=== PATIENT | female | born 1970 ===

== ENCOUNTER → 2020-06-13 14:54 | Outpatient (BNVA) | payer MEDICAID, SELFPAY | PROVIDERS: PCP Internal Medicine; Referring Provider Internal Medicine; Visit Provider Obstetrics & Gynecology | DX: D25.9 Leiomyoma of uterus, unspecified (principal); R10.2 Pelvic and perineal pain; R31.29 Other microscopic hematuria | CPT/HCPCS: 99212 ==

== ENCOUNTER 2020-08-13 12:06 | Outpatient (REF) | payer MEDICAID, SELFPAY ==
--- NOTE | 2020-08-13 | MM_ITS ---
EXAMINATION: MM SCREENING DIGITAL BREAST TOMOSYNTHESIS, BILATERAL CLINICAL INFORMATION: Screening. Asymptomatic. Family history breast cancer, mother and aunt. The lifetime risk of breast cancer based on the Tyrer-Cuzick Model is 19%. COMPARISON: Mammography: 12/30/2017, 12/18/2016, 11/08/2015 TECHNIQUE: Digital breast tomosynthesis is performed in both the craniocaudal and mediolateral oblique views along with computer-aided detection (CAD). Synthesized 2D images are generated from the tomosynthesis. FINDINGS: The breasts are heterogeneously dense, which may obscure small masses (ACR BI-RADS breast composition Category c). There are no significant masses, abnormal calcifications, or other abnormalities. There is biopsy clip marker again seen right breast 12:00 position. There is no developing density. The axilla and skin contours are unremarkable. MM/MM tomosynthesis screening BI IMPRESSION: No mammographic evidence of malignancy. ASSESSMENT: BI-RADS 1: Negative RECOMMENDATION: Routine annual mammography screening. This patient's information was entered into a reminder system with a target due date for their next mammogram.
== END 2020-08-13 12:07 | disposition home or self-care (01) ==
LOC: HO.MAMMO 12:06
PROVIDERS: PCP Internal Medicine; Visit Provider Internal Medicine
DX: Z12.31 Encounter for screening mammogram for malignant neoplasm of breast (principal)
CPT/HCPCS: 77063; 77067

== ENCOUNTER → 2020-08-22 11:16 | Outpatient (BNVA) | payer MEDICAID, SELFPAY | PROVIDERS: PCP Internal Medicine; Visit Provider Physician Assistant | DX: Z13.89 Encounter for screening for other disorder (principal) ==

== ENCOUNTER 2021-04-24 07:59 | Outpatient (REF) | payer MEDICAID, SELFPAY ==
--- NOTE | 2021-04-24 08:19 | EMG_ITS ---
This is a 51-year-old woman with a history of bilateral lower extremity intermittent numbness and tingling, right worse than left for a few months. She is not diabetic and is on no medications. PHYSICAL EXAMINATION: On examination, she is alert and oriented with normal intellectual functions. Cranial nerves II through XII are normal. Muscle tone and strength are normal in all 4 extremities. Deep tendon reflexes symmetrical, 2+, plantar response are flexor. IMPRESSION: Rule out peripheral neuropathy. Nerve conduction EMG study: Normal electrodiagnostic study of both lower extremities with no evidence of nerve entrapment or generalized peripheral neuropathy. Normal EMG of the right L4-S1 innervated muscles. MD POOJA Caballero/RAFAEL / [id number]
== END 2021-04-24 08:00 | disposition home or self-care (01) ==
LOC: HO.NEURO 07:59
PROVIDERS: PCP Internal Medicine; Visit Provider Internal Medicine
DX: R20.2 Paresthesia of skin (principal)
CPT/HCPCS: 95885; 95913

== ENCOUNTER 2021-05-15 11:16 | Outpatient (REF) | payer MEDICAID, SELFPAY ==
--- NOTE | ~2021-05-15 | US_ITS ---
EXAMINATION: US PELVIS CLINICAL INFORMATION: Excessive and frequent menstruation COMPARISON: Previous pelvic ultrasound April 2020 TECHNIQUE: Ultrasound of the pelvis is performed using both transabdominal and transvaginal transducers along with Doppler. Transvaginal imaging is performed due to inadequate visualization transabdominally. FINDINGS: Exam is significantly limited. The uterus is retroverted and retroflexed and measures 11.6 x 4.6 x 6.2 cm in dimension. The endometrium is not visualized. The previously identified anterior fundal uterine fibroid is not seen. There are nabothian cysts in the cervix. The ovaries are not seen. There is no fluid in the pelvis. US/US pelvic and transvaginal IMPRESSION: Nondiagnostic exam.
== END 2021-05-15 11:17 | disposition home or self-care (01) ==
LOC: HO.US 11:16
PROVIDERS: PCP Internal Medicine; Visit Provider Student in an Organized Health Care Education/Training Program
DX: N92.0 Excessive and frequent menstruation with regular cycle (principal)
CPT/HCPCS: 76830; 76856

== ENCOUNTER 2022-05-19 12:19 | Outpatient (REF) | payer MEDICAID, SELFPAY ==
--- NOTE | ~2022-05-19 | MM_ITS ---
EXAMINATION: MM SCREENING DIGITAL BREAST TOMOSYNTHESIS, BILATERAL CLINICAL INFORMATION: Screening. Asymptomatic. The lifetime risk of breast cancer based on the Tyrer-Cuzick Model is 12%. COMPARISON: Mammography: 08/13/2020, 12/30/2017, 12/18/2016 TECHNIQUE: Digital breast tomosynthesis is performed in both the craniocaudal and mediolateral oblique views along with computer-aided detection (CAD). Synthesized 2D images are generated from the tomosynthesis. FINDINGS: There are scattered areas of fibroglandular density (ACR BI-RADS breast composition Category b). There are no significant masses, abnormal calcifications, or other abnormalities. No developing density or architectural abnormality. Biopsy clip marker again noted 12:00 right breast. The axilla are unremarkable. No significant changes. MM/MM tomosynthesis screening BI IMPRESSION: No mammographic evidence of malignancy. ASSESSMENT: BI-RADS 1: Negative RECOMMENDATION: Routine annual mammography screening. This patient's information was entered into a reminder system with a target due date for their next mammogram.
== END 2022-05-19 12:20 | disposition home or self-care (01) ==
LOC: HO.MAMMO 12:19
PROVIDERS: PCP Internal Medicine; Visit Provider Advanced Practice Midwife
DX: Z12.31 Encounter for screening mammogram for malignant neoplasm of breast (principal)
CPT/HCPCS: 77063; 77067

== ENCOUNTER 2023-03-03 10:22 | Outpatient (REF) | payer MEDICAID, SELFPAY ==
[2023-03-03 15:42] LABS: TSH reflex Free T4 33.71 uIU/mL (0.32-4.0)
[2023-03-03 16:28] LABS: Free T4 (Free Thyroxine) 0.89 ng/dL (0.71-1.85)
== END 2023-03-03 10:23 | disposition home or self-care (01) ==
LOC: HO.CHCLDS 10:22
PROVIDERS: Visit Provider Registered Nurse
DX: E03.9 Hypothyroidism, unspecified (principal)
CPT/HCPCS: 36415; 84439; 84443

== ENCOUNTER 2023-05-22 10:20 | Outpatient (AMB) | payer MEDICAID, SELFPAY ==
--- NOTE | 2023-05-22 10:29 | HO.SPINEOV ---
Intake Intake Visit Reasons: radiculopathy Intake Note: Ms. Galindo Durham is here today c/o low back pain. MRI done @ [facility]/brought disc. 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 She is a 53-year-old female presents to the office today for evaluation of chronic low back pain that she has had since 1988. It is diffuse in her low back and is aggravated with standing. It is been coming and going for many years but seeming to get more consistent now. She has a slight amount of pain that occasionally radiates into her hamstring but primarily this is a back pain situation. She tried physical therapy. She tried Aleve, heating pads etc. with no relief. She has tried cortisone injections at [facility] in [place]. Not much success with those. She has an MRI showing some disc degeneration at L5-S1. PMH: She is prediabetic, history of GERD, osteoarthritis of the knees, hypothyroidism, high cholesterol, saphenous vein radiofrequency ablation, tubal ligation, vitamin-D deficiency, obesity, gastric banding, dysmenorrhea, TMJ Social hx: She does not smoke Medications: Ativan, atorvastatin, diclofenac, Breo, duloxetine, famotidine, levothyroxine, Singulair, MiraLax, Myrbetriq, pantoprazole, vitamin D3 Allergies: See the [facility] list for her allergies Physical exam: Morbidly obese, she has a left knee brace, no acute distress, gait, motor examination are normal Imaging review: Lumbar MRI done at [facility] in February 2023 shows some very mild disc degeneration at L5-S1 otherwise spine mostly looks normal Impression: 53-year-old female presents with chronic low back pain for 30 years, who has some very mild disc degeneration but nothing that I can explain the degree of symptoms that she is having. We reviewed her MRI together. Certainly does not raise to the level of needing surgery. I am not sure exactly where the pain is coming from. It could be a muscular source. I told her she should follow-up with her pain management team to consider further nonsurgical options. Thank you for allowing us to care for your patient. The total time spent with this visit with this patient was 45 minutes reviewing history, physical exam, lumbar imaging review, and implementation of treatment plan or further diagnostic testing Souleymane Hoskins MD,PhD [facility] Coding Level of Care Code New Pt Level 4 (30153) Diagnoses Back pain M54.9
== END 2023-05-22 11:08 | disposition home or self-care (01) ==
PROVIDERS: PCP Internal Medicine; Referring Provider Internal Medicine; Visit Provider Physician Assistant
DX: M54.9 Dorsalgia, unspecified (principal)
CPT/HCPCS: 99204

== ENCOUNTER → 2023-05-22 10:20 | Outpatient (BNVA) | payer MEDICAID, SELFPAY | PROVIDERS: PCP Internal Medicine; Visit Provider Physician Assistant | DX: M54.9 Dorsalgia, unspecified (principal) | CPT/HCPCS: 99212 ==

== ENCOUNTER 2023-05-26 10:47 | Outpatient (REF) | payer MEDICAID, SELFPAY ==
--- NOTE | ~2023-05-26 | MM_ITS ---
EXAMINATION: MM SCREENING DIGITAL BREAST TOMOSYNTHESIS, BILATERAL CLINICAL INFORMATION: Screening. Asymptomatic. COMPARISON: Mammography: This study is compared with prior exams dating back to 2016. TECHNIQUE: Digital breast tomosynthesis is performed in both the craniocaudal and mediolateral oblique views along with computer-aided detection (CAD). Synthesized 2D images are generated from the tomosynthesis. FINDINGS: The breasts are heterogeneously dense, which may obscure small masses (ACR BI-RADS breast composition Category c). There are no significant masses, abnormal calcifications, or other abnormalities. There is a tissue marker present in the right breast from prior benign percutaneous biopsy. MM/MM tomosynthesis screening BI IMPRESSION: No mammographic evidence of malignancy. ASSESSMENT: BI-RADS BI-RADS 2 - Benign Findings RECOMMENDATION: Routine annual mammography screening. 1 year F/U This examination should not preclude the clinical evaluation of a suspicious palpable abnormality. This patient's information was entered into a reminder system with a target due date for their next mammogram.
== END 2023-05-26 10:48 | disposition home or self-care (01) ==
LOC: HO.MAMMO 10:47
PROVIDERS: PCP Internal Medicine; Visit Provider Internal Medicine
DX: Z12.31 Encounter for screening mammogram for malignant neoplasm of breast (principal)
CPT/HCPCS: 77063; 77067

== ENCOUNTER → 2023-05-26 11:00 | Outpatient (BNV) | payer MEDICAID, SELFPAY | PROVIDERS: PCP Internal Medicine; Visit Provider Radiology Diagnostic Radiology | DX: Z12.31 Encounter for screening mammogram for malignant neoplasm of breast (principal) | CPT/HCPCS: 77063; 77067 ==

== ENCOUNTER 2024-02-05 09:22 | Outpatient (REF) | payer MEDICAID, SELFPAY ==
[2024-02-05 14:56] LABS: Anion Gap 14 (12-20); Blood Urea Nitrogen 10 mg/dL (9-16); Calcium 9.9 mg/dL (8.4-10.2); Carbon Dioxide 25 mmol/L (22-29); Chloride 106 mmol/L (96-108); Cholesterol 233 mg/dL (<200); Estimated Glomerular Filt Rate > 60; Glucose Random 94 mg/dL (60-115); HDL Cholesterol 45 mg/dL (>40); LDL Cholesterol Calculated 166 mg/dL (<100); Potassium 3.8 mmol/L (3.3-5.1); Sodium 141 mmol/L (135-145); Triglycerides 113 mg/dL (<150)
[2024-02-05 14:59] LABS: TSH reflex Free T4 0.08 uIU/mL (0.32-4.0)
[2024-02-05 15:50] LABS: Free T4 (Free Thyroxine) 1.47 ng/dL (0.71-1.85)
== END 2024-02-05 09:23 | disposition home or self-care (01) ==
LOC: HO.CHCLDS 09:22
PROVIDERS: PCP Internal Medicine; Referring Provider Internal Medicine; Visit Provider Internal Medicine
DX: E03.9 Hypothyroidism, unspecified (principal); R73.03 Prediabetes
CPT/HCPCS: 36415; 80048; 80061; 84439; 84443

== ENCOUNTER 2024-02-25 14:46 | Outpatient (REF) | payer MEDICAID, SELFPAY ==
[2024-02-25 18:23] LABS: Folate 6.9 ng/mL (> or = 4.0); Vitamin B12 340 pg/mL (200-900)
== END 2024-02-25 14:47 | disposition home or self-care (01) ==
LOC: HO.CHCLDS 14:46
PROVIDERS: Visit Provider Internal Medicine
DX: E03.9 Hypothyroidism, unspecified (principal); R73.03 Prediabetes
CPT/HCPCS: 36415; 82607; 82746; 84443

== ENCOUNTER 2024-03-30 10:01 | Outpatient (AMB) | payer MEDICAID, SELFPAY ==
--- NOTE | 2024-03-30 10:05 | MHC.OFFVIS ---
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 Patient reports she has less strength in the right hand and has noticed a cyst on the volar aspect of her right wrist that she noticed 2 years ago. She utilizes wrist brace throughout the day for support and says this does help her a bit. She expresses her right hand is worse than her left. She is unable to do activities such as lifting, gripping, and grasping. When lifting objects with her right hand she has dropped things so she says she if she has to lift with her right hand she supports the bottom of the object with her left for assistance. Has to brush her hair with the left hand due to lack of strength in the right. She has tried Tylenol and ibuprofen and finds no relief. Her tingling and numbness are in her 3rd, 4th, and 5th digits of her B/L hands. She feels pressure and pain at the base of her B/L thumbs. She does home exercises for her hands. Hx of surgery of right wrist, she says the incision was going horizontal along her volar wrist. EMG done on 04/24/2021. Pt is pre-diabetic. 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 The patient reports that she did have surgery on her right wrist for carpal tunnel release, although she is unable to recall the exact date of this surgery. Today, the patient reports that she is experiencing bilateral hand numbness and tingling, left worse than right, with symptoms being intermittent, but daily, and worse at night. Patient reports that this numbness and tingling affects the middle, ring, and small fingers of bilateral upper extremities. Of note, the patient also reports that she is experiencing significant stiffness and decreased [employer] strength in bilateral hands, ongoing for approximately 1-2 years. The patient reports that she previously been provided bilateral wrist braces, but she wears any time she is doing any heavy lifting or strenuous activity. Patient reports all the symptoms combined to make her daily activities, such as brushing her hair or doing her makeup, very difficult. Patient also reports that she has a small cyst on the volar aspect of her right wrist, that she reports has been there for approximately 1-2 years. The patient reports that this cyst fluctuates in size, but that she does not feel she needs any intervention for this at this time. No other acute complaints or concerns at this time. HPI Comments Details: Patient is a 53-year-old female who presents for [facility] Medical History Asthma Acid reflux Odynophagia Arthritis Chronic sinusitis Asthma Migraine headache Panic attacks Anxiety Depression Surgical History History of bilateral tubal ligation H/O abdominoplasty History of knee surgery History of carpal tunnel release History of varicose vein ligation Social History (Updated 03/30/24 @ 10:19 by MARY Tomas) Household Members: Children Alcohol intake: never Patient Tobacco Use Status: Never used Tobacco Current occupational status: unemployed and disabled Sexual orientation: Straight/Heterosexual Gender identity: Female Physical Exam Vital Signs: BMI result Body Mass Index 38.6 Extrem Other: Patient is alert, oriented, and in no acute distress. Neuro: Median, ulnar, radial nerves motor and sensory intact and sensation is normal to the tips of all digits. Vascular: Cap refill brisk Pain: Patient reports no pain to palpation at this time ROM: Range of motion of bilateral hands full and intact Skin: No lacerations or abrasions. General: No ecchymosis, erythema, or evidence of infection. Negative Tinel's at bilateral wrists Psych: Appears grossly normal Affect normal Attitude cooperative Assessment & Plan Assessment & Plan (1) Stiffness of joints of both hands: Code(s): M25.641 - Stiffness of right hand, not elsewhere classified; M25.642 - Stiffness of left hand, not elsewhere classified Category: Medical (2) Numbness and tingling in both hands: Code(s): R20.0 - Anesthesia of skin; R20.2 - Paresthesia of skin Category: Medical (3) Swelling of right wrist: Code(s): M25.431 - Effusion, right wrist Category: Medical Plan 1. Numbness and tingling of bilateral hands Symptoms intermittent, but daily, worse at night Patient has no EMG or nerve conduction study of upper extremities on file EMG and nerve conduction study ordered today to assess the health of the nerves of bilateral upper extremities Patient is amenable to this plan Patient will follow-up after nerve conduction study for review and discussion of further treatment options 2. Stiffness of bilateral hands and wrists Patient is referred to occupational hand therapy for strengthening and range of motion of bilateral hands and wrists Patient is informed that she can continue to wear her wrist braces with heavy activity, but is advised that she should not wear them while at rest, with any light activity, or bed Patient is advised that, when she is out of the braces, she should be working on range of motion of her bilateral hands and wrists Patient is amenable to this plan Patient will follow-up p.r.n. with any acute concerns 3. Swelling of left wrist Ongoing for approximately 1-2 years At this time, I believe that this area of swelling may represent a ganglion cyst on the volar aspect of the right wrist Patient reports that it does fluctuate in size, but she does not find this mass bothersome whatsoever, and does not feel that it warrants any treatment Patient is advised that if this mass continues to grow, becomes red or painful, or if she has any new concerns at this, she can follow-up with us and we can discuss treatment options Patient is amenable to this plan. Orders: Orders OT Evaluation and Treatment Today M25.641 - Stiffness of right hand, not elsewhere classified, M25.642 - Stiffness of left hand, not elsewhere classified NE nerve conduction velocity Today R20.0 - Anesthesia of skin, R20.2 - Paresthesia of skin NE electromyogram (EMG) Today R20.0 - Anesthesia of skin, R20.2 - Paresthesia of skin Coding Level of Care Code New Pt Level 3 (97306) Diagnoses Stiffness of joints of both hands M25.641; M25.642 Numbness and tingling in both hands R20.0; R20.2 Swelling of right wrist M25.431
[2024-03-30 10:08] VITALS: BMI 38.6
== END 2024-03-30 10:40 | disposition home or self-care (01) ==
PROVIDERS: PCP Internal Medicine
DX: M25.641 Stiffness of right hand, not elsewhere classified (principal); M25.642 Stiffness of left hand, not elsewhere classified; R20.0 Anesthesia of skin; R20.2 Paresthesia of skin; M25.431 Effusion, right wrist
CPT/HCPCS: 99203

== ENCOUNTER → 2024-03-30 10:01 | Outpatient (BNVA) | payer MEDICAID, SELFPAY | PROVIDERS: PCP Internal Medicine | DX: M25.641 Stiffness of right hand, not elsewhere classified (principal); M25.642 Stiffness of left hand, not elsewhere classified; R20.0 Anesthesia of skin; R20.2 Paresthesia of skin; M25.431 Effusion, right wrist | CPT/HCPCS: 99212 ==

== ENCOUNTER 2024-04-11 14:59 | Outpatient (REF) | payer MEDICAID, SELFPAY ==
[2024-04-11 16:38] LABS: Erythrocyte Sedimentation Rate 28 MM/HR (0-20)
[2024-04-12 09:08] LABS: Lyme Abs Screen <0.90 index
== END 2024-04-11 15:00 | disposition home or self-care (01) ==
LOC: HO.LAB 14:59
PROVIDERS: PCP Internal Medicine; Visit Provider Psychiatry & Neurology Neurology
DX: M79.7 Fibromyalgia (principal)
CPT/HCPCS: 36415; 85652; 86617; 86618

== ENCOUNTER 2024-04-22 09:47 | Outpatient (REF) | payer MEDICAID, SELFPAY ==
--- NOTE | 2024-04-22 09:52 | EMG_ITS ---
Chief complaint: Bilateral hand numbness History of bilateral Carpal Tunnel Syndrome, right Carpal Tunnel Syndrome surgery 10 years ago. No surgeries in the left so far. Reason for referral: Evaluate for Carpal Tunnel Syndrome Referred by: Erick SIMMS Procedure done: Bilateral upper extremities NCS/EMG Precautions and/or limitations: None The limb temperature was monitored continuously and remained between 32-36 degrees C during the performance of the NCS. Nerve Conduction Studies Anti Sensory Summary Table ?Stim Site NR Onset (ms) Norm Onset (ms) Peak (ms) Norm Peak (ms) O-P Amp (?V) Norm O-P Amp Site1 Site2 Delta-0 (ms) Dist (cm) Pradeep (m/s) Norm Pradeep (m/s) Left Median Anti Sensory (2nd Digit) Wrist ? 3.4 4.3 <3.6 16.0 >10 Wrist 2nd Digit 3.4 14.0 41 Right Median Anti Sensory (2nd Digit) Wrist ? 2.8 3.4 <3.6 33.1 >10 Wrist 2nd Digit 2.8 14.0 50 Left Ulnar Anti Sensory (5th Digit) Wrist ? 2.2 3.2 <3.7 18.2 >15.0 Wrist 5th Digit 2.2 14.0 64 Right Ulnar Anti Sensory (5th Digit) Wrist ? 2.0 3.2 <3.7 93.7 >15.0 Wrist 5th Digit 2.0 14.0 70 Motor Summary Table ?Stim Site NR Onset (ms) Norm Onset (ms) O-P Amp (mV) Norm O-P Amp iAmp (mV) Amp (1st) (%) Site1 Site2 Delta-0 (ms) Dist (cm) Praedep (m/s) Norm Pradeep (m/s) Left Median Motor (Abd Poll Brev) Wrist ? 4.0 <3.9 11.8 >4.5 13.7 100.0 Elbow Wrist 4.0 20.0 50 >45 Elbow ? 8.0 10.9 12.7 92.4 Right Median Motor (Abd Poll Brev) Wrist ? 3.4 <3.9 13.7 >4.5 17.6 100.0 Elbow Wrist 3.3 20.0 61 >45 Elbow ? 6.7 12.8 16.4 93.4 Left Ulnar Motor (Abd Dig Minimi) Wrist ? 2.6 <3.0 8.5 >5 10.1 100.0 B Elbow Wrist 3.2 18.0 56 >45 B Elbow ? 5.8 8.1 9.7 95.3 A Elbow B Elbow 1.3 10.0 77 >45 A Elbow ? 7.1 8.5 10.2 100.0 Right Ulnar Motor (Abd Dig Minimi) Wrist ? 2.6 <3.0 11.1 >5 13.7 100.0 B Elbow Wrist 3.3 19.5 59 >45 B Elbow ? 5.9 11.2 14.3 100.9 A Elbow B Elbow 1.7 10.0 59 >45 A Elbow ? 7.6 10.2 13.0 91.9 Comparison Summary Table ?Stim Site NR Peak (ms) Norm Peak (ms) P-T Amp (?V) Site1 Site2 Delta-P (ms) Norm Delta (ms) Right Median/Radial Dig I Comparison (Digit 1 - 10cm) Median ? 2.8 <2.9 41.9 Median Radial 0.3 Radial ? 2.5 <2.8 10.6 EMG ?Side Muscle Nerve Root Ins Act Fibs Psw Amp Dur Poly Recrt Int Pat Comment Right 1stDorInt Ulnar C8-T1 Nml Nml Nml Nml Nml 0 Nml Complete Right FlexCarRad Median C6-7 Nml Nml Nml Nml Nml 0 Nml Complete Right Biceps Musculocut C5-6 Nml Nml Nml Nml Nml 0 Nml Complete Right Triceps Radial C6-7-8 Nml Nml Nml Nml Nml 0 Nml Complete Right Deltoid Axillary C5-6 Nml Nml Nml Nml Nml 0 Nml Complete Left 1stDorInt Ulnar C8-T1 Nml Nml Nml Nml Nml 0 Nml Complete Left FlexCarRad Median C6-7 Nml Nml Nml Nml Nml 0 Nml Complete Left Biceps Musculocut C5-6 Nml Nml Nml Nml Nml 0 Nml Complete Left Triceps Radial C6-7-8 Nml Nml Nml Nml Nml 0 Nml Complete Left Deltoid Axillary C5-6 Nml Nml Nml Nml Nml 0 Nml Complete FINDINGS: Left median motor nerve showed prolonged distal latency, normal amplitude and normal conduction velocity. Left median sensory nerve showed prolonged peak latency. All other nerves tested were within normal. Concentric needle EMG was performed in selected muscles of the bilateral upper extremities. Study did not reveal signs of electric abnormalities as shown in the table above. IMPRESSION: 1. This is an abnormal study. 2. There is electrodiagnostic evidence for left moderate-severe median neuropathy at the wrist, consistent with carpal tunnel syndrome. 3. There is no electrodiagnostic evidence for ulnar neuropathy, brachial plexopathy, or cervical radiculopathy. 4. There is no electrodiagnostic evidence for median neuropathy on the right. Thank you for your kind referral. Ada Butcher MD, [facility] Board Certified, [place] [employer] and [employer] (ABPMR) Board Certified, [place] Board of Electrodiagnostic Medicine (ABEM) CODIN [id number] x 2 MTDD
== END 2024-04-22 09:48 | disposition home or self-care (01) ==
LOC: HO.NEURO 09:47
PROVIDERS: PCP Internal Medicine
DX: R20.0 Anesthesia of skin (principal); R20.2 Paresthesia of skin
CPT/HCPCS: 95886; 95911

== ENCOUNTER → 2024-04-22 09:52 | Outpatient (BNV) | payer MEDICAID, SELFPAY | PROVIDERS: PCP Internal Medicine; Visit Provider Physical Medicine & Rehabilitation | DX: G56.02 Carpal tunnel syndrome, left upper limb (principal) | CPT/HCPCS: 95886; 95911 ==

== ENCOUNTER 2024-05-13 10:04 | Outpatient (AMB) | payer MEDICAID, SELFPAY ==
--- NOTE | 2024-05-13 10:05 | MHC.OFFVIS ---
Vital Signs 05/13/24 10:09 Height 5 ft 4 in Weight 253 lb BMI 43.4 Handedness Left Intake Visit Reasons: OV- B/L hands EMG review Intake Note: Haley is a 54 year old left hand dominant female who presents today for an EMG review of her bilateral hands. EMG was done on 04/22/2024. Patient is willing to discuss surgical treatment. Allergies ciprofloxacin [From Cipro] Allergy (Mild, Unverified 05/13/24 10:10) RASH peanut [PEANUT] Allergy (Unknown, Unverified 05/13/24 10:10) ANAPHYLAXIS pollen Allergy (Unknown, Uncoded 05/13/24 10:10) unknown reaction from unknown medicati Allergy (Unknown, Uncoded 05/13/24 10:10) unknown unknown antibiotic Allergy (Unknown, Uncoded 05/13/24 10:10) itching, rash HPI HPI OV- B/L hands EMG review: Details: Patient is a 54-year-old female who presents for EMG review of bilateral hands. Patient reports that her numbness in bilateral hands is now constant, daily, and worse at night. The patient reports that she did experience 1 acute event, where she was driving in experienced a significant pain in her left hand, causing her to release from the steering wheel. 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 No other acute complaints or concerns at this time. [facility] Medical History Asthma Acid reflux Odynophagia Arthritis Chronic sinusitis Asthma Migraine headache Panic attacks Anxiety Depression Surgical History History of bilateral tubal ligation H/O abdominoplasty History of knee surgery History of carpal tunnel release History of varicose vein ligation Social History Household Members: Children Alcohol intake: never Patient Tobacco Use Status: Never used Tobacco Current occupational status: unemployed and disabled Sexual orientation: Straight/Heterosexual Gender identity: Female Review of Systems Const All systems reviewed & are unremarkable except as noted in HPI and below Physical Exam Vital Signs: BMI result Body Mass Index 43.4 Extrem Other: Patient is alert, oriented, and in no acute distress. Neuro: Patient reports diminished sensation to the tips of the median nerve distribution of the left hand Vascular: Cap refill brisk Pain: Patient reports no pain to palpation at this time ROM: Range of motion of bilateral hands full and intact Skin: No lacerations or abrasions. General: No ecchymosis, erythema, or evidence of infection. Negative Tinel's at bilateral wrists Psych: Appears grossly normal Affect normal Attitude cooperative Results Reviewed Results Reviewed: Nerve conduction study performed on 04/22/2024 IMPRESSION: 1. This is an abnormal study. 2. There is electrodiagnostic evidence for left moderate-severe median neuropathy at the wrist, consistent with carpal tunnel syndrome. 3. There is no electrodiagnostic evidence for ulnar neuropathy, brachial plexopathy, or cervical radiculopathy. 4. There is no electrodiagnostic evidence for median neuropathy on the right. Thank you for your kind referral. Ada Butcher MD, [facility] Assessment & Plan Assessment & Plan (1) Numbness and tingling of right hand: Code(s): R20.0 - Anesthesia of skin; R20.2 - Paresthesia of skin Category: Medical (2) Carpal tunnel syndrome, left: Code(s): G56.02 - Carpal tunnel syndrome, left upper limb Category: Medical Plan 1. Carpal tunnel syndrome, left, moderate to severe Symptoms constant, daily, worse at night I educated the patient about the condition. I discussed both operative and nonoperative treatment options. The patient would like to proceed with surgery. The risks and benefits of operative treatment were discussed with the patient and the patient wishes to proceed with surgery. These risks include, but are not limited to, risk of damage to blood vessels, nerves, tendons, infection, recurrence, incomplete relief of preoperative symptoms, persistent pain, possible need for further surgery, and the risks associated with regional blocks and/or anesthesia. Plan is to take the patient to the operating room at some point in the next few weeks for the following procedures: 1. Left carpal tunnel release under local anesthesia All of the preoperative paperwork including the consent was discussed today. All of the patient's questions were answered in the clinic today. The patient understands that they will be in contact with our neurosurgical physician assistant to discuss scheduling their procedure. Patient denies diabetes, blood thinners, asthma, heart issues, lung issues, kidney issues, or current smoking. 1. Numbness and tingling of right hand EMG negative Patient is informed that if she continues to experience numbness and tingling symptoms in her right hand, we can repeat the EMG in approximately 6 months Patient is amenable to this plan In the meantime, patient is educated that she should continue with conservative symptom management measures previously discussed. Patient will follow-up as needed with any acute concerns Coding Level of Care Code Est Pt Level 4 (28773) Diagnoses Numbness and tingling of right hand R20.0; R20.2 Carpal tunnel syndrome, left G56.02
[2024-05-13 10:09] VITALS: BMI 43.4
== END 2024-05-13 10:48 | disposition home or self-care (01) ==
PROVIDERS: PCP Internal Medicine
DX: R20.0 Anesthesia of skin (principal); R20.2 Paresthesia of skin; G56.02 Carpal tunnel syndrome, left upper limb
CPT/HCPCS: 99214

== ENCOUNTER → 2024-05-13 10:04 | Outpatient (BNVA) | payer MEDICAID, SELFPAY | PROVIDERS: PCP Internal Medicine | DX: G56.02 Carpal tunnel syndrome, left upper limb (principal); R20.0 Anesthesia of skin; M79.642 Pain in left hand; R20.2 Paresthesia of skin | CPT/HCPCS: 99212 ==

== ENCOUNTER 2024-05-31 10:52 | Outpatient (REF) | payer MEDICAID, SELFPAY ==
--- NOTE | ~2024-05-31 | MM_ITS ---
EXAMINATION: MM SCREENING DIGITAL BREAST TOMOSYNTHESIS, BILATERAL CLINICAL INFORMATION: Screening. Asymptomatic. COMPARISON: Mammography: Comparison is made with available priors TECHNIQUE: Digital breast mammography with tomosynthesis is performed in both the craniocaudal and mediolateral oblique views along with computer-aided detection (CAD). FINDINGS: The breasts are heterogeneously dense, which may obscure small masses (ACR BI-RADS breast composition Category c). Left: Focal asymmetry upper outer breast middle depth. No suspicious calcifications or other abnormal findings. Right: Marker clip in the upper central breast posterior depth. There are no significant masses, abnormal calcifications, or other abnormalities. MM/MM tomosynthesis screening BI IMPRESSION: Additional imaging is recommended ASSESSMENT: BI-RADS BI-RADS 0 - Incomplete: Needs additional Imaging. RECOMMENDATION: 1. Additional views of the left breast 2. Targeted ultrasound if warranted after review of the additional views. 3. Radiology department staff will contact the patient for additional imaging. Additional Imaging required This examination should not preclude the clinical evaluation of a suspicious palpable abnormality. This patient's information was entered into a reminder system with a target due date for their next mammogram. Electronically signed by: Lara Dennis DO 06/13/2024 05:22 PM EDT
== END 2024-05-31 10:53 | disposition home or self-care (01) ==
LOC: HO.MAMMO 10:52
PROVIDERS: PCP Internal Medicine; Visit Provider Internal Medicine
DX: Z12.31 Encounter for screening mammogram for malignant neoplasm of breast (principal)
CPT/HCPCS: 77063; 77067

== ENCOUNTER → 2024-05-31 11:00 | Outpatient (BNV) | payer MEDICAID, SELFPAY | PROVIDERS: PCP Internal Medicine; Visit Provider Internal Medicine | DX: Z12.31 Encounter for screening mammogram for malignant neoplasm of breast (principal) | CPT/HCPCS: 77063; 77067 ==

== ENCOUNTER 2024-06-22 08:24 | Outpatient (REF) | payer MEDICAID, SELFPAY ==
--- NOTE | ~2024-06-22 | MM_ITS ---
EXAMINATION: MM DIAGNOSTIC DIGITAL BREAST TOMOSYNTHESIS, LEFT CLINICAL INFORMATION: Evaluate focal asymmetry upper outer breast, mid depth, seen on screening exam. 54-year-old female. COMPARISON: Mammography: 05/31/2024, 05/26/2023, 05/19/2022, 08/13/2020, and exams dating back to 2018. TECHNIQUE: Digital breast tomosynthesis is performed in the following views: 3-D spot compression left CC and MLO views. Computer-aided diagnosis was used for this study. FINDINGS: There are scattered areas of fibroglandular density (ACR BI-RADS breast composition Category b). The focal asymmetry in the central, mid, slightly lateral left breast effaces completely on spot compression views, consistent with superimposition artifact of normal overlapping tissues. There is no persistent mass, suspicious asymmetric density or architectural distortion, or other abnormality. No suspicious findings left breast. MM/MM tomosynthesis added views L IMPRESSION: -There is no evidence of malignancy in the left breast. -There are no persistent suspicious findings as discussed above. -Recommend the patient resume routine annual screening mammography in one year. ASSESSMENT: BI-RADS BI-RADS 1 - Negative RECOMMENDATION: 1 year F/U Results were provided to the patient at time of visit by the technologist. This patient's information was entered into a reminder system with a target due date for their next mammogram. Electronically signed by: Micheal Keating MD 06/22/2024 09:28 AM [facility]
== END 2024-06-22 08:25 | disposition home or self-care (01) ==
LOC: HO.MAMMO 08:24
PROVIDERS: PCP Internal Medicine; Visit Provider Internal Medicine
DX: N64.89 Other specified disorders of breast (principal)
CPT/HCPCS: 77061; 77065

== ENCOUNTER → 2024-06-22 09:00 | Outpatient (BNV) | payer MEDICAID, SELFPAY | PROVIDERS: PCP Internal Medicine; Visit Provider Radiology Diagnostic Radiology | DX: R92.8 Other abnormal and inconclusive findings on diagnostic imaging of breast (principal) | CPT/HCPCS: 77061; 77065 ==

== ENCOUNTER → 2024-07-07 11:56 | Day surgery (SDC) | payer MEDICAID, SELFPAY | LOC: HO.SSS 11:57 | PROVIDERS: PCP Internal Medicine; Visit Provider Orthopaedic Surgery | DX: G56.02 Carpal tunnel syndrome, left upper limb (principal); Z53.20 Procedure and treatment not carried out because of patient's decision for unspecified reasons | CPT/HCPCS: J0171; J2003 ==

== ENCOUNTER 2024-07-18 08:53 | Day surgery (SDC) | payer MEDICAID, SELFPAY ==
[2024-07-17 16:36] VITALS: BMI 43.9
[2024-07-18 10:04] VITALS: BP 132/84; PULSE 78; RESP 19; TEMP 36.4; O2SAT 97
--- NOTE | 2024-07-18 10:53 | MHC.SHP ---
Pre-Procedural Eval Section A - 24 Hr Update-Section A only Date of Service: 07/18/24 The patient is an INPATIENT: No Changes since office visit: No Cold of Flu in the past 2 weeks, No New Medical Problems, No Changes in Medication and No Patient answered all questions The patient has been examined within 24 hours of the surgical procedure. The History & Physical has been completed within 30 days and I have reviewed it.: Yes Section B - Complete if H&P > 30 days Chief Complaint: Carpal tunnel syndrome, left upper limb Allergies: Allergies Allergy/AdvReac Type Severity Reaction Status Date / Time ciprofloxacin [From Cipro] Allergy Mild RASH Unverified 05/13/24 10:10 peanut [PEANUT] Allergy Unknown ANAPHYLAXIS Unverified 05/13/24 10:10 pollen Allergy Unknown unknown Uncoded 05/13/24 10:10 reaction from unknown Allergy Unknown unknown Uncoded 05/13/24 10:10 medicati unknown antibiotic Allergy Unknown itching, Uncoded 05/13/24 10:10 rash Plan Diagnosis/Plan: Unchanged I have reviewed the history and physical and performed a pertinent physical examination on my patient. No changes have occurred unless specified. Time Spent With Patient Time: Total time managing care of this patient today ____ minutes.
--- NOTE | 2024-07-18 10:54 | W.PM.OPN ---
Operative Note Operative Note Date of Service: 07/18/24 Narrative: Preop diagnosis: 1. Left Carpal tunnel syndrome Postop diagnosis: same Procedure: 1. Left Carpal tunnel release Surgeon: Carissa Dale MD Livestock Agent: None Anesthesia: local block using 1% lidocaine with epinephrine Findings: Thickened transverse carpal ligament. EBL: Less than 5 mL Specimens: None Complications: None Disposition: Brought to recovery room in stable condition Plan: Follow-up for 10-14 days for wound check and suture removal Indications: The patient is 54 years old, with left carpal tunnel syndrome that has been unresponsive to nonoperative management. The risks and benefits of operative treatment including but not limited to risk of damage to blood vessels, nerves, tendons, infection, persistent pain, persistent symptoms, or possible need for additional surgery were discussed with the patient and the patient wishes to proceed with surgery. Procedure: Once consent was obtained a local block was performed using a combination of 1% lidocaine with epinephrine. The patient was then brought back to the operating suite and placed on the operative table in supine position. The left upper extremity was prepped and draped in a standard surgical fashion. Once assured that we had a good block, a 2.0 cm longitudinal incision was made centered over the carpal tunnel. The incision was made through the skin to the subcutaneous tissues using a #15 blade. Dissection was made down to the level of the transverse carpal ligament with care being taken to protect the palmar cutaneous nerve. Once the transverse carpal ligament was clearly visualized, a longitudinal incision was made in the transverse carpal ligament 1st using a #15 blade, then using tenotomy scissors under direct visualization. Care was taken to look for and protect the motor branch of the median nerve when seen in this area. Once satisfied with our carpal tunnel release the wound was copiously irrigated with normal saline and hemostasis was obtained with a brief period of local pressure. The skin edges were reapproximated with some 5.0 nylon suture material and a sterile dressing was applied. The patient appears to have tolerated the procedure well and with no complications. All digits were well vascularized at the conclusion of the case.
[2024-07-18 12:31] VITALS: BP 144/88; PULSE 82; RESP 20; O2SAT 97
== END 2024-07-18 12:33 | disposition home or self-care (01) ==
PROVIDERS: PCP Internal Medicine; Visit Provider Orthopaedic Surgery
PROC: (CPT 64721; principal; 2024-07-18 10:20)
DX: G56.02 Carpal tunnel syndrome, left upper limb (principal); R20.0 Anesthesia of skin; R20.2 Paresthesia of skin; M79.642 Pain in left hand; M19.90 Unspecified osteoarthritis, unspecified site; J45.909 Unspecified asthma, uncomplicated; J32.9 Chronic sinusitis, unspecified; F32.A Depression, unspecified; F41.9 Anxiety disorder, unspecified; F41.0 Panic disorder [episodic paroxysmal anxiety]; Z79.899 Other long term (current) drug therapy; Z88.0 Allergy status to penicillin; Z91.010 Allergy to peanuts; Z56.0 Unemployment, unspecified; Z98.890 Other specified postprocedural states
CPT/HCPCS: 64721; J0171; J2003

== ENCOUNTER → 2024-07-18 08:53 | Outpatient (BNV) | payer MEDICAID, SELFPAY | PROVIDERS: PCP Internal Medicine; Visit Provider Orthopaedic Surgery | DX: G56.01 Carpal tunnel syndrome, right upper limb (principal) | CPT/HCPCS: 64721 ==

== ENCOUNTER 2024-08-03 12:52 | Outpatient (AMB) | payer MEDICAID, SELFPAY ==
--- NOTE | 2024-08-03 13:07 | MHC.OFFVIS ---
Intake Visit Reasons: PO LT CTR 07/18/24 AR Intake Note: Haley is a 54 year old left hand dominant female who presents today for a post operative s/p Left Carpal Tunnel Release DOS: 07/18/24 w/ Dr Dale. Patient reports numbness and tingling that s still presents at night. She states she is having pain around her incision site and some swelling. Allergies ciprofloxacin [From Cipro] Allergy (Mild, Unverified 05/13/24 10:10) RASH peanut [PEANUT] Allergy (Unknown, Unverified 05/13/24 10:10) ANAPHYLAXIS pollen Allergy (Unknown, Uncoded 05/13/24 10:10) unknown reaction from unknown medicati Allergy (Unknown, Uncoded 05/13/24 10:10) unknown unknown antibiotic Allergy (Unknown, Uncoded 05/13/24 10:10) itching, rash HPI HPI PO LT CTR 07/18/24 AR: Details: Patient is a 54-year-old female who presents for postoperative evaluation status post left carpal, DOS 07/18/2024. Today, the patient reports that she is still experiencing numbness and tingling in the left hand, but it has improved from before surgery. Patient also reports that she has some pain around the incision site. No other acute complaints or concerns at this time. [facility] Medical History Asthma Acid reflux Odynophagia Arthritis Chronic sinusitis Asthma Migraine headache Panic attacks Anxiety Depression Surgical History History of bilateral tubal ligation H/O abdominoplasty History of knee surgery History of carpal tunnel release History of varicose vein ligation Social History Household Members: Children Alcohol intake: never Patient Tobacco Use Status: Never used Tobacco Current occupational status: unemployed and disabled Sexual orientation: Straight/Heterosexual Gender identity: Female Review of Systems Const All systems reviewed & are unremarkable except as noted in HPI and below Physical Exam Extrem Other: Patient is alert, oriented, and in no acute distress. Neuro: Patient reports diminished sensation to the tips of the median nerve distribution of the left hand Vascular: Cap refill brisk Pain: Tenderness to palpation around the incision site in the volar left wrist ROM: Range of motion of bilateral hands full and intact Skin: Well-approximated and well healing incision noted on the volar L wrist No erythema, edema, drainage at this time General: No ecchymosis, erythema, or evidence of infection. Psych: Appears grossly normal Affect normal Attitude cooperative Assessment & Plan Assessment & Plan (1) Carpal tunnel syndrome, left: Code(s): G56.02 - Carpal tunnel syndrome, left upper limb Category: Medical Plan 1. Carpal tunnel syndrome, left S/P CTR DOS 07/18/24 Patient appears to be recovering well post operatively Patient is educated about the typical recovery course Patient is educated that she appears to be recovering well post-operatively, but that she appears to be experiencing a hypersensitivity reaction at her incision Patient is referred to OT for desensitization and ROM/strengthening of L hand Patient is amenable to this plan Patient will follow up as needed with any acute concerns Coding Level of Care Code Global (50755) Diagnoses Carpal tunnel syndrome, left G56.02
== END 2024-08-03 13:36 | disposition home or self-care (01) ==
PROVIDERS: PCP Internal Medicine
DX: G56.02 Carpal tunnel syndrome, left upper limb (principal)
CPT/HCPCS: 99024

== ENCOUNTER → 2024-08-03 12:52 | Outpatient (BNVA) | payer MEDICAID, SELFPAY | PROVIDERS: PCP Internal Medicine | DX: Z47.89 Encounter for other orthopedic aftercare (principal); Z98.890 Other specified postprocedural states | CPT/HCPCS: 99212 ==

== ENCOUNTER 2024-08-31 08:19 | Outpatient (REF) | payer MEDICAID, SELFPAY | END 2024-08-31 08:20 | disposition home or self-care (01) | LOC: HO.HOSX 08:19 | DX: Z13.89 Encounter for screening for other disorder (principal) ==

== ENCOUNTER 2024-11-18 13:34 | Outpatient (REF) | payer MEDICAID, SELFPAY ==
--- NOTE | ~2024-11-18 | XR_ITS ---
EXAMINATION: XR SHOULDER 2 OR MORE VIEWS LEFT HISTORY: Acute on chronic left shoulder pain with limited mobility COMPARISON: There are no prior studies available for comparison. FINDINGS: Four views of the left shoulder are submitted. Osseous mineralization is normal. There is no fracture or dislocation. The glenohumeral joint is maintained. There is mild narrowing of the AC joint. Tiny calcification adjacent to the humeral head may be related to the rotator cuff. XR/XR shoulder LT min 2V IMPRESSION: Mild narrowing of the AC joint. Probable rotator cuff calcification. Electronically signed by: Peter Shaffer MD 11/21/2024 01:56 PM EDT
--- OUTSIDE RECORDS SUMMARY | 2024-11-18 15:26 | XMS_ITS | Encounter Summary ---
Author Organization [employer] Address [address] [place] [address] [address] [place] [address] Care Team Providers Care Cardroom Supervisor Name Role Phone Pj Crenshaw MD Primary Care Prov ider Encounter Details Date Type Department Care Team ([facility] Contact Info) Description 05/18/2023 Telephone [facility] MED & PEDS [address] [place], [place] [phone] Pj Crenshaw MD [address] [place] [address] Social History Tobacco Use Types Packs/Day Years Used Date Smoking Tobacco: Never Passive Smoke Exposure: Never Smokeless Tobacco: Never Alcohol Use Standard Drinks/Week Comments Never 0 (1 standard drink = 0.6 oz pur e alcohol) Depression Answer Date Recorded Patient Health Questionnaire-9 Score 2 11/19/2022 Depression Answer Date Recorded Patient Health Questionnaire-2 Score 2 11/19/2022 Comments No Sex and Gender Information Value Date Recorded Sex Assigned at Female 06/16/2022 10:20 AM EDT Legal Sex Female 10:20 AM EDT Gender Identity Female 06/16/2022 10:20 AM EDT Sexual Orientation Straight 06/16/2022 10 :20 AM EDT documented as of this encounter Miscellaneous Notes * Telephone Encounter - Randa Ly - 05/18/2023 10:38 AM EDT TC from pt requesting a call back regarding last message . documented in this encounter Plan of Treatment Upcoming Encounters Date Type Department Care Team (Late st Contact Info) Description 11/24/2024 9:15 AM EDT Office Visit [facility] MED & PEDS [address] [place] [address] Alma Moseley, SHAVON [address] [place] [address] documented as of this encounter Visit Diagnoses Not on filedocumented in this encounter Additional Health Concerns Assessment Noted Time PHQ-9 Depression Total Score: 2 11/20/19 23 8:47 AM EDT documented as of this encounter Care Teams Cardroom Supervisor Relationship Specialty Start Date End Date Pj Crenshaw MD [address] [place] [address] PCP - General Internal Medicine 01/15/20 documented as of this encounter
--- OUTSIDE RECORDS SUMMARY | 2024-11-18 15:26 | XMS_ITS | Encounter Summary ---
Author Organization [employer] Address [address] [place] [id number] Care Team Providers Care Corduroy Cutter Operator Name Role Phone Pj Crenshaw MD Primary Care Prov ider Reason for Visit * Reason Onset Date Comments Med Refill 08/12/2022 Encounter Details Date Type Department Care Team ([facility] st Contact Info) Description 08/12/2022 Telephone [facility] CH[facility] MED & PEDS [address] [place], [place] [phone] Pj Crenshaw MD [address] [place] [address] Med Refill Social History Tobacco Use Types Packs/Day Years Used Date Smoking Tobacco: Never Assessed Comments Unknown Sex and Gender Information Value Date Recorded Sex Assigned at Female 06/16/2022 10:20 AM EDT Legal Sex Female 10:20 AM EDT Gender Identity Female 06/16/2022 10:20 AM EDT Sexual Orientation Straight 06/16/2022 10 :20 AM EDT COVID-19 Exposure Response Date Recorded In the last 10 days, have yo u been in contact with someone who was confirmed or suspected to have Coronavirus/COVID-19? No / Unsure 08/04/2022 1:44 PM EST documented as of this encounter Miscellaneous Notes * Telephone Encounter - Randa Ly - 08/12/2022 2:10 PM EST Tc from pt requesting med refill on medication chlorthalidone 25 mg , Atorvastatin 20mg Famotidine 20 mg Multivitamin With Iron Docusate Sodium 100 mg Please send to [address] documented in this encounter Plan of Treatment Upcoming Encounters Date Type Department Care Team ([facility] st Contact Info) Description 11/24/2024 9:15 AM EDT Office Visit [facility] MED & PEDS [address] [place], [place] [phone] Alma Moseley, SHAVON [address] [place] [address] documented as of this encounter Visit Diagnoses Not on filedocumented in this encounter Care Teams Corduroy Cutter Operator Relationship Specialty Start Date End Date Pj Crenshaw MD [address] [place] [address] PCP - General Internal Medicine 01/15/20 documented as of this encounter
--- OUTSIDE RECORDS SUMMARY | 2024-11-18 15:26 | XMS_ITS | Encounter Summary ---
Author Organization [email or web address] Address [address] [facility] [address] [place] [address] Care Team Providers Care Shared Services And Outsourcing Manager Name Role Phone Pj Crenshaw MD Primary Care Prov ider Encounter Details Date Type Department Care Team ([facility] st Contact Info) Description 05/09/2024 Orders Only [facility] CHC MED & PEDS [address] [place] [address] ProviderKarly MD Social History Tobacco Use Types Packs/Day Years Used Date Smoking Tobacco: Never Passive Smoke Exposure: Never Smokeless Tobacco: Never Alcohol Use Standard Drinks/Week Comments Never 0 (1 standard drink = 0.6 oz pur e alcohol) Depression Answer Date Recorded Patient Health Questionnaire-9 Score 14 01/19/2024 Patient Health Questionnaire-9 Score 14 01/19/2024 Last PHQ-9: Questionnaire Data Not on file 0 01/19/2024 Housing Stability Answer Date Recorded What is your housing situation today? I have doug gleason 01/19/[address] you li ve. Do you have problems with any of the following? None of the above 01/19/2024 Food Insecurity Answer Date Recorded Within the past 12 months, y ou worried that your food would run out before you got money to buy more: Never True 01/19/2024 Within the past 12 months,th e food you bought just didn't last and you didn't have enough money to get more: Never True 11/2023 Transportation Answer Date Recorded In the past 12 months, has l ack of transportation kept you from medical appts, meetings, work or from getting things needed for daily living? No 01/19/2024 Utilities Answer Date Recorded In the past 12 months, has t he electric, gas, oil or water company threatened to shut off services in your home? No 01/19/2024 Depression Answer Date Recorded Patient Health Questionnaire-2 Score 4 01/19/2024 Comments No Sex and Gender Information Value Date Recorded Sex Assigned at Female 06/16/2022 10:20 AM EDT Legal Sex Female 10:20 AM EDT Gender Identity Female 06/16/2022 10:20 AM EDT Sexual Orientation Straight 06/16/2022 10 :20 AM EDT documented as of this encounter Plan of Treatment Upcoming Encounters Date Type Department Care Team (Late st Contact Info) Description 11/24/2024 9:15 AM EDT Office Visit [facility] CHC MED & PEDS [address] [place] [address] Alma Moseley, CNM [address] [place] [address] documented as of this encounter Procedures Procedure Name Priority Date/Time Associated Diagnosis Comments BI MAMMOGRAM SCREENING TOMOSYNTHESIS BILATERAL Routine 05/31/2024 11:00 AM EDT TSH W/REFLEX TO FT4 Routine 05/05/2024 8 :32 AM EDT documented in this encounter Results * BI Mammogram Screening Tomosynthesis Bilateral (05/31/2024 11:00 AM EDT) Anatomical Region Laterality Modality Breast Bilateral Mammography 05/31/2024 11:0 0 AM EDT Narrative 06/13/2024 5:26 PM EDT ? [facility] ? [address] ?[place] [address] ? Mammography Report ? Signed with Addenda ? Patient: Medley Durham,Haley J ?MR#: ?? [id number] ? : 1970 ?Acct:[id number] ? Age/Sex: 54 / F ?ADM Date: 10/15/24 ? Loc: HO.MAMMO ? Attending Dr: Pj Peguero MD ? Ordering Physician: Pj Crenshaw MD ? Results: 0Incomplete: Needs Additional Imaging ?? Evaluation ? Date of Service: 05/31/24 ?Follow Up: Additional Imagi ?? ng ? Procedure(s): MM tomosynthesis screening BI ?? Accession Number(s): [id number] ? cc: Pj Crenshaw MD ?ADDENDUM ? ADDENDUM #1 ? ADDENDUM: ? Due to a software issue related to the original report, this case has ?? been reviewed again and the original findings and recommendations ?? remain the same. ? Electronically signed by: ??Lara Dennis DO ??06/17/2024 10:13 AM EDT ?? RP ? Addendum Dictated By: ?Lara Dennis, DO ? Addendum Signed By: ? <Electronically signed by Lara Dennis, DO in OV> ? 06/17/24 1013 ?? Addendum Cosigned By: ? DD/ ? TD/TT: 05/31/24 ? EXAMINATION: ?? MM SCREENING DIGITAL BREAST TOMOSYNTHESIS, BILATERAL ? CLINICAL INFORMATION: ? Screening. Asymptomatic. ? COMPARISON: ?? Mammography: Comparison is made with available priors ? TECHNIQUE: ?? Digital breast mammography with tomosynthesis is performed in both the ?? craniocaudal and mediolateral oblique views along with computer-aided ?? detection (CAD). ? FINDINGS: ?? The breasts are heterogeneously dense, which may obscure small masses ?? (ACR BI-RADS breast composition Category c). ?? Left: ?? Focal asymmetry upper outer breast middle depth. ?? No suspicious calcifications or other abnormal findings. ? Right: ?? Marker clip in the upper central breast posterior depth. ?? There are no significant masses, abnormal calcifications, or other ?? abnormalities. ? MM/MM tomosynthesis screening BI ?? IMPRESSION: ?? Additional imaging is recommended ? ASSESSMENT: ? BI-RADS BI-RADS 0 - Incomplete: Needs additional Imaging. ? RECOMMENDATION: ?? 1. Additional views of the left breast ?? 2. Targeted ultrasound if warranted after review of the additional ?? views. ?? 3. Radiology department staff will contact the patient for additional ?? imaging. ? Additional Imaging required ? This examination should not preclude the clinical evaluation of a ?? suspicious palpable abnormality. ? This patient's information was entered into a reminder system with a ?? target due date for their next mammogram. ? Electronically signed by: ??Lara Dennis DO ??06/13/2024 05:22 PM EDT ? Dictated By: ?Lara Dennis DO ? Signed By: ?<Electronically signed by Lara Dennis, DO in OV> ? 06/13/24 1722 ? DD/ 1100 ? TD/TT: 05/31/24 1114 ? Mold Swabber: ? Procedure Note [place], Image - 06/17/2024 [facility] [address] [place] [address] [place] [address] Mammography Report Signed with Ministerio Patient: Haley Valdovinos JMR#: [id number] : 1970Acct:[id number] Age/Sex: 54 / FADM Date: 05/31/24 Loc: [facility] Attending Dr: Pj Peguero MD Ordering Physician: Pj Crenshaw MD Results: 0Incomplete: Needs Additional Imaging Evaluation Date of Service: 05/31/24Follow Up: Additional Imagi ng Procedure(s): MM tomosynthesis screening BI Accession Number(s): [id number] cc: Pj Crenshaw MD ADDENDUM ADDENDUM #1 ADDENDUM: Due to a software issue related to the original report, this case has been reviewed again and the original findings and recommendations remain the same. Electronically signed by: Lara Dennis DO 06/17/2024 10:13 AM EDT RP Addendum Dictated By: Lara Dennis DO Addendum Signed By: <Electronically signed by DO Amna in OV> 06/17/24 1013 Addendum Cosigned By: DD/ TD/TT: 05/31/24 EXAMINATION: MM SCREENING DIGITAL BREAST TOMOSYNTHESIS, BILATERAL CLINICAL INFORMATION: Screening. Asymptomatic. COMPARISON: Mammography: Comparison is made with available priors TECHNIQUE: Digital breast mammography with tomosynthesis is performed in both the craniocaudal and mediolateral oblique views along with computer-aided detection (CAD). FINDINGS: The breasts are heterogeneously dense, which may obscure small masses (ACR BI-RADS breast composition Category c). Left: Focal asymmetry upper outer breast middle depth. No suspicious calcifications or other abnormal findings. Right: Marker clip in the upper central breast posterior depth. There are no significant masses, abnormal calcifications, or other abnormalities. MM/MM tomosynthesis screening BI IMPRESSION: Additional imaging is recommended ASSESSMENT: BI-RADS BI-RADS 0 - Incomplete: Needs additional Imaging. RECOMMENDATION: 1. Additional views of the left breast 2. Targeted ultrasound if warranted after review of the additional views. 3. Radiology department staff will contact the patient for additional imaging. Additional Imaging required This examination should not preclude the clinical evaluation of a suspicious palpable abnormality. This patient's information was entered into a reminder system with a target due date for their next mammogram. Electronically signed by: Lara Dennis DO 06/13/2024 05:22 PM EDT RP Dictated By: Lara Dennis DO Signed By: <Electronically signed by Lara Dennis DO in OV> 06/13/24 1722 DD/ 99 TD/TT: 05/31/24 1114 Mold Swabber: Pj Peguero MD IMG BI PROCEDURES Edited Result - Final * TSH with Reflex to Free T4 (05/05/2024 8:32 AM EDT) Blood Venous blood specimen / Unknown Historical Provider LAB BLOOD ORDERABLES Winter l Result documented in this encounter Visit Diagnoses Not on filedocumented in this encounter Additional Health Concerns Assessment Noted Time PHQ-9 Depression Total Score: 14 024 3:34 PM EDT documented as of this encounter Care Teams Shared Services And Outsourcing Manager Relationship Specialty Start Date End Date Pj Crenshaw MD [address] [place] [address] PCP - General Internal Medicine 01/15/20 documented as of this encounter
--- OUTSIDE RECORDS SUMMARY | 2024-11-18 15:26 | XMS_ITS | Encounter Summary ---
Author Organization [employer] Address [address] [facility] [address] [place] [address] Care Team Providers Care Academic Program Specialist Name Role Phone Pj Crenshaw MD Primary Care Prov ider Encounter Details Date Type Department Care Team ([facility] st Contact Info) Description 12/16/2023 Orders Only [facility] CHC MED & PEDS [address] [place] [address] ProviderKarly MD Social History Tobacco Use Types Packs/Day Years Used Date Smoking Tobacco: Never Passive Smoke Exposure: Never Smokeless Tobacco: Never Alcohol Use Standard Drinks/Week Comments Never 0 (1 standard drink = 0.6 oz pur e alcohol) Depression Answer Date Recorded Patient Health Questionnaire-9 Score 2 11/19/2022 Housing Stability Answer Date Recorded What is your housing situation today? I have dougguy gleason 06/01/[address] you li ve. Do you have problems with any of the following? None of the above 06/01/2023 Food Insecurity Answer Date Recorded Within the past 12 months, y ou worried that your food would run out before you got money to buy more: Never True 06/01/2023 Within the past 12 months,th e food you bought just didn't last and you didn't have enough money to get more: Never True Transportation Answer Date Recorded In the past 12 months, has l ack of transportation kept you from medical appts, meetings, work or from getting things needed for daily living? No 06/01/2023 Utilities Answer Date Recorded In the past 12 months, has t he electric, gas, oil or water company threatened to shut off services in your home? No 06/01/2023 Depression Answer Date Recorded Patient Health Questionnaire-2 [...] Description 11/24/2024 9:15 AM EDT Office Visit [facility] CHC MED & PEDS [address] [place] [address] Alma Moseley, SHAVON [address] [place] [address] documented as of this encounter Procedures Procedure Name Priority Date/Time Associated Diagnosis Comments SURGICAL PATHOLOGY Routine 09/18/2023 9: 49 AM EST CYTOLOGY, CONVENTIONAL PAP SMEAR, 1 SLIDE Routine 07/20/2023 9:54 AM EST documented in this encounter Results * Surgical Pathology (09/18/2023 9:49 AM EST) Historical Provider MD LAB PATHOLOGY ORDERABLES Final Result * Cytology, Conventional Pap Smear, 1 Slide (07/20/2023 9:54 AM EST) Historical Provider MD LAB CYTOLOGY ORDERABLES F inal Result documented in this encounter Visit Diagnoses Not on filedocumented in this encounter Additional Health Concerns Assessment Noted Time PHQ-9 Depression Total Score: 2 11/20/19 23 8:47 AM EDT documented as of this encounter Care Teams Academic Program Specialist Relationship Specialty Start Date End Date Pj Crenshaw MD [address] [place] [address] PCP - General Internal Medicine 01/15/20 documented as of this encounter
--- OUTSIDE RECORDS SUMMARY | 2024-11-18 15:26 | XMS_ITS | Encounter Summary ---
Author Organization [employer] Address [address] [facility] 7[address] [place] [address] Care Team Providers Care Scrap Preparation Supervisor Name Role Phone Pj Crenshaw MD Primary Care Prov ider Encounter Details Date Type Department Care Team ([facility] st Contact Info) Description 08/26/2023 Orders Only [facility] CHC MED & PEDS [address] [place], [place] [phone] Pj Crenshaw MD [address] [place] [address] Acquired hypothyroidism Social History Tobacco Use Types Packs/Day Years Used Date Smoking Tobacco: Never Passive Smoke Exposure: Never Smokeless Tobacco: Never Alcohol Use Standard Drinks/Week Comments Never 0 (1 standard drink = 0.6 oz pur e alcohol) Depression Answer Date Recorded Patient Health Questionnaire-9 Score 2 11/19/2022 Housing Stability Answer Date Recorded What is your housing situation today? I have doug gleason 06/01/[address] you [...] Description 11/24/2024 9:15 AM EDT Office Visit [facility] MED & PEDS [address] [place] [address] Alma Moseley, CNM [address] [place] [address] documented as of this encounter Visit Diagnoses Diagnosis Acquired hypothyroidism Unspecified hypothyroidism documented in this encounter Additional Health Concerns Assessment Noted Time PHQ-9 Depression Total Score: 2 11/20/19 23 8:47 AM EDT documented as of this encounter Care Teams Scrap Preparation Supervisor Relationship Specialty Start Date End Date Pj Crenshaw MD [address] [place] [address] PCP - General Internal Medicine 01/15/20 documented as of this encounter
--- OUTSIDE RECORDS SUMMARY | 2024-11-18 15:26 | XMS_ITS | Encounter Summary ---
Author Organization [employer] Address [address] [facility] [address] [place] [address] Care Team Providers Care Mounter Automatic Name Role Phone Pj Crenshaw MD Primary Care Prov ider Encounter Details Date Type Department Care Team ([facility] st Contact Info) Description 10/13/2023 Telephone [facility] MEDICINE [address] [place] [address] Pj Crenshaw MD [address] [place] [address] Social History Tobacco Use Types Packs/Day Years [...] Description 11/24/2024 9:15 AM EDT Office Visit [facility] CHC MED & PEDS [address] [place], [place] [phone] Alma Moseley, SHAVON [address] [place] [address] documented as of this encounter Visit Diagnoses Not on filedocumented in this encounter Additional Health Concerns Assessment Noted Time PHQ-9 Depression Total Score: 2 11/20/19 23 8:47 AM EDT documented as of this encounter Care Teams Mounter Automatic Relationship Specialty Start Date End Date Pj Crenshaw MD [address] [place] [address] PCP - General Internal Medicine 01/15/20 documented as of this encounter
--- OUTSIDE RECORDS SUMMARY | 2024-11-18 15:26 | XMS_ITS | Encounter Summary ---
Author Organization [employer] Address [address] [place] [address] 7 [place] [address] Care Team Providers Care Co Founder And Cto Name Role Phone Pj Crenshaw MD Primary Care Prov ider Reason for Referral * Consultation (Urgent) - Authorized Specialty Diagnoses / Procedures Referred By Jessica t Referred To Contact Orthopaedic Surgery Diagnoses Chronic left shoulder pain Shante Oquendo MD [address] [place] [address] Phone: tel: fax: [facility] [address] [place] [address] Phone: tel: Referral ID Status Reason Start Date Expiration Date Visits Requested Visits Authorized [id number] Authorized Specialty Services Required 11/18/2024 11/18/2025 6 6 Encounter Details Date Type Department Care Team (Late st Contact Info) Description 11/18/2024 9:20 AM EDT Office Visit [facility] CHC MED & PEDS [address] [place] [address] Shante Oquendo MD [address] [place] [address] Chronic left shoulder pain (Primary Dx) Social History Tobacco Use Types Packs/Day Years Used Date Smoking Tobacco: Never Passive Smoke Exposure: Never Smokeless Tobacco: Never Alcohol Use Standard Drinks/Week Comments Never 0 (1 standard drink = 0.6 oz pur e alcohol) Depression Answer Date Recorded Patient Health Questionnaire-9 Score 13 09/06/2024 Patient Health Questionnaire-9 Score 13 09/06/2024 Last PHQ-9: Questionnaire Data Not on file 0 09/06/2024 Housing Stability Answer Date Recorded What is [...] Date Recorded Patient Health Questionnaire-2 Score 2 09/06/2024 Comments No Sex and Gender Information Value Date Recorded Sex Assigned at Female 06/16/2022 10:20 AM EDT Legal Sex Female 10:20 AM EDT Gender Identity Female 06/16/2022 10:20 AM EDT Sexual Orientation Straight 06/16/2022 10 :20 AM EDT documented as of this encounter Last Filed Vital Signs Vital Sign Reading Time Taken Comments Blood Pressure 122/78 11/18/2024 9:09 AM EDT Pulse 78 11/18/2024 9:09 AM EDT Temperature 36.9 ??C (98.5 ??F) 11/18/2024 9:09 AM ED T Respiratory Rate 20 11/18/2024 9:09 AM EDT Oxygen Saturation 98% 11/18/2024 9:09 AM EDT Inhaled Oxygen Concentration - - Weight 94.2 kg (207 lb 9.6 oz) 11/18/2024 9:09 A M EDT Height 162.6 cm (5' 4 ) 11/18/2024 9:09 AM EDT Body Mass Index 35.63 11/18/2024 9:09 AM EDT documented in this encounter Progress Notes * Shante Oquendo MD - 11/18/2024 9:20 AM EDT Subjective Patient ID: Haley Durham is a 54 y.o. female who presents for No chief complaint on file.. HPI Review of Systems Objective BP 122/78 (BP Location: Right arm, Patient Position: Sitting, BP Cuff Size: Large adult) Pulse 78 Temp 98.5 ??F (36.9 ??C) (Oral) Resp 20 Ht 5' 4 (1.626 m) Wt 207 lb 9.6 oz (94.2 kg) SpO2 98% BMI 35.63 kg/m?? Physical Exam Assessment/Plan * Shante Oquendo MD - 11/18/2024 9:20 AM EDT Subjective Patient ID: Haley Durham is a 54 y.o. female who presents for worsening left shoulder pain. HPI Haley has had pain and stiffness in her left shoulder for at least a year. Hurts all the time and pain is worse when reaching up and if she lies on her left side. Says she was referred to Ortho but never got an appointment. Has been taking diclofenac 75 mg or ibuprofen once daily and using topicallidocaine, ice, and massage with only minimal relief. Pain suddenly got worse 2 weeks ago when she tried to reach up and acutely her left shoulder and arm hurt much worse. Denied any trauma in that moment. Thinks she may have fallen onto her left side prior to the pain starting originally but she does not recall. Pain radiates to left forearm too. No numbness or weakness. Review of Systems Musculoskeletal: Positive for arthralgias (left shoulder pain). Negative for neck pain and neck stiffness. Neurological: Negative for weakness and numbness. Objective Physical Exam Constitutional: Appearance: She is not toxic-appearing. HENT: Head: Normocephalic and atraumatic. Musculoskeletal: Right shoulder: Normal. Normal pulse. Left shoulder: Tenderness (laterally) present. No swelling, deformity, bony tenderness or crepitus.Decreased range of motion (particularly internal rotation and flexion). Normal pulse. Right upper arm: Normal. Left upper arm: Normal. No swelling, deformity or tenderness. Left forearm: Tenderness (mild medial forearm tenderness) present. Skin: General: Skin is warm and dry. Neurological: General: No focal deficit present. Mental Status: She is alert. Psychiatric: Mood and Affect: Mood normal. Behavior: Behavior normal. Assessment/Plan Diagnoses and all orders for this visit: Chronic left shoulder pain: This may be frozen shoulder, as she was previously told she had, or rotator cuff tendinopathy, or less likely, arthritis. No AC joint crepitance. Will check x-ray of left shoulder and refer her to Ortho. Explained that Ortho will review x-ray and that they may give her an injection in her shoulder that could help or pain. Told her we would inform her with xray results prior to Ortho visit. She will continue using NSAIDs and topical treatment. - XR Shoulder 2+ Views Left; Future - Referral to Orthopaedic Surgery; Future documented in this encounter Plan of Treatment Upcoming Encounters Date Type Department Care Team (Late st Contact Info) Description 11/24/2024 9:15 AM EDT Office Visit [facility] CHC MED & PEDS [address] [place] [address] Alma Moseley, CN [address] [place] [address] Scheduled Orders Name Type Priority Associated Diagnoses Orde r Schedule XR Shoulder 2+ Views Left Imaging Routine Chronic left shoulder pain Expected: 11/18/2024, Expires: 11/18/2025 Scheduled Referrals Name Type Priority Associated Diagnoses Order Schedule Referral to Orthopaedic Surgery Outpatient Referral Urgent Chronic left shoulder pain Expected: 11/18/2024 (Approximate), Expires: 11/18/2025 documented as of this encounter Visit Diagnoses Diagnosis Chronic left shoulder pain- Primary Pain in joint, shoulder region documented in this encounter Additional Health Concerns Assessment Noted Time PHQ-9 Depression Total Score: 13 025 10:14 AM EST documented as of this encounter Care Teams Co Founder And Cto Relationship Specialty Start Date End Date Pj Crenshaw MD [address] [place] [address] PCP - General Internal Medicine 01/15/20 documented as of this encounter
--- OUTSIDE RECORDS SUMMARY | 2024-11-18 15:26 | XMS_ITS | Encounter Summary ---
Author Organization [employer] Address [address] [place] [address] [place] [address] Care Team Providers Care Open Die Inspector Name Role Phone Pj Crenshaw MD Primary Care Prov ider Reason for Visit * Reason Comments Med Refill Encounter Details Date Type Department Care Team (Late Contact Info) Description 02/26/2023 Refill [facility] MEDICINE [address] [place] [address] Pj Crenshaw MD [address] [place] [address] Gastroesophageal reflux disease without esophagitis Social History Tobacco Use Types Packs/Day Years Used Date Smoking Tobacco: Never Smokeless Tobacco: Never Depression Answer Date Recorded Patient Health Questionnaire-9 [...] Description 11/24/2024 9:15 AM EDT Office Visit [facility] CHC MED & PEDS [address] [place], [place] [phone] Alma Moseley, SHAVON [address] [place] [address] documented as of this encounter Visit Diagnoses Diagnosis Gastroesophageal reflux disease without esophagitis Esophageal reflux documented in this encounter Additional Health Concerns Assessment Noted Time PHQ-9 Depression Total Score: 2 11/20/19 23 8:47 AM EDT documented as of this encounter Care Teams Open Die Inspector Relationship Specialty Start Date End Date Pj Crenshaw MD [address] [place] [address] PCP - General Internal Medicine 01/15/20 documented as of this encounter
--- OUTSIDE RECORDS SUMMARY | 2024-11-18 15:26 | XMS_ITS | Clinical Summary ---
Author Organization [employer] [facility] ity Address [address] [place] [address] Care Team Providers Care Manager Beauty Name Role Phone Unavailable Primary Care Provider Unavailabl e Social History Tobacco Use Types Packs/Day Years Used Date Smoking Tobacco: Never Assessed Comments Unknown Sex and Gender Information Value Date Recorded Sex Assigned at Not on file Legal Sex Female 3:59 AM EST Gender Identity Not on file Sexual Orientation Not on file Plan of Treatment Health Maintenance Due Date Last Done Comments Breast Cancer Screening 1972 DTaP,Tdap,and Td Vaccines (1 - Tdap) 1991 Hepatitis B Vaccines (1 of 3 - 19+ 3-dose series) 1991 Cervical Cancer Screening: P ap Smear 1993 Pneumococcal Vaccine: 50+ Ye ars (1 of 1 - PCV) 2022 Zoster Vaccines (1 of 2) 2022 Colorectal Cancer Screening: Colonoscopy 10/23/2023 Depression Screening 10/23/2023 HIV Screening 10/23/2023 Hepatitis C Screening 10/23/2023 Social Influencers of Health Screening 10/23/2023 COVID-19 Vaccine ( - 2023-2 5 season) 2024 Influenza Vaccine (Season Ended) 2025 HIB Vaccines Aged Out No longer eligi ble based on patient's age to complete this topic HPV Vaccines Aged Out No longer eligi ble based on patient's age to complete this topic Hepatitis A Vaccines Aged Out No long er eligible based on patient's age to complete this topic IPV Vaccines Aged Out No longer eligi ble based on patient's age to complete this topic MMR Vaccines Aged Out No longer eligi ble based on patient's age to complete this topic Meningococcal ACWY Vaccine Aged Out N o longer eligible based on patient's age to complete this topic Meningococcal B Vacine Aged Out No lo nger eligible based on patient's age to complete this topic Pneumococcal Vaccine: Pediat rics (0 to 5 Years) and At-Risk Patients (6 to 64 Years) Aged Out No longer eligible b ased on patient's age to complete this topic RSV Immunization Patients Un ray 20 months Aged Out No longer eligible b ased on patient's age to complete this topic Varicella Vaccines Aged Out No longer eligible based on patient's age to complete this topic
--- OUTSIDE RECORDS SUMMARY | 2024-11-18 15:26 | XMS_ITS | Encounter Summary ---
Author Organization [employer] Address [address] [facility] [address] [place] [address] Care Team Providers Care Chipper Operator Name Role Phone Pj Crenshaw MD Primary Care Prov ider Encounter Details Date Type Department Care Team (Latest Contact Info) Description 11/18/2024 Travel Social History Tobacco Use Types Packs/Day Years [...] [facility] [address] [place] [address] Alma Moseley, SHAVON [address] [place] [address] documented as of this encounter Visit Diagnoses Not on filedocumented in this encounter Additional Health Concerns Assessment Noted Time PHQ-9 Depression Total Score: 13 025 10:14 AM EST documented as of this encounter Care Teams Chipper Operator Relationship Specialty Start Date End Date Pj Crenshaw MD [address] [place] [address] PCP - General Internal Medicine 01/15/20 documented as of this encounter
--- OUTSIDE RECORDS SUMMARY | 2024-11-18 15:26 | XMS_ITS | Clinical Summary ---
Author Organization [employer] Address [address] [place] [address] 7[address] [place] [address] Care Team Providers Care Welder Fitter Helper Name Role Phone Pj Crenshaw MD Primary Care Prov ider Allergies Active Allergy Reactions Criticality Noted Date Comments Apple Juice 08/13/2022 Chocolate Hazelnut Flavoring Agent (Non-Screening) 08/13/2022 Clarithromycin 02/22/2014 [place] Flavoring Agent (Non-Screening) 08/13/2022 Pear 08/13/2022 Pistachio Nut (Diagnostic) 2 Pollen Extract 03/03/2023 Triticum Aestivum 03/03/2023 Medications LORazepam (Ativan) 0.5 MG tablet Take 1 tablet by mouth in the morning and 1 tablet in the evening. Active diclofenac (Voltaren) 75 MG EC tablet Take 1 tablet by mouth in the morning and at bedtime. 03/07/20 22 Active DULoxetine (Cymbalta) [address] capsule Take 1 capsule by mouth in the morning, at noon, and at bedtime. Active Fluticasone Furoate-Vilantero l (Breo Ellipta) 200-25 MCG/ACT aerosol powder Inhale 1 puff in the morning. Active mirabegron ER (Myrbetriq) 25 MG 24 hr tablet Take 1 tablet by mouth in the morning. Active polyethylene glycol, PEG, 3350 (MiraLax) 17 GM/SCOOP powder take (17G) by oral route every day mixed with 8 oz. water, juice, soda, coffee or tea 02/02/20 19 Active zolpidem (Ambien) 10 MG tablet Take 1 tablet by mouth in the morning. Active melatonin 5 MG tablet Take by mouth. Active pantoprazole (ProtoNix) 40 MG EC tabletIndications :Gastroesophageal reflux disease without esophagitis TAKE 1 TABLET(40 MG) BY MOUTH BEFORE BREAKFAST 90 tablet 02/21/20 Active cetirizine (ZyrTEC) 10 MG tablet Take 1 tablet (10 mg) by mouth in the morning. 90 tablet 3 06/25/20 23 Active hydrOXYzine HCl (Atarax) 25 MG tablet TAKE 1 TABLET(25 MG) BY MOUTH EVERY 8 HOURS NEEDED FOR ANXIETY 90 tablet 1 10/12/19 24 Active Ventolin HFA 108 (90 Base) MCG/ACT inhaler INHALE 2 PUFFS BY MOUTH EVERY 4 HOURS NEEDED FOR WHEEZING 18 g 11/05/19 24 Active levothyroxine (Synthroid) 137 MCG tablet Take 137 mcg by mouth before breakfast. 30 tablet 11 02/08/20 24 2024 Active chlorthalidone (Hygroton) 25 MG tabletIndications :Primary hypertension Take 1 tablet (25 mg) by mouth Once per day. 90 tablet 3 02/25/20 24 2024 Active EPINEPHrine (Epipen) 0.3 MG/0.3ML injection syringeIndication s:Anaphylaxis, sequela Inject 0.3 mL (0.3 mg) as directed 1 (one) time for 1 dose. Inject into upper leg. Call 911 after use. 0.3 mL 02/25/20 Active linaCLOtide (Linzess) 145 MCG capsuleIndication s:Chronic Idiopathic Constipation Take 1 capsule (145 mcg) by mouth before breakfast. Do not crush or chew. 30 capsule 02/25/20 24 2024 Active gabapentin (Neurontin) 300 MG capsule Take 1 capsule (300 mg) by mouth 3 times daily. 90 capsule 02/25/20 24 2024 Active Transderm-Scop 1 MG/3DAYS patch 72 hour APPLY 1 PATCH TOPICALLY TO THE SKIN EVERY 72 HOURS 10 patch 04/27/20 Active Semaglutide-Weigh t Management (Wegovy) 0.25 MG/0.5ML solution auto-injector Inject 0.25 mg under the skin 1 (one) time per week. 3 mL 1 09/27/20 24 Active lidocaine (Lidoderm) 5 % patchIndications: Chronic left shoulder pain APPLY 1 PATCH TOPICALLY ONCE A DAY.REMOVE AND DISCARD PATCH WITHIN 12 HOURS OR DIRECTED BY 30 patch 3 07/26/20 24 Active albuterol 1.25 MG/3ML nebulizer solutionIndicatio ns:Mild intermittent asthma without complication USE 1 VIAL VIA NEBULIZER EVERY 6 HOURS NEEDED FOR WHEEZING 75 mL 08/30/19 25 Active atorvastatin (Lipitor) 20 MG tabletIndications :Mixed hyperlipidemia Take 1 tablet (20 mg) by mouth Once per day. 90 tablet 3 09/06/19 25 2025 Active montelukast (Singulair) 10 MG tablet Take 1 tablet (10 mg) by mouth at bedtime. 90 tablet 3 09/06/19 25 2025 Active fluticasone (Flonase) 50 MCG/ACT nasal spray SHAKE LIQUID AND USE 1 TO 2 SPRAYS IN EACH NOSTRIL EVERY MORNING 48 g 1 09/15/19 25 Active Zepbound 2.5 MG/0.5ML solution auto-injector ADMINISTER 2.5 MG UNDER THE SKIN 1 TIME A WEEK DIRECTED 2 mL 1 11/05/19 25 Active Tirzepatide-Weigh t Management (Zepbound) 2.5 MG/0.5ML solution auto-injector INJECT 2.5MG UNDER THE SKIN DIRECTED ONCE A WEEK 2 mL 1 10/13/19 25 2024 Discontinued Active Problems Problem Noted Date Diagnosed Date Primary hypertension 05/13/2024 Assessment & Plan (05/13/2024 10:18 AM EDT): Controlled, no changes will be made, keep low sodium diet and exercise as tolerated, bp target <140/90 Moderate persistent asthma without complication 02/25/2024 Assessment & Plan (09/06/2024 11:03 AM EST): Controlled with current treatment, no exacerbation, follow up in 4-6 months Assessment & Plan (02/25/2024 2:58 PM EDT): On breoellipta, no recent er visit for exacerbation, continue same therapy Patient needs a new nebulizer her previous is broken and is more than 5 years. Encounter for physical examination 02/25/2024 Assessment & Plan (02/25/2024 3:04 PM EDT): Patient has hx of multiple joint pain, more severe her lower back for which she follows ortho and bilateral knee following ortho (probable surgery of left knee in 2-3 months). She also has mltiple joint pain. Patient has depression, anxiety, panic attacks, she is being followed by psych, I think her main disability is anxiety/panic attack, refers she is not able to drive her car sometimes, gets worse crowed places Neck pain on left side 09/29/2023 Assessment & Plan (09/29/2023 12:45 PM EST): Will refer patient to pain management for evaluation of left shoulder/neck pain Asthma, currently inactive 08/14/202308/14 Severe obesity (BMI 35.0-39.9) with comorbidity 08/14/2023 08/14/2023 Assessment & Plan (05/13/2024 10:19 AM EDT): Will start on wegovy, she has htn, multiple joint pain, asthma, gerd, hx of prediabetes, will follow up in 6 weeks Anxiety 03/03/2023 Carpal tunnel syndrome 03/03/2023 Assessment & Plan (02/25/2024 2:51 PM EDT): Will place referral for reevaluation, previously seen at [facility] Impaired glucose tolerance 03/03/2023 Severe obesity 03/03/2023 Assessment & Plan (04/01/2023 1:27 PM EDT): On trulicity .75mg, has lost around 8lbs, will continue same treatment, will let me know if interested in bariatric surgery Lumbar radiculopathy 03/03/2023 Assessment & Plan (01/19/2024 4:36 PM EDT): Midline with left sided radiation, denied trauma, was picking up a small object from the floor when she felt the pain, has tried tylenol/ibuprofen without improvement. Will send lfexeril and predniosne, told to rest/apply ice, in case of worsening/not improving call back Assessment & Plan (04/01/2023 1:23 PM EDT): Will make ortho referal for evaluation, no red flags, no neurologic deficit Prediabetes 03/03/2023 Assessment & Plan (02/25/2024 2:53 PM EDT): Continue with trulicity, encouraged low carb/no sugar diet RLQ abdominal pain 12/10/2022 Overview (12/10/2022): Visited er yesterday, was discharged, refers was told appendix/ovaries were unremarkable, and had constipation, which was most likely the reason for the pain, denied fever/chills, no nausea/vomiting, reviewed symptoms to visit er. Told to rest and increase fiber/water in diet, will refer to GI Low back pain due to bilateral sciatica 09/14/19 Assessment & Plan (09/14/2022 8:19 PM EST): Patient with chronic low back pain, she has tried PT, conservative treatment, will order MRI for better assesment of condition Anaphylactic syndrome 09/14/2022 ANILA on CPAP 08/13/2022 Vitamin D deficiency 07/07/2022 Whole body pain 07/07/2022 Inflammatory polyps of colon 06/11/2022 Breast microcalcifications 12/30/2018 Urticaria 12/30/2018 Assessment & Plan (06/22/2023 1:29 PM EST): Patient used to be followed by a foreign policy officer, will place referal Varicose veins of lower extremity 12/30/2018 Acquired hypothyroidism 10/25/2018 Assessment & Plan (05/13/2024 10:16 AM EDT): Clinically and chemically euthyroid, last ldl from 04/2024 was 0.9, no changes will be made Assessment & Plan (03/01/2024 10:27 PM EDT): Dose will be decreased to 150mcg, follow up in 2 months Assessment & Plan (02/25/2024 2:52 PM EDT): Dose recently decreased, needs to be repeated in 6-8 weeks, will leave order. Assessment & Plan (12/10/2022 9:17 AM EDT): Not at target, will decrease levothyroxine to 150mcg, repeat tsh in 6-8 weeks, will leave lab order Assessment & Plan (11/19/2022 10:21 AM EDT): Will place order for new tsh for guidance of therapy, she denied weight gain/loss/constipation. Food intolerance 10/25/2018 Hyperlipidemia 10/25/2018 Assessment & Plan (09/06/2024 11:04 AM EST): On stati therapy, new labs will be ordered for guidance of therapy Assessment & Plan (02/25/2024 2:56 PM EDT): On atorvastatin 20mg, she refers not taking medication on a daily basis, reinforced importance of adherance, will follow up in 3-4 months Assessment & Plan (11/19/2022 10:22 AM EDT): On statin therapy, will order new labs for guidance of therapy, reinfored importance of exercise/weight loss Mild intermittent asthma 10/25/2018 Dysmenorrhea 03/17/2018 Migraine 03/17/2018 Assessment & Plan (02/25/2024 2:59 PM EDT): Will refer to neurology, her previous neurologist retired, she was getting botox injections Temporomandibular joint disorder 03/17/2018 Benzodiazepine dependence, continuous 11/24/2017 Gastroesophageal reflux disease without esophagi tis 11/24/2017 Mood disorder 11/24/2017 Osteoarthritis of multiple joints 11/24/2017 Encounters Date Type Department Care Team Description 11/18/2024 9:20 AM EDT Office Visit [facility] [address] [place] [address] Shante Oquendo MD Chronic left shoulder pain (Primary Dx) 11/18/2024 Travel 11/16/2024 Population Health Risk Score [facility] ([facility]) [address] [address] Provider, Population Health Generic 11/03/2024 Refill [facility] [address] [place] [address] Pj Crenshaw MD 10/13/2024 Telephone [facility] [address] [place] [address] Pj Crenshaw MD Med Refill 10/11/2024 Refill [facility] [address] [place] [address] Pj Crenshaw MD 10/04/2024 Travel 09/15/2024 Refill [facility] [address] [place] [address] Pj Crenshaw MD 09/15/2024 Refill [facility] [address] [place] [address] Pj Crenshaw MD 09/06/2024 10:15 AM EST Telemedicine [facility] [address] [place] [address] Pj Crenshaw MD Moderate persistent asthma without complication (Primary Dx); Mixed hyperlipidemia; Dietary counseling; Exercise counseling; Prediabetes 09/06/2024 Travel 08/24/2024 Refill [facility] [address] [place] [address] Pj Crenshaw MD Mild intermittent asthma without complication from Last 3 Months Immunizations Name Administration Dates Next Due Hep B, adult 10/27/2019 Influenza injectable quadriv alent IIV4 with preservative 08/25/2019,06/16/2018,05/08/2017,05/29 Influenza injectable quadriv alent preservative free 05/13/2022,06/21/2021,06/14/2020,08/01 Influenza, IIV3, injectable 06/08/2014, 1 Influenza, Split (incl. randy fied surface antigen) 09/16/2013,05/25/2012 Pfizer Covid-19 Vaccine 12+ 12/17/2021, 1,12/02/2020 Pfizer Covid-19 Vaccine 12+ luz-sucrose (Francis Cap) 12/17/2021 Pneumococcal Polysaccharide PPSV23 05/29/2015, Tdap 09/28/2023,01/21/2010 Zoster, Recombinant 08/04/2022,06/03/2022 Family History Medical History Relation Name Comments Cancer Sister unknown type. Relation Name Status Comments Sister Social History Tobacco Use Types Packs/Day Years Used Date Smoking Tobacco: Never Passive Smoke Exposure: Never Smokeless Tobacco: Never Tobacco Cessation:Counseling Given: Not Answered Alcohol Use Standard Drinks/Week Comments Never 0 [...] Orientation Straight 06/16/2022 10 :20 AM EDT Last Filed Vital Signs Vital Sign Reading [...] Mass Index 35.63 11/18/2024 9:09 AM EDT Plan of Treatment Upcoming Encounters Date Type Department Care Team (Late st Contact Info) Description 11/24/2024 9:15 AM EDT Office Visit [facility] [address] [place] [address] Alma Moseley, CN [address] [place] [address] Health Maintenance Due Date Last Done Comments CT Colonography 1972 FIT DNA/Cologuard 1972 FIT 1972 FOBT 1972 Sigmoidoscopy 1972 Family Planning (PISQ) 1987 Pneumococcal Vaccine: 50+ Years (2 of 2 - PCV) 05/29/2016 05/29/2015, 01/21/2010 Hepatitis B Vaccines (2 of 3 - 19+ 3-dose series) 11/24/2019 10/27/2019 Diabetes: Hemoglobin A1C 03/03/202403/03/2 023, 03/14/2022, 07/23/2020 COVID-19 Vaccine ( season) 2024 12/17/2021, 12/17/2021, 12/23/2020, Additional history exists Influenza Vaccine (#1) 2024 2, 06/21/2021, 06/14/2020, Additional history exists SDOH Screening 01/18/2025 01/19/2024 Tobacco Screening 02/24/2025 02/25/2024 Depression Monitoring (PHQ-9) 03/06/2025 09/06/2024, 09/06/2024 Alcohol/Substance Use Screening 09/06/2025 09/06/2024 Depression Screening 09/06/2025 09/06/2024, 09/06/19 25 Mammogram 05/31/2026 05/31/2024, 05/17, 05/19/2022, Additional history exists Colonoscopy 06/10/2027 Colorectal Cancer Screening 06/10/2027 Cervical Cancer Screening 07/20/2028 HPV/Cotest 07/20/2028 04/23/2021 Pap Smear 07/20/2028 07/20/2023, 04/23/2021 Lipid Panel 02/04/2029 02/05/2024, 11/16, 04/24/2022, Additional history exists DTaP/Tdap/Td Vaccines (3 - Td or Tdap) 09/28/2033 09/28/2023, 01/21/2010 RSV Patients and Patients Aged 60 years or older (1 - 1-dose 75+ series) 2047 HIV Screening Completed 10/12/2019 Zoster Vaccines Completed 08/04/2022, 06/03/2022 Hepatitis C Screening Completed 12/08/2022, 020 HIB Vaccines Aged Out No longer eligi [...] patient's age to complete this topic Meningococcal Vaccine Aged Out No sp azeem eligible based on patient's age to complete this topic RSV under 20 months Aged Out No longe r eligible based on patient's age to complete this topic Rotavirus Vaccines Aged Out No longer eligible based on patient's age to complete this topic Procedures Procedure Name Priority Date/Time Associated Diagnosis Comments BI MAMMOGRAM SCREENING TOMOSYNTHESIS BILATERAL Routine 05/31/2024 11:00 AM EDT LIPID PANEL, STANDARD Routine 02/05/2024 9:24 AM EDT Prediabetes PAP SMEAR Routine 07/20/2023 12:00 AM EST POCT GLYCATED HEMOGLOBIN, TOTAL Routine 03/03/2023 9:43 AM EDT Prediabetes HEPATITIS C AB W/REFL TO HCV RNA, QN, PCR Routine 12/08/2022 9:49 AM EDT Mixed hyperlipidemia HPV MRNA E6/E7 Routine 04/23/2021 9:09 AM EDT NAZ HISTORICAL HIV AB/AG Routine 10/12/2019 10:06 AM EST from Last 3 Months or Most Recently Relevant to Health Maintenance Results * BI Mammogram Screening Tomosynthesis Bilateral (05/31/2024 11:00 AM EDT) Anatomical Region Laterality Modality Breast Bilateral Mammography 05/31/2024 11:0 0 AM EDT Narrative 06/13/2024 5:26 PM EDT ? [facility] ? [address] ?[place] [address] ? Mammography Report ? Signed with Addenda ? Patient: Medley Durham,Haley J ?MR#: ?? [id number] ? : 1970 ?Acct:[id number] ? Age/Sex: 54 / F ?ADM Date: 10/15/24 ? Loc: HO.MAMMO ? Attending Dr: Pj Peguero MD ? Ordering Physician: Pj Crenshaw MD ? Results: 0Incomplete: Needs Additional Imaging ?? Evaluation ? Date of Service: 05/31/24 ?Follow Up: Additional Imagi ?? ng ? Procedure(s): MM tomosynthesis screening BI ?? Accession Number(s): [id number] ? cc: Pj Crenshaw MD ?ADDENDUM ? [...] DD/ 1100 ? TD/TT: 05/31/24 1114 ? Fur Mixer: ? Procedure Note Dongordon, Image - 06/17/2024 [facility] [address] [place] [address] Mammography Report Signed with Ministerio Patient: Haley Valdovinos JMR#: [id number] : 1970Acct:[id number] Age/Sex: 54 / FADM Date: 05/31/24 Loc: [facility] Attending Dr: Pj Peguero MD Ordering Physician: Pj Crenshaw MD Results: 0Incomplete: Needs Additional Imaging Evaluation Date of Service: 05/31/24Follow Up: Additional Imagi ng Procedure(s): MM tomosynthesis screening BI Accession Number(s): [id number] cc: Pj Crenshaw MD ADDENDUM ADDENDUM #1 [...] in OV> 06/13/24 1722 DD/ 99 TD/TT: 05/31/241113 Fur Mixer: Pj Peguero MD IM BI PROCEDURES Edited Result - Final * (ABNORMAL) Lipid Panel, Standard (02/05/2024 9:24 AM EDT) Triglycerides 113 <150 mg/dL [facility] Comment:Desirable Triglyceri de: less than 150 mg/dLBorderline High Triglyceride 150-199 mg/dLHigh Triglyceride: 200-499 mg/dLVery High Triglyceride: greater than or equal to 5OO mg/dL Cholesterol 233(H) <200 mg/dL [facility] Comment:Desirable Cholestero l: less than 200 mg/dLBorderline High Cholesterol: 200-239 mg/dLHigh Cholesterol: greater than 239 mg/dL LDL Cholesterol Calculated 166(H) <100 mg/dL [facility] Comment:Desirable LDL: less than 100 mg/dLNear Optimal/Above Optimal LDL: 110- 129 mg/dLBorderline High LDL: 130-159 mg/dLHigh LDL: 160-189 mg/dLVery High LDL: greater than or equal to 190 mg/dL HDL Cholesterol 45 >40 mg/dL [facility] Comment:Desirable HDL: great er than 40 mg/dL Note: This HDL assay may give artificially low results in patients with liver disease. Blood Venous blood specimen / Unknown 02/05/2024 9:24 AM EDT 02/05/2024 2:15 PM EDT Shante Oquendo MD LAB BLOOD ORDERABLES Final Re sult [facility] [address] [place] [phone] * Pap Smear (07/20/2023 12:00 AM EST) Swab Historical Provider LAB CYTOLOGY ORDERABLES F inal Result [facility] [address] [place] [address] [phone] * (ABNORMAL) POCT A1C (03/03/2023 9:43 AM EDT) Hemoglobin A1C 5.9 4.0 - 6.0 % Comment:RANDOM QC Media Lot # [id number] Lot# Expiration Date [id number] Blood 03/03/2023 9:43 AM EDT Magdalena Collazo MANAGER MARKET INTELLIGENCE POINT OF CARE TEST ENTER/E DIT ORDERABLES Final Result * Hepatitis C Antibody with Reflex to HCV, RNA, Quantitative, Real-Time PCR (12/08/2022 9:49 AM EDT) Hepatitis C Antibody NON-REACT BRANDON NON-REACT BRANDON [employer] [place] [employer] Index 0.13 <1.00 [employer] [place] [employer] Comment: HCV antibody was non-reactive. There is no laboratory evidence of HCV infection. In most cases, no further action is required. However, if recent HCV exposure is suspected, a test for HCV RNA (test code 42571) is suggested. For additional information please refer to http://education.Image Socket/faq/TNE78b0 (This link is being provided for informational/ educational purposes only.) Blood Venous blood specimen / Unknown 12/08/2022 9:49 AM EDT 12/08/2022 9:50 AM EDT Narrative [facility] - 12/09/2022 7:27 AM EDT FASTING:YES FASTING: YES Pj Peguero MD LAB BLOOD ORDERABL ES Final Result [facility] [address], [place] [address] [employer] [place] [employer] [place] [address] [place] [address] * HPV mRNA E6/E7 (04/23/2021 9:09 AM EDT) HPV nRNA E6/E7 Not Detected Not Detected [facility] Comment: Methodology: Power Plant Operator-Mediated Amplification This assay detects E6/E7 viral messenger RNA (mRNA) from 14 high-risk HPV types (16,18,31,33,35,39,45,51,52,56,58,59,66,68). ? The analytical performance characteristics of this assay have been determined by [employer]. The modifications have not been cleared or approved by the FDA. This assay has been validated pursuant to the CLIA regulations and is used for clinical purposes. ?? For additional information, please refer to http://education.[employer]faq/SDG787k0 (This link if provided for information/ educational purposes only.) 04/23/2021 9:09 AM EDT Alma Moseley [facility] LAB BLOOD ORDERABLES Winter l Result Performing Organization Address [facility] de Phone Number [facility] [address] * HIV AB/AG (10/12/2019 10:06 AM EST) [facility] HIV AG/AB NONREACTIVE [facility] Comment: HIV-1 p24 Ag and/or HIV-1/HIV-2 Ab not detected. ?? A test result that is nonreactive does not exclude the possibility of exposure to or infection with HIV-1 and/or HIV-2. Nonreactive results in this assay for individuals with prior exposure to HIV-1 and/or HIV-2 may be due to antigen and antibody levels that are below the limit of detection of this assay. ?? The [employer] Plant Operator HIV Ag/Ab Combo assay result and supplemental assay results should be interpreted in conjunction with the patient's clinical presentation, history and other laboratory results. ??If the results are inconsistent with clinical evidence, additional testing is suggested to confirm the result. 10/12/2019 10:0 6 AM EST Historical Provider MD HISTORICAL/NON ORDERABLE LABS Final Result Performing Organization Address [facility] Phone Number [facility] [address] from Last 3 Months or Most Recently Relevant to Health Maintenance [place] [address] C3 Care Teams Welder Fitter Helper Relationship Specialty Start Date End Date Pj Crenshaw MD [address] [place] [id number] PCP - General Internal Medicine 01/15/20
--- OUTSIDE RECORDS SUMMARY | 2024-11-18 15:26 | XMS_ITS | Encounter Summary ---
Author Organization [employer] Address 75 [facility] 7t [place] [address] Care Team Providers Care Sprinkler Truck Driver Name Role Phone Pj Crenshaw MD Primary Care Prov ider Encounter Details Date Type Department Care Team ([facility] st Contact Info) Description 10/23/2023 Orders Only [facility] CHC MED & PEDS [address] [place], [place] [phone] Pj Crenshaw MD 505 [place] [address] Acquired hypothyroidism Social History Tobacco Use Types [...] Description 11/24/2024 9:15 AM EDT Office Visit [facility] MED & PEDS [address] [place] [address] Alma Moseley, CNM [address] [place] [address] documented as of this encounter Visit Diagnoses Diagnosis Acquired hypothyroidism Unspecified hypothyroidism documented in this encounter Additional Health Concerns Assessment Noted Time PHQ-9 Depression Total Score: 2 11/20/19 23 8:47 AM EDT documented as of this encounter Care Teams Sprinkler Truck Driver Relationship Specialty Start Date End Date Pj Crenshaw MD 505 [place] [address] PCP - General Internal Medicine 01/15/20 documented as of this encounter
--- OUTSIDE RECORDS SUMMARY | 2024-11-18 15:26 | XMS_ITS | Encounter Summary ---
Author Organization [employer] Address 75 [facility] 7t [place] [address] Care Team Providers Care Navigation Officer Name Role Phone Pj Crenshaw MD Primary Care Prov ider Encounter Details Date Type Department Care Team ([facility] Contact Info) Description 05/31/[address] [facility] CHC MED & PEDS [address] [place], [place] [phone] Pj Crenshaw MD 505 [place] [address] Social History Tobacco Use Types Packs/Day Years [...] Description 11/24/2024 9:15 AM EDT Office Visit [facility] MED & PEDS [address] [place], [place] [phone] Alma Moseley, SHAVON 230 [place] [address] documented as of this encounter Visit Diagnoses Not on filedocumented in this encounter Additional Health Concerns Assessment Noted Time PHQ-9 Depression Total Score: 14 024 3:34 PM EDT documented as of this encounter Care Teams Navigation Officer Relationship Specialty Start Date End Date Pj Crenshaw MD 505 [place] [address] PCP - General Internal Medicine 01/15/20 documented as of this encounter
--- OUTSIDE RECORDS SUMMARY | 2024-11-18 15:26 | XMS_ITS | Encounter Summary ---
Author Organization [employer] Address [address] [place] [address] 7 [place] [address] Care Team Providers Care Pharmacy Consultant Name Role Phone Pj Crenshaw MD Primary Care Prov ider Encounter Details Date Type Department Care Team (Late Contact Info) Description 08/12/2022 Telephone [facility] MED & PEDS 505 [place], [place] [phone] Pj Crenshaw MD 505 [place] [address] Social History Tobacco Use Types Packs/Day Years [...] PM EST documented as of this encounter Plan of Treatment Upcoming Encounters Date Type Department Care Team (Late Contact Info) Description 11/24/2024 9:15 AM EDT Office Visit [facility] MED & PEDS [address] [place], [place] [phone] Alma Moseley, SHAVON [address] [place] [address] documented as of this encounter Visit Diagnoses Not on filedocumented in this encounter Care Teams Pharmacy Consultant Relationship Specialty Start Date End Date Pj Crenshaw MD [address] [place] [address] PCP - General Internal Medicine 01/15/20 documented as of this encounter
--- OUTSIDE RECORDS SUMMARY | 2024-11-18 15:26 | XMS_ITS | Encounter Summary ---
Author Organization [employer] Address 75 [facility] 7t [place] [address] Care Team Providers Care Sales And Service Officer Name Role Phone Pj Crenshaw MD Primary Care Prov ider Encounter Details Date Type Department Care Team ([facility] st Contact Info) Description 11/16/2024 Population Health Risk Score [facility] (C3) Department [address] [phone] Provider, Population Health Generic Social History Tobacco Use Types Packs/Day Years [...] Description 11/24/2024 9:15 AM EDT Office Visit [facility] MED & PEDS 505 [place] [address] Alma Moseley, CNM 230 [place] [address] documented as of this encounter Visit Diagnoses Not on filedocumented in this encounter Additional Health Concerns Assessment Noted Time PHQ-9 Depression Total Score: 13 025 10:14 AM EST documented as of this encounter Care Teams Sales And Service Officer Relationship Specialty Start Date End Date Pj Crenshaw MD 505 [place] [address] PCP - General Internal Medicine 01/15/20 documented as of this encounter
--- OUTSIDE RECORDS SUMMARY | 2024-11-18 15:26 | XMS_ITS | Encounter Summary ---
Author Organization [employer] Address [address] [place] [address] Care Team Providers Care Suit Attendant Name Role Phone Pj Crenshaw MD Primary Care Prov ider Reason for Visit * Reason Comments Med Refill Encounter Details Date Type Department Care Team ([facility] Contact Info) Description 11/04/2022 Refill [facility] MED & PEDS [address] [place] [address] Pj Crenshaw MD 505 [place] [address] Gastroesophageal reflux disease without esophagitis Social History [...] Upcoming Encounters Date Type Department Care Team ([facility] Contact Info) Description 11/24/2024 9:15 AM EDT Office Visit [facility] MED & PEDS [address] [place], [place] [phone] Alma Moseley CNM 230 [place] [address] documented as of this encounter Visit Diagnoses Diagnosis Gastroesophageal reflux disease without esophagitis Esophageal reflux documented in this encounter Care Teams Suit Attendant Relationship Specialty Start Date End Date LawsonPj Long MD [address] [place] [address] PCP - General Internal Medicine 01/15/20 documented as of this encounter
--- OUTSIDE RECORDS SUMMARY | 2024-11-18 15:26 | XMS_ITS | Encounter Summary ---
Author Organization [employer] Address [address] [place] [address] Care Team Providers Care Art Supervisor Name Role Phone Pj Crenshaw MD Primary Care Prov ider Reason for Visit * Reason Onset Date Comments Referral 08/12/2022 Appointment Request 08/12/2022 Encounter Details Date Type Department Care Team ([facility] Contact Info) Description 08/12/2022 Telephone [facility] MED & PEDS 505 [place] [address] Pj Crenshaw MD 505 [place] [address] Referral; Appointment Request Social History Tobacco Use Types Packs/Day Years [...] encounter Miscellaneous Notes * Telephone Encounter - Sonia Capellan RN - 08/13/2022 11:57 AM EST Pt has appt scheduled today 08/13/22 with PCP. * Telephone Encounter - Randa Ly - 08/12/2022 2:13 PM EST Tc from pt requesting a Follow up appt and a new referral to a neurologist due told old dr [facility] . documented in this encounter Plan of Treatment Upcoming Encounters Date Type Department Care Team (Late st Contact Info) Description 11/24/2024 9:15 AM EDT Office Visit [facility] MED & PEDS 505 [place], [place] [phone] Alma Moseley, SHAVON 230 [place], [place] [phone] documented as of this encounter Visit Diagnoses Diagnosis Mixed hyperlipidemia Chronic idiopathic constipation Unspecified constipation Gastroesophageal reflux disease without esophagitis Esophageal reflux documented in this encounter Care Teams Art Supervisor Relationship Specialty Start Date End Date Pj Crenshaw MD 505 [place] [address] PCP - General Internal Medicine 01/15/20 documented as of this encounter
--- OUTSIDE RECORDS SUMMARY | 2024-11-18 15:26 | XMS_ITS | Encounter Summary ---
Author Organization [employer] Address 75 [facility] 7 [place] [address] Care Team Providers Care Parliamentary Librarian Name Role Phone Pj Crenshaw MD Primary Care Prov ider Reason for Visit * Reason Onset Date Comments triage 08/12/2022 Encounter Details Date Type Department Care Team ([facility] Contact Info) Description 08/12/2022 Telephone [facility] CHC MED & PEDS 505 [place], [place] [phone] Pj Crenshaw MD [address] [place] [address] triage Social History Tobacco Use Types Packs/Day Years [...] encounter Miscellaneous Notes * Telephone Encounter - Meri Clifton RN - 08/12/2022 4:32 PM EST Triage call Pt reports many concerns. Pt recently had endoscopy done and would like results. Pt reports constipation which has been chronic for year now and is concerned about large pockets that havedeveloped because of the constipation. Pt also concerned that pharmacy has not filled all prescriptions, colace, famotidine, and atorvastatin. Pt is also requesting new prescription for albuterol neb.Pt is requesting tele visit with PCP. Scheduled for tele visit 08/13 @ 245pm. Insurance is verifiedas active prior to booking Protocol Used: Abdominal Pain - Upper (Adult) Protocol-Based Disposition: See in Office or Video Visit Today or Tomorrow Video visit not offered Positive Triage Question: * Mild to Moderate pain that comes and goes (cramps) lasts > 24 hours * All higher-acuity triage questions were negative Care Advice Discussed: * Reassurance and Education - Stomach Pain * Drink Clear Fluids * Diet * Antacid Medicine * Avoid Aspirin and NSAIDs * Stop Smoking * Food Recommendations to Reduce Reflux * Expected Course - Abdominal Pain * Reasons To Call Back - Abdomen pain is constant and present for more than 2 hours. - You become worse * Telephone Encounter - Randa Ly - 08/12/2022 2:12 PM EST Symptom: Abdominal Pain - Female - Not Outcome: Schedule an urgent appointment (within 4 hours) or talk to a nurse or provider soon Reason: Getting worse The caller accepted this outcome documented in this encounter Plan of Treatment Upcoming Encounters Date Type Department Care Team (Late st Contact Info) Description 11/24/2024 9:15 AM EDT Office Visit [facility] MED & PEDS 505 [place] [address] Alma Moseley CNM 230 [place] [address] documented as of this encounter Visit Diagnoses Not on filedocumented in this encounter Care Teams Parliamentary Librarian Relationship Specialty Start Date End Date Pj Crenshaw MD [address] [place], [place] [phone] PCP - General Internal Medicine 01/15/20 documented as of this encounter
--- OUTSIDE RECORDS SUMMARY | 2024-11-18 15:26 | XMS_ITS | Encounter Summary ---
Author Organization [employer] Address [address] [place] [address] Care Team Providers Care Punch Machine Hand Name Role Phone Pj Crenshaw MD Primary Care Prov ider Reason for Visit * Reason Comments Med Refill Encounter Details Date Type Department Care Team ([facility] st Contact Info) Description 09/15/2024 Refill [facility] CHC MED & PEDS [address] [place], [place] [phone] Pj Crenshaw MD 505 [place] [address] Social History Tobacco Use Types Packs/Day Years [...] Description 11/24/2024 9:15 AM EDT Office Visit [facility] MED & PEDS [address] [place] [address] Alma Moseley, SHAVON [address] [place] [address] documented as of this encounter Visit Diagnoses Not on filedocumented in this encounter Additional Health Concerns Assessment Noted Time PHQ-9 Depression Total Score: 13 025 10:14 AM EST documented as of this encounter Care Teams Punch Machine Hand Relationship Specialty Start Date End Date Pj Crenshaw MD 505 [place] [address] PCP - General Internal Medicine 01/15/20 documented as of this encounter
--- OUTSIDE RECORDS SUMMARY | 2024-11-18 15:26 | XMS_ITS | Encounter Summary ---
Author Organization [employer] Address [address] [place] [address] Care Team Providers Care Sign Language Translator Name Role Phone Pj Crenshaw MD Primary Care Prov ider Reason for Visit * Reason Onset Date Comments Appointment Request 04/14/2024 Encounter Details Date Type Department Care Team ([facility] st Contact Info) Description 04/14/2024 Telephone [facility] MEDICINE [address] [place] [address] Pj Crenshaw MD [address] [place] [address] Appointment Request Social History Tobacco Use Types [...] encounter Miscellaneous Notes * Telephone Encounter - Ely Carlos RN - 04/14/2024 2:51 PM EDT Appt details updated as pt has appt with PCP on 05/02/24 * Telephone Encounter - Rahul Soliz - 04/14/2024 2:18 PM EDT Tc from pt requesting an appt with PCP in regards to considering doing a surgery documented in this encounter Plan of Treatment Upcoming Encounters Date Type Department Care Team (Late st Contact Info) Description 11/24/2024 9:15 AM EDT Office Visit [facility] MED & PEDS 505 [place] [address] Alma Moseley CNM [address] [place] [address] documented as of this encounter Visit Diagnoses Not on filedocumented in this encounter Additional Health Concerns Assessment Noted Time PHQ-9 Depression Total Score: 14 024 3:34 PM EDT documented as of this encounter Care Teams Sign Language Translator Relationship Specialty Start Date End Date Pj Crenshaw MD [address] [place] [address] PCP - General Internal Medicine 01/15/20 documented as of this encounter
--- OUTSIDE RECORDS SUMMARY | 2024-11-18 15:26 | XMS_ITS | Encounter Summary ---
Author Organization [employer] Address [address] [place] [address] Care Team Providers Care Mottle Lay Up Operator Name Role Phone Pj Crenshaw MD Primary Care Prov ider Encounter Details Date Type Department Care Team (Late st Contact Info) Description 07/07/2022 Orders Only [facility] CHC MED & PEDS 505 [place], [place] [phone] Farheen Luciano, RN 505 [place] [address] Social History Tobacco Use Types Packs/Day Years [...] Description 11/24/2024 9:15 AM EDT Office Visit [facility] CHC MED & PEDS 505 [place], [place] [phone] Alma Moseley CNM 230 [place] [address] documented as of this encounter Visit Diagnoses Not on filedocumented in this encounter Care Teams Mottle Lay Up Operator Relationship Specialty Start Date End Date Pj Crenshaw MD 505 [place] [address] PCP - General Internal Medicine 01/15/20 documented as of this encounter
== END 2024-11-18 13:35 | disposition home or self-care (01) ==
LOC: HO.XRAY 13:34
PROVIDERS: PCP Internal Medicine; Visit Provider Internal Medicine
DX: M25.512 Pain in left shoulder (principal); G89.29 Other chronic pain
CPT/HCPCS: 73030

== ENCOUNTER → 2024-11-18 13:42 | Outpatient (BNV) | payer MEDICAID, SELFPAY | PROVIDERS: PCP Internal Medicine; Visit Provider Radiology Diagnostic Radiology | DX: M25.512 Pain in left shoulder (principal) | CPT/HCPCS: 73030 ==

== ENCOUNTER 2024-11-24 13:46 | Outpatient (REF) | payer MEDICAID, SELFPAY ==
[2024-11-24 15:42] LABS: Bacterial Vaginosis PCR NEGATIVE (Negative); Candida Group PCR NOT DETECTED (Not Detect); Candida glab krusei PCR NOT DETECTED (Not Detect); Trichomonas vaginalis PCR NOT DETECTED (Not Detect)
--- OUTSIDE RECORDS SUMMARY | 2024-11-24 16:38 | XMS_ITS | Encounter Summary ---
Author Organization [employer] Address 75 [facility] 7t [place] [address] Care Team Providers Care Collet Making Machine Operator Name Role Phone Pj Crenshaw MD Primary Care Prov ider Encounter Details Date Type Department Care Team ([facility] st Contact Info) Description 10/23/2023 Orders Only [facility] CHC MED & PEDS [address] [place], [place] [phone] Pj Crenshaw MD 505 [place] [address] Acquired hypothyroidism Social History Tobacco Use Types [...] as of this encounter Plan of Treatment Not on file documented as of this encounter Visit Diagnoses Diagnosis Acquired hypothyroidism Unspecified hypothyroidism documented in this encounter Additional Health Concerns Assessment Noted Time PHQ-9 Depression Total Score: 2 11/20/19 23 8:47 AM EDT documented as of this encounter Care Teams Collet Making Machine Operator Relationship Specialty Start Date End Date Pj Crenshaw MD [address] [place] [address] PCP - General Internal Medicine 01/15/20 documented as of this encounter
--- OUTSIDE RECORDS SUMMARY | 2024-11-24 16:38 | XMS_ITS | Encounter Summary ---
Author Organization [employer] Address [address] [place] [address] Care Team Providers Care Land Economist Name Role Phone Pj Crenshaw MD Primary Care Prov ider Reason for Visit * Reason Comments Med Refill Encounter Details Date Type Department Care Team ([facility] st Contact Info) Description 09/15/2024 Refill [facility] CHC MED & PEDS 505 [place], [place] [phone] Pj Crenshaw MD [address] [place] [address] Social History Tobacco Use Types Packs/Day Years [...] documented as of this encounter Care Teams Land Economist Relationship Specialty Start Date End Date Pj Crenshaw MD [address] [place] [address] PCP - General Internal Medicine 01/15/20 documented as of this encounter
--- OUTSIDE RECORDS SUMMARY | 2024-11-24 16:38 | XMS_ITS | Encounter Summary ---
Author Organization [employer] Address 75 [facility] 7t [place] [address] Care Team Providers Care Behavioral Health Assistant Name Role Phone Pj Crenshaw MD Primary Care Prov ider Encounter Details Date Type Department Care Team ([facility] st Contact Info) Description 10/13/2023 Telephone [facility] MEDICINE 230 [place] [address] Pj Crenshaw MD 505 [place] [address] Social History Tobacco Use Types Packs/Day Years [...] documented as of this encounter Care Teams Behavioral Health Assistant Relationship Specialty Start Date End Date Pj Crenshaw MD [address] [place] [address] PCP - General Internal Medicine 01/15/20 documented as of this encounter
--- OUTSIDE RECORDS SUMMARY | 2024-11-24 16:38 | XMS_ITS | Encounter Summary ---
Author Organization [employer] Address [address] [place] [address] Care Team Providers Care Lead Warehouse Associate Name Role Phone Pj Crenshaw MD Primary Care Prov ider Reason for Visit * Reason Comments Med Refill Encounter Details Date Type Department Care Team (Late st Contact Info) Description 02/26/2023 Refill [facility] MEDICINE [address] [place] [address] Pj Crenshaw MD 505 [place] [address] Gastroesophageal reflux disease without esophagitis Social History [...] documented as of this encounter Care Teams Lead Warehouse Associate Relationship Specialty Start Date End Date Pj Crenshaw MD [address] [place] [address] PCP - General Internal Medicine 01/15/20 documented as of this encounter
--- OUTSIDE RECORDS SUMMARY | 2024-11-24 16:39 | XMS_ITS | Clinical Summary ---
Author Organization [employer] [facility] ity Address [address] [place] [address] Care Team Providers Care Tonal Regulator Name Role Phone Unavailable Primary Care Provider [...] age to complete this topic Meningococcal B Vaccine Aged Out No l onger eligible based on patient's age to complete this topic Pneumococcal Vaccine: Pediat rics (0 to 5 Years) and At-Risk Patients (6 to 64 Years) Aged Out No longer eligible b ased on patient's age to complete this topic RSV Immunization Patients Un ary 20 months Aged Out No longer eligible b ased on patient's age to complete this topic Varicella Vaccines Aged Out No longer eligible based on patient's age to complete this topic
--- OUTSIDE RECORDS SUMMARY | 2024-11-24 16:39 | XMS_ITS | Encounter Summary ---
Author Organization [employer] Address [address] [place] [address] Care Team Providers Care Catalogue And Special Products Manager Name Role Phone Pj Crenshaw MD Primary Care Prov ider Reason for Visit * Reason Onset Date Comments Referral 08/12/2022 Appointment Request 08/12/2022 Encounter Details Date Type Department Care Team ([facility] Contact Info) Description 08/12/2022 Telephone C [facility] MED & PEDS 505 [place] [address] Pj Crenshaw MD 505 [place] [address] Referral; Appointment Request Social History Tobacco Use [...] documented in this encounter Plan of Treatment Not on file documented as of this encounter Visit Diagnoses Diagnosis Mixed hyperlipidemia Chronic idiopathic constipation Unspecified constipation Gastroesophageal reflux disease without esophagitis Esophageal reflux documented in this encounter Care Teams Catalogue And Special Products Manager Relationship Specialty Start Date End Date Pj Crenshaw MD [address] [place] [address] PCP - General Internal Medicine 01/15/20 documented as of this encounter
--- OUTSIDE RECORDS SUMMARY | 2024-11-24 16:39 | XMS_ITS | Encounter Summary ---
Author Organization [employer] Address 75 [facility] 7t [place] [address] Care Team Providers Care Front End Application Developer Name Role Phone Pj Crenshaw MD Primary Care Prov ider Encounter Details Date Type Department Care Team (Latest Contact Info) Description 11/24/2024 Travel Social History Tobacco Use Types Packs/Day [...] documented as of this encounter Care Teams Front End Application Developer Relationship Specialty Start Date End Date Pj Crenshaw MD [address] [place] [address] PCP - General Internal Medicine 01/15/20 documented as of this encounter
--- OUTSIDE RECORDS SUMMARY | 2024-11-24 16:39 | XMS_ITS | Encounter Summary ---
Author Organization [employer] Address [address] [facility] 7t [place] [address] Care Team Providers Care Scientific Systems Analyst Name Role Phone Pj Crenshaw MD Primary Care Prov ider Reason for Visit * Reason Comments Gynecologic Exam Encounter Details Date Type Department Care Team ([facility] st Contact Info) Description 11/24/2024 9:15 AM EDT Office Visit [facility] [address] [place] [address] Alma Moseley, SHAVON [address] [place] [address] Atrophic vaginitis (Primary Dx); Vaginal odor Social History Tobacco Use Types Packs/Day Years [...] your housing situation today? I have doug victorino 01/19/[address] you li [...] Sign Reading Time Taken Comments Blood Pressure 125/79 11/24/2024 9:15 AM EDT Pulse 71 11/24/2024 9:15 AM EDT Temperature 37 ??C (98.6 ??F) 11/24/2024 9:15 AM EDT Respiratory Rate 20 11/24/2024 9:15 AM EDT Oxygen Saturation 99% 11/24/2024 9:15 AM EDT Inhaled Oxygen Concentration - - Weight 95.1 kg (209 lb 9.6 oz) 11/24/2024 9:15 A M EDT Height 162.6 cm (5' 4 ) 11/24/2024 9:15 AM EDT Body Mass Index 35.98 11/24/2024 9:15 AM EDT documented in this encounter Progress Notes * Alma Moseley CNM - 11/24/2024 9:15 AM EDT Subjective Patient ID: Haley Durham is a 54 y.o. female who presents for ENERGY AUDIT ADVISOR visit Pap NIL/HPV neg 04/2021. Pap NIL/HPV neg, EM cells 07/2023. Hysteroscopy 09/2023: polyp without atypia, proliferative EM, no malignancy. LMP 14 months ago, no bleeding since then. Notes significant vaginal dryness and occasional odor. Not sexually active, no new partner since last visit with me. Vasomotor symptoms more manageable. Mammogram BIRADS 1, cat b 06/2024 (recalled for dx imaging) Pelvic ultrasound normal 05/2021. s/p tubal ligation. Chronic constipation, followed by GI. Followed by urogyn as well for occasional stress urinary incontinence. Normal TSH 04/2024. Tailbone fracture many years ago, no other fractures. No parental hip fracture. Patient seen in conjunction with EDGAR Mckeon student. I was present for and confirmed all pertinent elements in the history, exam, assessment of the patient, and the plan of care, and agree with all findings. Review of Systems Genitourinary: Negative for dysuria, frequency, genital sores, hematuria, menstrual problem, pelvicpain, urgency, vaginal bleeding, vaginal discharge and vaginal pain. No abnormal pap, no abnormal bleeding, no breast pain, no breast mass, no nipple discharge Objective BP 125/79 (BP Location: Left arm, Patient Position: Sitting, BP Cuff Size: Large adult) Pulse 71 Temp 98.6 ??F (37 ??C) (Oral) Resp 20 Ht 5' 4 (1.626 m) Wt 209 lb 9.6 oz (95.1 kg) LMP 10/01/2023 (Approximate) SpO2 99% BMI 35.98 kg/m?? Physical Exam Exam conducted with a animal ride attendant present (Alma Moseley CNM). Constitutional: Appearance: Normal appearance. Chest: Breasts: Right: Normal. No swelling, bleeding, inverted nipple, mass, nipple discharge, skin change or tenderness. Left: Normal. No swelling, bleeding, inverted nipple, mass, nipple discharge, skin change or tenderness. Genitourinary: General: Normal vulva. Labia: Right: No rash, tenderness, lesion or injury. Left: No rash, tenderness, lesion or injury. Vagina: Normal. No signs of injury and foreign body. No vaginal discharge, erythema, tenderness, bleeding or lesions. Cervix: No cervical motion tenderness, discharge, friability, lesion, erythema, cervical bleeding or eversion. Uterus: Normal. Not enlarged and not tender. Adnexa: Right adnexa normal and left adnexa normal. Right: No mass, tenderness or fullness. Left: No mass, tenderness or fullness. Comments: Ovaries non palpable bilaterally. Atrophic changes vaginally. Fair tone with Kegels, mild cystocele with Valsalva. Lymphadenopathy: Upper Body: Right upper body: No supraclavicular or axillary adenopathy. Left upper body: No supraclavicular or axillary adenopathy. Neurological: Mental Status: She is alert. Psychiatric: Mood and Affect: Mood normal. Behavior: Behavior normal. Assessment/Plan Diagnoses and all orders for this visit: Atrophic vaginitis Open to trial of vaginal estrogen. Rx sent in. Let me know if not helpful. Let me know if vasomotorsymptoms bothersome. Pap/HPV 2027. Routine mammography. Report bleeding. BMD at 65, sooner if new risk factors. Let me know if new sexual partner. Vaginal odor - Bacterial Vaginosis Panel ? From atrophy. Will send bacterial vaginosis panel and treat positive results. Other orders - estradiol (Estrace) 0.1 MG/GM vaginal cream; 1 g vaginally nightly x 14 days, then continue twicea week ongoing documented in this encounter Plan of Treatment Not on file documented as of this encounter Procedures Procedure Name Priority Date/Time Associated Diagnosis Comments BACTERIAL VAGINOSIS PANEL Routine 11/24/2024 9:50 AM EDT Vaginal odor documented in this encounter Results * Bacterial Vaginosis Panel (11/24/2024 9:50 AM EDT) TRICHOMONAS VAGINALIS DETECTION BY PCR NOT DETECTED Not Detect [facility] BACTERIAL VAGINOSIS DETECTION BY PCR NEGATIVE Negative [facility] Comment:The BV organism targ ets of the Xpert Xpress MVP test can becommensal in women; Xpert Xpress MVP positive results forbacterial vaginosis should be considered in conjunction withother clinical and patient information to determine thedisease status. Organisms that are not detected by the XpertXpress MVP test have also been reported to be associatedwith BV and aerobic vaginitis.The Xpert Xpress MVP test performance has not been evaluatedin patients under the age of 14. MARIA D GROUP DETECTION BY PCR NOT DETECTED Not Detect [facility] Maria D glab krusei PCR NOT DETECTED Not Detect [facility] Swab Vaginal structure / Unknown 11/24/2024 9:50 AM EDT 11/24/2024 2:34 PM EDT us Alma Moseley CNYareli LAB MICROBIOLOGY - GENERA L ORDERABLES Final Result [facility] [address] [place] [address] [phone] documented in this encounter Visit Diagnoses Diagnosis Atrophic vaginitis- Primary Postmenopausal atrophic vaginitis Vaginal odor Unspecified symptom associated with female genital organs documented in this encounter Additional Health Concerns Assessment Noted Time PHQ-9 Depression Total Score: 13 025 10:14 AM EST documented as of this encounter Care Teams Scientific Systems Analyst Relationship Specialty Start Date End Date Pj Crenshaw MD [address] [place] [phone] PCP - General Internal Medicine 01/15/20 documented as of this encounter
--- OUTSIDE RECORDS SUMMARY | 2024-11-24 16:39 | XMS_ITS | Encounter Summary ---
Author Organization [employer] Address [address] [place] [address] Care Team Providers Care Embosser Apprentice Name Role Phone Pj Crenshaw MD Primary Care Prov ider Reason for Visit * Reason Onset Date Comments Med Refill 08/12/2022 Encounter Details Date Type Department Care Team ([facility] st Contact Info) Description 08/12/2022 Telephone [facility] [address] [place], [place] [phone] Pj Crenshaw MD [address] [place] [address] Med Refill Social History Tobacco Use Types [...] Docusate Sodium 100 mg Please send to [address] documented in this encounter Plan of Treatment Not on file documented as of this encounter Visit Diagnoses Not on filedocumented in this encounter Care Teams Embosser Apprentice Relationship Specialty Start Date End Date Pj Crenshaw MD [address] [place] [phone] PCP - General Internal Medicine 01/15/20 documented as of this encounter
--- OUTSIDE RECORDS SUMMARY | 2024-11-24 16:39 | XMS_ITS | Encounter Summary ---
Author Organization [employer] Address [address] [place] [address] Care Team Providers Care Physical Chemistry Teacher Name Role Phone Pj Crenhsaw MD Primary Care Prov ider Reason for Visit * Reason Comments Med Refill Encounter Details Date Type Department Care Team ([facility] st Contact Info) Description 11/04/2022 Refill [facility]EDS [address] [place] [address] Pj Crenshaw MD [address] [place] [address] Gastroesophageal reflux disease without esophagitis Social History [...] reflux documented in this encounter Care Teams Physical Chemistry Teacher Relationship Specialty Start Date End Date Pj Crenshaw MD [address] [place] [address] PCP - General Internal Medicine 01/15/20 documented as of this encounter
--- OUTSIDE RECORDS SUMMARY | 2024-11-24 16:39 | XMS_ITS | Clinical Summary ---
Author Organization [employer] Address [address] [place] [address] 7t [place] [address] Care Team Providers Care Hospital Cleaner Name Role Phone Pj Crenshaw MD Primary Care Prov ider Allergies Active Allergy Reactions Criticality Noted Date Comments Apple Juice 08/13/2022 Chocolate Hazelnut Flavoring Agent (Non-Screening) 08/13/2022 Clarithromycin 02/22/2014 Dakota Flavoring Agent (Non-Screening) 08/13/2022 Pear 08/13/2022 Pistachio [...] DIRECTED 2 mL 1 11/05/19 25 Active estradiol (Estrace) 0.1 MG/GM vaginal cream 1 g vaginally nightly x 14 days, then continue twice a week ongoing 42.5 g 1 11/25/19 25 Active Tirzepatide-Weigh t Management (Zepbound) 2.5 [...] place referral for reevaluation, previously seen at [place] Impaired glucose tolerance 03/03/2023 Severe obesity 03/03/2023 [...] Patient used to be followed by a gun stock checker, will place referal Varicose veins of lower [...] Encounters Date Type Department Care Team Description 11/24/2024 9:15 AM EDT Office Visit [facility] [address] [place] [address] Alma Moseley CNM Atrophic vaginitis (Primary Dx); Vaginal odor 11/24/2024 Travel 11/18/2024 9:20 AM EDT Office Visit [facility] [address] [place] [address] Shante Oquendo MD Chronic left shoulder pain (Primary Dx) 11/18/2024 Travel 11/16/2024 Population Health Risk Score [facility] (C[facility]) Department [address] [phone] Provider, Population Health Generic 11/03/2024 Refill [facility] [address] [place] [address] Pj Crenshaw MD 10/13/2024 Telephone [facility] [address] [place] [address] Pj Crenshaw MD Med Refill 10/11/2024 Refill [facility] [address] [place] [address] Pj Crenshaw MD 10/04/2024 Travel 09/15/2024 Refill [facility] [address] [place] [address] Pj Crenshaw MD 09/15/2024 Refill [facility] [address] [place] [address] Pj Crenshaw MD 09/06/2024 10:15 AM EST [facility]medicine [facility] [address] [place] [address] Pj Crenshaw MD Moderate persistent asthma without complication (Primary Dx); Mixed hyperlipidemia; Dietary counseling; Exercise counseling; Prediabetes 09/06/2024 Travel from Last 3 Months Immunizations Name Administration [...] t he electric, gas, oil or water [employer] threatened to shut off services in your [...] Mass Index 35.98 11/24/2024 9:15 AM EDT Plan of Treatment Health Maintenance Due Date Last Done Comments CT Colonography 1972 FIT DNA/Cologuard 1972 FIT 1972 FOBT 1970 Sigmoidoscopy 1972 Family Planning (PISQ) 1987 Pneumococcal Vaccine: 50+ Years (2 of 2 - PCV) 05/29/2016 05/29/2015, 01/21/2010 Hepatitis B Vaccines (2 of 3 - 19+ 3-dose series) 11/24/2019 10/27/2019 Diabetes: Hemoglobin A1C 03/03/2024 023, 03/14/2022, 07/23/2020 COVID-19 Vaccine ( season) 2024 12/17/2021, 12/17/2021, 12/23/2020, Additional history exists Influenza Vaccine (#1) 2024 2, 06/21/2021, 06/14/2020, Additional history exists SDOH Screening 01/18/2025 01/19/2024 Depression Monitoring 03/06/2025 09/06/2024, 025 Alcohol/Substance Use Screening 09/06/2025 09/06/2024 Depression Screening 09/06/2025 09/06/2024, 09/06/19 25 Tobacco Screening 11/24/2025 11/24/2024 Mammogram 05/31/2026 05/31/2024, 05/17, 05/19/2022, Additional history [...] Routine 11/24/2024 9:50 AM EDT Vaginal odor XR SHOULDER 2+ VIEWS LEFT Routine 11/18/2024 1:42 PM EDT Chronic left shoulder pain BI MAMMOGRAM SCREENING TOMOSYNTHESIS BILATERAL Routine 05/31/2024 11:00 AM EDT LIPID PANEL, STANDARD Routine 02/05/2024 9:24 AM EDT Prediabetes PAP SMEAR Routine 07/20/2023 12:00 AM EST POCT GLYCATED HEMOGLOBIN, TOTAL Routine 03/03/2023 9:43 AM EDT Prediabetes HEPATITIS C AB W/REFL TO HCV RNA, QN, PCR Routine 12/08/2022 9:49 AM EDT Mixed hyperlipidemia HPV MRNA E6/E7 Routine 04/23/2021 9:09 AM EDT ZZZ HISTORICAL HIV AB/AG Routine 10/12/2019 10:06 AM EST from Last 3 Months or Most Recently Relevant to Health Maintenance Results * Bacterial Vaginosis Panel (11/24/2024 9:50 AM EDT) TRICHOMONAS VAGINALIS DETECTION BY PCR NOT DETECTED Not Detect [facility] BACTERIAL VAGINOSIS DETECTION BY PCR NEGATIVE Negative [facility] Comment:The BV organism targ ets of [...] DETECTION BY PCR NOT DETECTED Not Detect [facility] Maria D glab krusei PCR NOT DETECTED Not Detect [facility] Swab Vaginal structure / Unknown 11/24/2024 9:50 AM EDT 11/24/2024 2:34 PM EDT us Alma Moseley CNM LAB MICROBIOLOGY - GENERA L ORDERABLES Final Result [facility] [address] [facility] [place] [address] [phone] * XR Shoulder 2+ Views Left (11/18/2024 1:42 PM EDT) Anatomical Region Laterality Modality Upper Extremities, Shoulder Left Radi ographic Imaging 11/18/2024 1:42 PM EDT Narrative 11/21/2024 1:58 PM EDT ? [facility] ?[address] ?[place] [address] ?XRay Report ? Signed ? Patient: Medley Durham,Haley J ?MR#: ?? [id number] ? : 1970 ?Acct:[id number] ? Age/Sex: 54 / F ?ADM Date: 11/18/24 ? Loc: HO.XRAY ? Attending Dr: Shante Oquendo MD ? Ordering Physician: Shante Oquendo MD ?? Date of Service: 11/18/24 ?? Procedure(s): XR shoulder LT min 2V ?? Accession Number(s): [id number] ? cc: Pj Crenshaw MD; Shante Oquendo MD ? EXAMINATION: ??XR SHOULDER 2 OR MORE VIEWS LEFT ? HISTORY: Acute on chronic left shoulder pain with limited mobility ? COMPARISON: There are no prior studies available for comparison. ? FINDINGS: ? Four views of the left shoulder are submitted. ??Osseous mineralization ?? is normal. ??There is no fracture or dislocation. ??The glenohumeral ?? joint is maintained. There is mild narrowing of the AC joint. ??Tiny ?? calcification adjacent to the humeral head may be related to the ?? rotator cuff. ? XR/XR shoulder LT min 2V ?? IMPRESSION: ? Mild narrowing of the AC joint. Probable rotator cuff calcification. ? Electronically signed by: ??Peter Shaffer MD ??11/21/2024 01:56 PM EDT ?? RP ? Dictated By: ?Peter Shaffer MD ? Signed By: ?<Electronically signed by Peter Shaffer MD in OV> ?11/21/241355 ? DD/ 1342 ? TD/TT: 04/04/25 1356 ? Roof Painter: ? Procedure Note Donjulietater, Image - 11/21/[address] [address] XRay Report Signed Patient: Haley Valdovinos JMR#: [id number] : 1970Acct:[id number] Age/Sex: 54 / FADM Date: 11/18/24 Loc: HO.XRAY Attending Dr: Shante Oquendo MD Ordering Physician: Shante Oquendo MD Date of Service: 11/18/24 Procedure(s): XR shoulder LT min 2V Accession Number(s): [id number] cc: jP Crenshaw MD; Shante Oquendo MD EXAMINATION: XR SHOULDER 2 OR MORE VIEWS LEFT HISTORY: Acute on chronic left shoulder pain with limited mobility COMPARISON: There are no prior studies available for comparison. FINDINGS: Four views of the left shoulder are submitted. Osseous mineralization is normal. There is no fracture or dislocation. The glenohumeral joint is maintained. There is mild narrowing of the AC joint. Tiny calcification adjacent to the humeral head may be related to the rotator cuff. XR/XR shoulder LT min 2V IMPRESSION: Mild narrowing of the AC joint. Probable rotator cuff calcification. Electronically signed by: Peter Shaffer MD 11/21/2024 01:56 PM EDT Dictated By: Peter Shaffer MD Signed By: <Electronically signed by Peter Shaffer MD in OV> 11/21/24 1356 DD/ 1342 TD/TT: 11/18/24 1356 Roof Painter: Shante Oquendo MD IMG XR PROCEDURES Final Resul t * BI Mammogram Screening Tomosynthesis Bilateral (05/31/2024 11:00 AM EDT) Anatomical Region Laterality Modality Breast Bilateral Mammography 05/31/2024 11:0 0 AM EDT Narrative 06/13/2024 5:26 PM EDT ? [facility] ? [address] ?[place] [address] ? Mammography Report ? Signed with Addenda ? Patient: Medley Durham,Haley J ?MR#: ?? [id number] ? : 1970 ?Acct:[id number] ? Age/Sex: 54 / F ?ADM Date: 10/15/24 ? Loc: HO.MAMMO ? Attending Dr: Pj Peguero MD ? Ordering Physician: Pj Crenshaw MD ? Results: 0Incomplete: Needs Additional Imaging ?? Evaluation ? Date of Service: 10/15/24 ?Follow Up: Additional Imagi ?? ng ? Procedure(s): MM tomosynthesis screening BI ?? Accession Number(s): [id number] ? cc: Pj Crenshaw MD ?ADDENDUM ? [...] by Lara Dennis, DO in OV> ? 24 1013 ?? Addendum Cosigned By: ? DD/ [...] ??Lara Dennis DO ??06/13/2024 05:22 PM EDT ?? RP ? Dictated By: ?Lara Dennis DO ? Signed By: ?<Electronically signed by Lara Dennis, DO in OV> ? 06/13/24 1722 ? DD/ 1100 ? TD/TT: 05/31/24 1114 ? Roof Painter: ? Procedure Note [place], Image - 06/17/2024 [facility] [place] [address] Mammography Report Signed with Addenda Patient: Haley Valdovinos JMR#: [id number] : 1970Acct:[id number] Age/Sex: 54 / FADM Date: 05/31/24 Loc: HO.MAMMO Attending Dr: Pj Peguero MD Ordering Physician: Pj Crenshaw MD Results: 0Incomplete: Needs Additional Imaging Evaluation Date of Service: 05/31/24Follow Up: Additional Imagi ng Procedure(s): MM tomosynthesis screening BI Accession Number(s): [id number] cc: Pj Crenshaw MD ADDENDUM ADDENDUM #1 ADDENDUM: Due to a software issue related to the original report, this case has been reviewed again and the original findings and recommendations remain the same. Electronically signed by: Lara Dennis DO 06/17/2024 10:13 AM EDT Addendum Dictated By: Lara Dennis DO Addendum [...] Dennis DO in OV> 06/13/24 1722 DD/ 1100 TD/TT: 05/31/24 1114 Roof Painter: us Pj Peguero MD IMG BI PROCEDURES Edited Result - Final * (ABNORMAL) Lipid Panel, Standard (02/05/2024 9:24 AM EDT) Triglycerides 113 <150 mg/dL [facility] Comment:Desirable Triglyceri de: less than 150 mg/dLBorderline High Triglyceride 150-199 mg/dLHigh Triglyceride: 200-499 mg/dLVery High Triglyceride: greater than or equal to 5OO mg/dL Cholesterol 233(H) <200 mg/dL [facility] Comment:Desirable Cholestero l: less than 200 mg/dLBorderline High Cholesterol: 200-239 mg/dLHigh Cholesterol: greater than 239 mg/dL LDL Cholesterol Calculated 166(H) <100 mg/dL [facility] Comment:Desirable LDL: less than 100 mg/dLNear Optimal/Above Optimal LDL: 110- 129 mg/dLBorderline High LDL: 130-159 mg/dLHigh LDL: 160-189 mg/dLVery High LDL: greater than or equal to 190 mg/dL HDL Cholesterol 45 >40 mg/dL [facility] Comment:Desirable HDL: great er than 40 mg/dL Note: This HDL assay may give artificially low results in patients with liver disease. Blood Venous blood specimen / Unknown 02/05/2024 9:24 AM EDT 02/05/2024 2:15 PM EDT us Shante Oquendo MD LAB BLOOD ORDERABLES Final Re sult [facility] [address] [place] [address] [phone] * Pap Smear (07/20/2023 12:00 AM EST) Swab Historical Provider LAB CYTOLOGY ORDERABLES F inal Result [facility] [address] [place] [address] * (ABNORMAL) POCT A1C (03/03/2023 9:43 AM EDT) Hemoglobin A1C 5.9 4.0 - 6.0 % Comment:RANDOM QC Media Lot # [id number] Lot# Expiration Date Blood 03/03/2023 9:43 AM EDT Magdalena Collazo TIPPLE MECHANIC POINT OF CARE TEST ENTER/E DIT ORDERABLES Final Result * Hepatitis C Antibody with Reflex to HCV, RNA, Quantitative, Real-Time PCR (12/08/2022 9:49 AM EDT) Hepatitis C Antibody NON-REACT BRANDON NON-REACT BRANDON [employer] [place] [employer] [place] Index 0.13 <1.00 [employer] [place] [employer] Comment: HCV antibody was non-reactive. There is no laboratory evidence of HCV infection. In most cases, no further action is required. However, if recent HCV exposure is suspected, a test for HCV RNA (test code 04563) is suggested. For additional information please refer to http://education.[employer]/faq/DQH37r1 (This link is being provided for informational/ educational purposes only.) Blood Venous blood specimen / Unknown 12/08/2022 9:49 AM EDT 12/08/2022 9:50 AM EDT Narrative [facility] - 12/09/2022 7:27 AM EDT FASTING:YES FASTING: YES Pj Peguero MD LAB BLOOD ORDERABL ES Final Result Performing Organization Address City/[facility]/ZIP Co de Phone Number [facility] [address], [place] [address] [employer] [facility] [address] [place] [address] * HPV mRNA E6/E7 (04/23/2021 9:09 AM EDT) [facility] HPV nRNA E6/E7 Not Detected Not Detected [facility] Comment: Methodology: Agricultural Produce Packer-Mediated Amplification This assay detects E6/E7 viral messenger RNA (mRNA) from 14 high-risk HPV types (16,18,31,33,35,39,45,51,52,56,58,59,66,68). ? The analytical performance characteristics of this assay have been determined by [employer]. The modifications have not been cleared or approved by the FDA. This assay has been validated pursuant to the CLIA regulations and is used for clinical purposes. ?? For additional information, please refer to http://education.[employer]Fans/faq/PAO779v4 (This link if provided for information/ educational purposes only.) 04/23/2021 9:09 AM EDT Alma YA LAB BLOOD ORDERABLES Winter l Result [facility] [address] * HIV AB/AG (10/12/2019 10:06 AM EST) [facility] HIV AG/AB NONREACTIVE NR FOUNDATI ON [...] detection of this assay. ?? The [employer] Superintendent Nonselling HIV Ag/Ab Combo assay result and supplemental assay results should be interpreted in conjunction with the patient's clinical presentation, history and other laboratory results. ??If the results are inconsistent with clinical evidence, additional testing is suggested to confirm the result. 10/12/2019 10:0 6 AM EST us Historical Provider HISTORICAL/NON ORDERABLE LABS Final Result [facility] Critical access hospital [place] from Last 3 Months or Most Recently Relevant to Health Maintenance Insurance [facility] Advance Directives Documents on File Type Date Recorded Patient Gravel Weigher Expl anation Advance Directives and Livin g Will 11/18/2024 4:14 PM HCP Care Teams Hospital Cleaner Relationship Specialty Start Date End Date Pj Crenshaw MD [address] [place] [phone] PCP - General Internal Medicine 01/15/20
--- OUTSIDE RECORDS SUMMARY | 2024-11-24 16:39 | XMS_ITS | Encounter Summary ---
Author Organization [employer] Address [address] [facility] 7t [place] [address] Care Team Providers Care Button Machine Operator Name Role Phone Pj Crenshaw MD Primary Care Prov ider Encounter Details Date Type Department Care Team ([facility] st Contact Info) Description 12/16/2023 Orders Only [facility] CHC MED & PEDS [address] [place] [address] ProviderKarly MD Social History Tobacco Use Types [...] * Surgical Pathology (09/18/2023 9:49 AM EST) [facility] Provider MD LAB PATHOLOGY ORDERABLES Final Result * Cytology, Conventional Pap Smear, 1 Slide (07/20/2023 9:54 AM EST) Historical Provider MD LAB CYTOLOGY ORDERABLES F inal Result documented in this encounter Visit Diagnoses Not on filedocumented in this encounter Additional Health Concerns Assessment Noted Time PHQ-9 Depression Total Score: 2 11/20/19 23 8:47 AM EDT documented as of this encounter Care Teams Button Machine Operator Relationship Specialty Start Date End Date Pj Crenshaw MD [address] [place] [address] PCP - General Internal Medicine 01/15/20 documented as of this encounter
--- OUTSIDE RECORDS SUMMARY | 2024-11-24 16:39 | XMS_ITS | Encounter Summary ---
Author Organization [employer] Address [address] [facility] [address] 7t [place] [address] Care Team Providers Care Sausage Stringer Name Role Phone Pj Crenshaw MD Primary Care Prov ider Encounter Details Date Type Department Care Team ([facility] st Contact Info) Description 05/09/2024 Orders Only [facility] CHC MED & PEDS [address] [place] [address] ProviderKarly MD Social History Tobacco Use Types [...] EDT Narrative 06/13/2024 5:26 PM EDT ? [facility] [place] ? [address] ?[place] [address] ? Mammography Report ? Signed with Addenda ? Patient: Medley Durham,Haley J ?MR#: ?? [id number] ? : 1970 ?Acct:[id number] ? Age/Sex: 54 / F ?ADM Date: 10/15/24 ? Loc: HO.MAMMO ? Attending Dr: Pj Peguero MD ? Ordering Physician: Pj Crenshaw MD ? Results: 0Incomplete: Needs Additional Imaging ?? Evaluation ? Date of Service: 05/31/24 ?Follow Up: Additional Imagi ?? ng ? Procedure(s): MM tomosynthesis screening BI ?? Accession Number(s): [id number] ? cc: Pj Crenshaw MD ?ADDENDUM ? [...] DD/ 1100 ? TD/TT: 05/31/24 1114 ? Rn Patient Care: ? Procedure Note [place], Image - 06/17/2024 [facility] [address] [place] [address] Mammography Report Signed with Ministerio Patient: Haley Valdovinos JMR#: [id number] : 1970Acct:[id number] Age/Sex: 54 / FADM Date: 05/31/24 Loc: MARIS[facility] Attending Dr: Pj Peguero MD Ordering Physician: Pj Crenshaw MD Results: 0Incomplete: Needs Additional Imaging Evaluation Date of Service: 05/31/24Follow Up: Additional Imagi ng Procedure(s): MM tomosynthesis screening BI Accession Number(s): [id number] cc: Pj Crenshaw MD ADDENDUM ADDENDUM #1 [...] OV> 06/13/24 1722 DD/ 99 TD/TT: 05/31/241113 Rn Patient Care: Pj Peguero MD IMG BI PROCEDURES Edited Result - Final * TSH with Reflex to Free T4 (05/05/2024 8:32 AM EDT) Blood Venous blood specimen / Unknown us Historical Provider LAB BLOOD ORDERABLES Winter l Result documented in this encounter Visit Diagnoses Not on filedocumented in this encounter Additional Health Concerns Assessment Noted Time PHQ-9 Depression Total Score: 14 01/18/ 024 3:34 PM EDT documented as of this encounter Care Teams Sausage Stringer Relationship Specialty Start Date End Date Pj Crenshaw MD [address] [place] [address] PCP - General Internal Medicine 01/15/20 documented as of this encounter
--- OUTSIDE RECORDS SUMMARY | 2024-11-24 16:39 | XMS_ITS | Encounter Summary ---
Author Organization [employer] Address [address] [place] [address] 7 [place] [address] Care Team Providers Care Wheel Borer Name Role Phone Pj Crenshaw MD Primary Care Prov ider Encounter Details Date Type Department Care Team ([facility] Contact Info) Description 05/18/2023 Telephone [facility] CHC MED & PEDS [address] [place], [place] [phone] Pj Crenshaw MD 505 [place] [address] Social History Tobacco Use Types Packs/Day Years [...] documented as of this encounter Care Teams Wheel Borer Relationship Specialty Start Date End Date Pj Crenshaw MD [address] [place] [address] PCP - General Internal Medicine 01/15/20 documented as of this encounter
--- OUTSIDE RECORDS SUMMARY | 2024-11-24 16:39 | XMS_ITS | Encounter Summary ---
Author Organization [employer] Address 75 [facility] 7t [place] [address] Care Team Providers Care Unified Communications Engineer Name Role Phone Pj Crenshaw MD Primary Care Prov ider Encounter Details Date Type Department Care Team ([facility] st Contact Info) Description 08/26/2023 Orders Only [facility] CHC MED & PEDS [address] [place], [place] [phone] Pj Crenshaw MD [address] [place] [address] Acquired hypothyroidism Social History Tobacco Use Types [...] documented as of this encounter Care Teams Unified Communications Engineer Relationship Specialty Start Date End Date Pj Crenshaw MD [address] [place] [address] PCP - General Internal Medicine 01/15/20 documented as of this encounter
--- OUTSIDE RECORDS SUMMARY | 2024-11-24 16:39 | XMS_ITS | Encounter Summary ---
Author Organization [employer] Address [address] [place] [address] 7 [place] [address] Care Team Providers Care Crm Marketing Analyst Name Role Phone Pj Crenshaw MD Primary Care Prov ider Encounter Details Date Type Department Care Team ([facility] Contact Info) Description 07/07/2022 Orders Only [facility] CHC MED & PEDS [address] [place], [place] [phone] Farheen Luciano, RN 505 [place] [address] Social History Tobacco Use Types Packs/Day Years [...] on filedocumented in this encounter Care Teams Crm Marketing Analyst Relationship Specialty Start Date End Date Pj Crenshaw MD 505 [place] [address] PCP - General Internal Medicine 01/15/20 documented as of this encounter
--- OUTSIDE RECORDS SUMMARY | 2024-11-24 16:39 | XMS_ITS | Encounter Summary ---
Author Organization [employer] Address 75 [facility] 7 [place] [address] Care Team Providers Care Director [place] Name Role Phone Pj Crenshaw MD Primary Care Prov ider Reason for Visit * Reason Onset Date Comments triage 08/12/2022 Encounter Details Date Type Department Care Team ([facility] Contact Info) Description 08/12/2022 Telephone [facility] CHC MED & PEDS 505 [place], [place] [phone] Pj Crenshaw MD 505 [place] [address] triage Social History Tobacco Use Types Packs/Day [...] on filedocumented in this encounter Care Teams Director [place] Relationship Specialty Start Date End Date Pj Crenshaw MD [address] [place] [address] PCP - General Internal Medicine 01/15/20 documented as of this encounter
--- OUTSIDE RECORDS SUMMARY | 2024-11-24 16:39 | XMS_ITS | Encounter Summary ---
Author Organization [employer] Address [address] [place] [address] Care Team Providers Care Yeast Pumper Name Role Phone Pj Crenshaw MD Primary Care Prov ider Reason for Visit * Reason Onset Date Comments Appointment Request 04/14/2024 Encounter Details Date Type Department Care Team ([facility] st Contact Info) Description 04/14/[address] [facility] MEDICINE [address] [place] [address] Pj Crenshaw MD 505 [place] [address] Appointment Request Social History Tobacco Use Types [...] documented as of this encounter Care Teams Yeast Pumper Relationship Specialty Start Date End Date Pj Crenshaw MD [address] [place] [address] PCP - General Internal Medicine 01/15/20 documented as of this encounter
--- OUTSIDE RECORDS SUMMARY | 2024-11-24 16:39 | XMS_ITS | Encounter Summary ---
Author Organization [employer] Address 75 [facility] 7t [place] [address] Care Team Providers Care Miller Wood Flour Name Role Phone Pj Crenshaw MD Primary Care Prov ider Encounter Details Date Type Department Care Team ([facility] Contact Info) Description 05/31/2024 Telephone [facility] CHC MED & PEDS [address] [place], [place] [phone] Pj Crenshaw MD 505 [place] [address] Social History Tobacco Use Types Packs/Day Years [...] documented as of this encounter Care Teams Miller Wood Flour Relationship Specialty Start Date End Date Pj Crenshaw MD [address] [place] [address] PCP - General Internal Medicine 01/15/20 documented as of this encounter
--- OUTSIDE RECORDS SUMMARY | 2024-11-24 16:39 | XMS_ITS | Encounter Summary ---
Author Organization [employer] Address [address] [place] [address] 7 [place] [address] Care Team Providers Care Patternmaker Metal Bench Name Role Phone Pj Crenshaw MD Primary Care Prov ider Encounter Details Date Type Department Care Team ([facility] Contact Info) Description 08/12/2022 Telephone [facility] CHC MED & PEDS [address] [place], [place] [phone] Pj Crenshaw MD 505 [place] [address] Social History Tobacco Use Types Packs/Day Years [...] on filedocumented in this encounter Care Teams Patternmaker Metal Bench Relationship Specialty Start Date End Date Pj Crenshaw MD [address] [place] [address] PCP - General Internal Medicine 01/15/20 documented as of this encounter
== END 2024-11-24 13:47 | disposition home or self-care (01) ==
LOC: HO.CHCLNP 13:46
PROVIDERS: Visit Provider Advanced Practice Midwife
DX: N89.8 Other specified noninflammatory disorders of vagina (principal)
CPT/HCPCS: 81515

== ENCOUNTER 2024-12-21 15:35 | Outpatient (REF) | payer MEDICAID, SELFPAY ==
--- OUTSIDE RECORDS SUMMARY | 2024-12-21 16:23 | XMS_ITS | Encounter Summary ---
Author Organization [employer] Address [address] [place] [address] Care Team Providers Care Document Coordinator Name Role Phone Pj Crenshaw MD Primary Care Prov ider Reason for Visit * Reason Comments Med Refill Encounter Details Date Type Department Care Team (Late st Contact Info) Description 02/26/2023 Refill [facility] MEDICINE [address] [place] [address] Pj Crenshaw MD 505 [place] [address] Gastroesophageal reflux disease without esophagitis Social History [...] documented as of this encounter Care Teams Document Coordinator Relationship Specialty Start Date End Date Pj Crenshaw MD [address] [place] [address] PCP - General Internal Medicine 01/15/20 documented as of this encounter
--- OUTSIDE RECORDS SUMMARY | 2024-12-21 16:23 | XMS_ITS | Encounter Summary ---
Author Organization [employer] Address [address] [place] [address] Care Team Providers Care Speech Instructor Name Role Phone Pj Crenshaw MD Primary Care Prov ider Reason for Visit * Reason Onset Date Comments Med Refill 08/12/2022 Encounter Details Date Type Department Care Team ([facility] Contact Info) Description 08/12/2022 Telephone [facility] CHC MED & PEDS 505 [place], [place] [phone] Pj Crenshaw MD [address] [place] [address] Med Refill Social History Tobacco Use Types [...] Docusate Sodium 100 mg Please send to [address] documented in this encounter Plan of Treatment Not on file documented as of this encounter Visit Diagnoses Not on filedocumented in this encounter Care Teams Speech Instructor Relationship Specialty Start Date End Date Pj Crenshaw MD [address] [place] [address] PCP - General Internal Medicine 01/15/20 documented as of this encounter
--- OUTSIDE RECORDS SUMMARY | 2024-12-21 16:23 | XMS_ITS | Encounter Summary ---
Author Organization [employer] Address [address] [place] [address] Care Team Providers Care Pushcart Peddler Name Role Phone Pj Crenshaw MD Primary Care Prov ider Reason for Visit * Reason Onset Date Comments Referral 08/12/2022 Appointment Request 08/12/2022 Encounter Details Date Type Department Care Team ([facility] Contact Info) Description 08/12/[address] [facility] CHC MED & PEDS 505 [place] [address] Pj Crenshaw MD 505 [place] [address] Referral; Appointment Request Social History Tobacco Use [...] reflux documented in this encounter Care Teams Pushcart Peddler Relationship Specialty Start Date End Date Pj Crenshaw MD [address] [place] [address] PCP - General Internal Medicine 01/15/20 documented as of this encounter
--- OUTSIDE RECORDS SUMMARY | 2024-12-21 16:23 | XMS_ITS | Encounter Summary ---
Author Organization [employer] Address 75 [facility] 7t [place] [address] Care Team Providers Care Batter Mixer Helper Name Role Phone Pj Crenshaw MD Primary Care Prov ider Encounter Details Date Type Department Care Team ([facility] st Contact Info) Description 10/13/2023 Telephone [facility] MEDICINE [address] [place] [address] Pj Crenshaw MD 505 [place] [address] Social History Tobacco Use Types Packs/Day Years [...] documented as of this encounter Care Teams Batter Mixer Helper Relationship Specialty Start Date End Date Pj Crenshaw MD 505 [place] [address] PCP - General Internal Medicine 01/15/20 documented as of this encounter
--- OUTSIDE RECORDS SUMMARY | 2024-12-21 16:23 | XMS_ITS | Encounter Summary ---
Author Organization [employer] Address 75 [facility] 7 [place] [address] Care Team Providers Care Industrial Organization Manager Name Role Phone Pj Crenshaw MD Primary Care Prov ider Reason for Visit * Reason Comments Med Refill Encounter Details Date Type Department Care Team ([facility] Contact Info) Description 09/15/2024 Refill C CHC MED & PEDS 505 [place], [place] [phone] Pj Crenshaw MD 505 [place] [address] Social History Tobacco Use Types Packs/Day Years [...] enough money to get more: Never True 06/ 11/2023 Transportation Answer Date Recorded In the [...] documented as of this encounter Care Teams Industrial Organization Manager Relationship Specialty Start Date End Date Pj Crenshaw MD [address] [place] [address] PCP - General Internal Medicine 01/15/20 documented as of this encounter
--- OUTSIDE RECORDS SUMMARY | 2024-12-21 16:23 | XMS_ITS | Encounter Summary ---
Author Organization [employer] Address 75 [facility] 7 [place] [address] Care Team Providers Care Framing Machine Tender Name Role Phone Pj Crenshaw MD Primary Care Prov ider Reason for Visit * Reason Onset Date Comments triage 08/12/2022 Encounter Details Date Type Department Care Team ([facility] st Contact Info) Description 08/12/2022 Telephone [facility] CHC MED & PEDS [address] [place], [place] [phone] Pj Crenshaw MD 505 [place] [address] triage Social History Tobacco Use Types Packs/Day [...] on filedocumented in this encounter Care Teams Framing Machine Tender Relationship Specialty Start Date End Date Pj Crenshaw MD [address] [place] [address] PCP - General Internal Medicine 01/15/20 documented as of this encounter
--- OUTSIDE RECORDS SUMMARY | 2024-12-21 16:23 | XMS_ITS | Encounter Summary ---
Author Organization [employer] Address 75 [facility] 7t [place] [address] Care Team Providers Care Medical Assistant Ob Gyn Name Role Phone Pj Crenshaw MD Primary Care Prov ider Encounter Details Date Type Department Care Team ([facility] st Contact Info) Description 10/23/2023 Orders Only [facility] CHC MED & PEDS [address] [place], [place] [phone] Pj Crenshaw MD 505 [place] [address] Acquired hypothyroidism Social History Tobacco Use Types [...] documented as of this encounter Care Teams Medical Assistant Ob Gyn Relationship Specialty Start Date End Date Pj Crenshaw MD [address] [place] [phone] PCP - General Internal Medicine 01/15/20 documented as of this encounter
--- OUTSIDE RECORDS SUMMARY | 2024-12-21 16:23 | XMS_ITS | Encounter Summary ---
Author Organization [employer] Address [address] [place] [address] [address], [place] [address] Care Team Providers Care Salvage Determiner Name Role Phone Pj Crenshaw MD Primary Care Prov ider Reason for Visit * Reason Comments Med Refill Encounter Details Date Type Department Care Team ([facility] st Contact Info) Description 11/04/2022 Refill [facility] CHC MED & PEDS [address] [place] [address] Pj Crenshaw MD 505 [place] [address] Gastroesophageal reflux disease without esophagitis Social History [...] reflux documented in this encounter Care Teams Salvage Determiner Relationship Specialty Start Date End Date Pj Crenshaw MD 505 [place] [address] PCP - General Internal Medicine 01/15/20 documented as of this encounter
--- OUTSIDE RECORDS SUMMARY | 2024-12-21 16:23 | XMS_ITS | Encounter Summary ---
Author Organization [employer] Address 75 [facility] 7t [place] [address] Care Team Providers Care Trolley Car Mechanic Name Role Phone Pj Crenshaw MD Primary Care Prov ider Encounter Details Date Type Department Care Team ([facility] st Contact Info) Description 07/07/[address] [facility] CHC MED & PEDS [address] [place], [place] [phone] Farheen Luciano, RN 505 [place] [address] Social History Tobacco Use Types Packs/Day Years [...] on filedocumented in this encounter Care Teams Trolley Car Mechanic Relationship Specialty Start Date End Date Pj Crenshaw MD 505 [place] [address] PCP - General Internal Medicine 01/15/20 documented as of this encounter
--- OUTSIDE RECORDS SUMMARY | 2024-12-21 16:23 | XMS_ITS | Encounter Summary ---
Author Organization [employer] Address 75 [facility] 7t [place] [address] Care Team Providers Care Forensic Specialist Name Role Phone Pj Crenshaw MD Primary Care Prov ider Encounter Details Date Type Department Care Team ([facility] st Contact Info) Description 08/12/2022 Telephone [facility] CHC MED & PEDS 505 [place], [place] [phone] Pj Crenshaw MD 505 [place] [address] Social History Tobacco Use Types Packs/Day Years [...] on filedocumented in this encounter Care Teams Forensic Specialist Relationship Specialty Start Date End Date Pj Crenshaw MD [address] [place] [address] PCP - General Internal Medicine 01/15/20 documented as of this encounter
--- OUTSIDE RECORDS SUMMARY | 2024-12-21 16:24 | XMS_ITS | Encounter Summary ---
Author Organization [employer] Address [address] [place] [address] Care Team Providers Care Maintenance Department Manager Name Role Phone Pj Crenshaw MD Primary Care Prov ider Reason for Visit * Reason Onset Date Comments Appointment Request 04/14/2024 Encounter Details Date Type Department Care Team ([facility] st Contact Info) Description 04/14/2024 Telephone [facility] MEDICINE [address] [place] [address] Pj Crenshaw MD 505 [place] [address] Appointment Request Social History Tobacco Use Types [...] documented as of this encounter Care Teams Maintenance Department Manager Relationship Specialty Start Date End Date Pj Crenshaw MD [address] [place] [address] PCP - General Internal Medicine 01/15/20 documented as of this encounter
--- OUTSIDE RECORDS SUMMARY | 2024-12-21 16:24 | XMS_ITS | Clinical Summary ---
Author Organization [employer] Address [address] [facility] 7t [place] [address] Care Team Providers Care Commercial Director Name Role Phone Pj Crenshaw MD Primary Care Prov ider Allergies Active Allergy Reactions Criticality Noted Date Comments Apple Juice 08/13/2022 Chocolate Hazelnut Flavoring Agent (Non-Screening) 08/13/2022 Clarithromycin 02/22/2014 Dawson Flavoring Agent (Non-Screening) 08/13/2022 Pear 08/13/2022 Pistachio Nut (Diagnostic) 2 Pollen Extract 03/03/2023 Triticum Aestivum 03/03/2023 Medications LORazepam (Ativan) 0.5 MG tablet Take 1 tablet by mouth in the morning and 1 tablet in the evening. Active diclofenac (Voltaren) 75 MG EC tablet Take 1 tablet by mouth in the morning and at bedtime. 2 Active DULoxetine (Cymbalta) [address] capsule Take 1 capsule by mouth in the morning, at noon, and at bedtime. Active Fluticasone Furoate-Vilanterol (Breo Ellipta) 200-25 MCG/ACT aerosol powder Inhale 1 puff in the morning. Active mirabegron ER (Myrbetriq) 25 MG 24 hr tablet Take 1 tablet by mouth in the morning. Active polyethylene glycol, PEG, 3350 (MiraLax) 17 GM/SCOOP powder take (17G) by oral route every day mixed with 8 oz. water, juice, soda, coffee or tea 06/18/201 9 Active zolpidem (Ambien) 10 MG tablet Take 1 tablet by mouth in the morning. Active melatonin 5 MG tablet Take by mouth. Activ e pantoprazole (ProtoNix) 40 MG EC tabletIndications: Gastroesophageal reflux disease without esophagitis TAKE 1 TABLET(40 MG) BY MOUTH BEFORE BREAKFAST 90 tablet 3 Active cetirizine (ZyrTEC) 10 MG tablet Take 1 tablet (10 mg) by mouth in the morning. 90 tablet 3 3 Active hydrOXYzine HCl (Atarax) 25 MG tablet TAKE 1 TABLET(25 MG) BY MOUTH EVERY 8 HOURS NEEDED FOR ANXIETY 90 tablet 1 4 Active Ventolin HFA 108 (90 Base) MCG/ACT inhaler INHALE 2 PUFFS BY MOUTH EVERY 4 HOURS NEEDED FOR WHEEZING 18 g 4 Active levothyroxine (Synthroid) 137 MCG tablet Take 137 mcg by mouth before breakfast. 30 tablet 11 4 025 Active chlorthalidone (Hygroton) 25 MG tabletIndications: Primary hypertension Take 1 tablet (25 mg) by mouth Once per day. 90 tablet 3 4 025 Active EPINEPHrine (Epipen) 0.3 MG/0.3ML injection syringeIndications :Anaphylaxis, sequela Inject 0.3 mL (0.3 mg) as directed 1 (one) time for 1 dose. Inject into upper leg. Call 911 after use. 0.3 mL 4 Active linaCLOtide (Linzess) 145 MCG capsuleIndications :Chronic Idiopathic Constipation Take 1 capsule (145 mcg) by mouth before breakfast. Do not crush or chew. 30 capsule 4 025 Active gabapentin (Neurontin) 300 MG capsule Take 1 capsule (300 mg) by mouth 3 times daily. 90 capsule 4 025 Active Transderm-Scop 1 MG/3DAYS patch 72 hour APPLY 1 PATCH TOPICALLY TO THE SKIN EVERY 72 HOURS 10 patch 4 Active Semaglutide-Weight Management (Wegovy) 0.25 MG/0.5ML solution auto-injector Inject 0.25 mg under the skin 1 (one) time per week. 3 mL 1 4 Active lidocaine (Lidoderm) 5 % patchIndications:C hronic left shoulder pain APPLY 1 PATCH TOPICALLY ONCE A DAY.REMOVE AND DISCARD PATCH WITHIN 12 HOURS OR DIRECTED BY 30 patch 3 4 Active albuterol 1.25 MG/3ML nebulizer solutionIndication s:Mild intermittent asthma without complication USE 1 VIAL VIA NEBULIZER EVERY 6 HOURS NEEDED FOR WHEEZING 75 mL 11 5 Active atorvastatin (Lipitor) 20 MG tabletIndications: Mixed hyperlipidemia Take 1 tablet (20 mg) by mouth Once per day. 90 tablet 3 5 026 Active montelukast (Singulair) 10 MG tablet Take 1 tablet (10 mg) by mouth at bedtime. 90 tablet 3 5 026 Active fluticasone (Flonase) 50 MCG/ACT nasal spray SHAKE LIQUID AND USE 1 TO 2 SPRAYS IN EACH NOSTRIL EVERY MORNING 48 g 1 5 Active Zepbound 2.5 MG/0.5ML solution auto-injector ADMINISTER 2.5 MG UNDER THE SKIN 1 TIME A WEEK DIRECTED 2 mL 1 5 Active estradiol (Estrace) 0.1 MG/GM vaginal cream 1 g vaginally nightly x 14 days, then continue twice a week ongoing 42.5 g 1 5 Active Tirzepatide-Weight Management (Zepbound) 5 MG/0.5ML solution Inject 5 mg under the skin 1 (one) time per week. 3 mL 3 5 Active nitrofurantoin, macrocrystal-monoh ydrate, (Macrobid) 100 MG capsule Take 1 capsule (100 mg) by mouth 2 times daily for 7 days. 14 capsule 5 025 Active Active Problems Problem Noted Date Diagnosed Date [...] place referral for reevaluation, previously seen at [facility] glucose tolerance 03/03/2023 Severe obesity 03/03/2023 Assessment [...] Patient used to be followed by a group director experience, will place referal Varicose veins of lower [...] Encounters Date Type Department Care Team Description 12/21/2024 3:00 PM EDT Telemedicine [facility] [address] [place] [address] Pj Crenshaw MD Acute cystitis without hematuria (Primary Dx) 12/21/2024 Travel 12/21/2024 Telephone [facility] [address] [place] [address] Pj Crenshaw MD Medication Question 12/21/2024 Telephone [facility] [address] [place] [address] Pj Crenshaw MD Nurse Triage 12/19/2024 Telephone [facility] [address] [place] [address] Pj Crenshaw MD 12/13/2024 Telephone [facility] [address] [place] [address] Pj Crenshaw MD 11/24/2024 9:15 AM EDT Office Visit [facility] [address] [place] [address] Alma Moseley CNM Atrophic vaginitis (Primary Dx); Vaginal odor 11/24/2024 Travel 11/18/2024 9:20 AM EDT Office Visit [facility] [address] [place] [address] Shante Oquendo MD Chronic left shoulder pain (Primary Dx) 11/18/2024 Travel 11/16/2024 Population Health Risk Score Community [facility] ([facility]) Department [address] [place] [phone] Provider, Population Health Generic 11/03/2024 Refill [facility] [address] [place] [address] Pj Crenshaw MD 10/13/2024 Telephone [facility] [address] [place] [address] Pj Crenshaw MD Med Refill 10/11/2024 Refill [facility] & PEDS [address] [place] [address] Pj Crenshaw MD 10/04/2024 Travel from Last 3 Months Immunizations Name Administration Dates Next Due Hep B, adult 10/27/2019 Influenza injectable quadriv alent IIV4 with preservative 08/25/2019,06/16/2018,05/08/2017,05/29 Influenza injectable quadriv alent preservative free 05/13/2022,06/21/2021,06/14/2020,08/01 Influenza, IIV3, injectable 06/08/2014, 1 Influenza, Split (incl. randy fied surface antigen) 09/16/2013,05/25/2012 Pfizer Covid-19 Vaccine 12+ 12/17/2021,,12/02/2020 Pfizer Covid-19 Vaccine 12+ luz-sucrose (Francis Cap) [...] Additional history exists Influenza Vaccine (#1) 2024 , 06/21/2021, 06/14/2020, Additional history exists SDOH Screening 01/18/2025 01/19/2024 Alcohol/Substance Use Screening 09/06/2025 09/06/2024 Depression Screening 09/06/2025 09/06/2024, 09/06/19 Tobacco Screening 11/24/2025 11/24/2024 Mammogram 05/31/2026 05/31/2024, [...] DETECTION BY PCR NOT DETECTED Not Detect [facility] BACTERIAL VAGINOSIS DETECTION BY PCR NEGATIVE Negative [facility] Comment:The BV organism targ ets [...] DETECTION BY PCR NOT DETECTED Not Detect [facility] Maria D glab krusei PCR NOT DETECTED Not Detect [facility] Swab Vaginal structure / Unknown 11/24/2024 9:50 AM EDT 11/24/2024 2:34 PM EDT Alma Moseley CN LAB MICROBIOLOGY - GENERA L ORDERABLES Final Result [facility] [address] [place] [address] [phone] * XR Shoulder 2+ Views Left (11/18/2024 1:42 PM EDT) Anatomical Region Laterality Modality Upper Extremities, Shoulder Left Radi ographic Imaging 11/18/2024 1:42 PM EDT Narrative 11/21/2024 1:58 PM EDT ? [facility] ?[address] ?[place] [address] ?XRay Report ? Signed ? Patient: Haley Valdovinos ?MR#: ?? [id number] ? : 1970 ?Acct:[id number] ? Age/Sex: 54 / F ?ADM Date: 11/18/24 ? Loc: HO.XRAY ? Attending Dr: Shante Oquendo MD ? Ordering Physician: Shante Oquendo MD ?? Date of Service: 11/18/24 ?? Procedure(s): XR shoulder LT min 2V ?? Accession Number(s): [id number] ? cc: Pj Crenshaw MD; Shante Oquendo [...] ??Peter Shaffer MD ??11/21/2024 01:56 PM EDT ? Dictated By: ?Peter Shaffer MD ? Signed By: ?<Electronically signed by Peter Shaffre MD in OV> ?11/21/24 1356 ? DD/ 1342 ? TD/TT: 11/18/24 1356 ? Supervisor Payroll: ? Procedure Note Donjulietater, Image - 11/21/[address] [address] XRay Report Signed Patient: Haley Valdovinos JMR#: [id number] : 1970Acct:[id number] Age/Sex: 54 / FADM Date: 11/18/24 Loc: HO.NOÉ Attending Dr: Shante Oquendo MD Ordering Physician: Shante Oquendo MD Date of Service: 11/18/24 Procedure(s): XR shoulder LT min 2V Accession Number(s): [id number] cc: Pj Crenshaw MD; Shante Oquendo MD EXAMINATION: XR [...] 11/21/24 1356 DD/ 1342 TD/TT: 11/18/24 1356 Supervisor Payroll: us Shante Oquendo MD IMG XR PROCEDURES Final Resul t * BI Mammogram Screening Tomosynthesis Bilateral (05/31/2024 11:00 AM EDT) Anatomical Region Laterality Modality Breast Bilateral Mammography 05/31/2024 11:0 0 AM EDT Narrative 06/13/2024 5:26 PM EDT ? [facility] ? [address] ?[place] [address] ? Mammography Report ? Signed with Addenda ? Patient: Medley Durham,Haley J ?MR#: ?? [id number] ? : 1970 ?Acct:[id number] ? Age/Sex: 54 / F ?ADM Date: 05/31/ ? Loc: HO.MAMMO ? Attending Dr: Pj Peguero MD ? Ordering Physician: Pj Crenshaw MD ? Results: 0Incomplete: Needs Additional Imaging ?? Evaluation ? Date of Service: 15/ ?Follow Up: Additional Imagi ?? ng ? Procedure(s): MM tomosynthesis screening BI ?? Accession Number(s): [id number] ? cc: Pj Crenshaw MD ?ADDENDUM ? [...] DD/ 1100 ? TD/TT: 05/31/24 1114 ? Supervisor Payroll: ? Procedure Note Donjulietater, Image - [facility]/17/20[facility] [address] [place] [address] Mammography Report Signed with Addenda Patient: Haley Valdovinos JMR#: [id number] : 1970Acct:[id number] Age/Sex: 54 / FADM Date: 05/31/24 Loc: HO.MAMMO Attending Dr: Pj Peguero MD Ordering Physician: Pj Crenshaw MD Results: 0Incomplete: Needs Additional Imaging Evaluation Date of Service: 05/31/24Follow Up: Additional Imagi ng Procedure(s): MM tomosynthesis screening BI Accession Number(s): [id number] cc: Pj Crenshaw MD ADDENDUM ADDENDUM #1 [...] Lara Dennis DO 06/13/2024 05:22 PM EDT Dictated By: Lara Dennis DO Signed By: <Electronically signed by Lara Dennis DO in OV> 06/13/24 1722 DD/ 1100 TD/TT: 05/31/24 1114 Supervisor Payroll: Pj Peguero MD IM BI PROCEDURES Edited Result - Final * (ABNORMAL) Lipid Panel, Standard (02/05/2024 9:24 AM EDT) Triglycerides 113 <150 mg/dL [facility] Comment:Desirable Triglyceri de: less than 150 mg/dLBorderline High Triglyceride 150-199 mg/dLHigh Triglyceride: 200-499 mg/dLVery High Triglyceride: greater than or equal to 5OO mg/dL Cholesterol 233(H) <200 mg/dL [facility] Comment:Desirable Cholestero l: less than 200 mg/dLBorderline High Cholesterol: 200-239 mg/dLHigh Cholesterol: greater than 239 mg/dL LDL Cholesterol Calculated 166(H) <100 mg/dL [facility] Comment:Desirable LDL: less than 100 mg/dLNear Optimal/Above Optimal LDL: 110- 129 mg/dLBorderline High LDL: 130-159 mg/dLHigh LDL: 160-189 mg/dLVery High LDL: greater than or equal to 190 mg/dL HDL Cholesterol 45 >40 mg/dL [facility] Comment:Desirable HDL: great er than 40 mg/dL Note: This HDL assay may give artificially low results in patients with liver disease. Blood Venous blood specimen / Unknown 02/05/2024 9:24 AM EDT 02/05/2024 2:15 PM EDT Shante Oquendo MD LAB BLOOD ORDERABLES Final Re sult [facility] [address] [place] [phone] * Pap Smear (07/20/2023 12:00 AM EST) Swab Karly Provider LAB CYTOLOGY ORDERABLES F inal Result Performing Organization Address City/[facility]/ZIP Co de Phone Number [facility] [address] [place] [address] * (ABNORMAL) POCT A1C (03/03/2023 9:43 AM EDT) Hemoglobin A1C 5.9 4.0 - 6.0 % Comment:RANDOM QC Media Lot # [id number] Lot# Expiration Date [id number] Blood 03/03/2023 9:43 AM EDT Magdalena Ada Collazo APPRENTICE INSTRUMENT TECHNICIAN POINT OF CARE TEST ENTER/E DIT ORDERABLES Final Result * Hepatitis C Antibody with Reflex to HCV, RNA, Quantitative, Real-Time PCR (12/08/2022 9:49 AM EDT) Hepatitis C Antibody NON-REACT BRANDON NON-REACT RBANDON [facility] Index 0.13 <1.00 [facility] Comment: HCV antibody was non-reactive. There is no laboratory evidence of HCV infection. In most cases, no further action is required. However, if recent HCV exposure is suspected, a test for HCV RNA (test code 56184) is suggested. For additional information please refer to http://education.Wireless Tech.AlertEnterprise/faq/AZE14p6 (This link is being provided for informational/ educational purposes only.) Blood Venous blood specimen / Unknown 12/08/2022 9:49 AM EDT 12/08/2022 9:50 AM EDT Narrative [facility] - 12/09/2022 7:27 AM EDT FASTING:YES FASTING: YES Pj Peguero MD LAB BLOOD ORDERABL ES Final Result Performing Organization Address [facility]/ZIP Co de Phone Number [facility] [address], [place] [address] [facility] [address] [place] [address] * HPV mRNA E6/E7 (04/23/2021 9:09 AM EDT) Pathologist [facility] HPV nRNA E6/E7 Not Detected Not Detected [facility] Comment: Methodology: Resistor Testing Machine Operator-Mediated Amplification This assay detects E6/E7 viral messenger RNA (mRNA) from 14 high-risk HPV types (16,18,31,33,35,39,45,51,52,56,58,59,66,68). ? The analytical performance characteristics of this assay have been determined by [employer]. The modifications have not been cleared or approved by the FDA. This assay has been validated pursuant to the CLIA regulations and is used for clinical purposes. ?? For additional information, please refer to http://education.Wireless Tech.AlertEnterprise/faq/PRE322z9 (This link if provided for information/ educational purposes only.) 04/23/2021 9:09 AM EDT us Alma Moseley CNM LAB BLOOD ORDERABLES Winter l Result Performing Organization Address City/[facility]/ZIP Co de Phone Number [facility] [address] * HIV AB/AG (10/12/2019 10:06 AM EST) HIV AG/AB NONREACTIVE NR FOUNDATI ON LAB [...] detection of this assay. ?? The [employer] Diesel Stationary Engineer HIV Ag/Ab Combo assay result and supplemental assay results should be interpreted in conjunction with the patient's clinical presentation, history and other laboratory results. ??If the results are inconsistent with clinical evidence, additional testing is suggested to confirm the result. 10/12/2019 10:0 6 AM EST us Historical Provider HISTORICAL/NON ORDERABLE LABS Final Result [facility] [address] from Last 3 Months or Most Recently Relevant to Health Maintenance [facility] Advance Directives Documents on File Type Date Recorded Patient Fiber Picker Expl anation Advance Directives and Livin g Will 11/18/2024 4:14 PM HCP Care Teams Commercial Director Relationship Specialty Start Date End Date Pj Crenshaw MD [address] [place] [phone] PCP - General Internal Medicine 01/15/20
--- OUTSIDE RECORDS SUMMARY | 2024-12-21 16:24 | XMS_ITS | Encounter Summary ---
Author Organization [employer] Address [address] [facility] 7 [place] [address] Care Team Providers Care Belt And Link Assembly Supervisor Name Role Phone Pj Crenshaw MD Primary Care Prov ider Reason for Visit * Reason Onset Date Comments Medication Question 12/21/2024 Encounter Details Date Type Department Care Team ([facility] st Contact Info) Description 12/21/2024 Telephone [facility] [address] [place] [address] Pj Crenshaw MD [address] [place] [address] Medication Question Social History Tobacco Use Types Packs/Day Years [...] encounter Miscellaneous Notes * Telephone Encounter - Jillian Rosa RN - 12/21/2024 11:56 AM EDT TC to pt. Pt denies burning or frequency when she goes to urinate. Pt states the last nurse she talked to has already made her a telehealth today. RN told pt to keep her appointment. Pt verbalized understanding and agreement with the plan of care. * Telephone Encounter - Meri Clifton RN - 12/21/2024 11:36 AM EDT Triage call Pt reports urinary frequency which is becoming excessive. Pt does drink adequate liquids due to medications taken daily and is thirsty frequently. Pt is concerned about diabetes. Pt is also asking for zepbound 2.5mg/ 0.5ml to be increased since has been taking for 3 months now. Pt is given tele visit with PCP today at 300pm. Pt agrees with disposition. Insurance is verified as active prior to booking. Protocol Used: Urinary Symptoms (Adult) Protocol-Based Disposition: See in Office or Video Visit Today Video visit offered and caller accepted Positive Triage Question: * Urinating more frequently than usual (i.e., frequency) OR new-onset of the feeling of an urgent need to urinate (i.e., urgency) * All higher-acuity triage questions were negative Care Advice Discussed: * Reasons To Call Back - Fever occurs - Pain or burning with urination - You become worse * Telephone Encounter - Eva Felton - 12/21/2024 10:25 AM EDT Tc from pt requesting increase dose for Zepbound 2.5 MG/0.5ML solution auto-injector documented in this encounter Plan of Treatment Not on file documented as of this encounter Visit Diagnoses Not on filedocumented in this encounter Additional Health Concerns Assessment Noted Time PHQ-9 Depression Total Score: 13 09/06/ 025 10:14 AM EST documented as of this encounter Care Teams Belt And Link Assembly Supervisor Relationship Specialty Start Date End Date Pj Crenshaw MD [address] [place] [phone] PCP - General Internal Medicine 01/15/20 documented as of this encounter
--- OUTSIDE RECORDS SUMMARY | 2024-12-21 16:24 | XMS_ITS | Encounter Summary ---
Author Organization [employer] Address [address] [facility] 7t [place] [address] Care Team Providers Care Manufacturing Applications Engineer Name Role Phone Pj Crenshaw MD Primary Care Prov ider Encounter Details Date Type Department Care Team ([facility] st Contact Info) Description 08/26/2023 Orders Only [facility]EDS [address] [place], [place] [phone] Pj Crenshaw MD [address] [place] [address] Acquired hypothyroidism Social History Tobacco Use Types Packs/Day Years Used Date Smoking Tobacco: Never Passive Smoke Exposure: Never Smokeless Tobacco: Never Alcohol Use Standard Drinks/Week Comments Never 0 (1 standard drink = 0.6 oz pur e alcohol) Depression Answer Date Recorded Patient Health Questionnaire-9 Score 2 11/19/2022 Housing Stability Answer Date Recorded What is your housing situation today? I have doug gleasno 06/01/[address] you li [...] documented as of this encounter Care Teams Manufacturing Applications Engineer Relationship Specialty Start Date End Date Pj Crenshaw MD [address] [place] [phone] PCP - General Internal Medicine 01/15/20 documented as of this encounter
--- OUTSIDE RECORDS SUMMARY | 2024-12-21 16:24 | XMS_ITS | Clinical Summary ---
Author Organization [employer] [facility] ity Address [address] [place] [address] Care Team Providers Care Engine Watchman Name Role Phone Unavailable Primary Care Provider [...]
--- OUTSIDE RECORDS SUMMARY | 2024-12-21 16:24 | XMS_ITS | Encounter Summary ---
Author Organization [employer] Address [address] [facility] 7 [place] [address] Care Team Providers Care Lean Consultant Name Role Phone Pj Crenshaw MD Primary Care Prov ider Encounter Details Date Type Department Care Team ([facility] st Contact Info) Description 12/21/2024 3:00 PM EDT Telemedicine [facility] PEDS [address] [place] [address] Pj Crenshaw MD [address] [place] [address] Acute cystitis without hematuria (Primary Dx) Social History Tobacco Use Types [...] AM EDT documented as of this encounter Progress Notes * Pj Peguero MD - 12/21/2024 3:00 PM EDT Subjective Patient ID: Haley Durham is a 54 y.o. female who presents for No chief complaint on file.. UTI This is a chronic problem. Associated symptoms include pain. Pertinent negatives include no hematuria. The pain is present in the bladder. Review of Systems Genitourinary: Negative for hematuria. Objective Physical Exam Neurological: General: No focal deficit present. Mental Status: She is oriented to person, place, and time. Psychiatric: Mood and Affect: Mood normal. Behavior: Behavior normal. Assessment/Plan Problem List Items Addressed This Visit None Visit Diagnoses Acute cystitis without hematuria - Primary Symptoms started 1 weeks ago, complains of dysuria/frequency/urgency and suprapubic pain, will order u/a with culture, will provide nitrofurantoin, call back if not improving Relevant Orders Urinalysis, Complete, with Reflex to Culture documented in this encounter Plan of Treatment Scheduled Orders Name Type Priority Associated Diagnoses Orde r Schedule Urinalysis, Complete, with Reflex to Culture Lab Routine Acute cystitis without hematuria Expected: 12/21/2024 (Approximate), Expires: 12/21/2025 documented as of this encounter Visit Diagnoses Diagnosis Acute cystitis without hematuria- Primary documented in this encounter Additional Health Concerns Assessment Noted Time PHQ-9 Depression Total Score: 13 025 10:14 AM EST documented as of this encounter Care Teams Lean Consultant Relationship Specialty Start Date End Date Pj Crenshaw MD [address] [place] [phone] PCP - General Internal Medicine 01/15/20 documented as of this encounter
--- OUTSIDE RECORDS SUMMARY | 2024-12-21 16:24 | XMS_ITS | Encounter Summary ---
Author Organization [employer] Address [address] [facility] 7 [place] [address] Care Team Providers Care Consumer Services Advisor Name Role Phone Pj Crenshaw MD Primary Care Prov ider Reason for Visit * Reason Onset Date Comments Nurse Triage 12/21/2024 Encounter Details Date Type Department Care Team ([facility] st Contact Info) Description 12/21/2024 Telephone [facility] MEDICINE [address] [place] [address] Pj Crenshaw MD [address] [place] [address] Nurse Triage Social History Tobacco Use Types Packs/Day Years [...] Encounter - Meri Clifton RN - 12/21/2024 10:57 AM EDT Triage call Pt didn't answer. No voice mail message received. Unable to leave message to call [facility]. * Telephone Encounter - Eva Felton - 12/21/2024 10:22 AM EDT Symptom: Urine Symptoms (Frequent urination) Outcome: Schedule a same-day appointment or talk to a nurse or provider today Reason: Caller denied all higher acuity questions The caller accepted this outcome. [phone] documented in this encounter Plan of Treatment Not on file documented as of this encounter Visit Diagnoses Not on filedocumented in this encounter Additional Health Concerns Assessment Noted Time PHQ-9 Depression Total Score: 13 025 10:14 AM EST documented as of this encounter Care Teams Consumer Services Advisor Relationship Specialty Start Date End Date Pj Crenshaw MD [address] [place] [address] PCP - General Internal Medicine 01/15/20 documented as of this encounter
--- OUTSIDE RECORDS SUMMARY | 2024-12-21 16:24 | XMS_ITS | Encounter Summary ---
Author Organization [employer] Address [address] 7[address] [place] [address] Care Team Providers Care Electronics Mechanic Name Role Phone Pj Crenshaw MD Primary Care Prov ider Encounter Details Date Type Department Care Team ([facility] st Contact Info) Description 05/09/2024 Orders Only [facility] CHC MED & PEDS [address] [place], [place] [phone] ProviderKarly MD Social History Tobacco Use Types [...] the past 12 months, has t he [employer], gas, oil or water company threatened to [...] EDT Narrative 06/13/2024 5:26 PM EDT ? [facility] ? [address] ?[place] [id number] ? Mammography Report ? Signed with Addenda ? Patient: Medley Durham,Haley J ?MR#: ?? [id number] ? : 1970 ?Acct:[id number] ? Age/Sex: 54 / F ?ADM Date: 10/15/24 ? Loc: HO.MAMMO ? Attending Dr: Pj Peguero MD ? Ordering Physician: Pj Crenshaw MD ? Results: 0Incomplete: Needs Additional Imaging ?? Evaluation ? Date of Service: 05/31/24 ?Follow Up: Additional Imagi ?? ng ? Procedure(s): MM tomosynthesis screening BI ?? Accession Number(s): [id number] ? cc: Pj Crenshaw MD ?ADDENDUM ? [...] DD/ 1100 ? TD/TT: 05/31/24 1114 ? Refuse Laborer: ? Procedure Note Cholo, Image - 06/17/2024 [facility] [address] [place] [address] Mammography Report Signed with Ministerio Patient: Haley Valdovinos JMR#: [id number] : 1970Acct:[id number] Age/Sex: 54 / FADM Date: 05/31/24 Loc: HO.BROO Attending Dr: Pj Peguero MD Ordering Physician: Pj Crenshaw MD Results: 0Incomplete: Needs Additional Imaging Evaluation Date of Service: 05/31/24Follow Up: Additional Imagi ng Procedure(s): MM tomosynthesis screening BI Accession Number(s): [id number] cc: Pj Crenshaw MD ADDENDUM ADDENDUM #1 [...] OV> 06/13/24 1722 DD/ 99 TD/TT: 05/31/241113 Refuse Laborer: Pj Peguero MD IM BI PROCEDURES Edited [...] documented as of this encounter Care Teams Electronics Mechanic Relationship Specialty Start Date End Date Pj Crenshaw MD [address] [place] [address] PCP - General Internal Medicine 01/15/20 documented as of this encounter
--- OUTSIDE RECORDS SUMMARY | 2024-12-21 16:24 | XMS_ITS | Encounter Summary ---
Author Organization [employer] Address [address] [facility] 7[address] [place] [address] Care Team Providers Care Bullet Slug Casting Machine Operator Name Role Phone Pj Crenshaw MD Primary Care Prov ider Encounter Details Date Type Department Care Team ([facility] Contact Info) Description 12/19/2024 Telephone [facility] CHC MED & PEDS [address] [place], [place] [phone] Pj Crenshaw MD [address] [place] [address] Social History Tobacco Use Types Packs/Day Years [...] encounter Miscellaneous Notes * Telephone Encounter - Selene Solorzano [place] - 12/19/2024 2:08 PM EDT Called pt to schedule tele fu bp appt with Dr. Lawson. Pt didn't answer, lvm to call office back. documented in this encounter Plan of Treatment Not on file documented as of this encounter Visit Diagnoses Not on filedocumented in this encounter Additional Health Concerns Assessment Noted Time PHQ-9 Depression Total Score: 13 025 10:14 AM EST documented as of this encounter Care Teams Bullet Slug Casting Machine Operator Relationship Specialty Start Date End Date Pj Crenshaw MD [address] [place] [address] PCP - General Internal Medicine 01/15/20 documented as of this encounter
--- OUTSIDE RECORDS SUMMARY | 2024-12-21 16:24 | XMS_ITS | Encounter Summary ---
Author Organization [employer] Address [address] 7[address] [place] [address] Care Team Providers Care Vendor Management Specialist Name Role Phone Pj Crenshaw MD Primary Care Prov ider Encounter Details Date Type Department Care Team ([facility] st Contact Info) Description 12/16/2023 Orders Only [facility] CHC MED & PEDS [address] [place], [place] [phone] ProviderKarly MD Social History Tobacco Use Types [...] * Surgical Pathology (09/18/2023 9:49 AM EST) [facility] Provider MD LAB PATHOLOGY ORDERABLES Final Result * Cytology, Conventional Pap Smear, 1 Slide (07/20/2023 9:54 AM EST) [facility] Provider MD LAB CYTOLOGY ORDERABLES F inal Result documented in this encounter Visit Diagnoses Not on filedocumented in this encounter Additional Health Concerns Assessment Noted Time PHQ-9 Depression Total Score: 2 11/20/19 23 8:47 AM EDT documented as of this encounter Care Teams Vendor Management Specialist Relationship Specialty Start Date End Date Pj Crenshaw MD [address] [place] [address] PCP - General Internal Medicine 01/15/20 documented as of this encounter
--- OUTSIDE RECORDS SUMMARY | 2024-12-21 16:24 | XMS_ITS | Encounter Summary ---
Author Organization [employer] Address [address] 7[address] [place] [address] Care Team Providers Care Budget Analyst Name Role Phone Pj Crenshaw MD Primary Care Prov ider Encounter Details Date Type Department Care Team (Latest Contact Info) Description 12/21/2024 Travel Social History Tobacco Use Types Packs/Day [...] documented as of this encounter Care Teams Budget Analyst Relationship Specialty Start Date End Date Pj Crenshaw MD [address] [place] [address] PCP - General Internal Medicine 01/15/20 documented as of this encounter
--- OUTSIDE RECORDS SUMMARY | 2024-12-21 16:24 | XMS_ITS | Encounter Summary ---
Author Organization [employer] Address [address] [facility] 7t [place] [address] Care Team Providers Care Cash Van Salesperson Name Role Phone Pj Crenshaw MD Primary Care Prov ider Encounter Details Date Type Department Care Team ([facility] Contact Info) Description 05/31/2024 Telephone [facility] CHC MED & PEDS [address] [place], [place] [phone] Pj Crenshaw MD [address] [place] [address] Social History Tobacco Use Types Packs/Day Years [...] documented as of this encounter Care Teams Cash Van Salesperson Relationship Specialty Start Date End Date Pj Crenshaw MD [address] [place] [address] PCP - General Internal Medicine 01/15/20 documented as of this encounter
--- OUTSIDE RECORDS SUMMARY | 2024-12-21 16:24 | XMS_ITS | Encounter Summary ---
Author Organization [employer] Address [address] [facility] 7 [place] [address] Care Team Providers Care Provider Contracting Consultant Name Role Phone Pj Crenshaw MD Primary Care Prov ider Encounter Details Date Type Department Care Team ([facility] st Contact Info) Description 05/18/2023 Telephone [facility] CHC MED & PEDS [address] [place], [place] [phone] Pj Crenshaw MD [address] [place] [address] Social History Tobacco Use Types Packs/Day Years [...] documented as of this encounter Care Teams Provider Contracting Consultant Relationship Specialty Start Date End Date Pj Crenshaw MD [address] [place] [address] PCP - General Internal Medicine 01/15/20 documented as of this encounter
[2024-12-21 18:28] LABS: Appearance Urine Clear; Color Urine Yellow; Glucose Urine UA Negative (Negative); Leukocyte Esterase Urine Negative (Negative); Nitrite Urine Negative (Negative); Urine Blood Negative (Negative); Urine Ketones Negative (Negative); Urine Protein Negative (Neg-Trace)
[2024-12-21 18:32] LABS: Bacteria Urine None Seen (None Seen); Hyaline Casts Urine 0-2 /LPF (0-2); RBC Urine 0-2 /HPF (0-2); WBC Urine 0-5 /HPF (0-5)
== END 2024-12-21 15:36 | disposition home or self-care (01) ==
LOC: CF 15:35
PROVIDERS: Visit Provider Internal Medicine
DX: N30.00 Acute cystitis without hematuria (principal)
CPT/HCPCS: 81001

== ENCOUNTER 2025-02-06 08:15 | Outpatient (REF) | payer MEDICAID, SELFPAY ==
--- OUTSIDE RECORDS SUMMARY | 2025-02-07 08:21 | XMS_ITS | Encounter Summary ---
Author Organization [employer] Address [address] [place] [address] [place] [address] Care Team Providers Care Drywall Sprayer Name Role Phone Pj Crenshaw MD Primary Care Prov ider Reason for Visit * Reason Comments Med Refill Encounter Details Date Type Department Care Team ([facility] st Contact Info) Description 09/15/2024 Refill [facility] CHC MED & PEDS [address] [place], [place] [phone] Pj Crenshaw MD [address] [place] [address] Social History Tobacco Use Types Packs/Day Years [...] documented as of this encounter Care Teams Drywall Sprayer Relationship Specialty Start Date End Date Pj Crenshaw MD [address] [place] [address] PCP - General Internal Medicine 01/15/20 documented as of this encounter
== END 2025-02-06 08:16 | disposition home or self-care (01) ==
LOC: HO.HOSX 08:15
DX: Z13.89 Encounter for screening for other disorder (principal)

== ENCOUNTER 2025-03-28 13:12 | Outpatient (AMB) | payer MEDICAID, SELFPAY ==
[2025-03-28 13:19] VITALS: BMI 43.9
--- NOTE | 2025-03-28 13:19 | MHC.OFFVIS ---
Vital Signs 03/28/25 13:19 Height 5 ft 4 in Weight 256 lb BMI 43.9 Intake Visit Reasons: New prob- L shoulder pain Intake Note: Haley is a 54 year old left hand dominant female who presents today for a new problem visit for evaluation of left shoulder pain that began about 1 year ago. Patient states she has been told she has a fracture but this has not been treated. Patient does not recall any injuries. Her pain is all around the shoulder radiating down the volar aspect of the forearm. Denies surgeries to the left shoulder. She also complains of some numbness and tingling on the left middle, ring, and small fingers. She has been taking Motrin and Tylenol with some relief. She has also been applying ice and Licodaine Patches. History of Left Carpal Tunnel Release DOS: 07/18/[address] Dale. Allergies ciprofloxacin (From Cipro) Allergy (Mild, Unverified 03/28/25 13:19) RASH peanut (PEANUT) Allergy (Unknown, Unverified 03/28/25 13:19) ANAPHYLAXIS pollen Allergy (Unknown, Uncoded 03/28/25 13:19) unknown reaction from unknown medicati Allergy (Unknown, Uncoded 03/28/25 13:19) unknown unknown antibiotic Allergy (Unknown, Uncoded 03/28/25 13:19) itching, rash HPI HPI New prob- L shoulder pain: Details: Haley is a 54 year old left hand dominant female who presents today for a new problem visit for evaluation of left shoulder pain that began about 1 year ago. Patient states she has been told she has a fracture but this has not been treated. Patient does not recall any injuries. Her pain is all around the shoulder radiating down the volar aspect of the forearm. Denies surgeries to the left shoulder. She also complains of some numbness and tingling on the left middle, ring, and small fingers. She has been taking Motrin and Tylenol with some relief. She has also been applying ice and Licodaine Patches. History of Left Carpal Tunnel Release DOS: 07/18/[address] Dale[address] [facility] Medical History (Reviewed 05/13/24 @ 10:11 by Vianey Ramirez [facility]) Asthma Acid reflux Odynophagia Arthritis Chronic sinusitis Asthma Migraine headache Panic attacks Anxiety Depression Surgical History History of bilateral tubal ligation H/O abdominoplasty History of knee surgery History of carpal tunnel release History of varicose vein ligation Social History (Updated 03/28/25 @ 13:24 by ALYSSA Carrillo) Household Members: Children Alcohol intake: never Patient Tobacco Use Status: Never used Tobacco Current occupational status: unemployed and disabled Current occupation: left handed Sexual orientation: Straight/Heterosexual Gender identity: Female Review of Systems Const All systems reviewed & are unremarkable except as noted in HPI and below Physical Exam Vital Signs: BMI result Body Mass Index 43.9 Extrem Other: Patient's left shoulder normal to inspection No erythema, ecchymosis, edema noted No lacerations, abrasions, open areas No evidence of infection Patient reports minimal tenderness to palpation of the AC joint and bicipital groove of the right shoulder No tenderness to palpation of the acromion, clavicle, or elsewhere in the left shoulder Patient is able to forward flex the left shoulder to approximately 90 degrees, reports significant pain beyond this Patient is able to externally rotate the left shoulder to approximately 45 degrees, compared to approximately 70-80 degrees on the right 4/5 strength on empty can test bilaterally 4/5 strength belly press on the left, 5/5 strength on the right Positive Cobb on the left, negative on the right Distal sensation intact Capillary refill brisk Assessment & Plan Assessment & Plan (1) Internal derangement of left shoulder: Code(s): M24.812 - Other specific joint derangements of left shoulder, not elsewhere classified Category: Medical Plan 1. Internal derangement of the left shoulder Patient is educated about this condition Patient is educated on the treatment options available, including but not limited to physical therapy, injections, and further imaging in the discussion for need of any surgical intervention At this time, patient states she is interested in referral to physical therapy, and would like to avoid anymore invasive treatment measures for the time being PT referral is placed Patient is educated that she should continue with [id number] exercises of the left shoulder to prevent stiffness Patient understands this is amenable to this plan Follow-up in 6-8 weeks after starting PT if she continues to experience significant symptoms or minimal improvement, sooner with any acute concerns Orders: Orders PT Evaluation and Treatment Today M24.812 - Other specific joint derangements of left shoulder, not elsewhere classified Coding Level of Care Code Est Pt Level 3 (51189) Diagnoses Internal derangement of left shoulder M24.812
--- OUTSIDE RECORDS SUMMARY | 2025-03-28 14:02 | XMS_ITS | Clinical Summary ---
Author Organization [employer] [facility] Address [address] [place] [address] Care Team Providers Care Mounter Automatic Name Role Phone Unavailable Primary Care Provider [...] 2) 2022 Colorectal Cancer Screening: Colonoscopy 10/23/2023 HIV Screening 10/23/2023 Hepatitis C Screening 10/23/2023 Social Influencers of Health Screening 10/23/2023 COVID-19 Vaccine (1 - 2023-2 5 season) 2024 Depression Screening 08/17/2024 Influenza Vaccine (#1) 2025 HIB Vaccines Aged Out No longer [...]
--- OUTSIDE RECORDS SUMMARY | 2025-03-28 14:02 | XMS_ITS | Encounter Summary ---
Author Organization [employer] Address [address] [place] [address] [place] [address] Care Team Providers Care Program/Music Director Name Role Phone Pj Crenshaw MD Primary Care Prov ider Reason for Visit * Reason Comments Med Refill Encounter Details Date Type Department Care Team ([facility] Contact Info) Description 09/15/2024 Refill [facility] CHC MED & PEDS [address] [place], [place] [phone] Pj Crenshaw MD [address] [place] [address] Social History Tobacco Use Types Packs/Day Years [...] documented as of this encounter Care Teams Program/Music Director Relationship Specialty Start Date End Date Pj Crenshaw MD [address] [place] [address] PCP - General Internal Medicine 01/15/20 documented as of this encounter
== END 2025-03-28 13:42 | disposition home or self-care (01) ==
LOC: HO.HOS 13:13
DX: M24.812 Other specific joint derangements of left shoulder, not elsewhere classified (principal)
CPT/HCPCS: 99213

== ENCOUNTER → 2025-03-28 13:12 | Outpatient (BNVA) | payer MEDICAID, SELFPAY | DX: M25.512 Pain in left shoulder (principal); M24.812 Other specific joint derangements of left shoulder, not elsewhere classified | CPT/HCPCS: 99212 ==

== ENCOUNTER 2025-05-10 14:24 | Outpatient (AMB) | payer MEDICAID, SELFPAY ==
--- NOTE | 2025-05-10 14:51 | MHC.OFFVIS ---
Intake Visit Reasons: Migraine Allergies ciprofloxacin (From Cipro) Allergy (Mild, Unverified 05/10/25 14:54) RASH peanut (PEANUT) Allergy (Unknown, Unverified 05/10/25 14:54) ANAPHYLAXIS pollen Allergy (Unknown, Uncoded 05/10/25 14:54) unknown reaction from unknown medicati Allergy (Unknown, Uncoded 05/10/25 14:54) unknown unknown antibiotic Allergy (Unknown, Uncoded 05/10/25 14:54) itching, rash Medication List - Last Reconciled 05/10/25 by Patt Llanos, MARILEE albuterol sulfate 90 mcg/actuation 90 mcg inhalation QID aripiprazole 2 mg PO DAILY atorvastatin 10 mg PO BEDTIME cetirizine 10 mg PO QAM chlorthalidone 25 mg PO DAILY diclofenac sodium 75 mg PO BID duloxetine 30 mg PO BID gabapentin 300 mg PO TID hydroxyzine HCl 25 mg PO TID levothyroxine 137 mcg PO DAILY linaclotide (Linzess) 145 mcg PO DAILY lorazepam (Ativan) 2 mg PO BID PRN lorazepam 0.5 mg PO BID PRN montelukast (Singulair) 10 mg PO DAILY oxybutynin chloride 5 mg PO DAILY oxybutynin chloride ER (Ditropan XL) 5 mg PO DAILY pantoprazole 40 mg PO DAILY tirzepatide (weight loss) (Zepbound) 5 mg subcut QWEEK zolpidem 10 mg PO BEDTIME HPI Comments Details: 55-year-old LH woman with fibromyalgia type of pain syndrome and migraine headaches. She was here with migraines and new symptom of memory loss. She has been without topiramate for atleast a few months, and headaches have worsened since being without medication. Topiramate helped to calm headaches when she was taking it. Headaches were happening almost every day. Pain could be sharp or throbbing-type, worse with light and sound. She also reports significant memory loss, which has been noted by family and her therapist. It is unclear when memory issues first started. She has difficulty remembering recent events or appointments, and feels disoriented at times. She has trouble processing information. She feels slow and has trouble comprehending things that she is told or read. She has significant stress and anxiety, and history of childhood trauma. She is working with therapist and psychiatrist. She has education up to 8th grade. 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 She was last seen in 08/2024 when topiramate dose was increased. She had headache almost every day. She was more forgetful. She had to use GPS when driving. SHe had not been taking topiramate for at least a few months. Medication had helped to calm headaches when she was taking it. She was working with therapist. She felt like she processing things slow. She had trouble comprehending what she was reading. She needed her daughter or therapist. Sleep was okay. 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 She has education up to 8th grade. [facility] Medical History Asthma Acid reflux Odynophagia Arthritis Chronic sinusitis Asthma Migraine headache Panic attacks Anxiety Depression Surgical History History of bilateral tubal ligation H/O abdominoplasty History of knee surgery History of carpal tunnel release History of varicose vein ligation Social History (Updated 03/28/25 @ 13:24 by ALYSSA Carrillo) Household Members: Children Alcohol intake: never Patient Tobacco Use Status: Never used Tobacco Current occupational status: unemployed and disabled Current occupation: left handed Sexual orientation: Straight/Heterosexual Gender identity: Female Review of Systems Const Denies chills, Denies daytime sleepiness, Denies difficulty sleeping, Denies fatigue, Denies fever(s), Denies frequent falls, Reports headache(s), Denies increased appetite, Denies poor appetite, Denies snoring, Denies weakness, Denies weight gain and Denies weight loss Eyes Denies loss of vision ENT Denies vertigo, Denies dizziness and Reports headache(s) Card Denies chest pain at rest, Denies chest pain with activity, Denies syncope, Denies leg edema and Denies palpitations Resp Denies snoring GI Denies constipation, Denies heartburn, Denies diarrhea and Denies nausea Denies urinary frequency, Denies urinary incontinence and Denies urinary urgency Musc Denies abnormal gait, Denies numbness and Denies tingling Skin/Breast Denies dry skin and Denies rash Neuro Denies abnormal gait, Denies vertigo, Denies dizziness, Denies syncope, Denies frequent falls, Reports headache(s), Denies lack of coordination, Denies loss of vision, Reports memory loss, Denies numbness, Denies restless legs, Denies seizure-like activity, Denies tingling, Denies paresthesias, Denies tremor(s) and Denies weakness Psych Reports anxiety, Reports depression, Denies auditory hallucinations, Reports memory loss, Denies visual hallucinations and Denies suicidal ideation Endo Denies fatigue and Denies palpitations Physical Exam Const Other: General Appearance:? normal, in no acute distress. Skin:? no rashes, no significant birthmarks. Heart:? S1, S2 normal, no murmurs. Lungs:? clear anteriorly and posteriorly. Extremities:? no edema. Psych:? alert, oriented, cognitive function intact, cooperative with exam. Neuro Other: Mental Status:?Alert and awake with normal sp speech, fluency, affect although tearful and withdrawn at times. MMSE 17/30 Cranial Nerves:?Pupils are equal, round and reactive to light. External occular muscles are intact. Visual kasper are full. Face is symmetrical. Facial sensations are normal. Tongue is midline. Palate elevates symmetrically. Shoulder shrugging is normal. Hearing to bedside conversation is normal. Sensory Exam:?....? Coordination:?No ataxia,?no titubation.? Gait Exam: Within normal limits. Extrapyramidal System:?No tremor, rigidity with normal facial expressions.? Pronator Drift:?Not present.? Involuntary Movements:?No tremors seen.? Speech:?Normal.? Results Reviewed Results Reviewed: MRI brain WO at [facility] in May 2024: Mild MVD Assessment & Plan Assessment & Plan (1) Chronic migraine w/o aura w/o status migrainosus, not intractable: Code(s): G43.709 - Chronic migraine without aura, not intractable, without status migrainosus Category: Medical Plan: Start topiramate 25mg 1 tablet twice a day. (2) Fibromyalgia: Code(s): M79.7 - Fibromyalgia Category: Medical (3) Cerebral microvascular disease: Code(s): I67.89 - Other cerebrovascular disease Category: Medical (4) MCI (mild cognitive impairment): Code(s): G31.84 - Mild cognitive impairment of uncertain or unknown etiology Category: Medical Plan: Reviewed labs ordered. EEG ordered. CT scan ordered. Continue working with therapist and psychiatrist. Plan Meds tried for migraine: Botox, topiramate, duloxetine, gabapentin Orders: Orders Vitamin B12 and Folate Today G31.84 - Mild cognitive impairment of uncertain or unknown etiology Erythrocyte Sedimentation Rate Today G43.709 - Chronic migraine without aura, not intractable, without status migrainosus EEG electroencephalogram Today G31.84 - Mild cognitive impairment of uncertain or unknown etiology CT head/brain wo IV con Today G31.84 - Mild cognitive impairment of uncertain or unknown etiology Complete Blood Count Auto Diff Today G31.84 - Mild cognitive impairment of uncertain or unknown etiology Comprehensive Met. Panel Today G31.84 - Mild cognitive impairment of uncertain or unknown etiology TSH reflex Free T4 Today G31.84 - Mild cognitive impairment of uncertain or unknown etiology C Reactive Protein Today G43.709 - Chronic migraine without aura, not intractable, without status migrainosus Medications: New topiramate 25 mg PO BID 60 tabs 2RF 30 days Coding Level of Care Code Est Pt Level 4 (92086) Diagnoses Chronic migraine w/o aura w/o status migrainosus, not intractable G43.709 Fibromyalgia M79.7 Cerebral microvascular disease I67.89 MCI (mild cognitive impairment) G31.84
--- OUTSIDE RECORDS SUMMARY | 2025-05-10 17:06 | XMS_ITS | Encounter Summary ---
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 Name Role Phone Pj Crenshaw MD Primary Care Prov ider Encounter Details Date Type Department Care Team (Late st Contact Info) Description 07/07/2022 Orders Only [facility] MED & PEDS [address] [place] [address] Farheen Luciano RN [address] [place] [address] Social History Tobacco Use Types Packs/Day Years [...] Care Team (Late st Contact Info) Description 05/15/2025 10:00 AM EDT Telemedicine [facility] CHC MED & PEDS [address] [place] [address] Pj Crenshaw MD [address] [place] [address] documented as of this encounter Visit Diagnoses Not on filedocumented in this encounter Care Teams Drop Hammer Operator Helper Relationship Specialty Start Date End Date Pj Crenshaw MD [address] [place] [address] PCP - General Internal Medicine 01/15/20 documented as of this encounter
--- OUTSIDE RECORDS SUMMARY | 2025-05-10 17:06 | XMS_ITS | Clinical Summary ---
Author Organization [employer] Address [address] [place] [address] 7 [place] [address] Care Team Providers Care Manager Publishing Name Role Phone jP Crenshaw MD Primary Care Prov ider Allergies Active Allergy Reactions Criticality Noted Date Comments Apple Juice 08/13/2022 Chocolate Hazelnut Flavoring Agent (Non-Screening) 08/13/2022 Clarithromycin 02/22/2014 [place] Flavoring Agent (Non-Screening) 08/13/2022 Pear 08/13/2022 Pistachio Nut (Diagnostic) 2 Pollen Extract 03/03/2023 Triticum Aestivum 03/03/2023 Medications LORazepam (Ativan) 0.5 MG tablet Take 1 tablet by mouth in the morning and 1 tablet in the evening. Active diclofenac (Voltaren) 75 MG EC tablet Take 1 tablet by mouth in the morning and at bedtime. 022 Active DULoxetine (Cymbalta) [address] capsule [...] oz. water, juice, soda, coffee or tea 019 Active zolpidem (Ambien) 10 MG tablet Take 1 tablet by mouth in the morning. Active melatonin 5 MG tablet Take by mouth. Active Ventolin HFA 108 (90 Base) MCG/ACT inhaler INHALE 2 PUFFS BY MOUTH EVERY 4 HOURS NEEDED FOR WHEEZING 18 g 024 Active Transderm-Scop 1 MG/3DAYS patch 72 hour APPLY 1 PATCH TOPICALLY TO THE SKIN EVERY 72 HOURS 10 patch Active Semaglutide-Weigh t Management (Wegovy) 0.25 MG/0.5ML solution auto-injector Inject 0.25 mg under the skin 1 (one) time per week. 3 mL 1 024 Active albuterol 1.25 MG/3ML nebulizer solutionIndicatio ns:Mild intermittent asthma without complication USE 1 VIAL VIA NEBULIZER EVERY 6 HOURS NEEDED FOR WHEEZING 75 mL 11 025 Active atorvastatin (Lipitor) 20 MG tabletIndications :Mixed hyperlipidemia Take 1 tablet (20 mg) by mouth Once per day. 90 tablet 3 025 2025 Active montelukast (Singulair) 10 MG tablet Take 1 tablet (10 mg) by mouth at bedtime. 90 tablet 3 025 2025 Active Zepbound 2.5 MG/0.5ML solution auto-injector ADMINISTER 2.5 MG UNDER THE SKIN 1 TIME A WEEK DIRECTED 2 mL 1 Active estradiol (Estrace) 0.1 MG/GM vaginal cream 1 g vaginally nightly x 14 days, then continue twice a week ongoing 42.5 g 1 Active cetirizine (ZyrTEC) 10 MG tablet Take 1 tablet (10 mg) by mouth Once per day. 90 tablet 3 025 Active azelastine (Astelin) 0.1 % nasal spray Administer 1 spray into each nostril 2 times daily. Use in each nostril as directed 30 mL 12 025 2025 Active linaCLOtide (Linzess) 145 MCG capsuleIndication s:Chronic Idiopathic Constipation Take 1 capsule (145 mcg) by mouth before breakfast. Do not crush or chew. 90 capsule 3 025 2025 Active lidocaine (Lidoderm) 5 % patchIndications: Chronic left shoulder pain APPLY 1 PATCH ONTO THE SKIN DAILY REMOVE AFTER 12 HOURS 30 patch 3 025 Active chlorthalidone (Hygroton) 25 MG tabletIndications :Primary hypertension TAKE 1 TABLET(25 MG) BY MOUTH DAILY 90 tablet 3 025 Active fluticasone (Flonase) 50 MCG/ACT nasal spray SHAKE LIQUID AND USE 1 TO 2 SPRAYS IN EACH NOSTRIL EVERY MORNING 48 g 1 025 Active gabapentin (Neurontin) 300 MG capsule TAKE 1 CAPSULE(300 MG) BY MOUTH THREE TIMES DAILY 90 capsule 11 025 Active hydrOXYzine HCl (Atarax) 25 MG tablet TAKE 1 TABLET(25 MG) BY MOUTH EVERY 8 HOURS NEEDED FOR ITCHING 90 tablet 1 025 Active EPINEPHrine (Epipen) 0.3 MG/0.3ML injection syringeIndication s:Anaphylaxis, sequela INJECT 0.3MG DIRECTED ONE TIME FOR ONE DOSE FOR ALLERGIC REACTION THEN CALL 911 2 each Active Tirzepatide-Weigh t Management (Zepbound) 5 MG/0.5ML solution Inject 5 mg under the skin 1 (one) time per week. INJECT 5 MG UNDER THE SKIN ONCE A WEEK 2 mL 3 025 Active levothyroxine (Synthroid, Levoxyl) 137 MCG tablet TAKE 1 TABLET BY MOUTH BEFORE BREAKFAST 90 tablet 025 Active pantoprazole (ProtoNix) 40 MG EC tabletIndications :Gastroesophageal reflux disease without esophagitis TAKE 1 TABLET(40 MG) BY MOUTH BEFORE BREAKFAST 90 tablet 025 Active amoxicillin-clavu lanate (Augmentin) 875-125 MG tabletIndications :Acute otitis media, unspecified otitis media type Take 1 tablet by mouth 2 times daily for 10 days. 20 tablet 025 2024 Active pantoprazole (ProtoNix) 40 MG EC tabletIndications :Gastroesophageal reflux disease without esophagitis TAKE 1 TABLET(40 MG) BY MOUTH BEFORE BREAKFAST 90 tablet 023 2024 Discontinued(R eorder (will not trigger notification to Pharmacy)) levothyroxine (Synthroid) 137 MCG tablet Take 137 mcg by mouth before breakfast. 30 tablet 11 024 2024 Discontinued EPINEPHrine (Epipen) 0.3 MG/0.3ML injection syringeIndication s:Anaphylaxis, sequela Inject 0.3 mL (0.3 mg) as directed 1 (one) time for 1 dose. Inject into upper leg. Call 911 after use. 0.3 mL 024 2024 Discontinued Tirzepatide-Weigh t Management (Zepbound) 5 MG/0.5ML solution Inject 5 mg under the skin 1 (one) time per week. 3 mL 3 025 2024 Discontinued(R eorder (will not trigger notification to Pharmacy)) Active Problems Problem Noted Date Diagnosed Date Sinus congestion 01/05/2025 Assessment & Plan (01/05/2025 10:01 AM EDT): Continue cetirizine, will add azelastine, may use saline nasal spray Chronic idiopathic constipation 01/05/2025 Assessment & Plan (01/05/2025 10:02 AM EDT): Will renew linzess, encouraged high fiber diet, increase water intake Primary hypertension 05/13/2024 Assessment & Plan (05/13/2024 [...] place referral for reevaluation, previously seen at [place] Impaired glucose tolerance 03/03/2023 Severe obesity 03/03/2023 [...] back pain due to bilateral sciatica 09/14/19 23 Assessment & Plan (09/14/2022 8:19 PM EST): [...] Patient used to be followed by a carrier driver, will place referal Varicose veins of lower [...] Encounters Date Type Department Care Team Description 05/02/2025 4:00 PM EDT Office Visit [facility] CHC MED & PEDS [address] [place] [address] Carolina Hector MD Sinus congestion (Primary Dx); Acute otitis media, unspecified otitis media type 05/02/2025 Travel 04/28/2025 Telephone [facility] MEDICINE [address] [place] [address] Pj Crenshaw MD Nurse Triage 04/20/2025 Telephone [facility] CHC MED & PEDS [address] [place] [address] Pj Crenshaw MD Med Refill 04/20/2025 Refill [facility] CHC MED & PEDS [address] [place] [address] Shante Oquendo MD Gastroesophageal reflux disease without esophagitis 04/12/2025 Refill [facility] CHC MED & PEDS [address] [place] [address] Pj Crenshaw MD 04/11/2025 Refill [facility] CHC MED & PEDS [address] [place] [address] Pj Crenshaw MD Anaphylaxis, sequela 03/18/2025 Refill [facility] CHC MED & PEDS [address] [place] [address] Pj Crenshaw MD 03/09/2025 Refill [facility] CHC MED & PEDS [address] [place] [address] Pj Crenshaw MD Primary hypertension from Last 3 Months Immunizations Immunization Administration Dates Next Due Hep B, adult [...] Sign Reading Time Taken Comments Blood Pressure 123/86 05/02/2025 3:58 PM EDT Pulse 79 05/02/2025 3:58 PM EDT Temperature 36.9 C (98.4 F) 01/05/2025 9:21 AM EDT Respiratory Rate 20 05/02/2025 3:58 PM EDT Oxygen Saturation 98% 05/02/2025 3:58 PM EDT Inhaled Oxygen Concentration - - Weight 92.1 kg (203 lb) 05/02/2025 3:58 PM EDT Height 162.6 cm (5' 4 ) 05/02/2025 3:58 PM EDT Body Mass Index 34.84 05/02/2025 3:58 PM EDT Plan of Treatment Upcoming Encounters Date Type Department Care Team ([facility] st Contact Info) Description 05/15/2025 10:00 AM EDT Telemedicine [facility] CHC MED & PEDS [address] [place] [address] Pj Crenshaw MD [address] [place] [address] Health Maintenance Due Date Last Done Comments CT Colonography 1972 FIT DNA/Cologuard 1972 FIT 1972 FOBT 1970 Sigmoidoscopy 1970 Disability Screening 1970 Pneumococcal Vaccine: 50+ Years (2 of 2 - PCV) 05/29/2016 05/29/2015, 01/21/2010 Hepatitis B Vaccines (2 of 3 - 19+ 3-dose series) 11/24/2019 10/27/2019 Diabetes: Hemoglobin A1C 03/03/2024 023, 03/14/2022, 07/23/2020 SDOH Screening 01/18/2025 01/19/2024 Depression Monitoring 03/06/2025 09/06/2024, 025 COVID-19 Vaccine ( season) 2025 12/17/2021, 12/17/2021, 12/23/2020, Additional history exists Influenza Vaccine (#1) 2025 , 06/21/2021, 06/14/2020, Additional history exists Alcohol/Substance Use Screening 09/06/2025 09/06/2024 Tobacco Screening 11/24/2025 11/24/2024 Mammogram 05/31/2026 05/31/2024, 05/17, 05/19/2022, Additional history exists Colonoscopy 06/10/2027 06/10/2022 Colorectal Cancer Screening 06/10/2027 Cervical Cancer Screening [...] Routine 12/08/2022 9:49 AM EDT Mixed hyperlipidemia HM COLONOSCOPY Routine 06/10/2022 HPV MRNA E6/E7 Routine 04/23/2021 9:09 AM EDT [facility] HISTORICAL HIV AB/AG Routine 10/12/2019 10:06 AM EST from Last 3 Months or Most Recently Relevant to Health Maintenance Results * BI Mammogram Screening Tomosynthesis Bilateral (05/31/2024 11:00 AM EDT) Anatomical Region Laterality Modality Breast Bilateral Mammography 05/31/2024 11:0 0 AM EDT [facility] 06/13/2024 5:26 PM EDT [facility] [address] [place] [address] Mammography Report Signed with Addenda Patient: Haley Valdovinos MR#: [id number] : 1970 Acct:[id number] Age/Sex: 54 / F ADM Date: 05/31/24 Loc: HO.MAMMO Attending Dr: Pj Peguero MD Ordering Physician: Pj Crenshaw MD Results: 0Incomplete: Needs Additional Imaging Evaluation Date of Service: 05/31/24 Follow Up: Additional Imagi ng Procedure(s): MM tomosynthesis screening BI Accession Number(s): [id number] cc: Pj Crenshaw MD ADDENDUM ADDENDUM #1 ADDENDUM: Due to a software issue related to the original report, this case has been reviewed again and the original findings and recommendations remain the same. Electronically signed by: Lara Dennis DO 06/17/2024 10:13 AM EDT Addendum Dictated By: Lara Dennis DO Addendum Signed By: <Electronically signed by Lara Dennis DO in OV> 06/17/24 1013 Addendum Cosigned By: [...] 06/13/24 1722 DD/ 1100 TD/TT: 05/31/24 1114 Editor At Large: Procedure Note Donotuseinterpreter, Image - 06/17/2024 [facility] [address] [place] [address] Mammography Report Signed with Addenda Patient: Haley Valdovinos JMR#: [id number] : 1970Acct:[id number] Age/Sex: 54 / FADM Date: 05/31/24 Loc: HO.MAMMO Attending Dr: Pj Peguero MD Ordering Physician: Pj Crenshaw MD Results: 0Incomplete: Needs Additional Imaging Evaluation Date of Service: 05/31/24Follow Up: Additional Imagi ng Procedure(s): MM tomosynthesis screening BI Accession Number(s): [id number] cc: Pj Crenshaw MD ADDENDUM ADDENDUM #1 [...] 06/13/24 1722 DD/ 1100 TD/TT: 05/31/24 1114 Editor At Large: Pj Peguero MD IMG BI PROCEDURES Edited Result - Final * (ABNORMAL) Lipid Panel, Standard (02/05/2024 9:24 AM EDT) Triglycerides 113 <150 mg/dL [facility] Comment:Desirable Triglyceri de: less than 150 mg/dLBorderline High Triglyceride 150-199 mg/dLHigh Triglyceride: 200-499 mg/dLVery High Triglyceride: greater than or equal to 5OO mg/dL Cholesterol 233(H) <200 mg/dL [facility] Comment:Desirable Cholestero l: less than 200 mg/dLBorderline High Cholesterol: 200-239 mg/dLHigh Cholesterol: greater than 239 mg/dL LDL Cholesterol Calculated 166(H) <100 mg/dL [facility] Comment:Desirable LDL: less than 100 mg/dLNear Optimal/Above Optimal LDL: 110- 129 mg/dLBorderline High LDL: 130-159 mg/dLHigh LDL: 160-189 mg/dLVery High LDL: greater than or equal to 190 mg/dL HDL Cholesterol 45 >40 mg/dL [facility] Comment:Desirable HDL: great er than 40 mg/dL Note: This HDL assay may give artificially low results in patients with liver disease. Blood Venous blood specimen / Unknown 02/05/2024 9:24 AM EDT 02/05/2024 2:15 PM EDT us Shante Oquendo MD LAB BLOOD ORDERABLES Final Re sult [facility] [address] [place], [place] [phone] * Pap Smear (07/20/2023 12:00 AM EST) Swab Historical Provider LAB CYTOLOGY ORDERABLES F inal Result [facility] [address] [place] [phone] * (ABNORMAL) POCT A1C (03/03/2023 9:43 AM EDT) Pathologist [facility] Hemoglobin A1C 5.9 4.0 - 6.0 % Comment:RANDOM QC Media Lot # [id number] Lot# Expiration Date ,[id number] Blood 03/03/2023 9:43 AM EDT Magdalena Collazo GAMING WORKER POINT OF CARE TEST ENTER/E DIT ORDERABLES Final Result * Hepatitis C Antibody with Reflex to HCV, RNA, Quantitative, Real-Time PCR (12/08/2022 9:49 AM EDT) [facility] Hepatitis C Antibody NON-REACT BRANDON NON-REACT BRANDON [employer] [place] [employer] Index 0.13 <1.00 [employer] Comment: HCV antibody was non-reactive. There is no laboratory evidence of HCV infection. In most cases, no further action is required. However, if recent HCV exposure is suspected, a test for HCV RNA (test code 59188) is suggested. For additional information please refer to http://education.Project 2020/faq/HMM07s9 (This link is being provided for informational/ educational purposes only.) Blood Venous blood specimen / Unknown 12/08/2022 9:49 AM EDT 12/08/2022 9:50 AM EDT Narrative [facility] - 12/09/2022 7:27 AM EDT FASTING:YES FASTING: YES Pj Peguero MD LAB BLOOD ORDERABL ES Final Result [facility] [address], [place] [address] [employer] [address] [place] [address] * Hm Colonoscopy (06/10/2022) Pathologist [facility] Colonoscopy Normal Normal Narrative Taylor Barbosa - 06/10/2022 HM Colonoscopy order added Historical Provider HEALTH MAINTENANCE Final Result * HPV mRNA E6/E7 (04/23/2021 9:09 AM EDT) Pathologist [facility] HPV nRNA E6/E7 Not Detected Not Detected [facility] Comment: Methodology: Assurance Officer-Mediated Amplification This assay detects E6/E7 viral messenger RNA (mRNA) from 14 high-risk HPV types (16,18,31,33,35,39,45,51,52,56,58,59,66,68). The analytical performance characteristics of this assay have been determined by [employer]. The modifications have not been cleared or approved by the FDA. This assay has been validated pursuant to the CLIA regulations and is used for clinical purposes. For additional information, please refer to http://education.Project 2020/faq/EOX340c7 (This link if provided for information/ educational purposes only.) 04/23/2021 9:09 AM EDT Alma Moseley [facility] LAB BLOOD ORDERABLES Winter l Result [facility] [address] * HIV AB/AG (10/12/2019 10:06 AM EST) [facility] HIV AG/AB NONREACTIVE [facility] Comment: HIV-1 p24 Ag and/or HIV-1/HIV-2 Ab not detected. A test result that is nonreactive does not exclude the possibility of exposure to or infection with HIV-1 and/or HIV-2. Nonreactive results in this assay for individuals with prior exposure to HIV-1 and/or HIV-2 may be due to antigen and antibody levels that are below the limit of detection of this assay. The [employer] Administrative Assistant Data Entry HIV Ag/Ab Combo assay result and supplemental assay results should be interpreted in conjunction with the patient's clinical presentation, history and other laboratory results. If the results are inconsistent with clinical evidence, additional testing is suggested to confirm the result. 10/12/2019 10:0 6 AM EST Historical Provider HISTORICAL/NON ORDERABLE LABS Final Result [facility] [address] [place] [address], from Last 3 Months or Most Recently Relevant to Health Maintenance [place] [address] [address] C3 Advance Directives Documents on File Type Date Recorded Patient Power Project Manager Expl anation Advance Directives and Livin g Will 11/18/2024 4:14 PM HCP Care Teams Manager Publishing Relationship Specialty Start Date End Date Pj Crenshaw MD [address] [place] [address] PCP - General Internal Medicine 01/15/20
--- OUTSIDE RECORDS SUMMARY | 2025-05-10 17:06 | XMS_ITS | Clinical Summary ---
Author Organization [facility] ity Address [address] [place] [address] Care Team Providers Care Brake Operator Sheet Metal Name Role Phone Unavailable Primary Care Provider [...] 10/23/2023 Social Influencers of Health Screening 10/23/2023 Depression Screening 08/17/2024 COVID-19 Vaccine (1 - 2023-2 5 season) 2025 Influenza Vaccine (#1) 2025 HIB Vaccines Aged [...]
--- OUTSIDE RECORDS SUMMARY | 2025-05-10 17:06 | XMS_ITS | Encounter Summary ---
Author Organization [employer] Address [address] [place] [address] Care Team Providers Care Shoder Filler Name Role Phone Pj Crenshaw MD Primary Care Prov ider Reason for Visit * Reason Onset Date Comments Referral 08/12/2022 Appointment Request 08/12/2022 Encounter Details Date Type Department Care Team ([facility] Contact Info) Description 08/12/2022 Telephone [facility] CHC MED & PEDS [address] [place] [address] Pj Crenshaw MD [address] [place] [address] Referral; Appointment Request Social History Tobacco Use [...] with PCP. * Telephone Encounter - Randa Aliyah - 08/12/2022 2:13 PM EST Tc from pt requesting a Follow up appt and a new referral to a neurologist due told old dr [facility] . documented in this encounter Plan of Treatment Upcoming Encounters Date Type Department Care Team (Late st Contact Info) Description 05/15/2025 10:00 AM EDT Telemedicine [facility] MED & PEDS [address] [place] [address] Pj Crenshaw MD [address] [place] [address] documented as of this encounter Visit Diagnoses Diagnosis Mixed hyperlipidemia Chronic idiopathic constipation Unspecified constipation Gastroesophageal reflux disease without esophagitis Esophageal reflux documented in this encounter Care Teams Shoder Filler Relationship Specialty Start Date End Date Pj Crenshaw MD [address] [place] [address] PCP - General Internal Medicine 01/15/20 documented as of this encounter
--- OUTSIDE RECORDS SUMMARY | 2025-05-10 17:06 | XMS_ITS | Encounter Summary ---
Author Organization [employer] Address [address] 7 [place] [address] Care Team Providers Care Postal Service Clerk Name Role Phone Pj Crenshaw MD Primary Care Prov ider Encounter Details Date Type Department Care Team ([facility] st Contact Info) Description 08/26/2023 Orders Only [facility] CHC MED & PEDS [address] [place], [place] [phone] Pj Crenshaw MD [address] [place] [address] Acquired hypothyroidism Social History Tobacco Use Types [...] Info) Description 05/15/2025 10:00 AM EDT Telemedicine [facility] MED & PEDS [address] [place] [address] Pj Crenshaw MD [address] [place] [address] documented as of this encounter Visit Diagnoses Diagnosis Acquired hypothyroidism Unspecified hypothyroidism documented in this encounter Additional Health Concerns Assessment Noted Time PHQ-9 Depression Total Score: 2 11/20/19 23 8:47 AM EDT documented as of this encounter Care Teams Postal Service Clerk Relationship Specialty Start Date End Date Pj Crenshaw MD [address] [place] [address] PCP - General Internal Medicine 01/15/20 documented as of this encounter
--- OUTSIDE RECORDS SUMMARY | 2025-05-10 17:06 | XMS_ITS | Encounter Summary ---
Author Organization [employer] Address [address] [facility] [address] [place] [address] Care Team Providers Care Director Of State Name Role Phone Pj Crenshaw MD Primary Care Prov ider Encounter Details Date Type Department Care Team ([facility] Contact Info) Description 05/31/2024 Telephone [facility] CHC MED & PEDS [address] [place], [place] [phone] Pj Crenshaw MD [address] [place] [address] Social History Tobacco Use Types Packs/Day Years [...] Upcoming Encounters Date Type Department Care Team ([facility] st Contact Info) Description 05/15/2025 10:00 AM EDT Telemedicine [facility] MED & PEDS [address] [place] [address] Pj Crenshaw MD [address] [place] [address] documented as of this encounter Visit Diagnoses Not on filedocumented in this encounter Additional Health Concerns Assessment Noted Time PHQ-9 Depression Total Score: 14 024 3:34 PM EDT documented as of this encounter Care Teams Director Of State Relationship Specialty Start Date End Date Pj Crenshaw MD [address] [place] [address] PCP - General Internal Medicine 01/15/20 documented as of this encounter
--- OUTSIDE RECORDS SUMMARY | 2025-05-10 17:06 | XMS_ITS | Encounter Summary ---
Author Organization [employer] Address [address] [place] [address] [place] [address] Care Team Providers Care Mechanical Lead Name Role Phone Pj Crenshaw MD Primary Care Prov ider Encounter Details Date Type Department Care Team ([facility] st Contact Info) Description 05/18/2023 Telephone [facility] CHC MED & PEDS [address] [place], [place] [phone] Pj Crenshaw MD [address] [place] [address] Social History Tobacco Use Types Packs/Day Years [...] Info) Description 05/15/2025 10:00 AM EDT Telemedicine [facility] CHC MED & PEDS [address] [place] [address] Pj Crenshaw MD [address] [place] [address] documented as of this encounter Visit Diagnoses Not on filedocumented in this encounter Additional Health Concerns Assessment Noted Time PHQ-9 Depression Total Score: 2 11/20/19 23 8:47 AM EDT documented as of this encounter Care Teams Mechanical Lead Relationship Specialty Start Date End Date Pj Crenshaw MD [address] [place] [address] PCP - General Internal Medicine 01/15/20 documented as of this encounter
--- OUTSIDE RECORDS SUMMARY | 2025-05-10 17:06 | XMS_ITS | Encounter Summary ---
Author Organization [employer] Address [address] [facility] [address] [place] [address] Care Team Providers Care Zoology Technical Officer Name Role Phone Pj Crenshaw MD Primary Care Prov ider Encounter Details Date Type Department Care Team ([facility] st Contact Info) Description 10/13/2023 Telephone [facility] MEDICINE [address] [place] [address] Pj Crenshaw MD [address] [place] [address] Social History Tobacco Use Types Packs/Day Years [...] Info) Description 05/15/2025 10:00 AM EDT Telemedicine [facility] MED & PEDS [address] [place] [address] Pj Crenshaw MD [address] [place] [address] documented as of this encounter Visit Diagnoses Not on filedocumented in this encounter Additional Health Concerns Assessment Noted Time PHQ-9 Depression Total Score: 2 11/20/19 23 8:47 AM EDT documented as of this encounter Care Teams Zoology Technical Officer Relationship Specialty Start Date End Date Pj Crenshaw MD [address] [place] [address] PCP - General Internal Medicine 01/15/20 documented as of this encounter
--- OUTSIDE RECORDS SUMMARY | 2025-05-10 17:06 | XMS_ITS | Encounter Summary ---
Author Organization [employer] Address [address] [place] [address] Care Team Providers Care Tank Car Reconditioner Name Role Phone Pj Crenshaw MD Primary Care Prov ider Reason for Visit * Reason Comments Med Refill Encounter Details Date Type Department Care Team (Late Contact Info) Description 11/04/2022 Refill [facility] CHC MED & PEDS [address] [place] [address] Pj Crenshaw MD [address] [place] [address] Gastroesophageal reflux disease without esophagitis Social History [...] Department Care Team (Late Contact Info) Description 05/15/2025 10:00 AM EDT Telemedicine [facility] CHC MED & PEDS [address] [place], [place] [phone] Pj Crenshaw MD [address] [place] [address] documented as of this encounter Visit Diagnoses Diagnosis Gastroesophageal reflux disease without esophagitis Esophageal reflux documented in this encounter Care Teams Tank Car Reconditioner Relationship Specialty Start Date End Date LawsonPj Long MD [address] [place] [address] PCP - General Internal Medicine 01/15/20 documented as of this encounter
--- OUTSIDE RECORDS SUMMARY | 2025-05-10 17:06 | XMS_ITS | Encounter Summary ---
Author Organization [employer] Address [address] [address] Care Team Providers Care Manufacturing Engineer Machining Name Role Phone Pj Crenshaw MD Primary Care Prov ider Reason for Visit * Reason Onset Date Comments Med Refill 04/20/2025 Encounter Details Date Type Department Care Team ([facility] Contact Info) Description 04/20/2025 Telephone [facility] MED & PEDS [address] [place] [address] Pj Crenshaw MD 505 [place] [address] Med Refill Social History Tobacco Use Types [...] housing situation today? I have dougguy gleason 01/19/[address] you [...] encounter Miscellaneous Notes * Telephone Encounter - Payton Palacios LPN - 04/20/2025 9:27 AM EDT Medication pended to provider. * Telephone Encounter - Maged Sheldon - 04/20/2025 9:23 AM EDT TC from pt requesting medication refill. Medications needing refill : levothyroxine (Synthroid) 137 MCG tablet pantoprazole (ProtoNix) 40 MG EC tablet To be sent to: [id number] [place], [place] - [address] [place] [address] AT [facility] [address]/RT [address] A & ARMORY documented in this encounter Plan of Treatment Upcoming Encounters Date Type Department Care Team (Late st Contact Info) Description 05/15/2025 10:00 AM EDT Telemedicine [facility] MED & PEDS [address] [place] [address] Pj Crenshaw MD 505 [place], [place] [phone] documented as of this encounter Visit Diagnoses Not on filedocumented in this encounter Additional Health Concerns Assessment Noted Time PHQ-9 Depression Total Score: 13 025 10:14 AM EST documented as of this encounter Care Teams Manufacturing Engineer Machining Relationship Specialty Start Date End Date Pj Crenshaw MD [address] [place] [address] PCP - General Internal Medicine 01/15/20 documented as of this encounter
--- OUTSIDE RECORDS SUMMARY | 2025-05-10 17:06 | XMS_ITS | Encounter Summary ---
Author Organization [employer] Address [address] [address] Care Team Providers Care C Engineer Name Role Phone Pj Crenshaw MD Primary Care Prov ider Reason for Visit * Reason Onset Date Comments Appointment Request 04/14/2024 Encounter Details Date Type Department Care Team ([facility] st Contact Info) Description 04/14/2024 Telephone [facility] MEDICINE [address] [place] [address] Pj Crenshaw MD 505 [place] [address] Appointment Request Social History Tobacco Use Types [...] Info) Description 05/15/2025 10:00 AM EDT Telemedicine [facility] MED & PEDS 505 [place] [address] Pj Crenshaw MD 505 [place] [address] documented as of this encounter Visit Diagnoses Not on filedocumented in this encounter Additional Health Concerns Assessment Noted Time PHQ-9 Depression Total Score: 14 024 3:34 PM EDT documented as of this encounter Care Teams C Engineer Relationship Specialty Start Date End Date Pj Crenshaw MD [address] [place] [address] PCP - General Internal Medicine 01/15/20 documented as of this encounter
--- OUTSIDE RECORDS SUMMARY | 2025-05-10 17:06 | XMS_ITS | Encounter Summary ---
Author Organization [employer] Address [address] [address] Care Team Providers Care Prospect Manager Name Role Phone Pj Crenshaw MD Primary Care Prov ider Reason for Visit * Reason Onset Date Comments Nurse Triage 12/21/2024 Encounter Details Date Type Department Care Team ([facility] st Contact Info) Description 12/21/2024 Telephone [facility] MEDICINE [address] [place] [address] Pj Crenshaw MD 505 [place] [address] Nurse Triage Social History Tobacco Use Types [...] received. Unable to leave message to call [facility]. * Telephone Encounter - Eva Felton - 12/21/2024 10:22 AM EDT Symptom: Urine Symptoms (Frequent urination) Outcome: Schedule a same-day appointment or talk to a nurse or provider today Reason: Caller denied all higher acuity questions The caller accepted this outcome. [phone] documented in this encounter Plan of Treatment Upcoming Encounters Date Type Department Care Team (Late st Contact Info) Description 05/15/2025 10:00 AM EDT Telemedicine [facility] MED & PEDS 505 [place], [place] [phone] Pj Crenshaw MD 505 [place] [address] documented as of this encounter Visit Diagnoses Not on filedocumented in this encounter Additional Health Concerns Assessment Noted Time PHQ-9 Depression Total Score: 13 025 10:14 AM EST documented as of this encounter Care Teams Prospect Manager Relationship Specialty Start Date End Date Pj Crenshaw MD [address] [place] [address] PCP - General Internal Medicine 01/15/20 documented as of this encounter
--- OUTSIDE RECORDS SUMMARY | 2025-05-10 17:06 | XMS_ITS | Encounter Summary ---
Author Organization [employer] Address 75 [facility] 7 [place] [address] Care Team Providers Care Flux Tube Attendant Name Role Phone Pj Crenshaw MD Primary Care Prov ider Encounter Details Date Type Department Care Team ([facility] st Contact Info) Description 10/23/2023 Orders Only [facility] CHC MED & PEDS 505 [place], [place] [phone] Pj Crenshaw MD 505 [place] [address] Acquired hypothyroidism Social History Tobacco Use Types [...] 05/15/2025 10:00 AM EDT Telemedicine [facility] MED & PEDS 505 [place] [address] Pj Crenshaw MD 505 [place] [address] documented as of this encounter Visit Diagnoses Diagnosis Acquired hypothyroidism Unspecified hypothyroidism documented in this encounter Additional Health Concerns Assessment Noted Time PHQ-9 Depression Total Score: 2 11/20/19 23 8:47 AM EDT documented as of this encounter Care Teams Flux Tube Attendant Relationship Specialty Start Date End Date Pj Crenshaw MD 505 [place] [address] PCP - General Internal Medicine 01/15/20 documented as of this encounter
--- OUTSIDE RECORDS SUMMARY | 2025-05-10 17:06 | XMS_ITS | Encounter Summary ---
Author Organization [employer] Address 75 [facility] 7t [place] [address] Care Team Providers Care Rug Scratcher Name Role Phone Pj Crenshaw MD Primary Care Prov ider Encounter Details Date Type Department Care Team ([facility] st Contact Info) Description 05/09/2024 Orders Only [facility] CHC MED & PEDS [address] [place], [place] [phone] ProviderKarly MD Social History Tobacco Use Types [...] Info) Description 05/15/2025 10:00 AM EDT Telemedicine [facility] CHC MED & PEDS 505 [place], [place] [phone] Pj Crenshaw MD 505 [place], [place] [phone] documented as of this encounter Procedures Procedure [...] AM EDT Narrative 06/13/2024 5:26 PM EDT [facility] [address] [place] [address] Mammography Report Signed with Ministerio Patient: Haley Valdovinos MR#: [id number] : 1970 Acct:[id number] Age/Sex: 54 / F ADM Date: 05/31/24 Loc: HO.MAMMO Attending Dr: Pj Peguero MD Ordering Physician: Pj Crenshaw MD Results: 0Incomplete: Needs Additional Imaging Evaluation Date of Service: 05/31/24 Follow Up: Additional Imagi ng Procedure(s): MM tomosynthesis screening BI Accession Number(s): [id number] cc: Pj Crenshaw MD ADDENDUM ADDENDUM #1 [...] OV> 06/13/24 1722 DD/ 99 TD/TT: 05/31/241113 Polygraph Examiner: Procedure Note Donotuseinterpreter, Image - 06/17/2024 [facility] [address] [place] [address] Mammography Report Signed with Addenda Patient: Haley Valdovinos JMR#: [id number] : 1970Acct:[id number] Age/Sex: 54 / FADM Date: 05/31/24 Loc: HO.MAMMO Attending Dr: Pj Peguero MD Ordering Physician: Pj Crenshaw MD Results: 0Incomplete: Needs Additional Imaging Evaluation Date of Service: 05/31/24Follow Up: Additional Imagi ng Procedure(s): MM tomosynthesis screening BI Accession Number(s): [id number] cc: Pj Crenshaw MD ADDENDUM ADDENDUM #1 [...] 06/13/24 1722 DD/ 1100 TD/TT: 05/31/24 1114 Polygraph Examiner: Pj Peguero MD IMG BI PROCEDURES Edited [...] documented as of this encounter Care Teams Rug Scratcher Relationship Specialty Start Date End Date Pj Crenshaw MD [address] [place] [address] PCP - General Internal Medicine 01/15/20 documented as of this encounter
--- OUTSIDE RECORDS SUMMARY | 2025-05-10 17:06 | XMS_ITS | Encounter Summary ---
Author Organization [employer] Address [address] [place] [address] Care Team Providers Care Service Trainer Name Role Phone Pj Crenshaw MD Primary Care Prov ider Reason for Visit * Reason Comments Med Refill Encounter Details Date Type Department Care Team ([facility] Contact Info) Description 09/15/2024 Refill C [facility] MED & PEDS [address] [place], [place] [phone] Pj Crenshaw MD 505 [place] [address] Social History Tobacco Use Types Packs/Day Years [...] Info) Description 05/15/2025 10:00 AM EDT Telemedicine [facility] MED & PEDS [address] [place] [address] Pj Crenshaw MD 505 [place] [address] documented as of this encounter Visit Diagnoses Not on filedocumented in this encounter Additional Health Concerns Assessment Noted Time PHQ-9 Depression Total Score: 13 025 10:14 AM EST documented as of this encounter Care Teams Service Trainer Relationship Specialty Start Date End Date Pj Crenshaw MD 505 [place] [address] PCP - General Internal Medicine 01/15/20 documented as of this encounter
--- OUTSIDE RECORDS SUMMARY | 2025-05-10 17:06 | XMS_ITS | Encounter Summary ---
Author Organization [employer] Address [address] [place] [address] Care Team Providers Care Manager Convention Name Role Phone Pj Crenshaw MD Primary Care Prov ider Reason for Visit * Reason Comments Med Refill Encounter Details Date Type Department Care Team (Late Contact Info) Description 02/26/2023 Refill [facility] MEDICINE [address] [place], [place] [phone] Pj Crenshaw MD 505 [place] [address] Gastroesophageal reflux disease without esophagitis Social History [...] Info) Description 05/15/2025 10:00 AM EDT Telemedicine [facility] CH[facility] MED & PEDS 505 [place], [place] [phone] Pj Crenshaw MD 505 [place], [place] [phone] documented as of this encounter Visit Diagnoses Diagnosis Gastroesophageal reflux disease without esophagitis Esophageal reflux documented in this encounter Additional Health Concerns Assessment Noted Time PHQ-9 Depression Total Score: 2 11/20/19 23 8:47 AM EDT documented as of this encounter Care Teams Manager Convention Relationship Specialty Start Date End Date Pj Crenshaw MD 505 [place] [address] PCP - General Internal Medicine 01/15/20 documented as of this encounter
--- OUTSIDE RECORDS SUMMARY | 2025-05-10 17:06 | XMS_ITS | Encounter Summary ---
Author Organization [employer] Address [address] [place] [address] Care Team Providers Care Welt Trimming Machine Operator Name Role Phone Pj Crenshaw MD Primary Care Prov ider Reason for Visit * Reason Onset Date Comments triage 08/12/2022 Encounter Details Date Type Department Care Team ([facility] st Contact Info) Description 08/12/2022 Telephone [facility] CH[facility] MED & PEDS 505 [place], [place] [phone] Pj Crenshaw MD 505 [place] [address] triage Social History Tobacco Use Types Packs/Day [...] 05/15/2025 10:00 AM EDT Telemedicine [facility] MED & PEDS 505 [place] [address] Pj Crenshaw MD 505 [place] [address] documented as of this encounter Visit Diagnoses Not on filedocumented in this encounter Care Teams Welt Trimming Machine Operator Relationship Specialty Start Date End Date Pj Crenshaw MD 505 [place] [address] PCP - General Internal Medicine 01/15/20 documented as of this encounter
--- OUTSIDE RECORDS SUMMARY | 2025-05-10 17:06 | XMS_ITS | Encounter Summary ---
Author Organization [employer] Address [address] [place] [address] Care Team Providers Care Link Wire Fabric Machine Tender Name Role Phone Pj Crenshaw MD Primary Care Prov ider Reason for Visit * Reason Onset Date Comments Med Refill 08/12/2022 Encounter Details Date Type Department Care Team ([facility] Contact Info) Description 08/12/2022 Telephone [facility] CHC MED & PEDS 505 [place], [place] [phone] Pj Crenshaw MD 505 [place] [address] Med Refill Social History Tobacco Use Types [...] Docusate Sodium 100 mg Please send to Kalpesh [address] [place] [address] documented in this encounter Plan of Treatment Upcoming Encounters Date Type Department Care Team (Late st Contact Info) Description 05/15/2025 10:00 AM EDT Telemedicine [facility] MED & PEDS 505 [place] [address] Pj Crenshaw MD 505 [place] [address] documented as of this encounter Visit Diagnoses Not on filedocumented in this encounter Care Teams Link Wire Fabric Machine Tender Relationship Specialty Start Date End Date Pj Crenshaw MD 505 [place] [address] PCP - General Internal Medicine 01/15/20 documented as of this encounter
--- OUTSIDE RECORDS SUMMARY | 2025-05-10 17:06 | XMS_ITS | Encounter Summary ---
Author Organization [employer] Address [address] [facility] [address] 7t [place] [address] Care Team Providers Care Steam Clean Machine Operator Name Role Phone Pj Crenshaw MD Primary Care Prov ider Encounter Details Date Type Department Care Team ([facility] st Contact Info) Description 12/16/2023 Orders Only [facility] CHC MED & PEDS [address] [place], [place] [phone] ProviderKarly MD Social History Tobacco Use Types [...] Info) Description 05/15/2025 10:00 AM EDT Telemedicine [facility] MED & PEDS 505 [place] [address] Pj Crenshaw MD 505 [place] [address] documented as of this encounter Procedures Procedure Name Priority Date/Time Associated Diagnosis Comments SURGICAL PATHOLOGY Routine 09/18/2023 9: 49 AM EST CYTOLOGY, CONVENTIONAL PAP SMEAR, 1 SLIDE Routine 07/20/2023 9:54 AM EST documented in this encounter Results * Surgical Pathology (09/18/2023 9:49 AM EST) us Historical Provider LAB PATHOLOGY ORDERABLES Final Result * Cytology, Conventional Pap Smear, 1 Slide (07/20/2023 9:54 AM EST) us Historical Provider LAB CYTOLOGY ORDERABLES F inal Result documented in this encounter Visit Diagnoses Not on filedocumented in this encounter Additional Health Concerns Assessment Noted Time PHQ-9 Depression Total Score: 2 11/20/19 23 8:47 AM EDT documented as of this encounter Care Teams Steam Clean Machine Operator Relationship Specialty Start Date End Date Pj Crenshaw MD 505 [place] [address] PCP - General Internal Medicine 01/15/20 documented as of this encounter
--- OUTSIDE RECORDS SUMMARY | 2025-05-10 17:06 | XMS_ITS | Encounter Summary ---
Author Organization [employer] Address [address] [place] [address] [place], [place] [address] Care Team Providers Care Activities Attendant Name Role Phone Pj Crenshaw MD Primary Care Prov ider Encounter Details Date Type Department Care Team (Late Contact Info) Description 08/12/2022 Telephone [facility] MED & PEDS 505 [place], [place] [phone] Pj Crenshaw MD 505 [place] [address] Social History Tobacco Use Types Packs/Day Years [...] Description 05/15/2025 10:00 AM EDT Telemedicine [facility] MED & PEDS [address] [place], [place] [phone] Pj Crenshaw MD 505 [place], [place] [phone] documented as of this encounter Visit Diagnoses Not on filedocumented in this encounter Care Teams Activities Attendant Relationship Specialty Start Date End Date Pj Crenshaw MD [address] [place] [address] PCP - General Internal Medicine 01/15/20 documented as of this encounter
== END 2025-05-10 15:52 | disposition home or self-care (01) ==
LOC: HO.HSM 14:24
PROVIDERS: PCP Internal Medicine; Visit Provider Registered Nurse
DX: G43.709 Chronic migraine without aura, not intractable, without status migrainosus (principal); M79.7 Fibromyalgia; I67.89 Other cerebrovascular disease; G31.84 Mild cognitive impairment of uncertain or unknown etiology
CPT/HCPCS: 99214

== ENCOUNTER → 2025-05-10 14:24 | Outpatient (BNVA) | payer MEDICAID, SELFPAY | PROVIDERS: PCP Internal Medicine; Visit Provider Registered Nurse | DX: G43.709 Chronic migraine without aura, not intractable, without status migrainosus (principal); G31.84 Mild cognitive impairment of uncertain or unknown etiology; M79.7 Fibromyalgia | CPT/HCPCS: 99212 ==

== ENCOUNTER 2025-05-25 11:05 | Outpatient (REF) | payer MEDICAID, SELFPAY ==
[2025-05-25 11:21] LABS: MANUAL DIFF FLAG NO
[2025-05-25 12:00] LABS: Hematocrit 38.7 % (37.0-47.0); Hemoglobin 12.8 g/dl (12.0-16.0); Imm Gran Abs Auto 0.01 X10*3/uL (0.00-0.03); Imm Gran Pct Auto 0.2 % (0.0-0.4); Lymphocytes Absolute Auto 2.2 X10*3/uL (1.2-4.9); Mean Corpuscular HGB Conc 33.1 g/dl (31.0-35.0); Mean Corpuscular Hemoglobin 30.1 pg (27.0-33.0); Mean Corpuscular Volume 91.1 fL (80.0-98.0); NRBC Abs Auto 0.000 X10*3/uL (0.0-0.012); NRBC Pct Auto 0.0 /100WBC (0.0-0.2); Platelet Count 318 X10*3/uL (160-400); Red Blood Count 4.25 X10*6/uL (4.20-5.50); White Blood Count 6.4 X10*3/uL (4.8-10.8)
[2025-05-25 12:18] LABS: Alanine Aminotransferase 22 U/L (0-31); Albumin Level 4.4 g/dL (3.5-5.0); Alkaline Phosphatase 66 U/L (39-117); Anion Gap 11 (12-20); Aspartate Amino Transferase 21 U/L (5-31); Blood Urea Nitrogen 11 mg/dL (9-16); Calcium 9.5 mg/dL (8.4-10.2); Carbon Dioxide 26 mmol/L (22-29); Chloride 109 mmol/L (96-108); Cholesterol 202 mg/dL (<200); Estimated Glomerular Filt Rate > 60; HDL Cholesterol 43 mg/dL (>40); Potassium 3.8 mmol/L (3.3-5.1); Sodium 142 mmol/L (135-145); Total Protein 7.6 g/dL (6.5-8.0); Triglycerides 68 mg/dL (<150)
[2025-05-25 12:54] LABS: Folate 9.8 ng/mL (> or = 4.0); Vitamin B12 397 pg/mL (200-900)
--- NOTE | 2025-05-25 13:03 | EEG_ITS ---
Reason for Exam: G31.84 Mild Cognitive impairment of uncertain or unknown etiology Roomed Performed: 402 History: H/O Asthma,Acid reflux, Odynophagia,Arthritis, Chronic sinusitis, Asthma,Migraine headache,Panic attacks,Anxiety,Depression, fibromyalgia, migraines, headaches- pt c/o daily headaches and migraines, pt c/o trouble processing information slow with comprehending things- these symptoms occur daily Medication: albuterol, aripiprazole, atorvastatin,chlorthalidone.diclofenac sodium, duloxetine, gabapentin, hydroxyzine, levothyroxine, linaclotide, lorazepam, lorazepam, montelukast, oxybutynin chloride, oxybutynin chloride, pantoprazole, tirzepatide (weight loss) (Zepbound), zolpidem, Technical description: Photic stimulation: Completed Hyperventilation: Performed- fair effort Behavioral state: Tense but pleasant State of Consciousness: awake and drowsy Skull defect: No Sedation: No Handedness:Left Duration of study: 31 min 22 sec Description: This is a 16 channel EEG with an EKG lead. Patient is reported awake and drowsy during the tracing. This EEG is limited due to almost constant muscle and movement artifacts. Background EEG rhythm when seen is low amplitude fast with no obvious asymmetry or paroxysmal tendency. Photic stimulation does not produce any significant driving. Hyperventilation is unremarkable. Cardiac lead does not reveal any significant abnormality. No obvious paroxysmal tendency or abnormality noted. Impression: Limited EEG because of constant motion but no obvious epileptic tendency MTDD
[2025-05-25 13:06] LABS: Free T4 (Free Thyroxine) 1.56 ng/dL (0.71-1.85)
== END 2025-05-25 11:06 | disposition home or self-care (01) ==
LOC: HO.NEURO 11:05
PROVIDERS: Absent Provider Registered Nurse; PCP Internal Medicine; Visit Provider Psychiatry & Neurology Neurology
DX: G43.709 Chronic migraine without aura, not intractable, without status migrainosus (principal); G31.84 Mild cognitive impairment of uncertain or unknown etiology; E78.2 Mixed hyperlipidemia; R73.03 Prediabetes
CPT/HCPCS: 36415; 80053; 80061; 82607; 82746; 83036; 84439; 84443; 85025; 85652; 86140; 95816

== ENCOUNTER → 2025-05-25 13:03 | Outpatient (BNV) | payer MEDICAID, SELFPAY | PROVIDERS: Absent Provider Registered Nurse; PCP Internal Medicine; Visit Provider Psychiatry & Neurology Neurology | DX: G31.84 Mild cognitive impairment of uncertain or unknown etiology (principal) | CPT/HCPCS: 95816 ==

== ENCOUNTER 2025-05-27 09:32 | Outpatient (REF) | payer MEDICAID, SELFPAY ==
--- OUTSIDE RECORDS SUMMARY | 2025-05-27 09:34 | XMS_ITS | Encounter Summary ---
Author Organization [employer] Address 75 [facility] [address], [place] [address] Care Team Providers Care Band Tacker Name Role Phone Pj Crenshaw MD Primary Care Prov ider Encounter Details Date Type Department Care Team ([facility] st Contact Info) Description 08/12/2022 Telephone [facility] CHC MED & PEDS 505 [place], [place] [phone] Pj Crenshaw MD [address] [place] [address] Social History Tobacco Use Types Packs/Day Years [...] on filedocumented in this encounter Care Teams Band Tacker Relationship Specialty Start Date End Date Pj Crenshaw MD [address] [place] [address] PCP - General Internal Medicine 01/15/20 documented as of this encounter
--- OUTSIDE RECORDS SUMMARY | 2025-05-27 09:34 | XMS_ITS | Encounter Summary ---
Author Organization [employer] Address 75 [facility] 7 [place] [address] Care Team Providers Care Clinical Outcomes Manager Name Role Phone Pj Crenshaw MD Primary Care Prov ider Encounter Details Date Type Department Care Team ([facility] st Contact Info) Description 08/26/2023 Orders Only [facility] CHC MED & PEDS 505 [place], [place] [phone] Pj Crenshaw MD 505 [place] [address] Acquired hypothyroidism Social History Tobacco Use Types [...] documented as of this encounter Care Teams Clinical Outcomes Manager Relationship Specialty Start Date End Date Pj Crenshaw MD [address] [place] [address] PCP - General Internal Medicine 01/15/20 documented as of this encounter
--- OUTSIDE RECORDS SUMMARY | 2025-05-27 09:34 | XMS_ITS | Encounter Summary ---
Author Organization [employer] Address [address] [place] [address] Care Team Providers Care Bottom Crane Operator Name Role Phone Pj Crenshaw MD Primary Care Prov ider Reason for Visit * Reason Comments Med Refill Encounter Details Date Type Department Care Team (Late st Contact Info) Description 02/26/2023 Refill [facility] 230 [place], [place] [phone] Pj Crenshaw MD 505 [place] [address] Gastroesophageal reflux disease without esophagitis Social History [...] documented as of this encounter Care Teams Bottom Crane Operator Relationship Specialty Start Date End Date Pj Crenshaw MD 505 [place] [address] PCP - General Internal Medicine 01/15/20 documented as of this encounter
--- OUTSIDE RECORDS SUMMARY | 2025-05-27 09:34 | XMS_ITS | Encounter Summary ---
Author Organization [employer] Address 75 [facility] 7 [place] [address] Care Team Providers Care Nut Sorter Operator Name Role Phone Pj Crenshaw MD Primary Care Prov ider Encounter Details Date Type Department Care Team ([facility] st Contact Info) Description 10/23/2023 Orders Only [facility] CHC MED & PEDS 505 [place], [place] [phone] Pj Crenshaw MD 505 [place] [address] Acquired hypothyroidism Social History Tobacco Use Types [...] documented as of this encounter Care Teams Nut Sorter Operator Relationship Specialty Start Date End Date Pj Crenshaw MD [address] [place] [address] PCP - General Internal Medicine 01/15/20 documented as of this encounter
--- OUTSIDE RECORDS SUMMARY | 2025-05-27 09:34 | XMS_ITS | Encounter Summary ---
Author Organization [employer] Address [address] [place] [address] [place] [address] Care Team Providers Care Asw Specialist Name Role Phone Pj Crenshaw MD Primary Care Prov ider Encounter Details Date Type Department Care Team ([facility] st Contact Info) Description 05/18/2023 Telephone [facility] CHC MED & PEDS 505 [place], [place] [phone] Pj Crenshaw MD 505 [place] [address] Social History Tobacco Use Types Packs/Day Years [...] documented as of this encounter Care Teams Asw Specialist Relationship Specialty Start Date End Date Pj Crenshaw MD [address] [place] [address] PCP - General Internal Medicine 01/15/20 documented as of this encounter
--- OUTSIDE RECORDS SUMMARY | 2025-05-27 09:34 | XMS_ITS | Encounter Summary ---
Author Organization [employer] Address [address] [place] [address] Care Team Providers Care Bottomer Operator Name Role Phone Pj Crenshaw MD Primary Care Prov ider Reason for Visit * Reason Comments Med Refill Encounter Details Date Type Department Care Team ([facility] Contact Info) Description 09/15/2024 Refill C [facility] MED & PEDS 505 [place], [place] [phone] Pj Crenshaw MD 505 [place] [address] Social History Tobacco Use Types Packs/Day Years [...] documented as of this encounter Care Teams Bottomer Operator Relationship Specialty Start Date End Date Pj Crenshaw MD 505 [place] [address] PCP - General Internal Medicine 01/15/20 documented as of this encounter
--- OUTSIDE RECORDS SUMMARY | 2025-05-27 09:34 | XMS_ITS | Encounter Summary ---
Author Organization [employer] Address [address] [place] [address] Care Team Providers Care Cotton Picker Operator Name Role Phone Pj Crenshaw MD Primary Care Prov ider Reason for Visit * Reason Comments Med Refill Encounter Details Date Type Department Care Team ([facility] st Contact Info) Description 11/04/2022 Refill [facility] MED & PEDS 505 [place] [address] Pj Crenshaw MD 505 [place] [address] Gastroesophageal reflux disease without esophagitis Social History [...] reflux documented in this encounter Care Teams Cotton Picker Operator Relationship Specialty Start Date End Date Pj Crenshaw MD 505 [place] [address] PCP - General Internal Medicine 01/15/20 documented as of this encounter
--- OUTSIDE RECORDS SUMMARY | 2025-05-27 09:34 | XMS_ITS | Encounter Summary ---
Author Organization [employer] Address 75 [facility] 7t [place] [address] Care Team Providers Care Structural Mill Supervisor Name Role Phone Pj Crenshaw MD Primary Care Prov ider Encounter Details Date Type Department Care Team ([facility] st Contact Info) Description 10/13/2023 Telephone [facility] MEDICINE [address] [place] [address] Pj Crenshaw MD 505 [place] [address] Social History Tobacco Use Types Packs/Day Years [...] documented as of this encounter Care Teams Structural Mill Supervisor Relationship Specialty Start Date End Date Pj Crenshaw MD 505 [place] [address] PCP - General Internal Medicine 01/15/20 documented as of this encounter
--- OUTSIDE RECORDS SUMMARY | 2025-05-27 09:35 | XMS_ITS | Encounter Summary ---
Author Organization [employer] Address [address] [address] Care Team Providers Care Hr Business Partner Consultant Name Role Phone Pj Crenshaw MD Primary Care Prov ider Reason for Visit * Reason Onset Date Comments Nurse Triage 12/21/2024 Encounter Details Date Type Department Care Team ([facility] st Contact Info) Description 12/21/2024 Telephone [facility] MEDICINE [address] [place] [address] Pj Crenshaw MD [address] [place] [address] Nurse Triage Social History Tobacco Use Types [...] to call [facility]. * Telephone Encounter - Eva Felton - 12/21/2024 10:22 AM EDT Symptom: Urine Symptoms (Frequent urination) Outcome: Schedule a same-day appointment or talk to a nurse or provider today Reason: Caller denied all higher acuity questions The caller accepted this outcome. [phone] documented in this encounter Plan of Treatment Not on file documented as of this encounter Visit Diagnoses Not on filedocumented in this encounter Additional Health Concerns Assessment Noted Time PHQ-9 Depression Total Score: 13 025 10:14 AM EST documented as of this encounter Care Teams Hr Business Partner Consultant Relationship Specialty Start Date End Date Pj Crenshaw MD [address] [place] [address] PCP - General Internal Medicine 01/15/20 documented as of this encounter
--- OUTSIDE RECORDS SUMMARY | 2025-05-27 09:35 | XMS_ITS | Encounter Summary ---
Author Organization [employer] Address 75 [facility] [address] [place] [address] Care Team Providers Care Evening Or Night Nurse Supervisor Name Role Phone Pj Crenshaw MD Primary Care Prov ider Encounter Details Date Type Department Care Team ([facility] Contact Info) Description 05/31/2024 Telephone [facility] CHC MED & PEDS [address] [place], [place] [phone] Pj Crenshaw MD [address] [place] [address] Social History Tobacco Use Types Packs/Day Years [...] documented as of this encounter Care Teams Evening Or Night Nurse Supervisor Relationship Specialty Start Date End Date Pj Crenshaw MD [address] [place] [id number] PCP - General Internal Medicine 01/15/20 documented as of this encounter
--- OUTSIDE RECORDS SUMMARY | 2025-05-27 09:35 | XMS_ITS | Encounter Summary ---
Author Organization [employer] Address 75 [facility] [address] [place] [address] Care Team Providers Care Knockout Worker Name Role Phone Pj Crenshaw MD Primary Care Prov ider Encounter Details Date Type Department Care Team ([facility] st Contact Info) Description 07/07/2022 Orders Only [facility] CHC MED & PEDS [address] [place], [place] [phone] Farheen Luciano, RN [address] [place] [address] Social History Tobacco Use Types Packs/Day Years [...] on filedocumented in this encounter Care Teams Knockout Worker Relationship Specialty Start Date End Date Pj Crenshaw MD [address] [place] [address] PCP - General Internal Medicine 01/15/20 documented as of this encounter
--- OUTSIDE RECORDS SUMMARY | 2025-05-27 09:35 | XMS_ITS | Encounter Summary ---
Author Organization [employer] Address [address] [place] [address] Care Team Providers Care Welfare Manager Name Role Phone Pj Crenshaw MD Primary Care Prov ider Reason for Visit * Reason Onset Date Comments Med Refill 08/12/2022 Encounter Details Date Type Department Care Team ([facility] Contact Info) Description 08/12/2022 Telephone [facility] MED & PEDS [address] [place], [place] [phone] Pj Crenshaw MD [address] [place] [address] Med Refill Social History Tobacco Use Types [...] Docusate Sodium 100 mg Please send to [address] documented in this encounter Plan of Treatment Not on file documented as of this encounter Visit Diagnoses Not on filedocumented in this encounter Care Teams Welfare Manager Relationship Specialty Start Date End Date Pj Crenshaw MD [address] [place] [phone] PCP - General Internal Medicine 01/15/20 documented as of this encounter
--- OUTSIDE RECORDS SUMMARY | 2025-05-27 09:35 | XMS_ITS | Encounter Summary ---
Author Organization [employer] Address [address] [place] [address] Care Team Providers Care Mop Worker Name Role Phone Pj Crenshaw MD Primary Care Prov ider Reason for Visit * Reason Onset Date Comments Referral 08/12/2022 Appointment Request 08/12/2022 Encounter Details Date Type Department Care Team ([facility] Contact Info) Description 08/12/2022 Telephone [facility] CHC MED & PEDS [address] [place] [address] Pj Crenshaw MD [address] [place] [address] Referral; Appointment Request Social History Tobacco Use [...] reflux documented in this encounter Care Teams Mop Worker Relationship Specialty Start Date End Date Pj Crenshaw MD [address] [place] [id number] PCP - General Internal Medicine 01/15/20 documented as of this encounter
--- OUTSIDE RECORDS SUMMARY | 2025-05-27 09:35 | XMS_ITS | Encounter Summary ---
Author Organization [employer] Address [address] [facility] [address] [place] [address] Care Team Providers Care Director Safety Council Name Role Phone Pj Crenshaw MD Primary Care Prov ider Encounter Details Date Type Department Care Team ([facility] st Contact Info) Description 12/16/2023 Orders Only [facility] CHC MED & PEDS [address] [place], [place] [phone] ProviderKarly MD Social History Tobacco Use Types [...] * Surgical Pathology (09/18/2023 9:49 AM EST) [facility] Provider MD LAB PATHOLOGY ORDERABLES Final Result * Cytology, Conventional Pap Smear, 1 Slide (07/20/2023 9:54 AM EST) [facility] Provider MD LAB CYTOLOGY ORDERABLES F inal Result documented in this encounter Visit Diagnoses Not on filedocumented in this encounter Additional Health Concerns Assessment Noted Time PHQ-9 Depression Total Score: 2 11/20/19 23 8:47 AM EDT documented as of this encounter Care Teams Director Safety Council Relationship Specialty Start Date End Date Pj Crenshaw MD [address] [place] [phone] PCP - General Internal Medicine 01/15/20 documented as of this encounter
--- OUTSIDE RECORDS SUMMARY | 2025-05-27 09:35 | XMS_ITS | Encounter Summary ---
Author Organization [employer] Address [address] [address] Care Team Providers Care A And P Technician Name Role Phone Pj Crenshaw MD Primary Care Prov ider Reason for Visit * Reason Onset Date Comments Med Refill 04/20/2025 Encounter Details Date Type Department Care Team ([facility] Contact Info) Description 04/20/2025 Telephone [facility] MED & PEDS [address] [place] [address] Pj Crenshaw MD [address] [place] [address] Med Refill Social History Tobacco Use Types [...] MG EC tablet To be sent to: [id number] [place], [place] - [address] [place] [address] AT [facility] OF [facility] [address] documented in this encounter Plan of Treatment Not on file documented as of this encounter Visit Diagnoses Not on filedocumented in this encounter Additional Health Concerns Assessment Noted Time PHQ-9 Depression Total Score: 13 025 10:14 AM EST documented as of this encounter Care Teams A And P Technician Relationship Specialty Start Date End Date Pj Crenshaw MD [address] [place] [address] PCP - General Internal Medicine 01/15/20 documented as of this encounter
--- OUTSIDE RECORDS SUMMARY | 2025-05-27 09:35 | XMS_ITS | Encounter Summary ---
Author Organization [employer] Address 75 [facility] [address] [place] [address] Care Team Providers Care Diversified Crops Farmer Name Role Phone Pj Crenshaw MD Primary Care Prov ider Encounter Details Date Type Department Care Team ([facility] st Contact Info) Description 05/09/2024 Orders Only [facility] CHC MED & PEDS [address] [place], [place] [phone] ProviderKarly MD Social History Tobacco Use Types [...] AM EDT Narrative 06/13/2024 5:26 PM EDT [facility] [address] [place] [address] Mammography Report Signed with Ministerio Patient: Haley Valdovinos MR#: [id number] : 1970 Acct:[id number] Age/Sex: 54 / F ADM Date: 05/31/24 Loc: HO.[email or web address] Attending Dr: Pj Peguero MD Ordering Physician: Pj Crenshaw MD Results: 0Incomplete: Needs Additional Imaging Evaluation Date of Service: 05/31/24 Follow Up: Additional Imagi ng Procedure(s): MM tomosynthesis screening BI Accession Number(s): [id number] cc: Pj Crenshaw MD ADDENDUM ADDENDUM #1 [...] OV> 06/13/24 1722 DD/ 99 TD/TT: 05/31/241113 Firer Watertender: Procedure Note Donotuseinterpreter, Image - 06/17/2024 [facility] [address] [place], [place] [address] Mammography Report Signed with Addenda Patient: Haley Valdovinos JMR#: [id number] : 1970Acct:[id number] Age/Sex: 54 / FADM Date: 05/31/24 Loc: HOMERVIN Attending Dr: Pj Peguero MD Ordering Physician: Pj Crenshaw MD Results: 0Incomplete: Needs Additional Imaging Evaluation Date of Service: 05/31/24Follow Up: Additional Imagi ng Procedure(s): MM tomosynthesis screening BI Accession Number(s): [id number] cc: Pj Crenshaw MD ADDENDUM ADDENDUM #1 [...] 06/13/24 1722 DD/ 1100 TD/TT: 05/31/24 1114 Firer Watertender: Pj Peguero MD IMG BI PROCEDURES Edited [...] documented as of this encounter Care Teams Diversified Crops Farmer Relationship Specialty Start Date End Date Pj Crenshaw MD [address] [place] [address] PCP - General Internal Medicine 01/15/20 documented as of this encounter
--- OUTSIDE RECORDS SUMMARY | 2025-05-27 09:35 | XMS_ITS | Encounter Summary ---
Author Organization [employer] Address [address] [address] Care Team Providers Care Production Underwriter Name Role Phone Pj Crenshaw MD Primary Care Prov ider Reason for Visit * Reason Onset Date Comments Appointment Request 04/14/2024 Encounter Details Date Type Department Care Team ([facility] st Contact Info) Description 04/14/2024 Telephone [facility] MEDICINE [address] [place] [address] Pj Crenshaw MD [address] [place] [address] Appointment Request Social History Tobacco Use Types [...] documented as of this encounter Care Teams Production Underwriter Relationship Specialty Start Date End Date Pj Crenshaw MD [address] [place] [phone] PCP - General Internal Medicine 01/15/20 documented as of this encounter
--- OUTSIDE RECORDS SUMMARY | 2025-05-27 09:35 | XMS_ITS | Encounter Summary ---
Author Organization [employer] Address [address] [place] [address] Care Team Providers Care Undercar Specialist Name Role Phone Pj Crenshaw MD Primary Care Prov ider Reason for Visit * Reason Onset Date Comments triage 08/12/2022 Encounter Details Date Type Department Care Team ([facility] st Contact Info) Description 08/12/2022 Telephone [facility] CHC MED & PEDS [address] [place], [place] [phone] Pj Crenshaw MD [address] [place] [address] triage Social History Tobacco Use Types Packs/Day [...] on filedocumented in this encounter Care Teams Undercar Specialist Relationship Specialty Start Date End Date Pj Crenshaw MD [address] [place] [phone] PCP - General Internal Medicine 01/15/20 documented as of this encounter
--- OUTSIDE RECORDS SUMMARY | 2025-05-27 09:35 | XMS_ITS | Clinical Summary ---
Author Organization [employer] Address [address] [place] [address] 7 [place] [address] Care Team Providers Care Traffic Maintenance Supervisor Name Role Phone Pj Crenshaw MD Primary Care Prov ider Allergies Active Allergy Reactions Criticality Noted Date Comments Apple Juice 08/13/2022 Chocolate Hazelnut Flavoring Agent (Non-Screening) 08/13/2022 Clarithromycin 02/22/2014 [place] Flavoring Agent (Non-Screening) 08/13/2022 Pear 08/13/2022 Pistachio [...] FOR WHEEZING 18 g 11/05/19 24 Active Transderm-Scop 1 MG/3DAYS patch 72 hour APPLY 1 PATCH TOPICALLY TO THE SKIN EVERY 72 HOURS 10 patch 04/27/20 Active albuterol 1.25 MG/3ML nebulizer solutionIndicatio ns:Mild intermittent asthma without complication USE 1 VIAL VIA NEBULIZER EVERY 6 HOURS NEEDED FOR WHEEZING 75 mL 11 08/30/19 Active atorvastatin (Lipitor) 20 MG tabletIndications :Mixed hyperlipidemia Take 1 tablet (20 mg) by mouth Once per day. 90 tablet 09/06/192025 Active montelukast (Singulair) 10 MG tablet Take 1 tablet (10 mg) by mouth at bedtime. 90 tablet 09/06/192025 Active estradiol (Estrace) 0.1 MG/GM vaginal cream 1 g vaginally nightly x 14 days, then continue twice a week ongoing 42.5 g 1 11/25/19 Active cetirizine (ZyrTEC) 10 MG tablet Take 1 tablet (10 mg) by mouth Once per day. 90 tablet 01/06/20 Active azelastine (Astelin) 0.1 % nasal spray Administer 1 spray into each nostril 2 times daily. Use in each nostril as directed 30 mL 01/06/202025 Active linaCLOtide (Linzess) 145 MCG capsuleIndication s:Chronic Idiopathic Constipation Take 1 capsule (145 mcg) by mouth before breakfast. Do not crush or chew. 90 capsule 01/06/202025 Active lidocaine (Lidoderm) 5 % patchIndications: Chronic left shoulder pain APPLY 1 PATCH ONTO THE SKIN DAILY REMOVE AFTER 12 HOURS 30 patch 01/27/20 Active chlorthalidone (Hygroton) 25 MG tabletIndications :Primary hypertension TAKE 1 TABLET(25 MG) BY MOUTH DAILY 90 tablet 3 03/10/20 Active fluticasone (Flonase) 50 MCG/ACT nasal spray SHAKE LIQUID AND USE 1 TO 2 SPRAYS IN EACH NOSTRIL EVERY MORNING 48 g 1 03/10/20 25 Active gabapentin (Neurontin) 300 MG capsule TAKE 1 CAPSULE(300 MG) BY MOUTH THREE TIMES DAILY 90 capsule 11 03/20/20 25 Active EPINEPHrine (Epipen) 0.3 MG/0.3ML injection syringeIndication s:Anaphylaxis, sequela INJECT 0.3MG DIRECTED ONE TIME FOR ONE DOSE FOR ALLERGIC REACTION THEN CALL 911 2 each 04/15/20 25 Active Tirzepatide-Weigh t Management (Zepbound) 5 MG/0.5ML solution Inject 5 mg under the skin 1 (one) time per week. INJECT 5 MG UNDER THE SKIN ONCE A WEEK 2 mL 3 04/15/20 25 Active levothyroxine (Synthroid, Levoxyl) 137 MCG tablet TAKE 1 TABLET BY MOUTH BEFORE BREAKFAST 90 tablet 04/20/20 25 Active pantoprazole (ProtoNix) 40 MG EC tabletIndications :Gastroesophageal reflux disease without esophagitis TAKE 1 TABLET(40 MG) BY MOUTH BEFORE BREAKFAST 90 tablet 04/20/20 25 Active Tirzepatide-Weigh t Management (Zepbound) 7.5 MG/0.5ML solution auto-injector Inject 0.5 mL (7.5 mg) under the skin 1 (one) time per week. 2 mL 2 05/15/20 25 Active hydrOXYzine HCl (Atarax) 25 MG tablet TAKE 1 TABLET(25 MG) BY MOUTH EVERY 8 HOURS NEEDED FOR ITCHING 90 tablet 1 05/17/20 25 Active Semaglutide-Weigh t Management (Wegovy) 0.25 MG/0.5ML solution auto-injector Inject 0.25 mg under the skin 1 (one) time per week. 3 mL 1 05/13/20 24 2024 Discontinued Zepbound 2.5 MG/0.5ML solution auto-injector ADMINISTER 2.5 MG UNDER THE SKIN 1 TIME A WEEK DIRECTED 2 mL 1 11/05/19 25 2024 Discontinued hydrOXYzine HCl (Atarax) 25 MG tablet TAKE 1 TABLET(25 MG) BY MOUTH EVERY 8 HOURS NEEDED FOR ITCHING 90 tablet 1 03/20/20 25 2024 Discontinued amoxicillin-clavu lanate (Augmentin) 875-125 MG tabletIndications :Acute otitis media, unspecified otitis media type Take 1 tablet by mouth 2 times daily for 10 days. 20 tablet 05/02/20 25 2024 Active Problems Problem Noted Date Diagnosed Date Chronic constipation 05/15/2025 Assessment & Plan (05/15/2025 10:35 AM EDT): Will refer to GI, patient told to continue diet high in fiber, continue linzess Sinus congestion 01/05/2025 Assessment & Plan (01/05/2025 [...] 08/14/202308/14 Severe obesity (BMI 35.0-39.9) with comorbidity ([facility]) 08/14/2023 08/14/2023 Assessment & Plan (05/15/2025 10:36 AM EDT): Tolerated zepbound 5mg, will increase dose to 7.5mg, follow up in 3 months Assessment & Plan (05/13/2024 10:19 AM EDT): Will start on wegovy, she has htn, multiple joint pain, asthma, gerd, hx of prediabetes, will follow up in 6 weeks Anxiety 03/03/2023 Carpal tunnel syndrome 03/03/2023 Assessment & Plan (02/25/2024 2:51 PM EDT): Will place referral for reevaluation, previously seen at [facility] Impaired glucose tolerance 03/03/2023 Severe obesity ([facility]) 03/03/2023 Assessment & Plan (04/01/2023 1:27 PM [...] Patient used to be followed by a maintenance operator, will place referal Varicose veins of lower [...] Temporomandibular joint disorder 03/17/2018 Benzodiazepine dependence, continuous ([facility]) 11/24/2017 Gastroesophageal reflux disease without esophagi tis 11/24/2017 Mood disorder 11/24/2017 Osteoarthritis of multiple joints 11/24/2017 Encounters Date Type Department Care Team Description 05/16/2025 Refill [facility] [address] [place] [address] Pj Crenshaw MD 05/15/2025 10:00 AM EDT Telemedicine [facility] [address] [place] [address] Pj Crenshaw MD Chronic constipation (Primary Dx); Severe obesity (BMI 35.0-39.9) with comorbidity ([facility]) 05/15/2025 Travel 05/02/2025 4:00 PM EDT Office Visit [facility] [address] [place] [address] Carolina Hector MD Sinus congestion (Primary Dx); Acute otitis media, unspecified otitis media type 05/02/2025 Travel 04/28/2025 Telephone [facility] [address] [place] [address] Pj Crenshaw MD Nurse Triage 04/20/2025 Telephone [facility] [address] [place] [address] Pj Crenshaw MD Med Refill 04/20/2025 Refill [facility] [address] [place] [address] Shante Oquendo MD Gastroesophageal reflux disease without esophagitis 04/12/2025 Refill [facility] [address] [place] [address] Pj Crenshaw MD 04/11/2025 Refill [facility] [address] [place] [address] Pj Crenshaw MD Anaphylaxis, sequela 03/18/2025 Refill [facility] [address] [place] [address] Pj Crenshaw MD 03/09/2025 Refill [facility] [address] [place] [address] Pj Crenshaw MD Primary hypertension from Last [...] 05/02/2025 3:58 PM EDT Plan of Treatment Health Maintenance Due Date Last Done Comments CT Colonography 1972 FIT DNA/Cologuard 1972 FIT 1972 FOBT 1972 Sigmoidoscopy 1972 Disability Screening 1972 Pneumococcal Vaccine: 50+ Years (2 of 2 - PCV) 05/29/2016 05/29/2015, 01/21/2010 Hepatitis B Vaccines (2 of 3 - 19+ 3-dose series) 11/24/2019 10/27/2019 SDOH Screening 01/18/2025 01/19/2024 Depression Monitoring 03/06/2025 09/06/2024, 025 COVID-19 Vaccine ( season) 2025 12/17/2021, 12/17/2021, 12/23/2020, Additional history exists Influenza Vaccine (#1) 2025 , 06/21/2021, 06/14/2020, Additional history exists Alcohol/Substance Use Screening 09/06/2025 09/06/2024 Tobacco Screening 11/24/2025 11/24/2024 Diabetes: Hemoglobin A1C 05/25/2026 025, 03/03/2023, 03/14/2022, Additional history exists Mammogram 05/31/2026 05/31/2024, 05/17, 05/19/2022, Additional history exists Colonoscopy 06/10/2027 06/10/2022 Colorectal Cancer Screening 06/10/2027 Cervical Cancer Screening 07/20/2028 HPV/Cotest 07/20/2028 04/23/2021 Pap Smear 07/20/2028 07/20/2023, 04/23/2021 Lipid Panel 05/25/2030 05/25/2025, 01/16, 12/08/2022, Additional history exists DTaP/Tdap/Td Vaccines (3 - [...] Procedure Name Priority Date/Time Associated Diagnosis Comments T4, FREE Routine 05/25/2025 11:17 AM EDT VITAMIN B12/FOLATE, SERUM PANEL Routine 05/25/2025 11:17 AM EDT TSH W/REFLEX TO FT4 Routine 05/25/2025 1 1:17 AM EDT SED RATE BY MODIFIED WESTERGREN Routine 05/25/2025 11:17 AM EDT C-REACTIVE PROTEIN Routine 05/25/2025 11 :17 AM EDT CBC WITH AUTO DIFFERENTIAL Routine 05/25/2025 11:17 AM EDT HEMOGLOBIN A1C Routine 05/25/2025 11:17 AM EDT Prediabetes LIPID PANEL, STANDARD Routine 05/25/2025 11:17 AM EDT Mixed hyperlipidemia COMPREHENSIVE METABOLIC PANEL Routine 05/25/2025 11:17 AM EDT Mixed hyperlipidemia BI MAMMOGRAM SCREENING TOMOSYNTHESIS BILATERAL Routine 05/31/2024 11:00 AM EDT PAP SMEAR Routine 07/20/2023 12:00 AM EST HEPATITIS C AB W/REFL TO HCV RNA, QN, PCR Routine 12/08/2022 9:49 AM EDT Mixed hyperlipidemia HM COLONOSCOPY Routine 06/10/2022 HPV MRNA E6/E7 Routine 04/23/2021 9:09 AM EDT ZZZ HISTORICAL HIV AB/AG Routine 10/12/2019 10:06 AM EST from Last 3 Months or Most Recently Relevant to Health Maintenance Results * Vitamin B12 (Cobalamin) and Folate Panel, Serum (05/25/2025 11:17 AM EDT) Vitamin B12 397 200 - 900 pg/mL [facility] Comment:NORMAL 200-900 PG/ML INDETERMINATE 160-199 PG/ML DEFICIENT < 160 PG/ML Folate 9.8 > or = 4.0 ng/mL [facility] Comment:Reference Values:> o r = 4.0 ng/mL< 4.0 ng/mL suggests folate deficiency Methotrexate, aminopterin and folinic acid(leucovorin) are chemotherapeutic agents whose molecularstructures are similar to folate; therefore, the Architectfolate assay cannot be used for patients using these drugs. 05/25/2025 11:1 7 AM EDT 05/25/2025 11:17 AM EDT Generic External Data Provider LAB BLOOD ORDERAB LES Final Result Performing Organization Address [facility]/ZIP Co de Phone Number [facility] [address] [place] [address] [phone] * (ABNORMAL) TSH with Reflex to Free T4 (05/25/2025 11:17 AM EDT) [facility] TSH reflex Free T4 0.27(L) 0.32 - 4.0 uIU/mL [facility] 05/25/2025 11:1 7 AM EDT 05/25/2025 11:17 AM EDT Generic External Data Provider LAB BLOOD ORDERAB LES Final Result Performing Organization Address [facility] Co de Phone Number [facility] [address] [place] [phone] * CBC auto differential (05/25/2025 11:17 AM EDT) [facility] White Blood Count 6.4 4.8 - 10.8 X10*3/uL [facility] Red Blood Count 4.25 4.20 - 5.50 X10*6/uL [facility] Hemoglobin 12.8 12.0 - 16.0 g/dl [facility] Hematocrit 38.7 37.0 - 47.0 % [facility] Mean Corpuscular Volume 91.1 80.0 - 98.0 fL [facility] Mean Corpuscular Hemoglobin 30.1 27.0 - 33.0 pg [facility] Mean Corpuscular HGB Conc 33.1 31.0 - 35.0 g/dl [facility] Red Cell Distribution Width 12.5 11.0 - 16.0 % [facility] Platelet Count 318 160 - 400 X10*3/uL [facility] Mean Platelet Volume 11.6 9.4 - 12.3 fL [facility] Neutrophils Percent Auto 53.6 45 - 73 % [facility] Imm Gran Pct Auto 0.2 0.0 - 0.4 % [facility] Lymphocytes Percent Auto 33.9 20 - 40 % [facility] Monocytes Percent Auto 8.3 2 - 11 % [facility] Eosinophils Percent Auto 3.1 0 - 4 % [facility] Basophils Percent Auto 0.9 0 - 2 % [facility] NRBC Pct Auto 0.0 0.0 - 0.2 /100WBC [facility] Neutrophils Absolute Auto 3.4 2.0 - 8.3 x10*3/uL [facility] Imm Gran Abs Auto 0.01 0.00 - 0.03 X10*3/uL [facility] Lymphocytes Absolute Auto 2.2 1.2 - 4.9 X10*3/uL [facility] Monocytes Absolute Auto 0.5 0.1 - 1.2 X10*3/uL [facility] Eosinophils Absolute Auto 0.2 0.0 - 0.4 X10*3/uL [facility] Basophils Absolute Auto 0.1 0.0 - 0.2 X10*3/uL [facility] NRBC Abs Auto 0.000 0.0 - 0.012 X10*3/uL [facility] 05/25/2025 11:1 7 AM EDT 05/25/2025 11:17 AM EDT us Generic External Data Provider LAB BLOOD ORDERAB LES Final Result [facility] [address] [place] [address] [phone] * (ABNORMAL) Sed Rate by Modified Ti (05/25/2025 11:17 AM EDT) Erythrocyte Sedimentation Rate 32(H) 0 - 20 MM/HR [facility] Comment:Patients with polycy themia and many hemoglobin abnormalitiesmay have depressed sed rates whereas patients with anemiamay have elevated sed rates. 05/25/2025 11:1 7 AM EDT 05/25/2025 11:17 AM EDT Generic External Data Provider LAB BLOOD ORDERAB LES Final Result Performing Organization Address [facility] Co de Phone Number [facility] [address] [place] [phone] * (ABNORMAL) C-reactive Protein (05/25/2025 11:17 AM EDT) C Reactive Protein 1.88(H) < or = 0.50 mg/dL [facility] 05/25/2025 11:1 7 AM EDT 05/25/2025 11:17 AM EDT Generic External Data Provider LAB BLOOD ORDERAB LES Final Result Performing Organization Address [facility] Co de Phone Number [facility] [address] [place] [phone] * T4, Free (05/25/2025 11:17 AM EDT) Free T4 (Free Thyroxine) 1.56 0.71 - 1.85 ng/dL [facility] 05/25/2025 11:1 7 AM EDT 05/25/2025 11:17 AM EDT Generic External Data Provider LAB BLOOD ORDERAB LES Final Result Performing Organization Address [facility] de Phone Number [facility] [address] [place] [phone] * Hemoglobin A1c (05/25/2025 11:17 AM EDT) Hemoglobin A1c 5.0 <6.0 % [facility] Comment:Hemoglobin A1C Refer ence Range Adults: 4.8 - 6.0 % Non diabetic: < 6.0 % Goal: < 7.0 %Additional Action Suggested: > 8.0 %Note: Hemoglobin A1c results are invalid for patients with abnormal amounts of HbF. Blood transfusions may impact the HbA1c concentration in the patient sample. Estimated Average Glucose 97 mg/dL [facility] Comment:eAG = Estimated ave rage glucose which is %A1C expressed asaverage glucose, using the formula of the I4P-XeksvzgYzswdwf Glucose study (ADAG), Diabetes Care, Vol.31,#8,Mar. 2007 Blood Venous blood specimen / Unknown 05/25/2025 11:17 AM EDT 05/25/2025 11:17 AM EDT us Pj Peguero MD LAB BLOOD ORDERABL ES Final Result [facility] [address] [place] [phone] [phone] * (ABNORMAL) Lipid Panel, Standard (05/25/2025 11:17 AM EDT) Triglycerides 68 <150 mg/dL [facility] Comment:Desirable Triglyceri de: less than 150 mg/dLBorderline High Triglyceride 150-199 mg/dLHigh Triglyceride: 200-499 mg/dLVery High Triglyceride: greater than or equal to 5OO mg/dL Cholesterol 202(H) <200 mg/dL [facility] Comment:Desirable Cholestero l: less than 200 mg/dLBorderline High Cholesterol: 200-239 mg/dLHigh Cholesterol: greater than 239 mg/dL LDL Cholesterol Calculated 146(H) <100 mg/dL [facility] Comment:Desirable LDL: less than 100 mg/dLNear Optimal/Above Optimal LDL: 110- 129 mg/dLBorderline High LDL: 130-159 mg/dLHigh LDL: 160-189 mg/dLVery High LDL: greater than or equal to 190 mg/dL HDL Cholesterol 43 >40 mg/dL [facility] Comment:Desirable HDL: great er than 40 mg/dL Note: This HDL assay may give artificially low results in patients with liver disease. Blood Venous blood specimen / Unknown 05/25/2025 11:17 AM EDT 05/25/2025 11:17 AM EDT us Pj Peguero MD LAB BLOOD ORDERABL ES Final Result [facility] [address] [place] [phone] [phone] * (ABNORMAL) Comprehensive Metabolic Panel (05/25/2025 11:17 AM EDT) Sodium 142 135 - 145 mmol/L [facility] Potassium 3.8 3.3 - 5.1 mmol/L [facility] Chloride 109(H) 96 - 108 mmol/L [facility] Carbon Dioxide 26 22 - 29 mmol/L [facility] Anion Gap 11(L) 12 - 20 [facility] Urea Nitrogen (BUN) 11 9 - 16 mg/dL [facility] Creatinine, Serum 0.70 0.5 - 1.4 mg/dL [facility] Estimated Glomerular Filt Rate >60 [facility] Comment:Chronic Kidney Disea se: Estimated GFR < 60 mL/min/1.69b3Nivsjc Kidney Disease: Estimated GFR < 15 mL/min/1.73m2 Glucose 96 60 - 115 mg/dL [facility] Calcium 9.5 8.4 - 10.2 mg/dL [facility] Bilirubin, Total 0.5 0.0 - 1.0 mg/dL [facility] Aspartate Amino Transferase 21 5 - 31 U/L [facility] Alanine Aminotransferase 22 0 - 31 U/L [facility] Total Protein 7.6 6.5 - 8.0 g/dL [facility] Albumin Level 4.4 3.5 - 5.0 g/dL [facility] Alkaline Phosphatase 66 39 - 117 U/L [facility] Blood Venous blood specimen / Unknown 05/25/2025 11:17 AM EDT 05/25/2025 11:17 AM EDT us Pj Peguero MD LAB BLOOD ORDERABL ES Final Result [facility] [address] [place] [phone] * BI Mammogram Screening Tomosynthesis Bilateral (05/31/2024 11:00 AM EDT) Anatomical Region Laterality Modality Breast Bilateral Mammography 05/31/2024 11:0 0 AM EDT Narrative 06/13/2024 5:26 PM EDT [facility] [address] [place] [address] Mammography Report Signed with Addenda Patient: Haley Valdovinos MR#: [id number] : 1970 Acct:[id number] Age/Sex: 54 / F ADM Date: 05/31/24 Loc: HO.MAMMO Attending Dr: Pj Peguero MD Ordering Physician: Pj Crenshaw MD Results: 0Incomplete: Needs Additional Imaging Evaluation Date of Service: 05/31/24 Follow Up: Additional Imagi ng Procedure(s): MM tomosynthesis screening BI Accession Number(s): [id number] cc: Pj Crenshaw MD ADDENDUM ADDENDUM #1 [...] 06/13/24 1722 DD/ 1100 TD/TT: 05/31/24 1114 Cow Rider: Procedure Note Donotuseinterpreter, Image - 06/17/2024 [facility] [address] [place] [address] Mammography Report Signed with Addenda Patient: Haley Valdovinos JMR#: [id number] : 1970Acct:[id number] Age/Sex: 54 / FADM Date: 05/31/24 Loc: VICO Attending Dr: Pj Peguero MD Ordering Physician: Pj Crenshaw MD Results: 0Incomplete: Needs Additional Imaging Evaluation Date of Service: 05/31/24Follow Up: Additional Imagi ng Procedure(s): MM tomosynthesis screening BI Accession Number(s): [id number] cc: Pj Crenshaw MD ADDENDUM ADDENDUM #1 [...] OV> 06/13/24 1722 DD/ 99 TD/TT: 05/31/24 111 Cow Rider: Pj Peguero MD IMG BI PROCEDURES Edited Result - Final * Pap Smear (07/20/2023 12:00 AM EST) Swab Historical Provider LAB CYTOLOGY ORDERABLES F inal Result Performing Organization Address City/[facility]/ZIP Co de Phone Number [facility] [address] [place] [address] * Hepatitis C Antibody with Reflex to HCV, RNA, Quantitative, Real-Time PCR (12/08/2022 9:49 AM EDT) Pathologist [facility] Hepatitis C Antibody NON-REACT BRANDON NON-REACT BRANDON [employer] Index 0.13 <1.00 [employer] Comment: HCV antibody was non-reactive. There is no laboratory evidence of HCV infection. In most cases, no further action is required. However, if recent HCV exposure is suspected, a test for HCV RNA (test code 44590) is suggested. For additional information please refer to http://education.[employer]/faq/NKC79p2 (This link is being provided for informational/ educational purposes only.) Blood Venous blood specimen / Unknown 12/08/2022 9:49 AM EDT 12/08/2022 9:50 AM EDT Narrative [facility] - 12/09/2022 7:27 AM EDT FASTING:YES FASTING: YES Pj Peguero MD LAB BLOOD ORDERABL ES Final Result Performing Organization Address City/[facility] Co de Phone Number [facility] [address], [place] [address] [employer] [place] [employer] [address] [place] [address] * Hm Colonoscopy (06/10/2022) Pathologist [facility] Colonoscopy Normal Normal Narrative aTylor Barbosa - 06/10/2022 HM Colonoscopy order added Historical Provider HEALTH MAINTENANCE Final Result * HPV mRNA E6/E7 (04/23/2021 9:09 AM EDT) Pathologist [facility] HPV nRNA E6/E7 Not Detected Not Detected [facility] Comment: Methodology: Economic Consultant-Mediated Amplification This assay detects E6/E7 viral messenger RNA (mRNA) from 14 high-risk HPV types (16,18,31,33,35,39,45,51,52,56,58,59,66,68). The analytical performance characteristics of this assay have been determined by [employer]. The modifications have not been cleared or approved by the FDA. This assay has been validated pursuant to the CLIA regulations and is used for clinical purposes. For additional information, please refer to http://education.[employer]/faq/NPT668a7 (This link if provided for information/ educational purposes only.) 04/23/2021 9:09 AM EDT Alma Moseley [facility] LAB BLOOD ORDERABLES Winter l Result Performing Organization Address [facility] Number [facility] [address] * HIV AB/AG (10/12/2019 10:06 AM EST) [facility] HIV AG/AB NONREACTIVE NR FOUNDATI ON [...] of detection of this assay. The [employer] HIV Ag/Ab Combo assay result and supplemental assay results should be interpreted in conjunction with the patient's clinical presentation, history and other laboratory results. If the results are inconsistent with clinical evidence, additional testing is suggested to confirm the result. 10/12/2019 10:0 6 AM EST Historical Provider HISTORICAL/NON ORDERABLE LABS Final Result Performing Organization Address [facility] Phone Number [facility] [address] from Last 3 Months or Most Recently Relevant to Health Maintenance Insurance [facility] C3 Advance Directives Documents on File Type Date Recorded Patient Claims Analyst Expl anation Advance Directives and Livin g Will 11/18/2024 4:14 PM HCP Care Teams Traffic Maintenance Supervisor Relationship Specialty Start Date End Date Pj Crenshaw MD [address] [place] [phone] PCP - General Internal Medicine 01/15/20
--- OUTSIDE RECORDS SUMMARY | 2025-05-27 09:35 | XMS_ITS | Clinical Summary ---
Author Organization [facility] ity Address [address] [place] [address] Care Team Providers Care Local Area Network Systems Adminstrator Name Role Phone Unavailable Primary Care Provider [...] Last Done Comments Breast Cancer Screening 1972 Colorectal Cancer Screening: Colonoscopy 1972 DTaP,Tdap,and Td Vaccines (1 - Tdap) 1991 Hepatitis B Vaccines (1 of 3 - 19+ 3-dose series) 1991 Cervical Cancer Screening: P ap Smear 1993 Pneumococcal Vaccine: 50+ Ye ars (1 of 1 - PCV) 2022 Zoster Vaccines (1 of 2) 2022 HIV Screening 10/23/2023 Hepatitis C Screening 10/23/2023 Social Influencers of Health Screening 10/23/2023 Depression Screening 08/17/2024 COVID-19 Vaccine (1 - 2023-2 5 season) 2025 Influenza Vaccine (#1) 2025 RSV Immunization Adult Patie nts (1 - 1-dose 75+ series) 2047 HIB Vaccines Aged Out No longer eligi [...]
== END 2025-05-27 09:33 | disposition home or self-care (01) ==
LOC: HO.CT 09:32
PROVIDERS: PCP Internal Medicine; Visit Provider Registered Nurse
DX: G31.84 Mild cognitive impairment of uncertain or unknown etiology (principal)
CPT/HCPCS: 70450

== ENCOUNTER → 2025-05-27 09:34 | Outpatient (BNV) | payer MEDICAID, SELFPAY | PROVIDERS: PCP Internal Medicine; Visit Provider Radiology Diagnostic Radiology | DX: G31.84 Mild cognitive impairment of uncertain or unknown etiology (principal) | CPT/HCPCS: 70450 ==

== ENCOUNTER 2025-06-06 10:47 | Outpatient (REF) | payer MEDICAID, SELFPAY | END 2025-06-06 10:48 | disposition home or self-care (01) | LOC: HO.MAMMO 10:47 | PROVIDERS: PCP Internal Medicine; Visit Provider Internal Medicine | DX: Z12.31 Encounter for screening mammogram for malignant neoplasm of breast (principal) | CPT/HCPCS: 77063; 77067 ==

== ENCOUNTER → 2025-06-06 11:00 | Outpatient (BNV) | payer MEDICAID, SELFPAY | PROVIDERS: PCP Internal Medicine; Visit Provider Internal Medicine | DX: Z12.31 Encounter for screening mammogram for malignant neoplasm of breast (principal) | CPT/HCPCS: 77063; 77067 ==

== ENCOUNTER 2025-06-06 13:20 | Outpatient (AMB) | payer MEDICAID, SELFPAY ==
--- NOTE | 2025-06-06 13:24 | MHC.OFFVIS ---
Vital Signs 06/06/25 13:49 BP 131/83 Position Sitting Pulse 74 Intake Visit Reasons: RESULTS Allergies ciprofloxacin (From Cipro) Allergy (Mild, Unverified 06/06/25 13:35) RASH peanut (PEANUT) Allergy (Unknown, Unverified 06/06/25 13:35) ANAPHYLAXIS pollen Allergy (Unknown, Uncoded 06/06/25 13:35) unknown reaction from unknown medicati Allergy (Unknown, Uncoded 06/06/25 13:35) unknown unknown antibiotic Allergy (Unknown, Uncoded 06/06/25 13:35) itching, rash Medication List - Last Reconciled 06/06/25 by Patt Llanos, MARILEE albuterol sulfate 90 mcg/actuation 90 mcg inhalation QID aripiprazole 2 mg PO DAILY atorvastatin 10 mg PO BEDTIME cetirizine 10 mg PO QAM chlorthalidone 25 mg PO DAILY diclofenac sodium 75 mg PO BID duloxetine 30 mg PO BID gabapentin 300 mg PO TID hydroxyzine HCl 25 mg PO TID levothyroxine 137 mcg PO DAILY linaclotide (Linzess) 145 mcg PO DAILY lorazepam (Ativan) 2 mg PO BID PRN lorazepam 0.5 mg PO BID PRN montelukast (Singulair) 10 mg PO DAILY oxybutynin chloride 5 mg PO DAILY oxybutynin chloride ER (Ditropan XL) 5 mg PO DAILY pantoprazole 40 mg PO DAILY tirzepatide (weight loss) (Zepbound) 5 mg subcut QWEEK topiramate 25 mg PO BID 30 days zolpidem 10 mg PO BEDTIME HPI Comments Details: 55-year-old woman with history of childhood trauma, fibromyalgia type of pain syndrome, migraine headaches, and more recent concern of forgetfulness, although it is unclear when memory issues first started. (She reports difficulty remembering appointments, having trouble processing information and feeling slow, and relaying on GPS when driving). She has education up to 8th grade. 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 She was working with therapist and psychiatrist. No improvement in migraines with topiramate 25mg twice a day. Headaches were happening almost every day. Pain could be all over head, but usually to back of head, or sometimes to either side of head, pressure or stabbing-type, and were associated with photophobia, sonophobia, and nausea. She had to keep her house dark and quiet. She had a note that was apparently from her therapist asking if her brain showed autism and said her therapist wanted her to get tested for this. Memory was about the same. Sleep was okay with CPAP. [facility] Medical History (Updated 06/06/25 @ 13:51 by Patt Llanos CNP) Asthma Acid reflux Odynophagia Arthritis Chronic sinusitis Asthma Migraine headache Panic attacks Anxiety Depression Surgical History History of bilateral tubal ligation H/O abdominoplasty History of knee surgery History of carpal tunnel release History of varicose vein ligation Social History (Updated 03/28/25 @ 13:24 by Geovanna Javed [facility]) Household Members: Children Alcohol intake: never Patient Tobacco Use Status: Never used Tobacco Current occupational status: unemployed and disabled Current occupation: left handed Sexual orientation: Straight/Heterosexual Gender identity: Female Review of Systems Const Denies chills, Denies daytime sleepiness, Denies difficulty sleeping, Denies fatigue, Denies fever(s), Denies frequent falls, Reports headache(s), Denies increased appetite, Denies poor appetite, Denies snoring, Denies weakness, Denies weight gain and Denies weight loss Eyes Denies loss of vision ENT Denies vertigo, Denies dizziness and Reports headache(s) Card Denies chest pain at rest, Denies chest pain with activity, Denies syncope, Denies leg edema and Denies palpitations Resp Denies snoring GI Denies constipation, Denies heartburn, Denies diarrhea and Denies nausea Denies urinary frequency, Denies urinary incontinence and Denies urinary urgency Musc Denies abnormal gait, Denies numbness and Denies tingling Skin/Breast Denies dry skin and Denies rash Neuro Denies abnormal gait, Denies vertigo, Denies dizziness, Denies syncope, Denies frequent falls, Reports headache(s), Denies lack of coordination, Denies loss of vision, Reports memory loss, Denies numbness, Denies restless legs, Denies seizure-like activity, Denies tingling, Denies paresthesias, Denies tremor(s) and Denies weakness Psych Reports anxiety, Reports depression, Denies auditory hallucinations, Reports memory loss, Denies visual hallucinations and Denies suicidal ideation Endo Denies fatigue and Denies palpitations Physical Exam Vital Signs: Last Vital Signs Pulse 74 06/06/25 13:49 BP 131/83 06/06/25 13:49 Const Other: General Appearance:? normal, in no acute distress. Skin:? no rashes, no significant birthmarks. Heart:? S1, S2 normal, no murmurs. Lungs:? clear anteriorly and posteriorly. Extremities:? no edema. Psych:? alert, oriented, cognitive function intact, cooperative with exam. Neuro Other: Mental Status:?Alert and awake with normal sp speech, fluency, affect although tearful and withdrawn at times. MMSE Cranial Nerves:?Pupils are equal, round and reactive to light. External occular muscles are intact. Visual kasper are full. Face is symmetrical. Facial sensations are normal. Tongue is midline. Palate elevates symmetrically. Shoulder shrugging is normal. Hearing to bedside conversation is normal. Sensory Exam:?....? Coordination:?No ataxia,?no titubation.? Gait Exam: Within normal limits. Extrapyramidal System:?No tremor, rigidity with normal facial expressions.? Pronator Drift:?Not present.? Involuntary Movements:?No tremors seen.? Speech:?Normal.? Results Reviewed Results Reviewed: Laboratory Tests 05/25/25 11:17 WBC 6.4 RBC 4.25 Hgb 12.8 Hct 38.7 MCV 91.1 MCH 30.1 MCHC 33.1 RDW 12.5 Plt Count 318 MPV 11.6 Immature Gran % (Auto) 0.2 Neut % (Auto) 53.6 Lymph % (Auto) 33.9 Spencer % (Auto) 8.3 Eos % (Auto) 3.1 Baso % (Auto) 0.9 Lymph # (Auto) 2.2 Spencer # (Auto) 0.5 Eos # (Auto) 0.2 Baso # (Auto) 0.1 Abs Immat Gran (auto) 0.01 Absolute Neuts (auto) 3.4 Absolute Nucleated RBC 0.000 Nucleated RBC % (auto) 0.0 ESR 32 H Sodium 142 Potassium 3.8 Chloride 109 H Carbon Dioxide 26 Anion Gap 11 L BUN 11 Creatinine 0.70 Estimated GFR > 60 Random Glucose 96 Estimat Average Glucose 97 Hemoglobin A1c % 5.0 Calcium 9.5 Total Bilirubin 0.5 AST 21 ALT 22 Alkaline Phosphatase 66 C-Reactive Protein 1.88 H Total Protein 7.6 Albumin 4.4 Vitamin B12 397 Folate 9.8 TSH 0.27 L Free T4 1.[address] [address] [address] Scan Report Signed Patient: Haley Valdovinos MR#: [id number] : 1970 Acct:[id number] Age/Sex: 55 / F ADM Date: 05/27/25 Loc: HO.CT Attending Dr: Patt Llanos CNP Ordering Physician: Patt Llanos CNP Date of Service: 05/27/25 Procedure(s): CT head/brain wo IV con Accession Number(s): [id number] cc: Pj Crenshaw MD; Patt Llanos CNP~ Report Number: [id number]: Total DLP = 790.00 mGy-cm Reason for Exam: G31.84 - Mild cognitive impairment of uncertain or unknown etiology CLINICAL HISTORY: G31.84 - Mild cognitive impairment of uncertain or unknown etiology CT head without contrast Comparison: None provided Findings: No intra-axial mass, midline shift, hydrocephalus, or acute hemorrhage. No significant atrophy-like change or white matter disease. The visualized paranasal sinuses and mastoid air cells are normal. The orbits are within normal limits. There is no acute fracture. IMPRESSION: 1. No acute intracranial findings. This document has been electronically signed by: Nancy Llamas MD on 05/31/2025 14:30:[address] [address] Electroencephalogram Report Signed Patient: Haley Valdovinos MR#: [id number] : 1970 Acct:[id number] Age/Sex: 55 / F ADM Date: 05/25/25 Loc: HO.NEURO Attending Dr: Miguel Phillips MD Ordering Physician: Patt Llanos CNP Date of Service: 05/25/25 Procedure(s): EEG Routine Accession Number(s): [id number] cc: Pj Crenshaw MD~ Reason for Exam: G31.84 - Mild cognitive impairment of uncertain or unknown etiology Reason for Exam: G31.84 Mild Cognitive impairment of uncertain or unknown etiology Roomed Performed: 402 History: H/O Asthma,Acid reflux, Odynophagia,Arthritis, Chronic sinusitis, Asthma,Migraine headache,Panic attacks,Anxiety,Depression, fibromyalgia, migraines, headaches- pt c/o daily headaches and migraines, pt c/o trouble processing information slow with comprehending things- these symptoms occur daily Medication: albuterol, aripiprazole, atorvastatin,chlorthalidone.diclofenac sodium, duloxetine, gabapentin, hydroxyzine, levothyroxine, linaclotide, lorazepam, lorazepam, montelukast, oxybutynin chloride, oxybutynin chloride, pantoprazole, tirzepatide (weight loss) (Zepbound), zolpidem, Technical description: Photic stimulation: Completed Hyperventilation: Performed- fair effort Behavioral state: Tense but pleasant State of Consciousness: awake and drowsy Skull defect: No Sedation: No Handedness:Left Duration of study: 31 min 22 sec Description: This is a 16 channel EEG with an EKG lead. Patient is reported awake and drowsy during the tracing. This EEG is limited due to almost constant muscle and movement artifacts. Background EEG rhythm when seen is low amplitude fast with no obvious asymmetry or paroxysmal tendency. Photic stimulation does not produce any significant driving. Hyperventilation is unremarkable. Cardiac lead does not reveal any significant abnormality. No obvious paroxysmal tendency or abnormality noted. Impression: Limited EEG because of constant motion but no obvious epileptic tendency Dictated By: Phil Suarez MD Signed By: <Electronically signed by Phil Suarez MD> 05/26/25 1517 -- MRI brain WO at [facility] in May 2024: Mild MVD Assessment & Plan Assessment & Plan (1) Chronic migraine w/o aura w/o status migrainosus, not intractable: Code(s): G43.709 - Chronic migraine without aura, not intractable, without status migrainosus Category: Medical Plan: No improvement in migraines with topiramate 25mg twice a day. While dose is relatively small, and she was previously managed with topiramate 100mg/day, increased dose was not recommended given possible cognitive side effects of medication exacerbating patient's current cognitive symptoms. Topiramate discontinued. Start verapamil 40mg 1 tablet twice a day, use/side effects reviewed. Beta blockers such as propranolol are contraindicated due to asthma. (2) Fibromyalgia: Code(s): M79.7 - Fibromyalgia Category: Medical (3) Cerebral microvascular disease: Code(s): I67.89 - Other cerebrovascular disease Category: Medical (4) MCI (mild cognitive impairment): Code(s): G31.84 - Mild cognitive impairment of uncertain or unknown etiology Category: Medical Plan: Lab results reviewed: ESR and CRP mildly elevated - will repeat TSH mildly low with normal free T4 - will forward to PCP CT scan with no acute findings. She was advised the diagnosis of autism was not based on brain imaging. This would require neuropsych testing, which it seems her therapist was looking into. EEG limited due to motion, but no obvious epileptic tendency. Medication to help with memory could be discussed in the future, once migraines are better controlled. Continue working with therapist and psychiatrist. Plan Meds tried for migraine: Botox, topiramate, duloxetine, gabapentin beta blockers contraindicated due to asthma Orders: Orders Erythrocyte Sedimentation Rate Today G43.909 - Migraine, unspecified, not intractable, without status migrainosus C Reactive Protein Today G43.909 - Migraine, unspecified, not intractable, without status migrainosus Medications: New verapamil 40 mg PO BID 60 tabs 1RF 30 days Discontinued topiramate Discontinued Reason: Doctor's Order 25 mg PO BID 30 days 60 tabs 2RF Coding Level of Care Code Est Pt Level 4 (41876) Diagnoses Chronic migraine w/o aura w/o status migrainosus, not intractable G43.709 Fibromyalgia M79.7 Cerebral microvascular disease I67.89 MCI (mild cognitive impairment) G31.84
[2025-06-06 13:49] VITALS: BP 131/83; PULSE 74
--- OUTSIDE RECORDS SUMMARY | 2025-06-06 17:25 | XMS_ITS | Encounter Summary ---
Author Organization [employer] Address [address] [place] [address] [place] [address] Care Team Providers Care Per Assessment Nurse Name Role Phone Pj Crenshaw MD Primary Care Prov ider Encounter Details Date Type Department Care Team ([facility] st Contact Info) Description 05/18/2023 Telephone [facility] CHC MED & PEDS [address] [place], [place] [phone] Pj Crenshaw MD 505 [place] [address] Social History Tobacco Use Types Packs/Day Years [...] documented as of this encounter Care Teams Per Assessment Nurse Relationship Specialty Start Date End Date Pj Crenshaw MD [address] [place] [address] PCP - General Internal Medicine 01/15/20 documented as of this encounter
--- OUTSIDE RECORDS SUMMARY | 2025-06-06 17:25 | XMS_ITS | Encounter Summary ---
Author Organization [employer] Address [address] [place] [address] Care Team Providers Care Senior Nurse Manager Name Role Phone Pj Crenshaw MD Primary Care Prov ider Reason for Visit * Reason Comments Med Refill Encounter Details Date Type Department Care Team ([facility] Contact Info) Description 09/15/2024 Refill C [facility] MED & PEDS 505 [place], [place] [phone] Pj Crenshaw MD 505 [place] [address] Social History Tobacco Use Types Packs/Day Years [...] documented as of this encounter Care Teams Senior Nurse Manager Relationship Specialty Start Date End Date Pj Crenshaw MD [address] [place] [address] PCP - General Internal Medicine 01/15/20 documented as of this encounter
--- OUTSIDE RECORDS SUMMARY | 2025-06-06 17:25 | XMS_ITS | Encounter Summary ---
Author Organization [employer] Address 75 [facility] 7 [place] [address] Care Team Providers Care Vector Control Assistant Name Role Phone Pj Crenshaw MD Primary Care Prov ider Encounter Details Date Type Department Care Team ([facility] st Contact Info) Description 10/23/2023 Orders Only [facility] CHC MED & PEDS [address] [place], [place] [phone] Pj Crenshaw MD 505 [place] [address] Acquired hypothyroidism Social History Tobacco Use Types [...] documented as of this encounter Care Teams Vector Control Assistant Relationship Specialty Start Date End Date Pj Crenshaw MD [address] [place] [address] PCP - General Internal Medicine 01/15/20 documented as of this encounter
--- OUTSIDE RECORDS SUMMARY | 2025-06-06 17:25 | XMS_ITS | Encounter Summary ---
Author Organization [employer] Address 75 [facility] 7t [place] [address] Care Team Providers Care Wardrobe Image Consultant Name Role Phone Pj Crenshaw MD Primary Care Prov ider Encounter Details Date Type Department Care Team ([facility] st Contact Info) Description 10/13/2023 Telephone [facility] MEDICINE [address] [place] [address] Pj Crenshaw MD [address] [place] [address] Social History Tobacco Use Types Packs/Day Years [...] documented as of this encounter Care Teams Wardrobe Image Consultant Relationship Specialty Start Date End Date Pj Crenshaw MD [address] [place] [address] PCP - General Internal Medicine 01/15/20 documented as of this encounter
--- OUTSIDE RECORDS SUMMARY | 2025-06-06 17:25 | XMS_ITS | Encounter Summary ---
Author Organization [employer] Address 75 [facility] 7 [place] [address] Care Team Providers Care Flue Gas Analyst Name Role Phone Pj Crenshaw MD Primary Care Prov ider Encounter Details Date Type Department Care Team ([facility] st Contact Info) Description 08/26/2023 Orders Only [facility] CHC MED & PEDS [address] [place], [place] [phone] Pj Crenshaw MD 505 [place] [address] Acquired hypothyroidism Social History Tobacco Use Types [...] documented as of this encounter Care Teams Flue Gas Analyst Relationship Specialty Start Date End Date Pj Crenshaw MD [address] [place] [address] PCP - General Internal Medicine 01/15/20 documented as of this encounter
--- OUTSIDE RECORDS SUMMARY | 2025-06-06 17:26 | XMS_ITS | Encounter Summary ---
Author Organization [employer] Address [address] [address] Care Team Providers Care Jewel Bearing Polisher Name Role Phone Pj Crenshaw MD Primary Care Prov ider Reason for Visit * Reason Onset Date Comments Nurse Triage 12/21/2024 Encounter Details Date Type Department Care Team ([facility] st Contact Info) Description 12/21/2024 Telephone [facility] MEDICINE [address] [place] [address] Pj Crenshaw MD 505 [place] [address] Nurse Triage Social History Tobacco Use Types [...] received. Unable to leave message to call [facility]. * Telephone Encounter - Eva Felton - 12/21/2024 10:22 AM EDT Symptom: Urine Symptoms (Frequent urination) Outcome: Schedule a same-day appointment or talk to a nurse or provider today Reason: Caller denied all higher acuity questions The caller accepted this outcome. [phone] documented in this encounter Plan of Treatment Not on file documented as of this encounter Visit Diagnoses Not on filedocumented in this encounter Additional Health Concerns Assessment Noted Time PHQ-9 Depression Total Score: 13 025 10:14 AM EST documented as of this encounter Care Teams Jewel Bearing Polisher Relationship Specialty Start Date End Date Pj Crenshaw MD [address] [place] [address] PCP - General Internal Medicine 01/15/20 documented as of this encounter
--- OUTSIDE RECORDS SUMMARY | 2025-06-06 17:26 | XMS_ITS | Encounter Summary ---
Author Organization [employer] Address [address] [address] Care Team Providers Care Cooperage Shop Supervisor Name Role Phone Pj Crenshaw MD Primary Care Prov ider Reason for Visit * Reason Onset Date Comments Appointment Request 04/14/2024 Encounter Details Date Type Department Care Team ([facility] st Contact Info) Description 04/14/2024 Telephone [facility] MEDICINE [address] [place] [address] Pj Crenshaw MD 505 [place] [address] Appointment Request Social History Tobacco Use Types [...] documented as of this encounter Care Teams Cooperage Shop Supervisor Relationship Specialty Start Date End Date Pj Crenshaw MD [address] [place] [address] PCP - General Internal Medicine 01/15/20 documented as of this encounter
--- OUTSIDE RECORDS SUMMARY | 2025-06-06 17:26 | XMS_ITS | Encounter Summary ---
Author Organization [employer] Address [address] [place] [address] Care Team Providers Care Resident Service Coordinator Name Role Phone Pj Crenshaw MD Primary Care Prov ider Reason for Visit * Reason Onset Date Comments triage 08/12/2022 Encounter Details Date Type Department Care Team ([facility] st Contact Info) Description 08/12/2022 Telephone [facility] CHC MED & PEDS [address] [place], [place] [phone] Pj Crenshaw MD 505 [place] [address] triage Social History Tobacco Use Types Packs/Day [...] on filedocumented in this encounter Care Teams Resident Service Coordinator Relationship Specialty Start Date End Date Pj Crenshaw MD [address] [place] [address] PCP - General Internal Medicine 01/15/20 documented as of this encounter
--- OUTSIDE RECORDS SUMMARY | 2025-06-06 17:26 | XMS_ITS | Encounter Summary ---
Author Organization [employer] Address [address] [place] [address] Care Team Providers Care Jammer Operator Name Role Phone Pj Crenshaw MD Primary Care Prov ider Reason for Visit * Reason Comments Med Refill Encounter Details Date Type Department Care Team ([facility] st Contact Info) Description 11/04/2022 Refill [facility] CHC MED & PEDS [address] [place] [address] Pj Crenshaw MD [address] [place] [address] Gastroesophageal reflux disease without esophagitis Social History [...] reflux documented in this encounter Care Teams Jammer Operator Relationship Specialty Start Date End Date Pj Crenshaw MD [address] [place] [address] PCP - General Internal Medicine 01/15/20 documented as of this encounter"
--- OUTSIDE RECORDS SUMMARY | 2025-06-06 17:26 | XMS_ITS | Encounter Summary ---
Author Organization [employer] Address 75 [facility] 7t [place] [address] Care Team Providers Care Bacon Skinner Name Role Phone Pj Crenshaw MD Primary Care Prov ider Encounter Details Date Type Department Care Team ([facility] st Contact Info) Description 05/09/2024 Orders Only [facility] CHC MED & PEDS [address] [place], [place] [phone] ProviderKarly MD Social History Tobacco Use Types [...] AM EDT Narrative 06/13/2024 5:26 PM EDT [facility] [address] [place] [address] Mammography Report Signed with Ministerio Patient: Haley Valdovinos MR#: [id number] : 1970 Acct:[id number] Age/Sex: 54 / F ADM Date: 05/31/24 Loc: HO.MAMMJay Attending Dr: Pj Peguero MD Ordering Physician: Pj Crenshaw MD Results: 0Incomplete: Needs Additional Imaging Evaluation Date of Service: 05/31/24 Follow Up: Additional Imagi ng Procedure(s): MM tomosynthesis screening BI Accession Number(s): [id number] cc: Pj Crenshaw MD ADDENDUM ADDENDUM #1 [...] OV> 06/13/24 1722 DD/ 99 TD/TT: 05/31/241113 Isobutylene Operator Chief: Procedure Note Donotuseinterpreter, Image - 06/17/2024 [facility] [address] [place], [place] [address] Mammography Report Signed with Addenda Patient: Haley Valdovinos JMR#: [id number] : 1970Acct:[id number] Age/Sex: 54 / FADM Date: 05/31/24 Loc: HOMERVIN Attending Dr: Pj Peguero MD Ordering Physician: Pj Crenshaw MD Results: 0Incomplete: Needs Additional Imaging Evaluation Date of Service: 05/31/24Follow Up: Additional Imagi ng Procedure(s): MM tomosynthesis screening BI Accession Number(s): [id number] cc: Pj Crenshaw MD ADDENDUM ADDENDUM #1 [...] 06/13/24 1722 DD/ 1100 TD/TT: 05/31/24 1114 Isobutylene Operator Chief: Pj Peguero MD IMG BI PROCEDURES Edited [...] documented as of this encounter Care Teams Bacon Skinner Relationship Specialty Start Date End Date Pj Crenshaw MD [address] [place] [address] PCP - General Internal Medicine 01/15/20 documented as of this encounter
--- OUTSIDE RECORDS SUMMARY | 2025-06-06 17:26 | XMS_ITS | Encounter Summary ---
Author Organization [employer] Address 75 [facility] [address], [place] [address] Care Team Providers Care Survey Questionnaire Designer Name Role Phone Pj Crenshaw MD Primary Care Prov ider Encounter Details Date Type Department Care Team ([facility] st Contact Info) Description 08/12/2022 Telephone [facility] CHC MED & PEDS [address] [place], [place] [phone] Pj Crenshaw MD [address] [place] [address] Social History Tobacco Use Types Packs/Day Years [...] on filedocumented in this encounter Care Teams Survey Questionnaire Designer Relationship Specialty Start Date End Date Pj Crenshaw MD [address] [place] [address] PCP - General Internal Medicine 01/15/20 documented as of this encounter
--- OUTSIDE RECORDS SUMMARY | 2025-06-06 17:26 | XMS_ITS | Encounter Summary ---
Author Organization [employer] Address [address] [place] [address] Care Team Providers Care Senior Care Specialist Name Role Phone Pj Crenshaw MD Primary Care Prov ider Reason for Visit * Reason Onset Date Comments Med Refill 08/12/2022 Encounter Details Date Type Department Care Team ([facility] Contact Info) Description 08/12/2022 Telephone [facility] CHC MED & PEDS [address] [place], [place] [phone] Pj Crenshaw MD [address] [place] [address] Med Refill Social History Tobacco Use Types [...] Docusate Sodium 100 mg Please send to [address] documented in this encounter Plan of Treatment Not on file documented as of this encounter Visit Diagnoses Not on filedocumented in this encounter Care Teams Senior Care Specialist Relationship Specialty Start Date End Date Pj Crenshaw MD [address] [place] [address] PCP - General Internal Medicine 01/15/20 documented as of this encounter
--- OUTSIDE RECORDS SUMMARY | 2025-06-06 17:26 | XMS_ITS | Encounter Summary ---
Author Organization [employer] Address [address] [place] [phone] Care Team Providers Care Load Out Supervisor Name Role Phone Pj Crenshaw MD Primary Care Prov ider Reason for Visit * Reason Comments Med Refill Encounter Details Date Type Department Care Team (Late st Contact Info) Description 02/26/2023 Refill [facility] [address] [place], [place] [phone] Pj Crenshaw MD [address] [place] [address] Gastroesophageal reflux disease without esophagitis Social History [...] documented as of this encounter Care Teams Load Out Supervisor Relationship Specialty Start Date End Date Pj Crenshaw MD [address] [place] [address] PCP - General Internal Medicine 01/15/20 documented as of this encounter
--- OUTSIDE RECORDS SUMMARY | 2025-06-06 17:26 | XMS_ITS | Encounter Summary ---
Author Organization [employer] Address [address] [place] [address] Care Team Providers Care Line Maintenance Name Role Phone Pj Crenshaw MD Primary Care Prov ider Reason for Visit * Reason Onset Date Comments Referral 08/12/2022 Appointment Request 08/12/2022 Encounter Details Date Type Department Care Team ([facility] Contact Info) Description 08/12/2022 Telephone [facility]S [address] [place] [address] Pj Crenshaw MD [address] [place] [address] Referral; Appointment Request Social History Tobacco Use [...] reflux documented in this encounter Care Teams Line Maintenance Relationship Specialty Start Date End Date Pj Crenshaw MD [address] [place] [address] PCP - General Internal Medicine 01/15/20 documented as of this encounter
--- OUTSIDE RECORDS SUMMARY | 2025-06-06 17:26 | XMS_ITS | Encounter Summary ---
Author Organization [employer] Address 75 [facility] [address] [place] [address] Care Team Providers Care Paint Mixer Name Role Phone Pj Crenshaw MD Primary Care Prov ider Encounter Details Date Type Department Care Team ([facility] st Contact Info) Description 07/07/2022 Orders Only [facility] MED & PEDS [address] [place], [place] [phone] Farheen Luciano, RN [address] [place] [address] Social History Tobacco Use Types Packs/Day Years [...] on filedocumented in this encounter Care Teams Paint Mixer Relationship Specialty Start Date End Date Pj Crenshaw MD [address] [place] [address] PCP - General Internal Medicine 01/15/20 documented as of this encounter
--- OUTSIDE RECORDS SUMMARY | 2025-06-06 17:26 | XMS_ITS | Clinical Summary ---
Author Organization [employer] Address [address] [place] [address] 7 [place] [address] Care Team Providers Care Client Service And Consulting Manager Name Role Phone Pj Crenshaw MD Primary Care Prov ider Allergies Active Allergy Reactions Criticality Noted Date Comments Apple Juice 08/13/2022 Chocolate Hazelnut Flavoring Agent (Non-Screening) 08/13/2022 Clarithromycin 02/22/2014 [place] Flavoring Agent (Non-Screening) 08/13/2022 Pear 08/13/2022 Pistachio [...] 08/14/202308/14 Severe obesity (BMI 35.0-39.9) with comorbidity ([facility]) 08/14/2023 08/14/2023 Assessment & Plan [...] place referral for reevaluation, previously seen at [facility] Impaired glucose tolerance 03/03/2023 Severe obesity ([facility]) 03/03/2023 Assessment & Plan (04/01/2023 [...] Patient used to be followed by a control director, will place referal Varicose veins of lower [...] Temporomandibular joint disorder 03/17/2018 Benzodiazepine dependence, continuous ([facility]) 11/24/2017 Gastroesophageal reflux disease without esophagi tis 11/24/2017 Mood disorder 11/24/2017 Osteoarthritis of multiple joints 11/24/2017 Encounters Date Type Department Care Team Description 05/27/2025 Orders Only [facility] External Provider, [facility] 05/16/2025 Refill [facility] [address] [place] [address] Pj Crenshaw MD 05/15/2025 10:00 AM EDT Telemedicine [facility] [address] [place] [address] Pj Crenshaw MD Chronic constipation (Primary Dx); Severe obesity (BMI 35.0-39.9) with comorbidity ([facility]) 05/15/2025 Travel 05/02/2025 4:00 PM EDT Office Visit [facility] & PEDS [address] [place] [address] Carolina Hector MD Sinus congestion (Primary Dx); Acute otitis media, unspecified otitis media type 05/02/2025 Travel 04/28/2025 Telephone [facility] [address] [place] [address] Pj Crenshaw MD Nurse Triage 04/20/2025 Telephone [facility] [address] [place] [address] Pj Crenshaw MD Med Refill 04/20/2025 Refill [facility] [address] [place] [address] Shante Oquendo MD Gastroesophageal reflux disease without esophagitis 04/12/2025 Refill [facility] [address] [place] [address] Pj Crenshaw MD 04/11/2025 Refill [facility] [address] [place] [address] Pj Cresnhaw MD Anaphylaxis, sequela 03/18/2025 Refill [facility] [address] [place] [address] Pj Crenshaw MD 03/09/2025 Refill [facility] [address] [place] [address] Pj Crenshaw MD Primary hypertension from Last [...] Procedure Name Priority Date/Time Associated Diagnosis Comments CT HEAD WO CONTRAST Routine 05/31/2025 2 :30 PM EDT T4, FREE Routine 05/25/2025 11:17 AM EDT [...] Recently Relevant to Health Maintenance Results * CT Head w/o Contrast (05/31/2025 2:30 PM EDT) Anatomical Region Laterality Modality Head, Neck Computed Tomogra phy 05/31/2025 2:30 PM EDT Narrative 05/31/2025 2:31 PM EDT [address] [address] [address] Scan Report Signed Patient: Haley Valdovinos MR#: [id number] : 1970 Acct:[id number] Age/Sex: 55 / F ADM Date: 05/27/25 Loc: HO.CT Attending Dr: Patt Llanos CNP Ordering Physician: Patt Llanos CNP Date of Service: 05/27/25 Procedure(s): CT head/brain wo IV con Accession Number(s): [id number] cc: Pj Crenshaw MD; Patt Llanos CNP Report Number: [id number]: Total DLP = 790.00 mGy-cm Reason for Exam: G31.84 - Mild cognitive impairment of uncertain or unknown etiology CLINICAL HISTORY: G31.84 - Mild cognitive impairment of uncertain or unknown etiology CT head without contrast Comparison: None provided Findings: No intra-axial mass, midline shift, hydrocephalus, or acute hemorrhage. No significant atrophy-like change or white matter disease. The visualized paranasal sinuses and mastoid air cells are normal. The orbits are within normal limits. There is no acute fracture. IMPRESSION: 1. No acute intracranial findings. This document has been electronically signed by: Nancy Llamas MD on 05/31/2025 14:30:38 Dictated By: Nancy Llamas MD Signed By: <Electronically signed by Nancy Llamas MD in OV> 05/31/25 1431 DD/ 1430 TD/TT: 05/31/25 1430 Lead Coater: Procedure Note Donotuseinterpreter, Image - 05/31/[address] [place] [address] [address] Scan Report Signed Patient: Haley Valdovinos JMR#: [id number] : 1970Acct:[id number] Age/Sex: 55 / FADM Date: 05/27/25 Loc: HO.CT Attending Dr: Patt Llanos CNP Ordering Physician: Patt Llanos CNP Date of Service: 05/27/25 Procedure(s): CT head/brain wo IV con Accession Number(s): [id number] cc: Pj Crenshaw MD; Patt Llanos [facility] Report Number: [id number]: Total DLP = 790.00 mGy-cm Reason for Exam: G31.84 - Mild cognitive impairment of uncertain orunknown etiology CLINICAL HISTORY: G31.84 - Mild cognitive impairment of uncertain orunknown etiology CT head without contrast Comparison: None provided Findings: No intra-axial mass, midline shift, hydrocephalus, or acute hemorrhage. No significant atrophy-like change or white matter disease. The visualized paranasal sinuses and mastoid air cells are normal. The orbits are within normal limits. There is no acute fracture. IMPRESSION: 1. No acute intracranial findings. This document has been electronically signed by: Nancy Llamas MD on 05/31/2025 14:30:38 Dictated By: Nancy Llamas MD Signed By: <Electronically signed by Nancy Llamas MD in OV> 05/31/25 1431 DD/ 1430 TD/TT: 05/31/25 1430 Lead Coater: [facility] External Provider IMG CT PROCEDURES Final Result * Vitamin B12 (Cobalamin) and Folate Panel, Serum (05/25/2025 11:17 AM EDT) Vitamin B12 397 200 - 900 pg/mL [facility] Comment:NORMAL 200-900 PG/ML INDETERMINATE 160-199 PG/ML DEFICIENT < 160 PG/ML Folate 9.8 > or = 4.0 ng/mL [facility] Comment:Reference Values:> o r = 4.0 ng/mL< 4.0 ng/mL suggests folate deficiency Methotrexate, aminopterin and folinic acid(leucovorin) are chemotherapeutic agents whose molecularstructures are similar to folate; therefore, the Architectfolate assay cannot be used for patients using these drugs. 05/25/2025 11:1 7 AM EDT 05/25/2025 11:17 AM EDT Generic External Data Provider LAB BLOOD ORDERAB LES Final Result [facility] [address] [place] [phone] * (ABNORMAL) TSH with Reflex to Free T4 (05/25/2025 11:17 AM EDT) TSH reflex Free T4 0.27(L) 0.32 - 4.0 uIU/mL [facility] 05/25/2025 11:1 7 AM EDT 05/25/2025 11:17 AM EDT us Generic External Data Provider LAB BLOOD ORDERAB LES Final Result [facility] [address] [place] [phone] [phone] * CBC auto differential (05/25/2025 11:17 AM EDT) Pathologist [facility] White Blood Count 6.4 4.8 - 10.8 X10*3/uL [facility] Red Blood Count 4.25 4.20 - 5.50 X10*6/uL [facility] Hemoglobin 12.8 12.0 - 16.0 g/dl [facility] Hematocrit 38.7 37.0 - 47.0 % [facility] Mean Corpuscular Volume 91.1 80.0 - 98.0 fL [facility] Mean Corpuscular Hemoglobin 30.1 27.0 - 33.0 pg [facility] Mean Corpuscular HGB Conc 33.1 31.0 - 35.0 g/dl [facility] Red Cell Distribution Width 12.5 11.0 - 16.0 % [facility] Platelet Count 318 160 - 400 X10*3/uL [facility] Mean Platelet Volume 11.6 9.4 - 12.3 fL [facility] Neutrophils Percent Auto 53.6 45 - 73 % [facility] Imm Gran Pct Auto 0.2 0.0 - 0.4 % [facility] Lymphocytes Percent Auto 33.9 20 - 40 % [facility] Monocytes Percent Auto 8.3 2 - 11 % [facility] Eosinophils Percent Auto 3.1 0 - 4 % [facility] Basophils Percent Auto 0.9 0 - 2 % [facility] NRBC Pct Auto 0.0 0.0 - 0.2 /100WBC [facility] Neutrophils Absolute Auto 3.4 2.0 - 8.3 x10*3/uL [facility] Imm Gran Abs Auto 0.01 0.00 - 0.03 X10*3/uL [facility] Lymphocytes Absolute Auto 2.2 1.2 - 4.9 X10*3/uL [facility] Monocytes Absolute Auto 0.5 0.1 - 1.2 X10*3/uL [facility] Eosinophils Absolute Auto 0.2 0.0 - 0.4 X10*3/uL [facility] Basophils Absolute Auto 0.1 0.0 - 0.2 X10*3/uL [facility] NRBC Abs Auto 0.000 0.0 - 0.012 X10*3/uL [facility] 05/25/2025 11:1 7 AM EDT 05/25/2025 11:17 AM EDT us Generic External Data Provider LAB BLOOD ORDERAB LES Final Result Performing Organization Address [facility]/ZIP Co de Phone Number [facility] [address] [place] [phone] * (ABNORMAL) Sed Rate by Modified Anabellaren (05/25/2025 11:17 AM EDT) Erythrocyte Sedimentation Rate 32(H) 0 - 20 MM/HR [facility] Comment:Patients with polycy themia and many hemoglobin abnormalitiesmay have depressed sed rates whereas patients with anemiamay have elevated sed rates. 05/25/2025 11:1 7 AM EDT 05/25/2025 11:17 AM EDT us Generic External Data Provider LAB BLOOD ORDERAB LES Final Result Performing Organization Address [facility]/ZIP Co de Phone Number [facility] [address] [place] [phone] * (ABNORMAL) C-reactive Protein (05/25/2025 11:17 AM EDT) C Reactive Protein 1.88(H) < or = 0.50 mg/dL [facility] 05/25/2025 11:1 7 AM EDT 05/25/2025 11:17 AM EDT Generic External Data Provider LAB BLOOD ORDERAB LES Final Result Performing Organization Address City/[facility]/ZIP Co de Phone Number [facility] [address] [place] [phone] * T4, Free (05/25/2025 11:17 AM EDT) Free T4 (Free Thyroxine) 1.56 0.71 - 1.85 ng/dL [facility] 05/25/2025 11:1 7 AM EDT 05/25/2025 11:17 AM EDT Generic External Data Provider LAB BLOOD ORDERAB LES Final Result Performing Organization Address [facility] de Phone Number [facility] [address] [place] [phone] * Hemoglobin A1c (05/25/2025 11:17 AM EDT) Hemoglobin A1c 5.0 <6.0 % [facility] Comment:Hemoglobin A1C Refer ence Range Adults: 4.8 - 6.0 % Non diabetic: < 6.0 % Goal: < 7.0 %Additional Action Suggested: > 8.0 %Note: Hemoglobin A1c results are invalid for patients with abnormal amounts of HbF. Blood transfusions may impact the HbA1c concentration in the patient sample. Estimated Average Glucose 97 mg/dL [facility] Comment:eAG = Estimated ave rage glucose which is %A1C expressed asaverage glucose, using the formula of the F5X-LapglagRrffgwk Glucose study (ADAG), Diabetes Care, Vol.31,#8,2007 Blood Venous blood specimen / Unknown 05/25/2025 11:17 AM EDT 05/25/2025 11:17 AM EDT Pj Peguero MD LAB BLOOD ORDERABL ES Final Result Performing Organization Address [facility] Co de Phone Number [facility] [address] [place] [phone] * (ABNORMAL) Lipid Panel, Standard (05/25/2025 11:17 AM EDT) Triglycerides 68 <150 mg/dL [facility] Comment:Desirable Triglyceri de: less than 150 mg/dLBorderline High Triglyceride 150-199 mg/dLHigh Triglyceride: 200-499 mg/dLVery High Triglyceride: greater than or equal to 5OO mg/dL Cholesterol 202(H) <200 mg/dL [facility] Comment:Desirable Cholestero l: less than 200 mg/dLBorderline High Cholesterol: 200-239 mg/dLHigh Cholesterol: greater than 239 mg/dL LDL Cholesterol Calculated 146(H) <100 mg/dL [facility] Comment:Desirable LDL: less than 100 mg/dLNear Optimal/Above Optimal LDL: 110- 129 mg/dLBorderline High LDL: 130-159 mg/dLHigh LDL: 160-189 mg/dLVery High LDL: greater than or equal to 190 mg/dL HDL Cholesterol 43 >40 mg/dL [facility] Comment:Desirable HDL: great er than 40 mg/dL Note: This HDL assay may give artificially low results in patients with liver disease. Blood Venous blood specimen / Unknown 05/25/2025 11:17 AM EDT 05/25/2025 11:17 AM EDT Pj Peguero MD LAB BLOOD ORDERABL ES Final Result Performing Organization Address City/[facility]/ZIP Co de Phone Number [facility] [address] [place] [phone] * (ABNORMAL) Comprehensive Metabolic Panel (05/25/2025 11:17 AM EDT) Sodium 142 135 - 145 mmol/L [facility] Potassium 3.8 3.3 - 5.1 mmol/L [facility] Chloride 109(H) 96 - 108 mmol/L [facility] Carbon Dioxide 26 22 - 29 mmol/L [facility] Anion Gap 11(L) 12 - 20 [facility] Urea Nitrogen (BUN) 11 9 - 16 mg/dL [facility] Creatinine, Serum 0.70 0.5 - 1.4 mg/dL [facility] Estimated Glomerular Filt Rate >60 [facility] Comment:Chronic Kidney Disea se: Estimated GFR < 60 mL/min/1.73y6Otxdst Kidney Disease: Estimated GFR < 15 mL/min/1.73m2 Glucose 96 60 - 115 mg/dL [facility] Calcium 9.5 8.4 - 10.2 mg/dL [facility] Bilirubin, Total 0.5 0.0 - 1.0 mg/dL [facility] Aspartate Amino Transferase 21 5 - 31 U/L [facility] Alanine Aminotransferase 22 0 - 31 U/L [facility] Total Protein 7.6 6.5 - 8.0 g/dL [facility] Albumin Level 4.4 3.5 - 5.0 g/dL [facility] Alkaline Phosphatase 66 39 - 117 U/L [facility] Blood Venous blood specimen / Unknown 05/25/2025 11:17 AM EDT 05/25/2025 11:17 AM EDT us Pj Peguero MD LAB BLOOD ORDERABL ES Final Result [facility] [address] [place] [phone] * BI Mammogram Screening Tomosynthesis Bilateral (05/31/2024 11:00 AM EDT) Anatomical Region Laterality Modality Breast Bilateral Mammography 05/31/2024 11:0 0 AM EDT Narrative 06/13/2024 5:26 PM EDT [facility] [address] [place] [address] [place] [address] Mammography Report Signed with Addenda Patient: Haley Valdovinos MR#: [id number] : 1970 Acct:[id number] Age/Sex: 54 / F ADM Date: 05/31/24 Loc: HO.MAMMO Attending Dr: Pj Peguero MD Ordering Physician: Pj Crenshaw MD Results: 0Incomplete: Needs Additional Imaging Evaluation Date of Service: 05/31/24 Follow Up: Additional Imagi ng Procedure(s): MM tomosynthesis screening BI Accession Number(s): [id number] cc: Pj Crenshaw MD ADDENDUM ADDENDUM #1 [...] 06/13/24 1722 DD/ 1100 TD/TT: 05/31/24 1114 Lead Coater: Procedure Note [place], Image - 06/17/2024 [facility] [address] [place] [address] Mammography Report Signed with Addenda Patient: Haley Valdovinos JMR#: [id number] : 1970Acct:[id number] Age/Sex: 54 / FADM Date: 05/31/24 Loc: HO.MAMMO Attending Dr: Pj Peguero MD Ordering Physician: Pj Crenshaw MD Results: 0Incomplete: Needs Additional Imaging Evaluation Date of Service: 05/31/24Follow Up: Additional Imagi ng Procedure(s): MM tomosynthesis screening BI Accession Number(s): [id number] cc: Pj Crenshaw MD ADDENDUM ADDENDUM #1 [...] 06/13/24 1722 DD/ 99 TD/TT: 05/31/24 111 Lead Coater: Pj Peguero MD IMG BI PROCEDURES Edited Result - Final * Pap Smear (07/20/2023 12:00 AM EST) Swab Historical Provider LAB CYTOLOGY ORDERABLES F inal Result [facility] [address] [place] [address] * Hepatitis C Antibody with Reflex to HCV, RNA, Quantitative, Real-Time PCR (12/08/2022 9:49 AM EDT) [facility] Hepatitis C Antibody NON-REACT BRANDON NON-REACT BRANDON [facility] [place] [facility] Index 0.13 <1.00 [facility] [employer] Comment: HCV antibody was non-reactive. There is no laboratory evidence of HCV infection. In most cases, no further action is required. However, if recent HCV exposure is suspected, a test for HCV RNA (test code 10614) is suggested. For additional information please refer to http://education.[employer]/faq/WZZ31p0 (This link is being provided for informational/ educational purposes only.) Blood Venous blood specimen / Unknown 12/08/2022 9:49 AM EDT 12/08/2022 9:50 AM EDT Narrative [facility] - 12/09/2022 7:27 AM EDT FASTING:YES FASTING: YES Pj Peguero MD LAB BLOOD ORDERABL ES Final Result [facility] [address], [place] [address] [facility] [address] [place] [address] * Colonoscopy (06/10/2022) [facility] Colonoscopy Normal Normal Narrative Taylor Barbosa - 06/10/2022 Colonoscopy order added Karly [place] MD HEALTH MAINTENANCE Final Result * HPV mRNA E6/E7 (04/23/2021 9:09 AM EDT) [facility] HPV nRNA E6/E7 Not Detected Not Detected [facility] Comment: Methodology: Facilities Technician-Mediated Amplification This assay detects E6/E7 viral messenger RNA (mRNA) from 14 high-risk HPV types (16,18,31,33,35,39,45,51,52,56,58,59,66,68). The analytical performance characteristics of this assay have been determined by [employer]. The modifications have not been cleared or approved by the FDA. This assay has been validated pursuant to the CLIA regulations and is used for clinical purposes. For additional information, please refer to http://education.[employer]/faq/OCU505r4 (This link if provided for information/ educational purposes only.) 04/23/2021 9:09 AM EDT Alma Moseley [facility] LAB BLOOD ORDERABLES Winter l Result Performing Organization Address [facility] Phone Number [facility] [address] [place] [address] * HIV AB/AG (10/12/2019 10:06 AM EST) Pathologist [facility] HIV AG/AB NONREACTIVE NR FOUNDATI ON LAB [...] of detection of this assay. The Villal[employer] Hide Measuring Machine Operator HIV Ag/Ab Combo assay result and supplemental assay results should be interpreted in conjunction with the patient's clinical presentation, history and other laboratory results. If the results are inconsistent with clinical evidence, additional testing is suggested to confirm the result. 10/12/2019 10:0 6 AM EST Historical Provider MD HISTORICAL/NON ORDERABLE LABS Final Result Performing Organization Address [facility] Phone Number [facility] [address] from Last 3 Months or Most Recently Relevant to Health Maintenance Insurance [facility] C3 Advance Directives Documents on File Type Date Recorded Patient Hooker Machine Tender Expl anation Advance Directives and Livin g Will 11/18/2024 4:14 PM HCP Care Teams Client Service And Consulting Manager Relationship Specialty Start Date End Date Pj Crenshaw MD [address] [place] [phone] PCP - General Internal Medicine 01/15/20
--- OUTSIDE RECORDS SUMMARY | 2025-06-06 17:27 | XMS_ITS | Encounter Summary ---
Author Organization [employer] Address [address] [facility] 7t [place] [address] Care Team Providers Care Rope Rider Name Role Phone Pj Crenshaw MD Primary Care Prov ider Encounter Details Date Type Department Care Team ([facility] Contact Info) Description 05/31/[address] [facility] [address] [place], [place] [phone] Pj Crenshaw MD [address] [place] [address] Social History Tobacco Use Types Packs/Day Years [...] documented as of this encounter Care Teams Rope Rider Relationship Specialty Start Date End Date Pj Crenshaw MD [address] [place] [phone] PCP - General Internal Medicine 01/15/20 documented as of this encounter
--- OUTSIDE RECORDS SUMMARY | 2025-06-06 17:27 | XMS_ITS | Encounter Summary ---
Author Organization [employer] Address [address] [place] [phone] Care Team Providers Care Electrical Technology Instructor Name Role Phone Pj Crenshaw MD Primary Care Prov ider Reason for Visit * Reason Onset Date Comments Med Refill 04/20/2025 Encounter Details Date Type Department Care Team ([facility] Contact Info) Description 04/20/2025 Telephone [facility] PEDS [address] [place] [address] Pj Crenshaw MD [address] [place] [address] Med Refill Social History Tobacco Use Types [...] MG EC tablet To be sent to: [id number] [place], [place] - [address] [place] [address] AT NEC OF [facility] documented in this encounter Plan of Treatment Not on file documented as of this encounter Visit Diagnoses Not on filedocumented in this encounter Additional Health Concerns Assessment Noted Time PHQ-9 Depression Total Score: 13 025 10:14 AM EST documented as of this encounter Care Teams Electrical Technology Instructor Relationship Specialty Start Date End Date Pj Crenshaw MD [address] [place] [address] PCP - General Internal Medicine 01/15/20 documented as of this encounter
--- OUTSIDE RECORDS SUMMARY | 2025-06-06 17:27 | XMS_ITS | Clinical Summary ---
Author Organization [employer] [facility] ity Address [address] [place] [address] Care Team Providers Care Test Borer Helper Name Role Phone Unavailable Primary Care Provider [...]
--- OUTSIDE RECORDS SUMMARY | 2025-06-06 17:27 | XMS_ITS | Encounter Summary ---
Author Organization [id number] Address [address] 7[address] [place] [address] Care Team Providers Care Publication Editor Name Role Phone Pj Crenshaw MD Primary Care Prov ider Encounter Details Date Type Department Care Team ([facility] st Contact Info) Description 12/16/2023 Orders Only [facility] CHC MED & PEDS [address] [place], [place] [phone] ProviderKarly MD Social History Tobacco Use Types [...] * Surgical Pathology (09/18/2023 9:49 AM EST) [facility] Provider MD LAB PATHOLOGY ORDERABLES Final Result * Cytology, Conventional Pap Smear, 1 Slide (07/20/2023 9:54 AM EST) [facility] Provider MD LAB CYTOLOGY ORDERABLES F inal Result documented in this encounter Visit Diagnoses Not on filedocumented in this encounter Additional Health Concerns Assessment Noted Time PHQ-9 Depression Total Score: 2 11/20/19 23 8:47 AM EDT documented as of this encounter Care Teams Publication Editor Relationship Specialty Start Date End Date Pj Crenshaw MD [address] [place] [phone] PCP - General Internal Medicine 01/15/20 documented as of this encounter
== END 2025-06-06 13:54 | disposition home or self-care (01) ==
LOC: HO.HSM 13:21
PROVIDERS: PCP Internal Medicine; Visit Provider Registered Nurse
DX: G43.709 Chronic migraine without aura, not intractable, without status migrainosus (principal); M79.7 Fibromyalgia; I67.89 Other cerebrovascular disease; G31.84 Mild cognitive impairment of uncertain or unknown etiology
CPT/HCPCS: 99214

== ENCOUNTER 2025-06-13 13:31 | Outpatient (REF) | payer MEDICAID, SELFPAY ==
[2025-06-13 14:52] LABS: Alanine Aminotransferase 26 U/L (0-31); Albumin Level 4.3 g/dL (3.5-5.0); Alkaline Phosphatase 70 U/L (39-117); Anion Gap 9 (12-20); Aspartate Amino Transferase 25 U/L (5-31); Blood Urea Nitrogen 14 mg/dL (9-16); Calcium 9.5 mg/dL (8.4-10.2); Carbon Dioxide 30 mmol/L (22-29); Chloride 108 mmol/L (96-108); Estimated Glomerular Filt Rate > 60; Potassium 3.9 mmol/L (3.3-5.1); Sodium 143 mmol/L (135-145); Total Protein 7.8 g/dL (6.5-8.0)
--- OUTSIDE RECORDS SUMMARY | 2025-06-13 17:29 | XMS_ITS | Encounter Summary ---
Author Organization [employer] Address [address] [place] [address] Care Team Providers Care Social Media Executive Name Role Phone Pj Crenshaw MD Primary Care Prov ider Reason for Visit * Reason Onset Date Comments Med Refill 08/12/2022 Encounter Details Date Type Department Care Team ([facility] Contact Info) Description 08/12/2022 Telephone [facility] CHC MED & PEDS [address] [place], [place] [phone] Pj Crenshaw MD 505 [place] [address] Med Refill Social History Tobacco Use Types [...] Docusate Sodium 100 mg Please send to [address] documented in this encounter Plan of Treatment Not on file documented as of this encounter Visit Diagnoses Not on filedocumented in this encounter Care Teams Social Media Executive Relationship Specialty Start Date End Date Pj Crenshaw MD [address] [place] [phone] PCP - General Internal Medicine 01/15/20 documented as of this encounter
--- OUTSIDE RECORDS SUMMARY | 2025-06-13 17:29 | XMS_ITS | Encounter Summary ---
Author Organization [employer] Address [address] [facility] 7 [place] [address] Care Team Providers Care Mine Deputy Name Role Phone jP Crenshaw MD Primary Care Prov ider Encounter Details Date Type Department Care Team ([facility] st Contact Info) Description 08/26/2023 Orders Only [facility] CHC MED & PEDS [address] [place], [place] [phone] Pj Crenshaw MD 505 [place] [address] Acquired hypothyroidism Social History Tobacco Use Types [...] documented as of this encounter Care Teams Mine Deputy Relationship Specialty Start Date End Date Pj Crenshaw MD [address] [place] [phone] PCP - General Internal Medicine 01/15/20 documented as of this encounter
--- OUTSIDE RECORDS SUMMARY | 2025-06-13 17:29 | XMS_ITS | Encounter Summary ---
Author Organization [employer] Address [address] [place] [address] Care Team Providers Care Studio Couch Frame Builder Name Role Phone Pj Crenshaw MD Primary Care Prov ider Reason for Visit * Reason Comments Med Refill Encounter Details Date Type Department Care Team ([facility] Contact Info) Description 09/15/2024 Refill C CHC MED & PEDS 505 [place], [place] [phone] Pj Crenshaw MD 505 [place] [address] Social History Tobacco Use Types Packs/Day Years [...] documented as of this encounter Care Teams Studio Couch Frame Builder Relationship Specialty Start Date End Date Pj Crenshaw MD [address] [place] [address] PCP - General Internal Medicine 01/15/20 documented as of this encounter
--- OUTSIDE RECORDS SUMMARY | 2025-06-13 17:29 | XMS_ITS | Encounter Summary ---
Author Organization [employer] Address [address] [place] [address] Care Team Providers Care Mortgage Analyst Name Role Phone Pj Crenshaw MD Primary Care Prov ider Reason for Visit * Reason Comments Med Refill Encounter Details Date Type Department Care Team (Late st Contact Info) Description 02/26/2023 Refill [facility] MEDICINE [address] [place], [place] [phone] Pj Crenshaw MD 505 [place] [address] Gastroesophageal reflux disease without esophagitis Social History [...] documented as of this encounter Care Teams Mortgage Analyst Relationship Specialty Start Date End Date Pj Crenshaw MD [address] [place] [address] PCP - General Internal Medicine 01/15/20 documented as of this encounter
--- OUTSIDE RECORDS SUMMARY | 2025-06-13 17:29 | XMS_ITS | Encounter Summary ---
Author Organization [employer] Address [address] [place] [address] Care Team Providers Care Trucking Manager Name Role Phone Pj Crenshaw MD Primary Care Prov ider Reason for Visit * Reason Comments Med Refill Encounter Details Date Type Department Care Team ([facility] st Contact Info) Description 11/04/2022 Refill [facility] CHC MED & PEDS [address] [place] [address] Pj Crenshaw MD 505 [place] [address] Gastroesophageal reflux disease without esophagitis Social History [...] reflux documented in this encounter Care Teams Trucking Manager Relationship Specialty Start Date End Date Pj Crenshaw MD 505 [place] [address] PCP - General Internal Medicine 01/15/20 documented as of this encounter
--- OUTSIDE RECORDS SUMMARY | 2025-06-13 17:29 | XMS_ITS | Encounter Summary ---
Author Organization [employer] Address [address] [place] [address] [place] [address] Care Team Providers Care Uniform Attendant Name Role Phone Pj Crenshaw MD Primary Care Prov ider Encounter Details Date Type Department Care Team ([facility] st Contact Info) Description 05/18/2023 Telephone [facility] CHC MED & PEDS 505 [place], [place] [phone] Pj Crenshaw MD 505 [place] [address] Social History Tobacco Use Types Packs/Day Years [...] documented as of this encounter Care Teams Uniform Attendant Relationship Specialty Start Date End Date Pj Crenshaw MD [address] [place] [phone] PCP - General Internal Medicine 01/15/20 documented as of this encounter
--- OUTSIDE RECORDS SUMMARY | 2025-06-13 17:29 | XMS_ITS | Encounter Summary ---
Author Organization [employer] Address [address] [facility] 7 [place] [address] Care Team Providers Care Electrical And Radio Mechanic Name Role Phone Pj Crenshaw MD Primary Care Prov ider Encounter Details Date Type Department Care Team ([facility] st Contact Info) Description 10/23/2023 Orders Only [facility] CHC MED & PEDS 505 [place], [place] [phone] Pj Crenshaw MD 505 [place] [address] Acquired hypothyroidism Social History Tobacco Use Types [...] as of this encounter Care Teams Electrical And Radio Mechanic Relationship Specialty Start Date End Date Pj Crenshaw MD [address] [place] [address] PCP - General Internal Medicine 01/15/20 documented as of this encounter
--- OUTSIDE RECORDS SUMMARY | 2025-06-13 17:29 | XMS_ITS | Encounter Summary ---
Author Organization [employer] Address [address] [facility] 7t [place] [address] Care Team Providers Care Water Conservation Specialist Name Role Phone Pj Crenshaw MD Primary Care Prov ider Encounter Details Date Type Department Care Team ([facility] st Contact Info) Description 10/13/2023 Telephone [facility] MEDICINE [address] [place] [address] Pj Crenshaw MD 505 [place] [address] Social History Tobacco Use Types Packs/Day Years [...] documented as of this encounter Care Teams Water Conservation Specialist Relationship Specialty Start Date End Date Pj Crenshaw MD 505 [place] [address] PCP - General Internal Medicine 01/15/20 documented as of this encounter
--- OUTSIDE RECORDS SUMMARY | 2025-06-13 17:29 | XMS_ITS | Encounter Summary ---
Author Organization [employer] Address [address] [facility] [address] [address] Care Team Providers Care Seconds Grader Name Role Phone Pj Crenshaw MD Primary Care Prov ider Encounter Details Date Type Department Care Team ([facility] st Contact Info) Description 08/12/2022 Telephone [facility] CHC MED & PEDS 505 [place], [place] [phone] Pj Crenshaw MD 505 [place] [address] Social History Tobacco Use Types Packs/Day Years [...] on filedocumented in this encounter Care Teams Seconds Grader Relationship Specialty Start Date End Date Pj Crenshaw MD [address] [place] [address] PCP - General Internal Medicine 01/15/20 documented as of this encounter
--- OUTSIDE RECORDS SUMMARY | 2025-06-13 17:30 | XMS_ITS | Encounter Summary ---
Author Organization [employer] Address [address] [address] Care Team Providers Care Store Host Name Role Phone Pj Crenshaw MD Primary Care Prov ider Reason for Visit * Reason Onset Date Comments Appointment Request 04/14/2024 Encounter Details Date Type Department Care Team ([facility] st Contact Info) Description 04/14/2024 Telephone [facility] MEDICINE [address] [place] [address] Pj Crenshaw MD 505 [place] [address] Appointment Request Social History Tobacco Use Types [...] documented as of this encounter Care Teams Store Host Relationship Specialty Start Date End Date Pj Crenshaw MD [address] [place] [phone] PCP - General Internal Medicine 01/15/20 documented as of this encounter
--- OUTSIDE RECORDS SUMMARY | 2025-06-13 17:30 | XMS_ITS | Encounter Summary ---
Author Organization [employer] Address [address] [facility] 7 [place] [address] Care Team Providers Care Environmental Technical Officer Name Role Phone Pj Crenshaw MD Primary Care Prov ider Encounter Details Date Type Department Care Team ([facility] st Contact Info) Description 07/07/2022 Orders Only [facility] CHC MED & PEDS 505 [place], [place] [phone] Farheen Luciano, RN 505 [place] [address] Social History Tobacco Use Types Packs/Day Years [...] on filedocumented in this encounter Care Teams Environmental Technical Officer Relationship Specialty Start Date End Date Pj Crenshaw MD 505 [place] [address] PCP - General Internal Medicine 01/15/20 documented as of this encounter
--- OUTSIDE RECORDS SUMMARY | 2025-06-13 17:30 | XMS_ITS | Encounter Summary ---
Author Organization [employer] Address [address] [place] [address] Care Team Providers Care Turn Sewer Name Role Phone Pj Crenshaw MD Primary Care Prov ider Reason for Visit * Reason Onset Date Comments triage 08/12/2022 Encounter Details Date Type Department Care Team ([facility] st Contact Info) Description 08/12/2022 Telephone [facility] CHC MED & PEDS [address] [place], [place] [phone] Pj Crenshaw MD 505 [place] [address] triage Social History Tobacco Use Types Packs/Day [...] on filedocumented in this encounter Care Teams Turn Sewer Relationship Specialty Start Date End Date Pj Crenshaw MD [address] [place] [address] PCP - General Internal Medicine 01/15/20 documented as of this encounter
--- OUTSIDE RECORDS SUMMARY | 2025-06-13 17:30 | XMS_ITS | Encounter Summary ---
Author Organization [employer] Address [address] [facility] 7t [place] [address] Care Team Providers Care Personal Development Educator Name Role Phone Pj Crenshaw MD Primary Care Prov ider Encounter Details Date Type Department Care Team ([facility] st Contact Info) Description 05/09/2024 Orders Only [facility] CHC MED & PEDS [address] [place], [place] [phone] ProviderKarly MD Social History Tobacco Use Types [...] AM EDT Narrative 06/13/2024 5:26 PM EDT [facility] [address] [place] [address] Mammography Report Signed with Ministerio Patient: Haley Valdovinos MR#: [id number] : 1970 Acct:[id number] Age/Sex: 54 / F ADM Date: 05/31/24 Loc: HO.MAMMJay Attending Dr: Pj Peguero MD Ordering Physician: Pj Crenshaw MD Results: 0Incomplete: Needs Additional Imaging Evaluation Date of Service: 05/31/24 Follow Up: Additional Imagi ng Procedure(s): MM tomosynthesis screening BI Accession Number(s): [id number] cc: Pj Crenshaw MD ADDENDUM ADDENDUM #1 [...] OV> 06/13/24 1722 DD/ 99 TD/TT: 05/31/241113 Neurophysiologist: Procedure Note Donotuseinterpreter, Image - 06/17/2024 [facility] [address] [place], [place] [address] Mammography Report Signed with Addenda Patient: Haley Valdovinos JMR#: [id number] : 1970Acct:[id number] Age/Sex: 54 / FADM Date: 05/31/24 Loc: HOMERVIN Attending Dr: Pj Peguero MD Ordering Physician: Pj Crenshaw MD Results: 0Incomplete: Needs Additional Imaging Evaluation Date of Service: 05/31/24Follow Up: Additional Imagi ng Procedure(s): MM tomosynthesis screening BI Accession Number(s): [id number] cc: Pj Crenshaw MD ADDENDUM ADDENDUM #1 [...] 06/13/24 1722 DD/ 1100 TD/TT: 05/31/24 1114 Neurophysiologist: Pj Peguero MD IMG BI PROCEDURES Edited [...] documented as of this encounter Care Teams Personal Development Educator Relationship Specialty Start Date End Date Pj Crenshaw MD [address] [place] [phone] PCP - General Internal Medicine 01/15/20 documented as of this encounter
--- OUTSIDE RECORDS SUMMARY | 2025-06-13 17:30 | XMS_ITS | Clinical Summary ---
Author Organization [employer] Address [address] [place] [address] 7 [place] [address] Care Team Providers Care Studio Technician Name Role Phone Pj Crenshaw MD Primary Care Prov ider Allergies Active Allergy Reactions Criticality Noted Date Comments Apple Juice 08/13/2022 Chocolate Hazelnut Flavoring Agent (Non-Screening) 08/13/2022 Clarithromycin 02/22/2014 [place] Flavoring Agent (Non-Screening) 08/13/2022 Pear 08/13/2022 Pistachio [...] 90 tablet 1 03/20/20 25 2024 Discontinued Active Problems Problem Noted [...] 08/14/202308/14 Severe obesity (BMI 35.0-39.9) with comorbidity (CMS/[facility]) 08/14/2023 08/14/2023 Assessment & Plan [...] place referral for reevaluation, previously seen at [place] Impaired glucose tolerance 03/03/2023 Severe obesity (CMS/[facility]) 03/03/2023 Assessment & Plan (04/01/2023 [...] Patient used to be followed by a vest maker, will place referal Varicose veins of lower [...] Temporomandibular joint disorder 03/17/2018 Benzodiazepine dependence, continuous (CMS/[facility]) 11/24/2017 Gastroesophageal reflux disease without esophagi tis 11/24/2017 Mood disorder 11/24/2017 Osteoarthritis of multiple joints 11/24/2017 Encounters Date Type Department Care Team Description 05/27/2025 Orders Only [facility] External Provider, [facility] 05/16/2025 Refill [facility]EDS [address] [place] [address] Pj Crenshaw MD 05/15/2025 10:00 AM EDT Telemedicine [facility] MED [facility] PEDS [address] [place] [address] Pj Crenshaw MD Chronic constipation (Primary Dx); Severe obesity (BMI 35.0-39.9) with comorbidity ([facility]) 05/15/2025 Travel 05/02/2025 4:00 PM EDT Office Visit [facility] [address] [place] [address] Carolina Hector MD Sinus congestion (Primary Dx); Acute otitis media, unspecified otitis media type 05/02/2025 Travel 04/28/2025 Telephone [facility] [address] [place] [address] Pj Crenshaw MD Nurse Triage 04/20/2025 Telephone [facility] [address] [place] [address] Pj Crenshaw MD Med Refill 04/20/2025 Refill [facility] [address] [place] [address] Shante Oquendo MD Gastroesophageal reflux disease without esophagitis 04/12/2025 Refill [facility] [address] [place] [address] Pj Crenshaw MD 04/11/2025 Refill [facility] [address] [place] [address] Pj Crenshaw MD Anaphylaxis, sequela 03/18/2025 Refill [facility] [address] [place] [address] Pj Crenshaw MD from Last 3 Months Immunizations Immunization Administration [...] 025, 03/03/2023, 03/14/2022, Additional history exists Mammogram 06/06/2027 06/06/2025, 05/17, 05/26/2023, Additional history exists Colonoscopy 06/10/2027 06/10/2022 Colorectal [...] Comments BI MAMMOGRAM SCREENING TOMOSYNTHESIS BILATERAL Routine 06/06/2025 11:[address] HEAD WO CONTRAST Routine 05/31/2025 2 [...] Routine 05/25/2025 11:17 AM EDT Mixed hyperlipidemia PAP SMEAR Routine 07/20/2023 12:00 AM EST HEPATITIS C AB W/REFL TO HCV RNA, QN, PCR Routine 12/08/2022 9:49 AM EDT Mixed hyperlipidemia HM COLONOSCOPY Routine 06/10/2022 HPV MRNA E6/E7 Routine 04/23/2021 9:09 AM EDT [facility] HISTORICAL HIV AB/AG Routine 10/12/2019 10:06 AM EST from Last 3 Months or Most Recently Relevant to Health Maintenance Results * BI Mammogram Screening Tomosynthesis Bilateral (06/06/2025 11:00 AM EDT) Anatomical Region Laterality Modality Breast Bilateral Mammography 06/06/2025 11:0 0 AM EDT Narrative 06/09/2025 8:59 AM EDT [facility] [address] [place] [address] [place] [address] Mammography Report Signed Patient: Haley Valdovinos MR#: [id number] : 1970 Acct:[id number] Age/Sex: 55 / F ADM Date: 06/06/25 Loc: HO.MAMMO Attending Dr: Pj Peguero MD Ordering Physician: Pj Crenshaw MD Res ults: 1Negative Date of Service: 06/06/25 Follow Up: 1 Year From Orig inal Mammogram Procedure(s): MM tomosynthesis screening BI Accession Number(s): [id number] cc: Pj Crenshaw MD Reason For Exam: SCREENING EXAMINATION: MM SCREENING DIGITAL BREAST TOMOSYNTHESIS, BILATERAL CLINICAL INFORMATION: Screening. Asymptomatic. COMPARISON: Mammography: Comparison is made with available priors TECHNIQUE: Digital breast mammography with tomosynthesis is performed in both the craniocaudal and mediolateral oblique views along with computer-aided detection (CAD). FINDINGS: The breasts are heterogeneously dense, which may obscure small masses. Right marker clip. There are no significant masses, abnormal calcifications, or other abnormalities. MM/MM tomosynthesis screening BI IMPRESSION: No mammographic evidence of malignancy. ASSESSMENT: BI-RADS Category 1: Negative RECOMMENDATION: Routine annual mammography screening. 1 year F/U This examination should not preclude the clinical evaluation of a suspicious palpable abnormality. This patient's information was entered into a reminder system with a target due date for their next mammogram. Electronically signed by: Lara Dennis DO 06/09/2025 08:56 AM EDT Dictated By: Lara Dennis DO Signed By: <Electronically signed by Lara Dennis DO in OV> 06/09/25 0856 DD/ 1100 TD/TT: 06/06/25 1120 [employer]met Coffee Attendant: Procedure Note Donotuseinterpreter, Image - [facility]/09/[facility] [address] [place] [address] Mammography Report Signed Patient: Haley Valdovinos JMR#: [id number] : 1970Acct:[id number] Age/Sex: 55 / FADM Date: 06/06/25 Loc: HO.MAMMO Attending Dr: Pj Peguero MD Ordering Physician: Pj Crenshaw ults: 1Negative Date of Service: 06/06/25Follow Up: 1 Year From Orig inal Mammogram Procedure(s): MM tomosynthesis screening BI Accession Number(s): [id number] cc: Pj Crenshaw MD Reason For Exam: SCREENING EXAMINATION: MM SCREENING DIGITAL BREAST TOMOSYNTHESIS, BILATERAL CLINICAL INFORMATION: Screening. Asymptomatic. COMPARISON: Mammography: Comparison is made with available priors TECHNIQUE: Digital breast mammography with tomosynthesis is performed in both the craniocaudal and mediolateral oblique views along with computer-aided detection (CAD). FINDINGS: The breasts are heterogeneously dense, which may obscure small masses. Right marker clip. There are no significant masses, abnormal calcifications, or other abnormalities. MM/MM tomosynthesis screening BI IMPRESSION: No mammographic evidence of malignancy. ASSESSMENT: BI-RADS Category 1: Negative RECOMMENDATION: Routine annual mammography screening. 1 year F/U This examination should not preclude the clinical evaluation of a suspicious palpable abnormality. This patient's information was entered into a reminder system with a target due date for their next mammogram. Electronically signed by: Lara Dennis DO 06/09/2025 08:56 AM EDT Dictated By: Lara Dennis DO Signed By: <Electronically signed by Lara Dennis DO in OV> 06/09/25 0856 DD/ 1100 TD/TT: 06/06/25 1120 Gourmet Coffee Attendant: Pj Peguero MD IMG BI PROCEDURES Final Result * CT Head w/o Contrast (05/31/2025 2:30 PM EDT) Anatomical Region Laterality Modality Head, Neck Computed Tomogra phy 05/31/2025 2:30 PM EDT Narrative 05/31/2025 2:31 PM EDT [address] [address] [address] Scan Report Signed Patient: Haley Valdovinos MR#: [id number] : 1970 Acct:[id number] Age/Sex: 55 / F ADM Date: 05/27/25 Loc: HO.CT Attending Dr: [place] Llanos CNP Ordering Physician: [place] Llanos CNP Date of Service: 05/27/25 Procedure(s): CT head/brain wo IV con Accession Number(s): [id number] cc: Pj Crenshaw MD; [place] Llanos CNP Report Number: [id number]: Total DLP = 790.00 mGy-cm Reason for [...] Llamas MD in OV> 05/31/25 1431 DD/ 143 TD/TT: 05/31/25 143 [employer] Coffee Attendant: Procedure Note Donotuseinterpreter, Image - 05/31/[address] [place] [address] [address] Scan Report Signed Patient: Haley Valdovinos JMR#: [id number] : 1970Acct:[id number] Age/Sex: 55 / FADM Date: 05/27/25 Loc: HO.CT Attending Dr: [place] Llanos CNP Ordering Physician: [place] Llanos CNP Date of Service: 05/27/25 Procedure(s): CT head/brain wo IV con Accession Number(s): [id number] cc: Pj Crenshaw MD; [place] Llanos CNP Report Number: [id number]: Total DLP = 790.00 mGy-cm Reason for [...] OV> 05/31/25 1431 DD/ 1430 TD/TT: 05/31/25 143 [employer]met Coffee Attendant: [facility] External Provider IMG CT PROCEDURES Final Result * Vitamin B12 (Cobalamin) and Folate Panel, Serum (05/25/2025 11:17 AM EDT) Vitamin B12 397 200 - 900 pg/mL [facility] Comment:NORMAL 200-900 PG/ML INDETERMINATE 160-199 PG/ML DEFICIENT < 160 PG/ML Folate 9.8 > or = 4.0 ng/mL [facility] Comment:Reference Values:> o r = 4.0 ng/mL< 4.0 ng/mL suggests folate deficiency Methotrexate, aminopterin and folinic acid(leucovorin) are chemotherapeutic agents whose molecularstructures are similar to folate; therefore, the Architectfolate assay cannot be used for patients using these drugs. 05/25/2025 11:1 7 AM EDT 05/25/2025 11:17 AM EDT Generic External Data Provider LAB BLOOD ORDERAB LES Final Result [facility] [address] [place] [phone] * (ABNORMAL) TSH with Reflex to Free T4 (05/25/2025 11:17 AM EDT) TSH reflex Free T4 0.27(L) 0.32 - 4.0 uIU/mL [facility] 05/25/2025 11:1 7 AM EDT 05/25/2025 11:17 AM EDT us Generic External Data Provider LAB BLOOD ORDERAB LES Final Result [facility] [address] [place] [address] [phone] * CBC auto differential (05/25/2025 11:17 AM EDT) White Blood Count 6.4 4.8 - 10.8 X10*3/uL [facility] Red Blood Count 4.25 4.20 - 5.50 X10*6/uL [facility] Hemoglobin 12.8 12.0 - 16.0 g/dl [facility] Hematocrit 38.7 37.0 - 47.0 % [facility] Mean Corpuscular Volume 91.1 80.0 - 98.0 fL [facility] Mean Corpuscular Hemoglobin 30.1 27.0 - 33.0 pg [facility] Mean Corpuscular HGB Conc 33.1 31.0 - 35.0 g/dl [facility] Red Cell Distribution Width 12.5 11.0 - 16.0 % [facility] Platelet Count 318 160 - 400 X10*3/uL [facility] Mean Platelet Volume 11.6 9.4 - 12.3 fL [facility] Neutrophils Percent Auto 53.6 45 - 73 % [facility] Imm Gran Pct Auto 0.2 0.0 - 0.4 % [facility] Lymphocytes Percent Auto 33.9 20 - 40 % [facility] Monocytes Percent Auto 8.3 2 - 11 % [facility] Eosinophils Percent Auto 3.1 0 - 4 % [facility] Basophils Percent Auto 0.9 0 - 2 % [facility] NRBC Pct Auto 0.0 0.0 - 0.2 /100WBC [facility] Neutrophils Absolute Auto 3.4 2.0 - 8.3 x10*3/uL [facility] Imm Gran Abs Auto 0.01 0.00 - 0.03 X10*3/uL [facility] Lymphocytes Absolute Auto 2.2 1.2 - 4.9 X10*3/uL [facility] Monocytes Absolute Auto 0.5 0.1 - 1.2 X10*3/uL [facility] Eosinophils Absolute Auto 0.2 0.0 - 0.4 X10*3/uL [facility] Basophils Absolute Auto 0.1 0.0 - 0.2 X10*3/uL [facility] NRBC Abs Auto 0.000 0.0 - 0.012 X10*3/uL [facility] 05/25/2025 11:1 7 AM EDT 05/25/2025 11:17 AM EDT Generic External Data Provider LAB BLOOD ORDERAB LES Final Result Performing Organization Address [facility] Co de Phone Number [facility] [address] [place] [phone] * (ABNORMAL) Sed Rate by Modified Domingoergren (05/25/2025 11:17 AM EDT) Erythrocyte Sedimentation Rate 32(H) 0 - 20 MM/HR [facility] Comment:Patients with polycy themia and many hemoglobin abnormalitiesmay have depressed sed rates whereas patients with anemiamay have elevated sed rates. 05/25/2025 11:1 7 AM EDT 05/25/2025 11:17 AM EDT Generic External Data Provider LAB BLOOD ORDERAB LES Final Result Performing Organization Address [facility] Co de Phone Number [facility] [address] [place] [address] [phone] * (ABNORMAL) C-reactive Protein (05/25/2025 11:17 AM EDT) C Reactive Protein 1.88(H) < or = 0.50 mg/dL [facility] 05/25/2025 11:1 7 AM EDT 05/25/2025 11:17 AM EDT us Generic External Data Provider LAB BLOOD ORDERAB LES Final Result Performing Organization Address [facility] Co de Phone Number [facility] [address] [place] [phone] * T4, Free (05/25/2025 11:17 AM EDT) Free T4 (Free Thyroxine) 1.56 0.71 - 1.85 ng/dL [facility] 05/25/2025 11:1 7 AM EDT 05/25/2025 11:17 AM EDT us Generic External Data Provider LAB BLOOD ORDERAB LES Final Result Performing Organization Address [facility] Phone Number [facility] [address] [place] [phone] * Hemoglobin A1c (05/25/2025 11:17 AM EDT) Hemoglobin A1c 5.0 <6.0 % [facility] Comment:Hemoglobin A1C Refer ence Range Adults: 4.8 - 6.0 % Non diabetic: < 6.0 % Goal: < 7.0 %Additional Action Suggested: > 8.0 %Note: Hemoglobin A1c results are invalid for patients with abnormal amounts of HbF. Blood transfusions may impact the HbA1c concentration in the patient sample. Estimated Average Glucose 97 mg/dL [facility] Comment:eAG = Estimated ave rage glucose which is %A1C expressed asaverage glucose, using the formula of the P4S-TrvbongWclwnir Glucose study (ADAG), Diabetes Care, Vol.31,#8,Mar. 2007 Blood Venous blood specimen / Unknown 05/25/2025 11:17 AM EDT 05/25/2025 11:17 AM EDT Pj Peguero MD LAB BLOOD ORDERABL ES Final Result Performing Organization Address [facility] Co de Phone Number [facility] [address] [place] [address] [place] [phone] * (ABNORMAL) Lipid Panel, Standard (05/25/2025 11:17 AM EDT) Triglycerides 68 <150 mg/dL [facility] Comment:Desirable Triglyceri de: less than 150 mg/dLBorderline High Triglyceride 150-199 mg/dLHigh Triglyceride: 200-499 mg/dLVery High Triglyceride: greater than or equal to 5OO mg/dL Cholesterol 202(H) <200 mg/dL [facility] Comment:Desirable Cholestero l: less than 200 mg/dLBorderline High Cholesterol: 200-239 mg/dLHigh Cholesterol: greater than 239 mg/dL LDL Cholesterol Calculated 146(H) <100 mg/dL [facility] Comment:Desirable LDL: less than 100 mg/dLNear Optimal/Above Optimal LDL: 110- 129 mg/dLBorderline High LDL: 130-159 mg/dLHigh LDL: 160-189 mg/dLVery High LDL: greater than or equal to 190 mg/dL HDL Cholesterol 43 >40 mg/dL [facility] Comment:Desirable HDL: great er than 40 mg/dL Note: This HDL assay may give artificially low results in patients with liver disease. Blood Venous blood specimen / Unknown 05/25/2025 11:17 AM EDT 05/25/2025 11:17 AM EDT us Pj Peguero MD LAB BLOOD ORDERABL ES Final Result [facility] [address] [place] [address] [phone] * (ABNORMAL) Comprehensive Metabolic Panel (05/25/2025 11:17 AM EDT) Sodium 142 135 - 145 mmol/L [facility] Potassium 3.8 3.3 - 5.1 mmol/L [facility] Chloride 109(H) 96 - 108 mmol/L [facility] Carbon Dioxide 26 22 - 29 mmol/L [facility] Anion Gap 11(L) 12 - 20 [facility] Urea Nitrogen (BUN) 11 9 - 16 mg/dL [facility] Creatinine, Serum 0.70 0.5 - 1.4 mg/dL [facility] Estimated Glomerular Filt Rate >60 [facility] Comment:Chronic Kidney Disea se: Estimated GFR < 60 mL/min/1.39j5Hzjlqi Kidney Disease: Estimated GFR < 15 mL/min/1.73m2 Glucose 96 60 - 115 mg/dL [facility] Calcium 9.5 8.4 - 10.2 mg/dL [facility] Bilirubin, Total 0.5 0.0 - 1.0 mg/dL [facility] Aspartate Amino Transferase 21 5 - 31 U/L [facility] Alanine Aminotransferase 22 0 - 31 U/L [facility] Total Protein 7.6 6.5 - 8.0 g/dL [facility] Albumin Level 4.4 3.5 - 5.0 g/dL [facility] Alkaline Phosphatase 66 39 - 117 U/L [facility] Blood Venous blood specimen / Unknown 05/25/2025 11:17 AM EDT 05/25/2025 11:17 AM EDT Pj Peguero MD LAB BLOOD ORDERABL ES Final Result [facility] [address] [place] [address] [phone] * Pap Smear (07/20/2023 12:00 AM EST) Swab Karly Provider LAB CYTOLOGY ORDERABLES F inal Result [facility] [address] [place] [phone] * Hepatitis C Antibody with Reflex to HCV, RNA, Quantitative, Real-Time PCR (12/08/2022 9:49 AM EDT) Hepatitis C Antibody NON-REACT BRANDON NON-REACT BRANDON [employer] [facility] Index 0.13 <1.00 [employer] [facility] Comment: HCV antibody was non-reactive. There is no laboratory evidence of HCV infection. In most cases, no further action is required. However, if recent HCV exposure is suspected, a test for HCV RNA (test code 56522) is suggested. For additional information please refer to http://[employer]/faq/QEX23j9 (This link is being provided for informational/ educational purposes only.) Blood Venous blood specimen / Unknown 12/08/2022 9:49 AM EDT 12/08/2022 9:50 AM EDT Narrative [facility] - 12/09/2022 7:27 AM EDT FASTING:YES FASTING: YES Pj Peguero MD LAB BLOOD ORDERABL ES Final Result [address], [place] [phone] [employer] [facility] [address] [place] [phone] * Colonoscopy (06/10/2022) Colonoscopy Normal Normal Narrative Taylor Barbosa - 06/10/2022 Colonoscopy order added [facility] Provider HEALTH MAINTENANCE Final Result * HPV mRNA E6/E7 (04/23/2021 9:09 AM EDT) HPV nRNA E6/E7 Not Detected Not Detected [facility] Comment: Methodology: Client Support Analyst-Mediated Amplification This assay detects E6/E7 viral messenger RNA (mRNA) from 14 high-risk HPV types (16,18,31,33,35,39,45,51,52,56,58,59,66,68). The analytical performance characteristics of this assay have been determined by [employer]. The modifications have not been cleared or approved by the FDA. This assay has been validated pursuant to the CLIA regulations and is used for clinical purposes. For additional information, please refer to http://[employer]/faq/NVP820s4 (This link if provided for information/ educational purposes only.) 04/23/2021 9:09 AM EDT [facility] LAB BLOOD ORDERABLES Winter benavides Result Performing Organization Address [facility] Co de Phone Number [facility] [address] * HIV AB/AG (10/12/2019 10:06 AM [...] of detection of this assay. The [employer] Worker HIV Ag/Ab Combo assay result and supplemental assay results should be interpreted in conjunction with the patient's clinical presentation, history and other laboratory results. If the results are inconsistent with clinical evidence, additional testing is suggested to confirm the result. 10/12/2019 10:0 6 AM EST Historical Provider MD HISTORICAL/NON ORDERABLE LABS Final Result Performing Organization Address [facility] Phone Number [facility] [address] from Last 3 Months or Most Recently Relevant to Health Maintenance Insurance [facility] C3 Advance Directives Documents on File Type Date Recorded Patient Pneumatic Tube Operator Expl anation Advance Directives and Livin g Will 11/18/2024 4:14 PM HCP Care Teams Studio Technician Relationship Specialty Start Date End Date Pj Crenshaw MD [address] [place] [phone] PCP - General Internal Medicine 01/15/20
--- OUTSIDE RECORDS SUMMARY | 2025-06-13 17:30 | XMS_ITS | Clinical Summary ---
Author Organization [facility] Address [address] [place] [address] Care Team Providers Care Change Control Analyst Name Role Phone Unavailable Primary Care Provider [...]
--- OUTSIDE RECORDS SUMMARY | 2025-06-13 17:30 | XMS_ITS | Encounter Summary ---
Author Organization [employer] Address [address] [facility] [address] [place] [address] Care Team Providers Care Informatics Pharmacist Name Role Phone Pj Crenshaw MD Primary Care Prov ider Encounter Details Date Type Department Care Team ([facility] Contact Info) Description 05/31/2024 Telephone [facility]S [address] [place], [place] [phone] Pj Crenshaw MD [address] [place] [address] Social History Tobacco Use Types Packs/Day Years [...] documented as of this encounter Care Teams Informatics Pharmacist Relationship Specialty Start Date End Date Pj Crenshaw MD [address] [place] [phone] PCP - General Internal Medicine 01/15/20 documented as of this encounter
--- OUTSIDE RECORDS SUMMARY | 2025-06-13 17:30 | XMS_ITS | Encounter Summary ---
Author Organization [employer] Address [address] [place] [address] Care Team Providers Care Rn Intensive Care Unit Name Role Phone Pj Crenshaw MD Primary Care Prov ider Reason for Visit * Reason Onset Date Comments Referral 08/12/2022 Appointment Request 08/12/2022 Encounter Details Date Type Department Care Team ([facility] Contact Info) Description 08/12/2022 Telephone [facility] & PEDS [address] [place] [address] Pj Crenshaw MD [address] [place] [address] Referral; Appointment Request Social History Tobacco Use [...] reflux documented in this encounter Care Teams Rn Intensive Care Unit Relationship Specialty Start Date End Date Pj Crenshaw MD [address] [place] [phone] PCP - General Internal Medicine 01/15/20 documented as of this encounter
--- OUTSIDE RECORDS SUMMARY | 2025-06-13 17:30 | XMS_ITS | Encounter Summary ---
Author Organization [employer] Address [address] [address] Care Team Providers Care Solution Lead Name Role Phone Pj Crenshaw MD Primary Care Prov ider Reason for Visit * Reason Onset Date Comments Med Refill 04/20/2025 Encounter Details Date Type Department Care Team ([facility] Contact Info) Description 04/20/[address] [facility] [address] [place] [address] Pj Crenshaw MD [address] [place] [address] Med Refill Social History Tobacco Use Types [...] MG EC tablet To be sent to: [id number] [place], [place] - [address] [place] [address] AT [address] [facility] [address] documented in this encounter Plan of Treatment Not on file documented as of this encounter Visit Diagnoses Not on filedocumented in this encounter Additional Health Concerns Assessment Noted Time PHQ-9 Depression Total Score: 13 025 10:14 AM EST documented as of this encounter Care Teams Solution Lead Relationship Specialty Start Date End Date Pj Crenshaw MD [address] [place] [address] PCP - General Internal Medicine 01/15/20 documented as of this encounter
--- OUTSIDE RECORDS SUMMARY | 2025-06-13 17:30 | XMS_ITS | Encounter Summary ---
Author Organization [employer] Address [address] [address] Care Team Providers Care Weigher And Mixer Name Role Phone Pj Crenshaw MD Primary Care Prov ider Reason for Visit * Reason Onset Date Comments Nurse Triage 12/21/2024 Encounter Details Date Type Department Care Team ([facility] st Contact Info) Description 12/21/2024 Telephone [facility] MEDICINE [address] [place] [address] Pj Crenshaw MD [address] [place] [address] Nurse Triage Social History Tobacco Use Types [...] received. Unable to leave message to call [facility]. * Telephone Encounter - Eva Felton - 12/21/2024 10:22 AM EDT Symptom: Urine Symptoms (Frequent urination) Outcome: Schedule a same-day appointment or talk to a nurse or provider today Reason: Caller denied all higher acuity questions The caller accepted this outcome. [phone] documented in this encounter Plan of Treatment Not on file documented as of this encounter Visit Diagnoses Not on filedocumented in this encounter Additional Health Concerns Assessment Noted Time PHQ-9 Depression Total Score: 13 025 10:14 AM EST documented as of this encounter Care Teams Weigher And Mixer Relationship Specialty Start Date End Date jP Crenshaw MD [address] [place] [address] PCP - General Internal Medicine 01/15/20 documented as of this encounter
--- OUTSIDE RECORDS SUMMARY | 2025-06-13 17:30 | XMS_ITS | Encounter Summary ---
Author Organization [employer] Address [address] [facility] [address] 7t [place] [address] Care Team Providers Care Blending Tank Tender Name Role Phone Pj Crenshaw MD Primary Care Prov ider Encounter Details Date Type Department Care Team ([facility] st Contact Info) Description 12/16/2023 Orders Only [facility] CHC MED & PEDS [address] [place], [place] [phone] ProviderKarly MD Social History Tobacco Use Types [...] * Surgical Pathology (09/18/2023 9:49 AM EST) [facility] Provider MD LAB PATHOLOGY ORDERABLES Final Result * Cytology, Conventional Pap Smear, 1 Slide (07/20/2023 9:54 AM EST) [facility] Provider MD LAB CYTOLOGY ORDERABLES F inal Result documented in this encounter Visit Diagnoses Not on filedocumented in this encounter Additional Health Concerns Assessment Noted Time PHQ-9 Depression Total Score: 2 11/20/19 23 8:47 AM EDT documented as of this encounter Care Teams Blending Tank Tender Relationship Specialty Start Date End Date Pj Crenshaw MD [address] [place] [id number] PCP - General Internal Medicine 01/15/20 documented as of this encounter
== END 2025-06-13 13:32 | disposition home or self-care (01) ==
LOC: HO.LAB 13:31
PROVIDERS: PCP Urology; Visit Provider Registered Nurse
DX: G31.84 Mild cognitive impairment of uncertain or unknown etiology (principal); G43.909 Migraine, unspecified, not intractable, without status migrainosus
CPT/HCPCS: 36415; 80053; 85652; 86140

== ENCOUNTER 2025-07-05 13:55 | Outpatient (AMB) | payer MEDICAID, SELFPAY ==
[2025-07-05 14:17] VITALS: BMI 43.9
--- NOTE | 2025-07-05 14:17 | MHC.OFFVIS ---
Vital Signs 07/05/25 14:17 Height 5 ft 4 in Weight 256 lb BMI 43.9 Intake Visit Reasons: OV-Left shoulder pain-limited ROM Intake Note: Haley is a 54 year old left hand dominant female who presents today for Follow Up of her Left Shoulder Internal Derangement. She was last evaluated on 03/28/25. At the time, patient decided to go through with Physical Therapy. Patient reports PT has been somewhat helpful however her pain is radiating to her bicep and the left side of her neck. Patient is interested in a cortisone injection however she would like to discuss some concerns first. Allergies ciprofloxacin (From Cipro) Allergy (Mild, Unverified 07/05/25 14:19) RASH peanut (PEANUT) Allergy (Unknown, Unverified 07/05/25 14:19) ANAPHYLAXIS pollen Allergy (Unknown, Uncoded 07/05/25 14:19) unknown reaction from unknown medicati Allergy (Unknown, Uncoded 07/05/25 14:19) unknown unknown antibiotic Allergy (Unknown, Uncoded 07/05/25 14:19) itching, rash HPI HPI OV-Left shoulder pain-limited ROM: Details: Haley is a 54 year old left hand dominant female who presents today for Follow Up of her Left Shoulder Internal Derangement. She was last evaluated on 03/28/25. At the time, patient decided to go through with Physical Therapy. Patient reports PT has been somewhat helpful however her pain is radiating to her bicep and the left side of her neck. Patient is interested in a cortisone injection however she would like to discuss some concerns first. Patient states that she has been told by her physical therapist that an MRI would probably be helpful, as her symptoms are continuing to worsen. [facility] Medical History (Updated 06/06/25 @ 13:51 by Patt Llanos CNP) Asthma Acid reflux Odynophagia Arthritis Chronic sinusitis Asthma Migraine headache Panic attacks Anxiety Depression Surgical History History of bilateral tubal ligation H/O abdominoplasty History of knee surgery History of carpal tunnel release History of varicose vein ligation Social History (Updated 03/28/25 @ 13:24 by Geovanna Javed Ildefonso) Household Members: Children Alcohol intake: never Patient Tobacco Use Status: Never used Tobacco Current occupational status: unemployed and disabled Current occupation: left handed Sexual orientation: Straight/Heterosexual Gender identity: Female Review of Systems Const All systems reviewed & are unremarkable except as noted in HPI and below Physical Exam Vital Signs: BMI result Body Mass Index 43.9 Extrem Other: Patient's left shoulder normal to inspection No erythema, ecchymosis, edema noted No lacerations, abrasions, open areas No evidence of infection Patient reports minimal tenderness to palpation of the AC joint and bicipital groove of the right shoulder No tenderness to palpation of the acromion, clavicle, or elsewhere in the left shoulder Patient is able to forward flex the left shoulder to approximately 80 degrees, reports significant pain beyond this Patient is able to externally rotate the left shoulder to approximately 30 degrees, compared to approximately 70-80 degrees on the right 4/5 strength on empty can test bilaterally 4/5 strength belly press on the left, 5/5 strength on the right Positive Cobb on the left, negative on the right Distal sensation intact Capillary refill brisk Assessment & Plan Assessment & Plan (1) Internal derangement of left shoulder: Code(s): M24.812 - Other specific joint derangements of left shoulder, not elsewhere classified Category: Medical Plan 1. Internal derangement of the left shoulder Patient is educated about this condition Patient is educated on the treatment options available, including but not limited to physical therapy, injections, and further imaging in the discussion for need of any surgical intervention Given the fact that PT has made her symptoms worse, in addition to time making her symptoms worse, I feel the best course of action is to order the patient an MRI at this time to assess the health of the soft tissue structures of the left shoulder and determine if any other surgical intervention may be indicated Patient is educated that she should continue with [id number] exercises of the left shoulder to prevent stiffness Patient understands this is amenable to this plan Follow-up after MRI for results review and discussion of further treatment options if indicated, sooner with any acute concerns Orders: Orders MR shoulder LT wo con Today S46.009A - Unspecified injury of muscle(s) and tendon(s) of the rotator cuff of unspecified shoulder, initial encounter Coding Level of Care Code Est Pt Level 3 (22915) Diagnoses Internal derangement of left shoulder M24.812
--- OUTSIDE RECORDS SUMMARY | 2025-07-06 02:03 | XMS_ITS | Encounter Summary ---
Author Organization [employer] Address 75 [facility] 7 [place] [address] Care Team Providers Care Camouflage Assembler Name Role Phone Pj Crenshaw MD Primary Care Prov ider Encounter Details Date Type Department Care Team ([facility] st Contact Info) Description 10/23/2023 Orders Only [facility] CHC MED & PEDS [address] [place], [place] [phone] Pj Crenshaw MD [address] [place] [address] Acquired hypothyroidism Social History Tobacco Use Types [...] documented as of this encounter Care Teams Camouflage Assembler Relationship Specialty Start Date End Date Pj Crenshaw MD [address] [place] [address] PCP - General Internal Medicine 01/15/20 documented as of this encounter
--- OUTSIDE RECORDS SUMMARY | 2025-07-06 02:03 | XMS_ITS | Encounter Summary ---
Author Organization [employer] Address [address] [place] [address] Care Team Providers Care Retail Parts Professional Name Role Phone Pj Crenshaw MD Primary Care Prov ider Reason for Visit * Reason Comments Med Refill Encounter Details Date Type Department Care Team ([facility] st Contact Info) Description 11/04/2022 Refill [facility] CHC MED & PEDS [address] [place] [address] Pj Crenshaw MD [address] [place] [address] Gastroesophageal reflux disease without esophagitis Social History [...] reflux documented in this encounter Care Teams Retail Parts Professional Relationship Specialty Start Date End Date Pj Crenshaw MD [address] [place] [address] PCP - General Internal Medicine 01/15/20 documented as of this encounter
--- OUTSIDE RECORDS SUMMARY | 2025-07-06 02:03 | XMS_ITS | Encounter Summary ---
Author Organization [employer] Address [address] [place] [address] Care Team Providers Care Internet Consultant Name Role Phone Pj Crenshaw MD Primary Care Prov ider Reason for Visit * Reason Comments Med Refill Encounter Details Date Type Department Care Team (Late st Contact Info) Description 02/26/2023 Refill [facility] MEDICINE [address] [place], [place] [phone] Pj Crenshaw MD [address] [place] [address] Gastroesophageal reflux disease without esophagitis Social History [...] documented as of this encounter Care Teams Internet Consultant Relationship Specialty Start Date End Date Pj Crenshaw MD [address] [place] [address] PCP - General Internal Medicine 01/15/20 documented as of this encounter
--- OUTSIDE RECORDS SUMMARY | 2025-07-06 02:03 | XMS_ITS | Encounter Summary ---
Author Organization [employer] Address 75 [facility] [place], [place] [address] Care Team Providers Care Payroll Accountant Name Role Phone Pj Crenshaw MD Primary Care Prov ider Encounter Details Date Type Department Care Team ([facility] st Contact Info) Description 08/12/2022 Telephone [facility] CHC MED & PEDS [address] [place], [place] [phone] Pj Crenshaw MD [address] [place] [address] Social History Tobacco Use Types Packs/Day Years [...] on filedocumented in this encounter Care Teams Payroll Accountant Relationship Specialty Start Date End Date Pj Crenshaw MD [address] [place] [address] PCP - General Internal Medicine 01/15/20 documented as of this encounter
--- OUTSIDE RECORDS SUMMARY | 2025-07-06 02:03 | XMS_ITS | Encounter Summary ---
Author Organization [employer] Address 75 [facility] 7 [place] [address] Care Team Providers Care Compliance Quality Performance Analyst Name Role Phone Pj Crenshaw MD Primary Care Prov ider Encounter Details Date Type Department Care Team ([facility] st Contact Info) Description 08/26/2023 Orders Only [facility] CHC MED & PEDS [address] [place], [place] [phone] Pj Crenshaw MD [address] [place] [address] Acquired hypothyroidism Social History Tobacco Use Types [...] documented as of this encounter Care Teams Compliance Quality Performance Analyst Relationship Specialty Start Date End Date Pj Crenshaw MD [address] [place] [address] PCP - General Internal Medicine 01/15/20 documented as of this encounter
--- OUTSIDE RECORDS SUMMARY | 2025-07-06 02:03 | XMS_ITS | Encounter Summary ---
Author Organization [employer] Address [address] [place] [address] Care Team Providers Care Torch Operator Name Role Phone Pj Crenshaw MD Primary Care Prov ider Reason for Visit * Reason Onset Date Comments Referral 08/12/2022 Appointment Request 08/12/2022 Encounter Details Date Type Department Care Team ([facility] Contact Info) Description 08/12/2022 Telephone [facility] CHC MED & PEDS [address] [place] [address] Pj Crenshaw MD [address] [place] [address] Referral; Appointment Request Social History Tobacco Use [...] reflux documented in this encounter Care Teams Torch Operator Relationship Specialty Start Date End Date Pj Crenshaw MD [address] [place] [address] PCP - General Internal Medicine 01/15/20 documented as of this encounter
--- OUTSIDE RECORDS SUMMARY | 2025-07-06 02:03 | XMS_ITS | Encounter Summary ---
Author Organization [employer] Address 75 [facility] 7t [place] [address] Care Team Providers Care Histology Tech Name Role Phone Pj Crenshaw MD Primary Care Prov ider Encounter Details Date Type Department Care Team ([facility] st Contact Info) Description 10/13/2023 Telephone [facility] MEDICINE [address] [place] [address] Pj Crenshaw MD [address] [place] [address] Social History Tobacco Use Types Packs/Day Years [...] documented as of this encounter Care Teams Histology Tech Relationship Specialty Start Date End Date Pj Crenshaw MD [address] [place] [address] PCP - General Internal Medicine 01/15/20 documented as of this encounter
--- OUTSIDE RECORDS SUMMARY | 2025-07-06 02:03 | XMS_ITS | Encounter Summary ---
Author Organization [employer] Address [address] [place] [address] Care Team Providers Care Consumer Affairs Director Name Role Phone Pj Crenshaw MD Primary Care Prov ider Reason for Visit * Reason Onset Date Comments Med Refill 08/12/2022 Encounter Details Date Type Department Care Team ([facility] Contact Info) Description 08/12/2022 Telephone [facility] CHC MED & PEDS [address] [place], [place] [phone] Pj Crenshaw MD [address] [place] [address] Med Refill Social History Tobacco Use Types [...] Docusate Sodium 100 mg Please send to [address] documented in this encounter Plan of Treatment Not on file documented as of this encounter Visit Diagnoses Not on filedocumented in this encounter Care Teams Consumer Affairs Director Relationship Specialty Start Date End Date Pj Crenshaw MD [address] [place] [address] PCP - General Internal Medicine 01/15/20 documented as of this encounter
--- OUTSIDE RECORDS SUMMARY | 2025-07-06 02:03 | XMS_ITS | Encounter Summary ---
Author Organization [employer] Address 75 [facility] 7 [place] [address] Care Team Providers Care Photographic Lithographer Name Role Phone Pj Crenshaw MD Primary Care Prov ider Encounter Details Date Type Department Care Team ([facility] st Contact Info) Description 07/07/2022 Orders Only [facility] CHC MED & PEDS [address] [place], [place] [phone] Farheen Luciano, RN [address] [place] [address] Social History Tobacco Use Types Packs/Day Years [...] on filedocumented in this encounter Care Teams Photographic Lithographer Relationship Specialty Start Date End Date Pj Crenshaw MD [address] [place] [address] PCP - General Internal Medicine 01/15/20 documented as of this encounter
--- OUTSIDE RECORDS SUMMARY | 2025-07-06 02:03 | XMS_ITS | Encounter Summary ---
Author Organization [employer] Address [address] [place] [address] [place] [address] Care Team Providers Care Route Rider Supervisor Name Role Phone Pj Crenshaw MD Primary Care Prov ider Encounter Details Date Type Department Care Team ([facility] st Contact Info) Description 05/18/2023 Telephone [facility] CHC MED & PEDS [address] [place], [place] [phone] Pj Crenshaw MD [address] [place] [address] Social History Tobacco Use Types Packs/Day Years [...] documented as of this encounter Care Teams Route Rider Supervisor Relationship Specialty Start Date End Date Pj Crenshaw MD [address] [place] [address] PCP - General Internal Medicine 01/15/20 documented as of this encounter
--- OUTSIDE RECORDS SUMMARY | 2025-07-06 02:03 | XMS_ITS | Encounter Summary ---
Author Organization [employer] Address [address] [place] [address] Care Team Providers Care Instructional Paraprofessional Name Role Phone Pj Crenshaw MD Primary Care Prov ider Reason for Visit * Reason Onset Date Comments triage 08/12/2022 Encounter Details Date Type Department Care Team ([facility] st Contact Info) Description 08/12/2022 Telephone [facility] CHC MED & PEDS [address] [place], [place] [phone] Pj Crenshaw MD [address] [place] [address] triage Social History Tobacco Use Types Packs/Day [...] on filedocumented in this encounter Care Teams Instructional Paraprofessional Relationship Specialty Start Date End Date Pj Crenshaw MD [address] [place] [phone] PCP - General Internal Medicine 01/15/20 documented as of this encounter
--- OUTSIDE RECORDS SUMMARY | 2025-07-06 02:03 | XMS_ITS | Encounter Summary ---
Author Organization [employer] Address [address] [place] [address] Care Team Providers Care Bottom Steep Tender Name Role Phone Pj Crenshaw MD Primary Care Prov ider Reason for Visit * Reason Comments Med Refill Encounter Details Date Type Department Care Team ([facility] Contact Info) Description 09/15/2024 Refill C CHC MED & PEDS [address] [place], [place] [phone] Pj Crenshaw MD [address] [place] [address] Social History Tobacco Use Types Packs/Day Years [...] as of this encounter Care Teams Bottom Steep Tender Relationship Specialty Start Date End Date Pj rCenshaw MD [address] [place] [address] PCP - General Internal Medicine 01/15/20 documented as of this encounter
--- OUTSIDE RECORDS SUMMARY | 2025-07-06 02:04 | XMS_ITS | Encounter Summary ---
Author Organization [employer] Address 75 [facility] 7t [place] [address] Care Team Providers Care Wheel Molder Name Role Phone Pj Crenshaw MD Primary Care Prov ider Encounter Details Date Type Department Care Team ([facility] Contact Info) Description 05/31/2024 Telephone [facility] CHC MED & PEDS [address] [place], [place] [phone] Pj Crenshaw MD [address] [place] [address] Social History Tobacco Use Types Packs/Day Years [...] as of this encounter Care Teams Wheel Molder Relationship Specialty Start Date End Date Pj Crenshaw MD [address] [place] [address] PCP - General Internal Medicine 01/15/20 documented as of this encounter
--- OUTSIDE RECORDS SUMMARY | 2025-07-06 02:04 | XMS_ITS | Clinical Summary ---
Author Organization [employer] Address [address] [place] [address] 7 [place] [address] Care Team Providers Care Investigator Internal Revenue Name Role Phone Pj Crenshaw MD Primary Care Prov ider Allergies Active Allergy Reactions Criticality Noted Date Comments Apple Juice 08/13/2022 Chocolate Hazelnut Flavoring Agent (Non-Screening) 08/13/2022 Clarithromycin 02/22/2014 Christian Flavoring Agent (Non-Screening) 08/13/2022 Pear 08/13/2022 Pistachio [...] 4 HOURS NEEDED FOR WHEEZING 18 g Active Transderm-Scop 1 MG/3DAYS patch 72 hour APPLY 1 PATCH TOPICALLY TO THE SKIN EVERY 72 HOURS 10 patch Active albuterol 1.25 MG/3ML nebulizer solutionIndicatio ns:Mild intermittent asthma without complication USE 1 VIAL VIA NEBULIZER EVERY 6 HOURS NEEDED FOR WHEEZING 75 mL 11 Active atorvastatin (Lipitor) 20 MG tabletIndications :Mixed hyperlipidemia Take 1 tablet (20 mg) by mouth Once per day. 90 tablet 2025 Active montelukast (Singulair) 10 MG tablet Take 1 tablet (10 mg) by mouth at bedtime. 90 tablet 3 2025 Active estradiol (Estrace) 0.1 MG/GM vaginal cream 1 g vaginally nightly x 14 days, then continue twice a week ongoing 42.5 g 1 Active cetirizine (ZyrTEC) 10 MG tablet Take 1 tablet (10 mg) by mouth Once per day. 90 tablet 3 Active azelastine (Astelin) 0.1 % nasal spray Administer 1 spray into each nostril 2 times daily. Use in each nostril as directed 30 mL 12 2025 Active linaCLOtide (Linzess) 145 MCG capsuleIndication s:Chronic Idiopathic Constipation Take 1 capsule (145 mcg) by mouth before breakfast. Do not crush or chew. 90 capsule 3 2025 Active lidocaine (Lidoderm) 5 % patchIndications: Chronic left shoulder pain APPLY 1 PATCH ONTO THE SKIN DAILY REMOVE AFTER 12 HOURS 30 patch 3 Active chlorthalidone (Hygroton) 25 MG tabletIndications :Primary hypertension TAKE 1 TABLET(25 MG) BY MOUTH DAILY 90 tablet 3 Active fluticasone (Flonase) 50 MCG/ACT nasal spray SHAKE LIQUID AND USE 1 TO 2 SPRAYS IN EACH NOSTRIL EVERY MORNING 48 g 1 025 Active gabapentin (Neurontin) 300 MG capsule TAKE 1 CAPSULE(300 MG) BY MOUTH THREE TIMES DAILY 90 capsule 11 Active Tirzepatide-Weigh t Management (Zepbound) 5 MG/0.5ML solution Inject 5 mg under the skin 1 (one) time per week. INJECT 5 MG UNDER THE SKIN ONCE A WEEK 2 mL 3 025 Active levothyroxine (Synthroid, Levoxyl) 137 MCG tablet TAKE 1 TABLET BY MOUTH BEFORE BREAKFAST 90 tablet Active pantoprazole (ProtoNix) 40 MG EC tabletIndications :Gastroesophageal reflux disease without esophagitis TAKE 1 TABLET(40 MG) BY MOUTH BEFORE BREAKFAST 90 tablet Active Tirzepatide-Weigh t Management (Zepbound) 7.5 MG/0.5ML solution auto-injector Inject 0.5 mL (7.5 mg) under the skin 1 (one) time per week. 2 mL 2 025 Active hydrOXYzine HCl (Atarax) 25 MG tablet TAKE 1 TABLET(25 MG) BY MOUTH EVERY 8 HOURS NEEDED FOR ITCHING 90 tablet 1 Active EPINEPHrine (Epipen) 0.3 MG/0.3ML injection syringeIndication s:Anaphylaxis, sequela ADMINISTER ONE PEN IN THE MUSCLE DIRECTED NEEDED FOR ALLERGIC REACTION- CALL 911 IF USED 2 each Active EPINEPHrine (Epipen) 0.3 MG/0.3ML injection syringeIndication s:Anaphylaxis, sequela INJECT 0.3MG DIRECTED ONE TIME FOR ONE DOSE FOR ALLERGIC REACTION THEN CALL 911 2 each 025 2024 Discontinued(R eorder (will not trigger [...] 08/14/202308/14 Severe obesity (BMI 35.0-39.9) with comorbidity (CMS/HCC) 08/14/2023 08/14/2023 Assessment & Plan (05/15/2025 10:36 [...] place referral for reevaluation, previously seen at [facility] Impaired glucose tolerance 03/03/2023 Severe obesity (CMS/HCC) 03/03/2023 Assessment & Plan (04/01/2023 1:27 PM [...] Patient used to be followed by a software sales representative, will place referal Varicose veins of lower [...] Temporomandibular joint disorder 03/17/2018 Benzodiazepine dependence, continuous (CMS/HCC) 11/24/2017 Gastroesophageal reflux disease without esophagi tis 11/24/2017 Mood disorder 11/24/2017 Osteoarthritis of multiple joints 11/24/2017 Encounters Date Type Department Care Team Description 06/22/2025 Refill [facility] [address] [place] [address] Pj Crenshaw MD Anaphylaxis, sequela 05/27/2025 Orders Only [facility] External Provider, [facility] 05/16/2025 Refill [facility] [address] [place] [address] Pj Crenshaw MD 05/15/2025 10:00 AM EDT Telemedicine [facility] [address] [place] [address] Pj Crenshaw MD Chronic constipation (Primary Dx); Severe obesity (BMI 35.0-39.9) with comorbidity (CMS/HCC) 05/15/2025 Travel 05/02/2025 4:00 PM EDT Office Visit [facility] [address] [place] [address] Carolina Hector MD Sinus congestion (Primary Dx); Acute otitis media, unspecified otitis media type 05/02/2025 Travel 04/28/2025 Telephone [facility] [address] [place] [address] Pj Crenshaw MD Nurse Triage 04/20/2025 Telephone [facility] [address] [place], [place] [phone] Pj Crenshaw MD Med Refill 04/20/2025 Refill [facility] [address] [place] [address] Shante Oquendo MD Gastroesophageal reflux disease without esophagitis 04/12/2025 Refill [facility] MED [facility] PEDS [address] [place], [place] [phone] Pj Crenshaw MD 04/11/2025 Refill [facility] MED [facility]ED[facility] [address] [place], [place] [phone] Pj Crenshaw MD Anaphylaxis, sequela from Last 3 Months Immunizations Immunization Administration [...] 3 - 19+ 3-dose series) 11/24/2019 10/27/2019 RSV Patients and Patients Aged 60 years or older (1 - Risk 50-74 years 1-dose series) 2022 SDOH Screening 01/18/2025 01/19/2024 Depression Monitoring 03/06/2025 09/06/2024, 025 COVID-19 Vaccine ( season) 2025 12/17/2021, 12/17/2021, 12/23/2020, Additional history exists Influenza Vaccine (#1) 2025 , 06/21/2021, 06/14/2020, Additional history exists Alcohol/Substance Use Screening 09/06/2025 09/06/2024 Tobacco Screening 11/24/2025 11/24/2024 Diabetes: Hemoglobin A1C 05/25/2026 025, 03/03/2023, 03/14/2022, Additional history exists Mammogram 06/06/2027 06/06/2025, 11/0 01/2024, 05/31/2024, Additional history exists Colonoscopy 06/10/2027 06/10/2022 Colorectal Cancer Screening 06/10/2027 Cervical Cancer Screening 07/20/2028 HPV/Cotest 07/20/2028 04/23/2021 Pap Smear 07/20/2028 07/20/2023, 04/23/2021 Lipid Panel 05/25/2030 05/25/2025, 06/2 08/2023, 12/08/2022, Additional history exists DTaP/Tdap/Td Vaccines (3 - Td or Tdap) 09/28/2033 09/28/2023, 01/21/2010 HIV Screening Completed 10/12/2019 Zoster Vaccines Completed [...] AM EDT Narrative 06/09/2025 8:59 AM EDT [facility] [address] [place], [place] [address] Mammography Report Signed with Addenda Patient: Haley Valdovinos MR#: [id number] : 1970 Acct:[id number] Age/Sex: 55 / F ADM Date: 06/06/25 Loc: HO.MAMMO Attending Dr: Pj Peguero MD Ordering Physician: Pj Crenshaw MD Res ults: 1Negative Date of Service: 06/06/25 Follow Up: 1 Year From Orig inal Mammogram Procedure(s): MM tomosynthesis screening BI Accession Number(s): [id number] cc: Pj Crenshaw MD Reason For Exam: SCREENING ADDENDUM ADDENDUM #1 ADDENDUM: Due to a software issue this mammogram was reviewed a second time. The findings and recommendations remain the same. OVERALL ASSESSMENT: Category 1: Negative RECOMMENDATION: 1 year F/U Electronically signed by: Lara Dennis DO 06/19/2025 02:48 PM EST Addendum Dictated By: Lara Dennis DO Addendum Signed By: <Electronically signed by Lara Dennis DO in OV> 06/19/25 1448 Addendum Cosigned By: DD/ TD/TT: 06/06/25 EXAMINATION: MM SCREENING DIGITAL BREAST TOMOSYNTHESIS, BILATERAL [...] Dennis DO in OV> 06/09/25 0856 DD/ 99 TD/TT: 06/06/251119 Bolt Sorter: Procedure Note Vamsiinterpreter, Image - 06/19/2025 [facility] [address] [place] [address] Dr. [place], [place] [address] Mammography Report Signed with Addenda Patient: Galindo LewisoHaley JMR#: [id number] : 1970Acct:[id number] Age/Sex: 55 / FADM Date: 06/06/25 Loc: HO.MAMMO Attending Dr: Pj Peguero MD Ordering Physician: Pj Crenshaw ults: 1Negative Date of Service: 06/06/25Follow Up: 1 Year From Orig inal Mammogram Procedure(s): MM tomosynthesis screening BI Accession Number(s): [id number] cc: Pj Crenshaw MD Reason For Exam: SCREENING ADDENDUM ADDENDUM #1 ADDENDUM: Due to a software issue this mammogram was reviewed a second time. The findings and recommendations remain the same. OVERALL ASSESSMENT: Category 1: Negative RECOMMENDATION: 1 year F/U Electronically signed by: Lara Dennis DO 06/19/2025 02:48 PM EST Addendum Dictated By: Lara Dennis DO Addendum Signed By: <Electronically signed by DO Amna in OV> 06/19/25 1448 Addendum Cosigned By: DD/ TD/TT: 06/06/25 EXAMINATION: MM SCREENING DIGITAL BREAST TOMOSYNTHESIS, BILATERAL [...] Lara Dennis DO 06/09/2025 08:56 AM EDT RP Dictated By: Lara Dennis DO Signed By: <Electronically signed by Lara Dennis DO in OV> 06/09/25 0856 DD/ 1100 TD/TT: 06/06/25 1120 Bolt Sorter: Pj Peguero MD IMG BI PROCEDURES Edited Result - Final * CT Head w/o Contrast (05/31/2025 2:30 PM EDT) Anatomical Region Laterality Modality Head, Neck Computed Tomogra phy 05/31/2025 2:30 PM EDT Narrative 05/31/2025 2:31 PM EDT [place] [address] [address] Scan Report Signed Patient: Haley Valdovinos MR#: [id number] : 1970 Acct:[id number] Age/Sex: 55 / F ADM Date: 05/27/25 Loc: HO.CT Attending Dr: Patt Llanos CNP Ordering Physician: Patt Llanos CNP Date of Service: 05/27/25 Procedure(s): CT head/brain wo IV con Accession Number(s): [id number] cc: Pj Crenshaw MD; Patt Llanos CNP Report Number: [id number]: Total DLP = 790.00 mGy-cm Reason for [...] 05/31/25 1431 DD/ 1430 TD/TT: 05/31/25 143 Bolt Sorter: Procedure Note Donotuseinterpreter, Image - 05/31/[address] [address] [address] Scan Report Signed Patient: Haley Valdovinos JMR#: [id number] : 1970Acct:[id number] Age/Sex: 55 / FADM Date: 05/27/25 Loc: HO.CT Attending Dr: Patt Llanos CNP Ordering Physician: Patt Llanos CNP Date of Service: 05/27/25 Procedure(s): CT head/brain wo IV con Accession Number(s): [id number] cc: Pj Crenshaw MD; Patt Llanos CNP Report Number: [id number]: Total DLP = 790.00 mGy-cm Reason for [...] signed by Nancy Llamas MD in OV> 05/31/251430 DD/ 143 TD/TT: 05/31/251429 Bolt Sorter: [facility] External Provider IMG CT PROCEDURES Final Result * Vitamin B12 (Cobalamin) and Folate Panel, Serum (05/25/2025 11:17 AM EDT) Vitamin B12 397 200 - 900 pg/mL [facility] Comment:NORMAL 200-900 PG/ML INDETERMINATE 160-199 PG/ML DEFICIENT < 160 PG/ML Folate 9.8 > or = 4.0 ng/mL [facility] Comment:Reference Values:> o r = 4.0 ng/mL< 4.0 ng/mL suggests folate deficiency Methotrexate, aminopterin and folinic acid(leucovorin) are chemotherapeutic agents whose molecularstructures are similar to folate; therefore, the Architectfolate assay cannot be used for patients using these drugs. 05/25/2025 11:1 7 AM EDT 05/25/2025 11:17 AM EDT Generic External Data Provider LAB BLOOD ORDERAB LES Final Result Performing Organization Address [facility]/ZIP Co de Phone Number [facility] [address] [place] [phone] * (ABNORMAL) TSH with Reflex to Free T4 (05/25/2025 11:17 AM EDT) TSH reflex Free T4 0.27(L) 0.32 - 4.0 uIU/mL [facility] 05/25/2025 11:1 7 AM EDT 05/25/2025 11:17 AM EDT Generic External Data Provider LAB BLOOD ORDERAB LES Final Result Performing Organization Address [facility] Co de Phone Number [facility] [address] [place] [phone] * CBC auto differential (05/25/2025 11:17 AM EDT) White Blood Count 6.4 4.8 - 10.8 X10*3/uL [facility] Red Blood Count 4.25 4.20 - 5.50 X10*6/uL [facility] Hemoglobin 12.8 12.0 - 16.0 g/dl [facility] Hematocrit 38.7 37.0 - 47.0 % [facility] Mean Corpuscular Volume 91.1 80.0 - 98.0 fL [facility] Mean Corpuscular Hemoglobin 30.1 27.0 - 33.0 pg [facility] Mean Corpuscular HGB Conc 33.1 31.0 - 35.0 g/dl [facility] Red Cell Distribution Width 12.5 11.0 - 16.0 % [facility] Platelet Count 318 160 - 400 X10*3/uL [facility] Mean Platelet Volume 11.6 9.4 - 12.3 fL [facility] Neutrophils Percent Auto 53.6 45 - 73 % [facility] Imm Gran Pct Auto 0.2 0.0 - 0.4 % [facility] Lymphocytes Percent Auto 33.9 20 - 40 % [facility] Monocytes Percent Auto 8.3 2 - 11 % [facility] Eosinophils Percent Auto 3.1 0 - 4 % [facility] Basophils Percent Auto 0.9 0 - 2 % [facility] NRBC Pct Auto 0.0 0.0 - 0.2 /100WBC [facility] Neutrophils Absolute Auto 3.4 2.0 - 8.3 x10*3/uL [facility] Imm Gran Abs Auto 0.01 0.00 - 0.03 X10*3/uL [facility] Lymphocytes Absolute Auto 2.2 1.2 - 4.9 X10*3/uL [facility] Monocytes Absolute Auto 0.5 0.1 - 1.2 X10*3/uL [facility] Eosinophils Absolute Auto 0.2 0.0 - 0.4 X10*3/uL [facility] Basophils Absolute Auto 0.1 0.0 - 0.2 X10*3/uL [facility] NRBC Abs Auto 0.000 0.0 - 0.012 X10*3/uL [facility] 05/25/2025 11:1 7 AM EDT 05/25/2025 11:17 AM EDT us Generic External Data Provider LAB BLOOD ORDERAB LES Final Result [facility] [address] [place] [address] [phone] * (ABNORMAL) Sed Rate by Modified Westergren (05/25/2025 11:17 AM EDT) Erythrocyte Sedimentation Rate 32(H) 0 - 20 MM/HR [facility] Comment:Patients with polycy themia and many hemoglobin abnormalitiesmay have depressed sed rates whereas patients with anemiamay have elevated sed rates. 05/25/2025 11:1 7 AM EDT 05/25/2025 11:17 AM EDT us Generic External Data Provider LAB BLOOD ORDERAB LES Final Result Performing Organization Address [facility] Co de Phone Number [facility] [address] [place] [phone] * (ABNORMAL) C-reactive Protein (05/25/2025 11:17 AM EDT) Pathologist [facility] C Reactive Protein 1.88(H) < or = 0.50 mg/dL [facility] 05/25/2025 11:1 7 AM EDT 05/25/2025 11:17 AM EDT Generic External Data Provider LAB BLOOD ORDERAB LES Final Result Performing Organization Address [facility] Co de Phone Number [facility] [address] [place] [phone] * T4, Free (05/25/2025 11:17 AM EDT) Free T4 (Free Thyroxine) 1.56 0.71 - 1.85 ng/dL [facility] 05/25/2025 11:1 7 AM EDT 05/25/2025 11:17 AM EDT Generic External Data Provider LAB BLOOD ORDERAB LES Final Result Performing Organization Address [facility] Co de Phone Number [facility] [address] [place] [phone] * Hemoglobin A1c (05/25/2025 11:17 AM EDT) Hemoglobin A1c 5.0 <6.0 % [facility] Comment:Hemoglobin A1C Refer ence Range Adults: 4.8 - 6.0 % Non diabetic: < 6.0 % Goal: < 7.0 %Additional Action Suggested: > 8.0 %Note: Hemoglobin A1c results are invalid for patients with abnormal amounts of HbF. Blood transfusions may impact the HbA1c concentration in the patient sample. Estimated Average Glucose 97 mg/dL [facility] Comment:eAG = Estimated ave rage glucose which is %A1C expressed asaverage glucose, using the formula of the K6Y-KndnxleJgjwkrc Glucose study (ADAG), Diabetes Care, Vol.31,#8,Mar. 2007 Blood Venous blood specimen / Unknown 05/25/2025 11:17 AM EDT 05/25/2025 11:17 AM EDT Pj Peguero MD LAB BLOOD ORDERABL ES Final Result [facility] [address] [place] [phone] * (ABNORMAL) Lipid Panel, Standard (05/25/2025 11:17 AM EDT) Triglycerides 68 <150 mg/dL [facility] Comment:Desirable Triglyceri de: less than 150 mg/dLBorderline High Triglyceride 150-199 mg/dLHigh Triglyceride: 200-499 mg/dLVery High Triglyceride: greater than or equal to 5OO mg/dL Cholesterol 202(H) <200 mg/dL [facility] Comment:Desirable Cholestero l: less than 200 mg/dLBorderline High Cholesterol: 200-239 mg/dLHigh Cholesterol: greater than 239 mg/dL LDL Cholesterol Calculated 146(H) <100 mg/dL [facility] Comment:Desirable LDL: less than 100 mg/dLNear Optimal/Above Optimal LDL: 110- 129 mg/dLBorderline High LDL: 130-159 mg/dLHigh LDL: 160-189 mg/dLVery High LDL: greater than or equal to 190 mg/dL HDL Cholesterol 43 >40 mg/dL [facility] Comment:Desirable HDL: great er than 40 mg/dL Note: This HDL assay may give artificially low results in patients with liver disease. Blood Venous blood specimen / Unknown 05/25/2025 11:17 AM EDT 05/25/2025 11:17 AM EDT us Pj Peguero MD LAB BLOOD ORDERABL ES Final Result [facility] [address] [place] [phone] * (ABNORMAL) Comprehensive Metabolic Panel (05/25/2025 11:17 AM EDT) Sodium 142 135 - 145 mmol/L [facility] Potassium 3.8 3.3 - 5.1 mmol/L [facility] Chloride 109(H) 96 - 108 mmol/L [facility] Carbon Dioxide 26 22 - 29 mmol/L [facility] Anion Gap 11(L) 12 - 20 [facility] Urea Nitrogen (BUN) 11 9 - 16 mg/dL [facility] Creatinine, Serum 0.70 0.5 - 1.4 mg/dL [facility] Estimated Glomerular Filt Rate >60 [facility] Comment:Chronic Kidney Disea se: Estimated GFR < 60 mL/min/[id number] Kidney Disease: Estimated GFR < 15 mL/min/1.73m2 Glucose 96 60 - 115 mg/dL [facility] Calcium 9.5 8.4 - 10.2 mg/dL [facility] Bilirubin, Total 0.5 0.0 - 1.0 mg/dL [facility] Aspartate Amino Transferase 21 5 - 31 U/L [facility] Alanine Aminotransferase 22 0 - 31 U/L [facility] Total Protein 7.6 6.5 - 8.0 g/dL [facility] Albumin Level 4.4 3.5 - 5.0 g/dL [facility] Alkaline Phosphatase 66 39 - 117 U/L [facility] Blood Venous blood specimen / Unknown 05/25/2025 11:17 AM EDT 05/25/2025 11:17 AM EDT Pj Peguero MD LAB BLOOD ORDERABL ES Final Result Performing Organization Address City/[facility]/ZIP Co de Phone Number [facility] [address] [place] [phone] * Pap Smear (07/20/2023 12:00 AM EST) Swab Karly Provider LAB CYTOLOGY ORDERABLES F inal Result Performing Organization Address [facility] Co de Phone Number [facility] [address] [place] [phone] * Hepatitis C Antibody with Reflex to HCV, RNA, Quantitative, Real-Time PCR (12/08/2022 9:49 AM EDT) Hepatitis C Antibody NON-REACT BRANDON NON-REACT BRANDON [facility] Index 0.13 <1.00 [facility] Comment: HCV antibody was non-reactive. There is no laboratory evidence of HCV infection. In most cases, no further action is required. However, if recent HCV exposure is suspected, a test for HCV RNA (test code 97524) is suggested. For additional information please refer to http://education.[employer]/faq/UHH25h5 (This link is being provided for informational/ educational purposes only.) Blood Venous blood specimen / Unknown 12/08/2022 9:49 AM EDT 12/08/2022 9:50 AM EDT Narrative [facility] - 12/09/2022 7:27 AM EDT FASTING:YES FASTING: YES Pj Peguero MD LAB BLOOD ORDERABL ES Final Result Performing Organization Address City/[facility]/ZIP Co de Phone Number [facility] [address] [place] [address], [place] [phone] [facility] [address] [place] [phone] * Colonoscopy (06/10/2022) [facility] Colonoscopy Normal Normal Narrative Taylor Barbosa - 06/10/2022 Colonoscopy order added Historical Provider HEALTH MAINTENANCE Final Result * HPV mRNA E6/E7 (04/23/2021 9:09 AM EDT) [facility] HPV nRNA E6/E7 Not Detected Not Detected [facility] Comment: Methodology: Library Cataloging Technician-Mediated Amplification This assay detects E6/E7 viral messenger RNA (mRNA) from 14 high-risk HPV types (16,18,31,33,35,39,45,51,52,56,58,59,66,68). The analytical performance characteristics of this assay have been determined by [employer] The modifications have not been cleared or approved by the FDA. This assay has been validated pursuant to the CLIA regulations and is used for clinical purposes. For additional information, please refer to http://education.[employer]Plus/faq/KQW429t6 (This link if provided for information/ educational purposes only.) 04/23/2021 9:09 AM EDT Alma Moseley [facility] LAB BLOOD ORDERABLES Winter benavides Result [facility] [address] * HIV AB/AG (10/12/2019 10:06 AM EST) [facility] HIV AG/AB NONREACTIVE NR FOUNDAT[facility] ON LAB [...] of detection of this assay. The [employer] HIV Ag/Ab Combo assay result and supplemental assay results should be interpreted in conjunction with the patient's clinical presentation, history and other laboratory results. If the results are inconsistent with clinical evidence, additional testing is suggested to confirm the result. 10/12/2019 10:0 6 AM EST us Historical Provider HISTORICAL/NON ORDERABLE LABS Final Result Performing Organization Address City/State/[facility] Co de Phone Number [facility] [address] from Last 3 Months or Most Recently Relevant to Health Maintenance Insurance [facility] C3 Advance Directives Documents on File Type Date Recorded Patient Manager Transfer Expl anation Advance Directives and Livin g Will 11/18/2024 4:14 PM HCP Care Teams Investigator Internal Revenue Relationship Specialty Start Date End Date Pj Crenshaw MD [address] [place] [phone] PCP - General Internal Medicine 01/15/20
--- OUTSIDE RECORDS SUMMARY | 2025-07-06 02:04 | XMS_ITS | Encounter Summary ---
Author Organization [email or web address] Address 75 [facility] 7t [place] [address] Care Team Providers Care Hazardous Materials Handler Name Role Phone Pj Crenshaw MD Primary Care Prov ider Encounter Details Date Type Department Care Team ([facility] st Contact Info) Description 05/09/2024 Orders Only [facility] CHC MED & PEDS [address] [place], [place] [phone] ProviderKarly MD Social History Tobacco Use Types [...] AM EDT Narrative 06/13/2024 5:26 PM EDT [facility] [address] [place] [address] Mammography Report Signed with Ministerio Patient: Haley Valdovinos MR#: [id number] : 1970 Acct:[id number] Age/Sex: 54 / F ADM Date: 05/31/24 Loc: HO.MAMMJay Attending Dr: Pj Peguero MD Ordering Physician: Pj Crenshaw MD Results: 0Incomplete: Needs Additional Imaging Evaluation Date of Service: 05/31/24 Follow Up: Additional Imagi ng Procedure(s): MM tomosynthesis screening BI Accession Number(s): [id number] cc: Pj Crenshaw MD ADDENDUM ADDENDUM #1 [...] OV> 06/13/24 1722 DD/ 99 TD/TT: 05/31/241113 Documentation Nurse: Procedure Note Donotuseinterpreter, Image - 06/17/2024 [facility] [address] [place], [place] [address] Mammography Report Signed with Addenda Patient: Haley Valdovinos JMR#: [id number] : 1970Acct:[id number] Age/Sex: 54 / FADM Date: 05/31/24 Loc: HOMERVIN Attending Dr: Pj Peguero MD Ordering Physician: Pj Crenshaw MD Results: 0Incomplete: Needs Additional Imaging Evaluation Date of Service: 05/31/24Follow Up: Additional Imagi ng Procedure(s): MM tomosynthesis screening BI Accession Number(s): [id number] cc: Pj Crenshaw MD ADDENDUM ADDENDUM #1 [...] 06/13/24 1722 DD/ 1100 TD/TT: 05/31/24 1114 Documentation Nurse: Pj Peguero MD IMG BI PROCEDURES Edited [...] documented as of this encounter Care Teams Hazardous Materials Handler Relationship Specialty Start Date End Date Pj Crenshaw MD [address] [place] [address] PCP - General Internal Medicine 01/15/20 documented as of this encounter
--- OUTSIDE RECORDS SUMMARY | 2025-07-06 02:04 | XMS_ITS | Encounter Summary ---
Author Organization [employer] Address [address] [facility] [address] 7t [place] [address] Care Team Providers Care Automobiles Salesperson Name Role Phone Pj Crenshaw MD Primary Care Prov ider Encounter Details Date Type Department Care Team ([facility] st Contact Info) Description 12/16/2023 Orders Only [facility] CHC MED & PEDS [address] [place], [place] [phone] ProviderKarly MD Social History Tobacco Use Types [...] * Surgical Pathology (09/18/2023 9:49 AM EST) [facility] Provider MD LAB PATHOLOGY ORDERABLES Final Result * Cytology, Conventional Pap Smear, 1 Slide (07/20/2023 9:54 AM EST) [facility] Provider MD LAB CYTOLOGY ORDERABLES F inal Result documented in this encounter Visit Diagnoses Not on filedocumented in this encounter Additional Health Concerns Assessment Noted Time PHQ-9 Depression Total Score: 2 11/20/19 23 8:47 AM EDT documented as of this encounter Care Teams Automobiles Salesperson Relationship Specialty Start Date End Date Pj Crenshaw MD [address] [place] [address] PCP - General Internal Medicine 01/15/20 documented as of this encounter
--- OUTSIDE RECORDS SUMMARY | 2025-07-06 02:04 | XMS_ITS | Encounter Summary ---
Author Organization [employer] Address [address] [address] Care Team Providers Care Pharmacovigilance Specialist Name Role Phone Pj Crenshaw MD Primary Care Prov ider Reason for Visit * Reason Onset Date Comments Nurse Triage 12/21/2024 Encounter Details Date Type Department Care Team ([facility] st Contact Info) Description 12/21/2024 Telephone [facility] MEDICINE [address] [place] [address] Pj Crenshaw MD [address] [place] [address] Nurse Triage Social History Tobacco Use Types [...] received. Unable to leave message to call [facility]. * Telephone Encounter - Eva Felton - 12/21/2024 10:22 AM EDT Symptom: Urine Symptoms (Frequent urination) Outcome: Schedule a same-day appointment or talk to a nurse or provider today Reason: Caller denied all higher acuity questions The caller accepted this outcome. [phone] documented in this encounter Plan of Treatment Not on file documented as of this encounter Visit Diagnoses Not on filedocumented in this encounter Additional Health Concerns Assessment Noted Time PHQ-9 Depression Total Score: 13 025 10:14 AM EST documented as of this encounter Care Teams Pharmacovigilance Specialist Relationship Specialty Start Date End Date Pj Crenshaw MD [address] [place] [address] PCP - General Internal Medicine 01/15/20 documented as of this encounter
--- OUTSIDE RECORDS SUMMARY | 2025-07-06 02:04 | XMS_ITS | Encounter Summary ---
Author Organization [employer] Address [address] [address] Care Team Providers Care Lockstitch Sleeve Maker Name Role Phone Pj Crenshaw MD Primary Care Prov ider Reason for Visit * Reason Onset Date Comments Appointment Request 04/14/2024 Encounter Details Date Type Department Care Team ([facility] st Contact Info) Description 04/14/2024 Telephone [facility] MEDICINE [address] [place] [address] Pj Crenshaw MD [address] [place] [address] Appointment Request Social History Tobacco Use Types [...] documented as of this encounter Care Teams Lockstitch Sleeve Maker Relationship Specialty Start Date End Date Pj Crenshaw MD [address] [place] [address] PCP - General Internal Medicine 01/15/20 documented as of this encounter
--- OUTSIDE RECORDS SUMMARY | 2025-07-06 02:04 | XMS_ITS | Encounter Summary ---
Author Organization [employer] Address [address] [address] Care Team Providers Care Civil Lawyer Name Role Phone Pj Crenshaw MD Primary Care Prov ider Reason for Visit * Reason Onset Date Comments Med Refill 04/20/2025 Encounter Details Date Type Department Care Team ([facility] Contact Info) Description 04/20/2025 Telephone [facility] MED & PEDS [address] [place] [address] Pj Crenshaw MD [address] [place] [address] Med Refill Social History Tobacco Use Types [...] MG EC tablet To be sent to: [id number] [place], [place] - [address] [place] [address] AT [facility] OF [facility] [address] documented in this encounter Plan of Treatment Not on file documented as of this encounter Visit Diagnoses Not on filedocumented in this encounter Additional Health Concerns Assessment Noted Time PHQ-9 Depression Total Score: 13 025 10:14 AM EST documented as of this encounter Care Teams Civil Lawyer Relationship Specialty Start Date End Date Pj Crenshaw MD [address] [place] [address] PCP - General Internal Medicine 01/15/20 documented as of this encounter
== END 2025-07-05 14:26 | disposition home or self-care (01) ==
LOC: HO.HOS 13:55
PROVIDERS: PCP Urology
DX: M24.812 Other specific joint derangements of left shoulder, not elsewhere classified (principal)
CPT/HCPCS: 99213

== ENCOUNTER → 2025-07-05 13:55 | Outpatient (BNVA) | payer MEDICAID, SELFPAY | PROVIDERS: PCP Urology | DX: M25.512 Pain in left shoulder (principal); M24.812 Other specific joint derangements of left shoulder, not elsewhere classified | CPT/HCPCS: 99212 ==

== ENCOUNTER 2025-07-30 15:59 | Outpatient (REF) | payer MEDICAID, SELFPAY ==
--- OUTSIDE RECORDS SUMMARY | 2025-07-27 10:30 | XMS_ITS | Encounter Summary ---
Author Organization [employer] Address [address] [place] [address] Care Team Providers Care Instructor Dramatic Arts Name Role Phone jP Crenshaw MD Primary Care Prov ider Reason for Referral * Consultation (Routine) - Authorized Specialty Diagnoses / Procedures Referred By Contac t Referred To Contact Podiatry Diagnoses Left foot pain Pj Crenshaw MD [address] [place], [place] Phone: tel: fax: Damaso Perez DPM [facility] [address] [place] [address] Phone: tel: fax: Referral ID Status Reason Start Date Expiration Date Visits Requested Visits Authorized [id number] Authorized Specialty Services Required 5 07/27/2026 1 1 * Consultation (Routine) - Closed Specialty Diagnoses / Procedures Referred By Contac t Referred To Contact Otolaryngology Diagnoses Pressure sensation in both ears Pj Crenshaw MD [address] [place] [address] Phone: tel: fax: [facility] [address] [facility] [address] [place], [place] Phone: tel: fax: Referral ID Status Reason Start Date Expiration Date V isits Requested Visits Authorized [id number] Closed Specialty Services Required 07/27/2025 07/27/2026 1 1 Encounter Details Date Type Department Care Team (Latest Contact Info) Description 07/27/2025 10:30 AM EST Telemedicine [facility] MED & PEDS [address] [place] [address] Pj Crenshaw MD [address] [place] [address] Pressure sensation in both ears (Primary Dx); Left foot pain; Acquired hypothyroidism Social History Tobacco Use Types Packs/Day Years Used Date Smoking Tobacco: Never Passive Smoke Exposure: Never Smokeless Tobacco: Never Alcohol Use Standard Drinks/Week Comments Never 0 (1 standard drink = 0.6 oz pur e alcohol) Depression Answer Date Recorded Patient Health Questionnaire-9 Score 12 07/27/2025 Patient Health Questionnaire-9 Score 12 07/27/2025 Last PHQ-9: Questionnaire Data Not on file 1 09/27/2024 Housing Stability Answer Date Recorded What is your housing situation today? I have doug gleason 07/27/[address] you li ve. Do you have problems with any of the following? None of the above 07/27/2025 Food Insecurity Answer Date Recorded Within the past 12 months, y ou worried that your food would run out before you got money to buy more: Never True 07/27/2025 Within the past 12 months,th e food you bought just didn't last and you didn't have enough money to get more: Never True 06/2025 Transportation Answer Date Recorded In the past 12 months, has l ack of transportation kept you from medical appts, meetings, work or from getting things needed for daily living? No 07/27/2025 Utilities Answer Date Recorded In the past 12 months, has t he electric, gas, oil or water company threatened to shut off services in your home? No 07/27/2025 Depression Answer Date Recorded Patient Health Questionnaire-2 Score 6 07/27/2025 Internet Access Answer Date Recorded Internet Access Q1 Yes 07/27/2025 Internet Access Q2 Not on file 07/27/2025 Comments No Sex and Gender Information Value Date Recorded Sex Assigned at Female 06/16/2022 10:20 AM EDT Legal Sex Female 10:20 AM EDT Gender Identity Female 06/16/2022 10:20 AM EDT Sexual Orientation Straight 06/16/2022 10 :20 AM EDT documented as of this encounter Functional Status * Over the past 2 weeks, how often have you been bothered by any of the following problems? Question Answer Date of Assessment Author Patient Health Questionnaire-2 Score 6 07/17 10:10 AM Selene Hauser MA * Little interest or pleasure in doing things Answer Date of Assessment Author Nearly every day 07/27/2025 10:10 AM Selene Hauser MA * Feeling down, depressed, or hopeless Answer Date of Assessment Author Nearly every day 07/27/2025 10:10 AM Selene Hauser MA * Trouble falling or staying asleep, or sleeping too much Answer Date of Assessment Author More than half the days 07/27/2025 10:10 AM Selene Hauser MA * Feeling tired or having little energy Answer Date of Assessment Author Several days 07/27/2025 10:10 AM Iona Hauser MA * Poor appetite or overeating Answer Date of Assessment Author Several days 07/27/2025 10:10 AM Iona Hauser MA * Feeling bad about yourself - or that you are a failure or have let yourself or your family down Answer Date of Assessment Author Several days 07/27/2025 10:10 AM Iona Hauser MA * Trouble concentrating on things, such as reading the newspaper or watching television Answer Date of Assessment Author Several days 07/27/2025 10:10 AM Iona Hauser MA * Moving or speaking so slowly that other people could have noticed? Or the opposite - being so fidgety or restless that you have been moving around a lot more than usual. Answer Date of Assessment Author Not at all 07/27/2025 10:10 AM Iona Hauser MA * Thoughts that you would be better off or hurting yourself in some way Answer Date of Assessment Author Not at all 07/27/2025 10:10 AM Iona Hauser MA * Patient Health Questionnaire-9 Score Answer Date of Assessment Author 12 07/27/2025 10:10 AM EST Iona Solorzano MA * How difficult have these problems made it for you to do your work, take care of things at home, or get along with other people? Answer Date of Assessment Author Somewhat difficult 07/27/2025 10:10 AM EST Selene Solorzano MA documented as of this encounter Progress Notes * Pj Peguero MD - 07/27/2025 10:30 AM EST Subjective Patient ID: Haley Durham is a 55 y.o. female who presents for No chief complaint on file.. Thyroid Problem Presents for follow-up visit. Symptoms include constipation. Patient reports no depressed mood, fatigue or visual change. Review of Systems Constitutional: Negative for fatigue. Gastrointestinal: Positive for constipation. Objective Physical Exam Neurological: General: No focal deficit present. Mental Status: She is oriented to person, place, and time. Psychiatric: Mood and Affect: Mood normal. Behavior: Behavior normal. Assessment/Plan Problem List Items Addressed This Visit Acquired hypothyroidism Slightly above target, will decrease dose to 125mcg, follow up in 2 months Relevant Medications levothyroxine (Synthroid, Levoxyl) 125 MCG tablet Left foot pain Will refer to podiatry, x ray will be ordered, yonatann refers she feels like a bone bump Relevant Orders XR Foot 3+ Views Left Referral to Podiatry Other Visit Diagnoses Pressure sensation in both ears - Primary Has been on azelastine and cetirizine without improvement in symptoms, will refer to ent for evalaution Relevant Medications azelastine (Astelin) 0.1 % nasal spray cetirizine (ZyrTEC) 10 MG tablet Other Relevant Orders Referral to ENT documented in this encounter Miscellaneous Notes * Assessment & Plan Note - Pj Peguero MD - 07/27/2025 10:56 AM ESTAssociated Problem(s): Acquired hypothyroidism Slightly above target, will decrease dose to 125mcg, follow up in 2 months documented in this encounter Plan of Treatment Scheduled Orders Name Type Priority Associated Diagnoses Orde r Schedule XR Foot 3+ Views Left Imaging Routine Left foot pain Expected: 07/27/2025, Expires: 07/27/2026 Scheduled Referrals Name Type Priority Associated Diagnoses Orde r Schedule Referral to ENT Outpatient Referral Routine Pressure sensation in both ears Expected: 07/27/2025 (Approximate), Expires: 07/27/2026 Referral to Podiatry Outpatient Referral Routine Left foot pain Expected: 07/27/2025 (Approximate), Expires: 07/27/2026 documented as of this encounter Visit Diagnoses Diagnosis Pressure sensation in both ears- Primary Left foot pain Pain in soft tissues of limb Acquired hypothyroidism Unspecified hypothyroidism documented in this encounter Additional Health Concerns Assessment Noted Time PHQ-9 Depression Total Score: 025 10:10 AM EST documented as of this encounter Care Teams Instructor Dramatic Arts Relationship Specialty Start Date End Date Pj Crenshaw MD [address] [place] [address] PCP - General Internal Medicine 01/15/20 documented as of this encounter
--- NOTE | ~2025-07-30 | MR_ITS ---
EXAMINATION: MR SHOULDER WITHOUT CONTRAST, LEFT CLINICAL INFORMATION: Unspecified injury of the muscle COMPARISON: X-ray 11/18/2024 TECHNIQUE: MRI of the shoulder without contrast was performed on a high-field scanner. FINDINGS: ROTATOR CUFF: Supraspinatus: Moderate-severe supraspinatus tendinosis. Partial-thickness, partial width articular surface sided tear, in the anterior fibers, involving the critical zone/proximal tendon. Measures approximately 0.9 x 1.1 cm (AP x ML). Infraspinatus: Moderate-severe tendinosis. Teres minor: Intact Subscapularis tendon: Mild-moderate tendinosis. Partial-thickness articular surface tear in the distal fibers. No muscle atrophy or fatty infiltration. BICEPS: Mild proximal intra-articular long head biceps tendinosis. CORACOACROMIAL ARCH: The undersurface of the acromion is flat with no subacromial spur. Moderate acromioclavicular arthritis. Mild subacromial subdeltoid bursitis. LABRUM/CAPSULE: No displaced labral tear is seen. Inferior capsule is intact GLENOHUMERAL JOINT/MARROW: No fracture. No aggressive marrow replacing lesion. Small effusion, mild synovitis. Axillary lymph nodes, larger measuring 0.9 cm in short axis. MR/MR shoulder LT wo con IMPRESSION: * Moderate-severe supraspinatus tendinosis. Partial-thickness, partial width articular sided tear involving the critical zone/proximal tendon. Measures 1.1 x 0.9 cm. * Moderate-severe infraspinatus tendinosis. * Mild-moderate subscapularis tendinosis. Partial-thickness articular surface tear in the distal tendon. * Mild proximal intra-articular long head biceps tendinosis. *Moderate acromioclavicular arthritis. Mild subacromial subdeltoid bursitis. *Nonspecific axillary lymph nodes.. Electronically signed by: Kana Godinez MD 07/31/2025 04:35 PM [facility]
--- OUTSIDE RECORDS SUMMARY | 2025-07-30 16:07 | XMS_ITS | Encounter Summary ---
Author Organization [employer] Address 75 [facility] 7 [place] [address] Care Team Providers Care Tap Dancer Name Role Phone Pj Crenshaw MD Primary Care Prov ider Encounter Details Date Type Department Care Team ([facility] st Contact Info) Description 08/26/2023 Orders Only [facility] CHC MED & PEDS [address] [place], [place] [phone] Pj Crenshaw MD [address] [place] [address] Acquired hypothyroidism Social History Tobacco Use Types [...] documented as of this encounter Care Teams Tap Dancer Relationship Specialty Start Date End Date Pj Crenshaw MD [address] [place] [address] PCP - General Internal Medicine 01/15/20 documented as of this encounter
--- OUTSIDE RECORDS SUMMARY | 2025-07-30 16:07 | XMS_ITS | Encounter Summary ---
Author Organization [employer] Address [address] [place] [address] [place] [address] Care Team Providers Care Tongue And Groove Machine Feeder Name Role Phone Pj Crenshaw MD Primary Care Prov ider Encounter Details Date Type Department Care Team ([facility] st Contact Info) Description 05/18/2023 Telephone [facility] CHC MED & PEDS [address] [place], [place] [phone] Pj Crenshaw MD [address] [place] [address] Social History Tobacco Use Types Packs/Day Years [...] documented as of this encounter Care Teams Tongue And Groove Machine Feeder Relationship Specialty Start Date End Date Pj Crenshaw MD [address] [place] [address] PCP - General Internal Medicine 01/15/20 documented as of this encounter
--- OUTSIDE RECORDS SUMMARY | 2025-07-30 16:07 | XMS_ITS | Encounter Summary ---
Author Organization [employer] Address [address] [place] [address] Care Team Providers Care Supercharger Repair Supervisor Name Role Phone Pj Crenshaw MD Primary Care Prov ider Reason for Visit * Reason Comments Med Refill Encounter Details Date Type Department Care Team ([facility] st Contact Info) Description 11/04/2022 Refill [facility] CHC MED & PEDS [address] [place] [address] Pj Crenshaw MD [address] [place] [address] Gastroesophageal reflux disease without esophagitis Social History [...] reflux documented in this encounter Care Teams Supercharger Repair Supervisor Relationship Specialty Start Date End Date Pj Crenshaw MD [address] [place] [address] PCP - General Internal Medicine 01/15/20 documented as of this encounter
--- OUTSIDE RECORDS SUMMARY | 2025-07-30 16:07 | XMS_ITS | Encounter Summary ---
Author Organization [employer] Address [address] [place] [address] Care Team Providers Care Makeup Artist Name Role Phone Pj Crenshaw MD Primary Care Prov ider Reason for Visit * Reason Comments Med Refill Encounter Details Date Type Department Care Team ([facility] Contact Info) Description 09/15/2024 Refill C CHC MED & PEDS [address] [place], [place] [phone] Pj Crenshaw MD [address] [place] [address] Social History Tobacco Use Types Packs/Day Years [...] your housing situation today? I have doug gleaosn 01/19/[address] you li [...] documented as of this encounter Care Teams Makeup Artist Relationship Specialty Start Date End Date Pj Crenshaw MD [address] [place] [address] PCP - General Internal Medicine 01/15/20 documented as of this encounter
--- OUTSIDE RECORDS SUMMARY | 2025-07-30 16:07 | XMS_ITS | Encounter Summary ---
Author Organization [employer] Address [address] [place] [address] Care Team Providers Care Data Processing Consultant Name Role Phone Pj Crenshaw MD Primary Care Prov ider Reason for Visit * Reason Onset Date Comments chart prep 07/26/2025 Encounter Details Date Type Department Care Team ([facility] Contact Info) Description 07/26/2025 Telephone [facility] CHC MED & PEDS [address] [place] [address] Pj Crenshaw MD [address] [place] [address] chart prep Social History Tobacco Use Types Packs/Day Years [...] Telephone Encounter - Selene Solorzano MA - 07/26/2025 1:11 PM EST Chart Prep Labs: done Images: done Referrals: complete Vaccines due: Covid, Flu, PCV20, Hep B, and RSV Screenings: not applicable Overdue care gaps: SDOH, PHQ-9, and Disability screen documented in this encounter Plan of Treatment Not on file documented as of this encounter Visit Diagnoses Not on filedocumented in this encounter Additional Health Concerns Assessment Noted Time PHQ-9 Depression Total Score: 13 025 10:14 AM EST documented as of this encounter Care Teams Data Processing Consultant Relationship Specialty Start Date End Date Pj Crenshaw MD [address] [place] [address] PCP - General Internal Medicine 01/15/20 documented as of this encounter
--- OUTSIDE RECORDS SUMMARY | 2025-07-30 16:07 | XMS_ITS | Encounter Summary ---
Author Organization [employer] Address 75 [facility] [address], [place] [address] Care Team Providers Care Director Of Strategy & Mobile Name Role Phone Pj Crenshaw MD Primary Care Prov ider Encounter Details Date Type Department Care Team ([facility] st Contact Info) Description 08/12/2022 Telephone [facility] CHC MED & PEDS [address] [place], [place] [phone] Pj Crenshaw MD [address] [place] [address] Social History Tobacco Use Types Packs/Day Years [...] filedocumented in this encounter Care Teams Director Of Strategy & Mobile Relationship Specialty Start Date End Date Pj Crenshaw MD [address] [place] [address] PCP - General Internal Medicine 01/15/20 documented as of this encounter
--- OUTSIDE RECORDS SUMMARY | 2025-07-30 16:07 | XMS_ITS | Encounter Summary ---
Author Organization [employer] Address 75 [facility] 7 [place] [address] Care Team Providers Care Kettle Operator Name Role Phone Pj Crenshaw MD Primary Care Prov ider Encounter Details Date Type Department Care Team ([facility] st Contact Info) Description 10/23/2023 Orders Only [facility] CHC MED & PEDS [address] [place], [place] [phone] Pj Crenshaw MD [address] [place] [address] Acquired hypothyroidism Social History Tobacco Use Types [...] documented as of this encounter Care Teams Kettle Operator Relationship Specialty Start Date End Date Pj Crenshaw MD [address] [place] [address] PCP - General Internal Medicine 01/15/20 documented as of this encounter
--- OUTSIDE RECORDS SUMMARY | 2025-07-30 16:07 | XMS_ITS | Encounter Summary ---
Author Organization [employer] Address 75 [facility] 7t [place] [address] Care Team Providers Care Raftsman Name Role Phone Pj Crenshaw MD Primary Care Prov ider Encounter Details Date Type Department Care Team (Latest Contact Info) Description 07/27/2025 Travel Social History Tobacco Use Types Packs/Day [...] Assessment Author Several days 07/27/2025 10:10 AM Ioan Hauser MA * Feeling bad about yourself [...] of Assessment Author 12 07/27/2025 10:10 AM Iona Hauser MA * How difficult have these problems made it for you to do your work, take care of things at home, or get along with other people? Answer Date of Assessment Author Somewhat difficult 07/27/2025 10:10 AM Selene Hauser MA documented as of this encounter Plan of Treatment Not on file documented as of this encounter Visit Diagnoses Not on filedocumented in this encounter Additional Health Concerns Assessment Noted Time PHQ-9 Depression Total Score: 025 10:10 AM MIKAEL documented as of this encounter Care Teams Raftsman Relationship Specialty Start Date End Date Pj Crenshaw MD [address] [place] [address] [place] [address] PCP - General Internal Medicine 01/15/20 documented as of this encounter
--- OUTSIDE RECORDS SUMMARY | 2025-07-30 16:07 | XMS_ITS | Encounter Summary ---
Author Organization [employer] Address 75 [facility] 7t [place] [address] Care Team Providers Care Residency Coordinator Name Role Phone Pj Crenshaw MD Primary Care Prov ider Encounter Details Date Type Department Care Team ([facility] st Contact Info) Description 10/13/2023 Telephone [facility] [address] [place] [address] Pj Crenshaw MD [address] [place] [address] Social History Tobacco Use Types Packs/Day Years [...] documented as of this encounter Care Teams Residency Coordinator Relationship Specialty Start Date End Date Pj Crenshaw MD [address] [place] [address] PCP - General Internal Medicine 01/15/20 documented as of this encounter
--- OUTSIDE RECORDS SUMMARY | 2025-07-30 16:07 | XMS_ITS | Encounter Summary ---
Author Organization [employer] Address [address] [place] [address] Care Team Providers Care Electric Stove Installer Name Role Phone Pj Crenshaw MD Primary Care Prov ider Reason for Visit * Reason Comments Med Refill Encounter Details Date Type Department Care Team ([facility] Contact Info) Description 07/26/2025 Refill [facility] [address] [place], [place] [phone] Pj Crenshaw MD [address] [place] [address] Social History Tobacco Use Types Packs/Day Years [...] documented as of this encounter Care Teams Electric Stove Installer Relationship Specialty Start Date End Date Pj Crenshaw MD [address] [place] [address] [place] [address] PCP - General Internal Medicine 01/15/20 documented as of this encounter
--- OUTSIDE RECORDS SUMMARY | 2025-07-30 16:07 | XMS_ITS | Encounter Summary ---
Author Organization [employer] Address [address] [place] [phone] Care Team Providers Care Summer Child Caregiver Name Role Phone Pj Crenshaw MD Primary Care Prov ider Reason for Visit * Reason Comments Med Refill Encounter Details Date Type Department Care Team (Late st Contact Info) Description 02/26/2023 Refill [facility] MEDICINE [address] [place], [place] [phone] Pj Crenshaw MD [address] [place] [address] Gastroesophageal reflux disease without esophagitis Social History [...] documented as of this encounter Care Teams Summer Child Caregiver Relationship Specialty Start Date End Date Pj Crenshaw MD [address] [place] [address] PCP - General Internal Medicine 01/15/20 documented as of this encounter
--- OUTSIDE RECORDS SUMMARY | 2025-07-30 16:08 | XMS_ITS | Clinical Summary ---
Author Organization [employer] Address [address] [place] [address] 7 [place] [address] Care Team Providers Care Editorial Intern Name Role Phone Pj Crenshaw MD Primary Care Prov ider Allergies Active Allergy Reactions Criticality Noted Date Comments Apple Juice 08/13/2022 Chocolate Hazelnut Flavoring Agent (Non-Screening) 08/13/2022 Clarithromycin 02/22/2014 O'Brien Flavoring Agent (Non-Screening) 08/13/2022 Pear 08/13/2022 Pistachio [...] 5 MG tablet Take by mouth. Active Transderm-Scop 1 MG/3DAYS patch 72 hour APPLY 1 PATCH TOPICALLY TO THE SKIN EVERY 72 HOURS 10 patch 024 Active albuterol 1.25 MG/3ML nebulizer solutionIndicatio [...] bedtime. 90 tablet 3 025 2025 Active estradiol (Estrace) 0.1 MG/GM vaginal cream 1 g vaginally nightly x 14 days, then continue twice a week ongoing 42.5 g 025 Active linaCLOtide (Linzess) 145 MCG capsuleIndication s:Chronic [...] A WEEK 2 mL 3 025 Active Tirzepatide-Weigh t Management (Zepbound) 7.5 MG/0.5ML solution auto-injector Inject 0.5 mL (7.5 mg) under the skin 1 (one) time per week. 2 mL 2 Active EPINEPHrine (Epipen) 0.3 MG/0.3ML injection syringeIndication s:Anaphylaxis, sequela ADMINISTER ONE PEN IN THE MUSCLE DIRECTED NEEDED FOR ALLERGIC REACTION- CALL 911 IF USED 2 each Active pantoprazole (ProtoNix) 40 MG EC tabletIndications :Gastroesophageal reflux disease without esophagitis TAKE 1 TABLET(40 MG) BY MOUTH BEFORE BREAKFAST 90 tablet Active hydrOXYzine HCl (Atarax) 25 MG tablet TAKE 1 TABLET(25 MG) BY MOUTH EVERY 8 HOURS NEEDED FOR ITCHING 90 tablet 1 Active albuterol (Ventolin HFA) 108 (90 Base) MCG/ACT inhaler Inhale 2 puffs every 4 (four) hours if needed for wheezing. 18 g 3 Active azelastine (Astelin) 0.1 % nasal spray Administer 1 spray into each nostril 2 times daily. Use in each nostril as directed 30 mL 3 025 2025 Active cetirizine (ZyrTEC) 10 MG tablet Take 1 tablet (10 mg) by mouth Once per day. 90 tablet 3 Active levothyroxine (Synthroid, Levoxyl) 125 MCG tablet Take 1 tablet (125 mcg) by mouth before breakfast. 30 tablet 11 025 2025 Active Ventolin HFA 108 (90 Base) MCG/ACT inhaler INHALE 2 PUFFS BY MOUTH EVERY 4 HOURS NEEDED FOR WHEEZING 18 g 024 2024 Discontinued(R eorder (will not trigger notification to Pharmacy)) cetirizine (ZyrTEC) 10 MG tablet Take 1 tablet (10 mg) by mouth Once per day. 90 tablet 3 025 2024 Discontinued(R eorder (will not trigger notification to Pharmacy)) azelastine (Astelin) 0.1 % nasal spray Administer 1 spray into each nostril 2 times daily. Use in each nostril as directed 30 mL 12 025 2024 Discontinued(R eorder (will not trigger notification to Pharmacy)) levothyroxine (Synthroid, Levoxyl) 137 MCG tablet TAKE 1 TABLET BY MOUTH BEFORE BREAKFAST 90 tablet 025 2024 Discontinued pantoprazole (ProtoNix) 40 MG EC tabletIndications :Gastroesophageal reflux disease without esophagitis TAKE 1 TABLET(40 MG) BY MOUTH BEFORE BREAKFAST 90 tablet 025 2024 Discontinued hydrOXYzine HCl (Atarax) 25 MG tablet TAKE 1 TABLET(25 MG) BY MOUTH EVERY 8 HOURS NEEDED FOR ITCHING 90 tablet 1 025 2024 Discontinued levothyroxine (Synthroid, Levoxyl) 137 MCG tablet TAKE 1 TABLET BY MOUTH BEFORE BREAKFAST 90 tablet 025 2024 Discontinued Active Problems Problem Noted Date Diagnosed Date Left foot pain 07/27/2025 Chronic constipation 05/15/2025 Assessment & Plan (05/15/2025 [...] place referral for reevaluation, previously seen at [place] Impaired glucose tolerance 03/03/2023 Severe obesity (CMS/HCC) [...] Plan (02/25/2024 2:53 PM EDT): Continue with emery, encouraged low carb/no sugar diet RLQ abdominal [...] D deficiency 07/07/2022 Whole body pain 07/07/2022 Breast microcalcifications 12/30/2018 Urticaria 12/30/2018 Assessment & Plan (06/22/2023 1:29 PM EST): Patient used to be followed by a subacute nurse, will place referal Varicose veins of lower extremity 12/30/2018 Acquired hypothyroidism 10/25/2018 Assessment & Plan (07/27/2025 10:56 AM EST): Slightly above target, will decrease dose to 125mcg, follow up in 2 months Assessment & Plan (05/13/2024 10:16 AM EDT): [...] getting botox injections Temporomandibular joint disorder 03/17/2018 Gastroesophageal reflux disease without esophagi tis 11/24/2017 Mood disorder 11/24/2017 Osteoarthritis of multiple joints 11/24/2017 Resolved Problems Problem Noted Date Diagnosed Date Resolved Date Inflammatory polyps of colon 06/11/2022 07/27/2025 Benzodiazepine dependence, c ontinuous ([facility]) 11/24/2017 07/27/2025 Encounters Date Type Department Care Team Description 07/27/2025 10:30 AM EST Telemedicine [facility] MED [facility]EDS [address] [place] [address] Pj Crenshaw MD Pressure sensation in both ears (Primary Dx); Left foot pain; Acquired hypothyroidism 07/27/2025 Travel 07/26/2025 Refill [facility] [address] [place] [address] Pj Crenshaw MD 07/26/2025 Telephone [facility] [address] [place] [address] Pj Crenshaw MD chart prep 07/16/2025 Refill [facility] [address] [place] [address] Kadie Ferrell MD Gastroesophageal reflux disease without esophagitis 06/22/2025 Refill [facility] [address] [place] [address] Pj Crenshaw MD Anaphylaxis, sequela 05/27/2025 Orders Only [facility] External Provider, [facility] 05/16/2025 Refill [facility] [address] [place] [address] Pj Crenshaw MD 05/15/2025 10:00 AM EDT Telemedicine [facility] [address] [place] [address] Pj Crenshaw MD Chronic constipation (Primary Dx); Severe obesity (BMI 35.0-39.9) with comorbidity (CMS/HCC) 05/15/2025 Travel 05/02/2025 4:00 PM EDT Office Visit [facility] [address] [place] [address] Carolina Hector MD Sinus congestion (Primary Dx); Acute otitis media, unspecified otitis media type 05/02/2025 Travel from Last 3 Months Immunizations Immunization Administration [...] 1972 FIT 1972 FOBT 1972 Sigmoidoscopy 1972 Pneumococcal Vaccine: 50+ Years (2 of 2 - PCV) 05/29/2016 05/29/2015, 01/21/2010 Hepatitis B Vaccines (2 of 3 - 19+ 3-dose series) 11/24/2019 10/27/2019 RSV Patients and Patients Aged 60 years or older (1 - Risk 50-74 years 1-dose series) 2022 COVID-19 Vaccine ( - season) 2025 12/17/2021, 12/17/2021, 12/23/2020, Additional history exists Influenza Vaccine (#1) 2025 , 06/21/2021, 06/14/2020, Additional history exists Alcohol/Substance Use Screening 09/06/2025 09/06/2024 Tobacco Screening 11/24/2025 11/24/2024 Depression Monitoring 01/25/2026 07/27/2025, 025 Diabetes: Hemoglobin A1C 05/25/2026 025, 03/03/2023, 03/14/2022, Additional history exists Disability Screening 07/27/2026 07/27/2025 SDOH Screening 07/27/2026 07/27/2025 Mammogram 06/06/2027 06/06/2025, 11/0 01/2024, 05/31/2024, Additional [...] AM EDT Narrative 06/09/2025 8:59 AM EDT [facility] [address] [place] [address] Mammography Report Signed with Addenda Patient: Haley Valdovinos MR#: [id number] : 1970 Acct:[id number] Age/Sex: 55 / F ADM Date: 06/06/25 Loc: HO.MAMMO Attending Dr: Pj Peguero MD Ordering Physician: Pj Crenshaw MD Res ults: 1Negative Date of Service: 06/06/25 Follow Up: 1 Year From Orig ina Mammogram Procedure(s): MM tomosynthesis screening BI Accession Number(s): [id number] cc: Pj Crenshaw MD Reason For Exam: [...] OV> 06/09/25 0856 DD/ 99 TD/TT: 06/06/251119 Airbrush Artist: Procedure Note Donotuseinterpreter, Image - 06/19/20[facility] [address] [place] [address] Mammography Report Signed with Addenda Patient: Haley Valdovinos JMR#: [id number] : 1970Acct:[id number] Age/Sex: 55 / FADM Date: 06/06/25 Loc: MARISSA Attending Dr: Pj Peguero MD Ordering Physician: Pj Crenshaw ults: 1Negative Date of Service: 06/06/25Follow Up: 1 Year From Orig inal Mammogram Procedure(s): MM tomosynthesis screening BI Accession Number(s): [id number] cc: Pj Crenshaw MD Reason For Exam: SCREENING ADDENDUM ADDENDUM #1 ADDENDUM: Due to a software issue this mammogram was reviewed a second time. The findings and recommendations remain the same. OVERALL ASSESSMENT: Category 1: Negative RECOMMENDATION: 1 year F/U Electronically signed by: Lara Dennis DO 06/19/2025 02:48 PM EST RP Addendum Dictated By: Lara Dennis DO [...] in OV> 06/09/25 0856 DD/ 99 TD/TT: 06/06/25 112 Airbrush Artist: Pj Peguero MD IMG BI PROCEDURES Edited Result - Final * CT Head w/o Contrast (05/31/2025 2:30 PM EDT) Anatomical Region Laterality Modality Head, Neck Computed Tomogra phy 05/31/2025 2:30 PM EDT Narrative 05/31/2025 2:31 PM EDT [address] [address] [address] Scan Report Signed Patient: Haley Valdovinos MR#: [id number] : 1970 Acct:[id number] Age/Sex: 55 / F ADM Date: 05/27/25 Loc: HO.CT Attending Dr: Patt Llanos CNP Ordering Physician: Patt Llanos CNP Date of Service: 05/27/25 Procedure(s): CT head/brain wo IV con Accession Number(s): [id number] cc: Pj Crenshaw MD; Patt Llanos CNP Report Number: [id number]: Total DLP = 790.00 mGy-cm Reason for [...] 05/31/25 1431 DD/ 1430 TD/TT: 05/31/25 1430 Airbrush Artist: Procedure Note Donotuseinterpreter, Image - 05/31/[address] [address] [address] Scan Report Signed Patient: Haley Valdovinos JMR#: [id number] : 1970Acct:[id number] Age/Sex: 55 / FADM Date: 05/27/25 Loc: HO.CT Attending Dr: Patt Llanos CNP Ordering Physician: Patt Llanos CNP Date of Service: 05/27/25 Procedure(s): CT head/brain wo IV con Accession Number(s): [id number] cc: Pj Crenshaw MD; Patt Llanos CNP Report Number: [id number]: Total DLP = 790.00 mGy-cm Reason for [...] 05/31/25 1431 DD/ 1430 TD/TT: 05/31/25 143 Airbrush Artist: [facility] External Provider IMG CT PROCEDURES Final Result * Vitamin B12 (Cobalamin) and Folate Panel, Serum (05/25/2025 11:17 AM EDT) Vitamin B12 397 200 - 900 pg/mL [facility] Comment:NORMAL 200-900 PG/ML INDETERMINATE 160-199 PG/ML DEFICIENT < 160 PG/ML Folate 9.8 > or = 4.0 ng/mL [facility] Comment:Reference Values:> o r = 4.0 ng/mL< 4.0 ng/mL suggests folate deficiency Methotrexate, aminopterin and folinic acid(leucovorin) are chemotherapeutic agents whose molecularstructures are similar to folate; therefore, the Architectfolate assay cannot be used for patients using these drugs. 05/25/2025 11:1 7 AM EDT 05/25/2025 11:17 AM EDT us Generic External Data Provider LAB BLOOD ORDERAB LES Final Result Performing Organization Address City/[facility]/ZIP Co de Phone Number [facility] [address] [place] [address] [phone] * (ABNORMAL) TSH with Reflex to Free T4 (05/25/2025 11:17 AM EDT) TSH reflex Free T4 0.27(L) 0.32 - 4.0 uIU/mL [facility] 05/25/2025 11:1 7 AM EDT 05/25/2025 11:17 AM EDT Generic External Data Provider LAB BLOOD ORDERAB LES Final Result Performing Organization Address [facility]/ZIP Co de Phone Number [facility] [address] [place] [phone] * CBC auto differential (05/25/2025 11:17 AM EDT) White Blood Count 6.4 4.8 - 10.8 X10*3/uL [facility] Red Blood Count 4.25 4.20 - 5.50 X10*6/uL [facility] Hemoglobin 12.8 12.0 - 16.0 g/dl [facility] Hematocrit 38.7 37.0 - 47.0 % [facility] Mean Corpuscular Volume 91.1 80.0 - 98.0 fL [facility] Mean Corpuscular Hemoglobin 30.1 27.0 - 33.0 pg [facility] Mean Corpuscular HGB Conc 33.1 31.0 - 35.0 g/dl [facility] Red Cell Distribution Width 12.5 11.0 - 16.0 % [facility] Platelet Count 318 160 - 400 X10*3/uL [facility] Mean Platelet Volume 11.6 9.4 - 12.3 fL [facility] Neutrophils Percent Auto 53.6 45 - 73 % [facility] Imm Gran Pct Auto 0.2 0.0 - 0.4 % [facility] Lymphocytes Percent Auto 33.9 20 - 40 % [facility] Monocytes Percent Auto 8.3 2 - 11 % [facility] Eosinophils Percent Auto 3.1 0 - 4 % [facility] Basophils Percent Auto 0.9 0 - 2 % [facility] NRBC Pct Auto 0.0 0.0 - 0.2 /100WBC [facility] Neutrophils Absolute Auto 3.4 2.0 - 8.3 x10*3/uL [facility] Imm Gran Abs Auto 0.01 0.00 - 0.03 X10*3/uL [facility] Lymphocytes Absolute Auto 2.2 1.2 - 4.9 X10*3/uL [facility] Monocytes Absolute Auto 0.5 0.1 - 1.2 X10*3/uL [facility] Eosinophils Absolute Auto 0.2 0.0 - 0.4 X10*3/uL [facility] Basophils Absolute Auto 0.1 0.0 - 0.2 X10*3/uL [facility] NRBC Abs Auto 0.000 0.0 - 0.012 X10*3/uL [facility] 05/25/2025 11:1 7 AM EDT 05/25/2025 11:17 AM EDT us Generic External Data Provider LAB BLOOD ORDERAB LES Final Result [facility] [address] [place] [phone] * (ABNORMAL) Sed Rate by Modified Ti (05/25/2025 11:17 AM EDT) Erythrocyte Sedimentation Rate 32(H) 0 - 20 MM/HR [facility] Comment:Patients with polycy themia and many hemoglobin abnormalitiesmay have depressed sed rates whereas patients with anemiamay have elevated sed rates. 05/25/2025 11:1 7 AM EDT 05/25/2025 11:17 AM EDT Generic External Data Provider LAB BLOOD ORDERAB LES Final Result Performing Organization Address [facility] de Phone Number [facility] [address] [place] [phone] * (ABNORMAL) C-reactive Protein (05/25/2025 11:17 AM EDT) C Reactive Protein 1.88(H) < or = 0.50 mg/dL [facility] 05/25/2025 11:1 7 AM EDT 05/25/2025 11:17 AM EDT Generic External Data Provider LAB BLOOD ORDERAB LES Final Result Performing Organization Address [facility] Number [facility] [address] [place] [phone] * T4, Free (05/25/2025 11:17 AM EDT) Free T4 (Free Thyroxine) 1.56 0.71 - 1.85 ng/dL [facility] 05/25/2025 11:1 7 AM EDT 05/25/2025 11:17 AM EDT Generic External Data Provider LAB BLOOD ORDERAB LES Final Result Performing Organization Address [facility] de Phone Number [facility] [address] [place] [phone] * Hemoglobin A1c (05/25/2025 11:17 AM EDT) Hemoglobin A1c 5.0 <6.0 % [facility] Comment:Hemoglobin A1C Refer ence Range Adults: 4.8 - 6.0 % Non diabetic: < 6.0 % Goal: < 7.0 %Additional Action Suggested: > 8.0 %Note: Hemoglobin A1c results are invalid for patients with abnormal amounts of HbF. Blood transfusions may impact the HbA1c concentration in the patient sample. Estimated Average Glucose 97 mg/dL [facility] Comment:eAG = Estimated ave rage glucose which is %A1C expressed asaverage glucose, using the formula of the S9B-GpeleloCixkjvj Glucose study (ADAG), Diabetes Care, Vol.31,#8,Aug. 2007 Blood Venous blood specimen / Unknown 05/25/2025 11:17 AM EDT 05/25/2025 11:17 AM EDT us Pj Pegeuro MD LAB BLOOD ORDERABL ES Final Result [facility] [address] [place] [phone] * (ABNORMAL) Lipid Panel, Standard (05/25/2025 11:17 AM EDT) Triglycerides 68 <150 mg/dL [facility] Comment:Desirable Triglyceri de: less than 150 mg/dLBorderline High Triglyceride 150-199 mg/dLHigh Triglyceride: 200-499 mg/dLVery High Triglyceride: greater than or equal to 5OO mg/dL Cholesterol 202(H) <200 mg/dL [facility] Comment:Desirable Cholestero l: less than 200 mg/dLBorderline High Cholesterol: 200-239 mg/dLHigh Cholesterol: greater than 239 mg/dL LDL Cholesterol Calculated 146(H) <100 mg/dL [facility] Comment:Desirable LDL: less than 100 mg/dLNear Optimal/Above Optimal LDL: 110- 129 mg/dLBorderline High LDL: 130-159 mg/dLHigh LDL: 160-189 mg/dLVery High LDL: greater than or equal to 190 mg/dL HDL Cholesterol 43 >40 mg/dL [facility] Comment:Desirable HDL: great er than 40 mg/dL Note: This HDL assay may give artificially low results in patients with liver disease. Blood Venous blood specimen / Unknown 05/25/2025 11:17 AM EDT 05/25/2025 11:17 AM EDT us Pj Peguero MD LAB BLOOD ORDERABL ES Final Result Performing Organization Address City/[facility]/ZIP Co de Phone Number [facility] [address] [place] [phone] [phone] * (ABNORMAL) Comprehensive Metabolic Panel (05/25/2025 11:17 AM EDT) Sodium 142 135 - 145 mmol/L [facility] Potassium 3.8 3.3 - 5.1 mmol/L [facility] Chloride 109(H) 96 - 108 mmol/L [facility] Carbon Dioxide 26 22 - 29 mmol/L [facility] Anion Gap 11(L) 12 - 20 [facility] Urea Nitrogen (BUN) 11 9 - 16 mg/dL [facility] Creatinine, Serum 0.70 0.5 - 1.4 mg/dL [facility] Estimated Glomerular Filt Rate >60 [facility] Comment:Chronic Kidney Disea se: Estimated GFR < 60 mL/min/1.33d8Sjjayt Kidney Disease: Estimated GFR < 15 mL/min/1.73m2 Glucose 96 60 - 115 mg/dL [facility] Calcium 9.5 8.4 - 10.2 mg/dL [facility] Bilirubin, Total 0.5 0.0 - 1.0 mg/dL [facility] Aspartate Amino Transferase 21 5 - 31 U/L [facility] Alanine Aminotransferase 22 0 - 31 U/L [facility] Total Protein 7.6 6.5 - 8.0 g/dL [facility] Albumin Level 4.4 3.5 - 5.0 g/dL [facility] Alkaline Phosphatase 66 39 - 117 U/L [facility] Blood Venous blood specimen / Unknown 05/25/2025 11:17 AM EDT 05/25/2025 11:17 AM EDT Pj Peguero MD LAB BLOOD ORDERABL ES Final Result Performing Organization Address [facility]/ZIP Co de Phone Number [facility] [address] [place] [phone] * Pap Smear (07/20/2023 12:00 AM EST) Swab Historical Provider LAB CYTOLOGY ORDERABLES F inal Result [facility] [address] [place] [address] * Hepatitis C Antibody with Reflex to HCV, RNA, Quantitative, Real-Time PCR (12/08/2022 9:49 AM EDT) Pathologist [facility] Hepatitis C Antibody NON-REACT BRANDON NON-REACT BRANDON [employer] Index 0.13 <1.00 [employer] Comment: HCV antibody was non-reactive. There is no laboratory evidence of HCV infection. In most cases, no further action is required. However, if recent HCV exposure is suspected, a test for HCV RNA (test code 34706) is suggested. For additional information please refer to http://education.[employer]/faq/XEB45d0 (This link is being provided for informational/ educational purposes only.) Blood Venous blood specimen / Unknown 12/08/2022 9:49 AM EDT 12/08/2022 9:50 AM EDT Narrative [facility] - 12/09/2022 7:27 AM EDT FASTING:YES FASTING: YES Pj Peguero MD LAB BLOOD ORDERABL ES Final Result Performing Organization Address City/[facility]/ZIP Co de Phone Number [facility] [address], [place] [address] [employer] [address] [place] [phone] * Hm Colonoscopy (06/10/2022) Pathologist [facility] Colonoscopy Normal Normal Narrative Taylor Barbosa - 06/10/2022 HM Colonoscopy order added Historical Provider HEALTH MAINTENANCE Final Result * HPV mRNA E6/E7 (04/23/2021 9:09 AM EDT) Pathologist [facility] HPV nRNA E6/E7 Not Detected Not Detected [facility] Comment: Methodology: Circle Edger-Mediated Amplification This assay detects E6/E7 viral messenger RNA (mRNA) from 14 high-risk HPV types (16,18,31,33,35,39,45,51,52,56,58,59,66,68). The analytical performance characteristics of this assay have been determined by [facility]. The modifications have not been cleared or approved by the FDA. This assay has been validated pursuant to the CLIA regulations and is used for clinical purposes. For additional information, please refer to http://education.[employer]/faq/XAP193b6 (This link if provided for information/ educational purposes only.) 04/23/2021 9:09 AM EDT [facility] LAB BLOOD ORDERABLES Winter l Result Performing Organization Address [facility] de Phone Number [facility] Anywhere [address] * HIV AB/AG (10/12/2019 10:06 AM EST) [facility] HIV AG/AB NONREACTIVE NR FOUNDATI ON [...] of detection of this assay. The [employer] HIV Ag/Ab Combo assay result and supplemental assay results should be interpreted in conjunction with the patient's clinical presentation, history and other laboratory results. If the results are inconsistent with clinical evidence, additional testing is suggested to confirm the result. 10/12/2019 10:0 6 AM EST Historical Provider MD HISTORICAL/NON ORDERABLE LABS Final Result Performing Organization Address [facility] de Phone Number [facility] Anywhere [address] from Last 3 Months or Most Recently Relevant to Health Maintenance Insurance [facility] C3 Advance Directives Documents on File Type Date Recorded Patient Epidemiology Intern Expl anation Advance Directives and Livin g Will 11/18/2024 4:14 PM HCP Care Teams Editorial Intern Relationship Specialty Start Date End Date Pj Crenshaw MD [address] [place] [phone] PCP - General Internal Medicine 01/15/20
--- OUTSIDE RECORDS SUMMARY | 2025-07-30 16:08 | XMS_ITS | Encounter Summary ---
Author Organization [employer] Address [address] [address] Care Team Providers Care Audiovisual Technician Name Role Phone Pj Crenshaw MD Primary Care Prov ider Reason for Visit * Reason Onset Date Comments Appointment Request 04/14/2024 Encounter Details Date Type Department Care Team ([facility] st Contact Info) Description 04/14/2024 Telephone [facility] MEDICINE [address] [place] [address] Pj Crenshaw MD 505 [place] [address] Appointment Request Social History Tobacco Use Types [...] documented as of this encounter Care Teams Audiovisual Technician Relationship Specialty Start Date End Date Pj Crenshaw MD [address] [place] [address] PCP - General Internal Medicine 01/15/20 documented as of this encounter
--- OUTSIDE RECORDS SUMMARY | 2025-07-30 16:08 | XMS_ITS | Encounter Summary ---
Author Organization [employer] Address 75 [facility] 7t [place] [address] Care Team Providers Care Rn Building Name Role Phone Pj Crenshaw MD Primary Care Prov ider Encounter Details Date Type Department Care Team ([facility] st Contact Info) Description 05/09/2024 Orders Only [facility] CHC MED & PEDS [address] [place], [place] [phone] ProviderKarly MD Social History Tobacco Use Types [...] AM EDT Narrative 06/13/2024 5:26 PM EDT [facility] [address] [place] [address] Mammography Report Signed with Ministerio Patient: Haley Valdovinos MR#: [id number] : 1970 Acct:[id number] Age/Sex: 54 / F ADM Date: 05/31/24 Loc: HO.MAMMJay Attending Dr: Pj Peguero MD Ordering Physician: Pj Crenshaw MD Results: 0Incomplete: Needs Additional Imaging Evaluation Date of Service: 05/31/24 Follow Up: Additional Imagi ng Procedure(s): MM tomosynthesis screening BI Accession Number(s): [id number] cc: Pj Crenshaw MD ADDENDUM ADDENDUM #1 ADDENDUM: Due to a software issue related to the original report, this case has been reviewed again and the original findings and recommendations remain the same. Electronically signed by: Lara Dennis DO 06/17/2024 10:13 AM EDT RP Addendum Dictated By: Laar Dennis DO Addendum Signed By: <Electronically signed [...] OV> 06/13/24 1722 DD/ 99 TD/TT: 05/31/241113 Trailer Sections Assembler: Procedure Note Donotuseinterpreter, Image - 06/17/2024 [facility] [address] [place], [place] [address] Mammography Report Signed with Addenda Patient: Haley Valdovinos JMR#: [id number] : 1970Acct:[id number] Age/Sex: 54 / FADM Date: 05/31/24 Loc: HOMERVIN Attending Dr: Pj Peguero MD Ordering Physician: Pj Crenshaw MD Results: 0Incomplete: Needs Additional Imaging Evaluation Date of Service: 05/31/24Follow Up: Additional Imagi ng Procedure(s): MM tomosynthesis screening BI Accession Number(s): [id number] cc: Pj Crenshaw MD ADDENDUM ADDENDUM #1 [...] 06/13/24 1722 DD/ 1100 TD/TT: 05/31/24 1114 Trailer Sections Assembler: Pj Peguero MD IMG BI PROCEDURES Edited [...] documented as of this encounter Care Teams Rn Building Relationship Specialty Start Date End Date Pj Crenshaw MD [address] [place] [address] PCP - General Internal Medicine 01/15/20 documented as of this encounter
--- OUTSIDE RECORDS SUMMARY | 2025-07-30 16:08 | XMS_ITS | Encounter Summary ---
Author Organization [employer] Address [address] [place] [address] Care Team Providers Care Invasive Cardiologist Name Role Phone Pj Crenshaw MD Primary Care Prov ider Reason for Visit * Reason Onset Date Comments Referral 08/12/2022 Appointment Request 08/12/2022 Encounter Details Date Type Department Care Team ([facility] Contact Info) Description 08/12/2022 Telephone [facility] CHC MED & PEDS 505 [place] [address] Pj Crenshaw MD 505 [place] [address] Referral; Appointment Request Social History Tobacco Use [...] reflux documented in this encounter Care Teams Invasive Cardiologist Relationship Specialty Start Date End Date Pj Crenshaw MD [address] [place] [address] PCP - General Internal Medicine 01/15/20 documented as of this encounter
--- OUTSIDE RECORDS SUMMARY | 2025-07-30 16:08 | XMS_ITS | Encounter Summary ---
Author Organization [employer] Address [address] [place] [address] Care Team Providers Care Door Patcher Name Role Phone Pj Crenshaw MD Primary Care Prov ider Reason for Visit * Reason Onset Date Comments Med Refill 08/12/2022 Encounter Details Date Type Department Care Team ([facility] Contact Info) Description 08/12/2022 Telephone [facility] CHC MED & PEDS 505 [place], [place] [phone] Pj Crenshaw MD 505 [place] [address] Med Refill Social History Tobacco Use Types [...] Docusate Sodium 100 mg Please send to [address] documented in this encounter Plan of Treatment Not on file documented as of this encounter Visit Diagnoses Not on filedocumented in this encounter Care Teams Door Patcher Relationship Specialty Start Date End Date Pj Crenshaw MD [address] [place] [address] PCP - General Internal Medicine 01/15/20 documented as of this encounter
--- OUTSIDE RECORDS SUMMARY | 2025-07-30 16:08 | XMS_ITS | Encounter Summary ---
Author Organization [employer] Address [address] [place] [address] Care Team Providers Care Glassware Selector Name Role Phone Pj Crenshaw MD Primary Care Prov ider Reason for Visit * Reason Onset Date Comments triage 08/12/2022 Encounter Details Date Type Department Care Team ([facility] st Contact Info) Description 08/12/2022 Telephone [facility] CHC MED & PEDS 505 [place], [place] [phone] Pj Crenshaw MD 505 [place] [address] triage Social History Tobacco Use Types Packs/Day [...] on filedocumented in this encounter Care Teams Glassware Selector Relationship Specialty Start Date End Date Pj Crenshaw MD [address] [place] [address] PCP - General Internal Medicine 01/15/20 documented as of this encounter
--- OUTSIDE RECORDS SUMMARY | 2025-07-30 16:08 | XMS_ITS | Encounter Summary ---
Author Organization [employer] Address 75 [facility] 7 [place] [address] Care Team Providers Care Lithograph Press Feeder Name Role Phone Pj Crenshaw MD Primary Care Prov ider Encounter Details Date Type Department Care Team ([facility] st Contact Info) Description 07/07/2022 Orders Only [facility] CHC MED & PEDS [address] [place], [place] [phone] Farheen Luciano, RN 505 [place] [address] Social History Tobacco Use Types Packs/Day Years [...] on filedocumented in this encounter Care Teams Lithograph Press Feeder Relationship Specialty Start Date End Date Pj Crenshaw MD 505 [place] [address] PCP - General Internal Medicine 01/15/20 documented as of this encounter
--- OUTSIDE RECORDS SUMMARY | 2025-07-30 16:09 | XMS_ITS | Encounter Summary ---
Author Organization [employer] Address [address] [place] [address] Care Team Providers Care Drug Discovery Informatics Specialist Name Role Phone Pj Crenshaw MD Primary Care Prov ider Reason for Visit * Reason Onset Date Comments Nurse Triage 12/21/2024 Encounter Details Date Type Department Care Team ([facility] st Contact Info) Description 12/21/2024 Telephone [facility] MEDICINE 230 [place] [address] Pj Crenshaw MD 505 [place] [address] Nurse Triage Social History Tobacco Use Types [...] received. Unable to leave message to call [facility]. * Telephone Encounter - Eva Felton - 12/21/2024 10:22 AM EDT Symptom: Urine Symptoms (Frequent urination) Outcome: Schedule a same-day appointment or talk to a nurse or provider today Reason: Caller denied all higher acuity questions The caller accepted this outcome. [phone] documented in this encounter Plan of Treatment Not on file documented as of this encounter Visit Diagnoses Not on filedocumented in this encounter Additional Health Concerns Assessment Noted Time PHQ-9 Depression Total Score: 13 025 10:14 AM EST documented as of this encounter Care Teams Drug Discovery Informatics Specialist Relationship Specialty Start Date End Date Pj Crenshaw MD 505 [place] [address] PCP - General Internal Medicine 01/15/20 documented as of this encounter
--- OUTSIDE RECORDS SUMMARY | 2025-07-30 16:09 | XMS_ITS | Clinical Summary ---
Author Organization 175 [facility] Address 175 [place] [address] Phone Care Team Providers Care Membership Solicitor Name Role Phone Pj Crenshaw Primary Care Provide r Social History Tobacco Use Types Packs/Day Years Used Date Smoking Tobacco: Never Assessed Comments Unknown Sex and Gender Information Value Date Recorded Sex Assigned at Not on file Legal Sex Female 3:59 AM EST Gender Identity Not on file Sexual Orientation Not on file Plan of Treatment Upcoming Encounters Date Type Department Care Team (Late st Contact Info) Description 08/30/2025 2:45 PM EST Office Visit [facility] [address] [phone] Damaso Perez, DPM [address] [phone] Health Maintenance Due Date Last Done Comments [...] Depression Screening 08/17/2024 COVID-19 Vaccine (1 - 2024-2 6 season) 2025 Influenza Vaccine (#1) 2025 RSV [...] on patient's age to complete this topic Insurance MEDICAID - [place] Care Teams Membership Solicitor Relationship Specialty Start Date End Date Pj Crenshaw NPHelen: [id number] [address] [place] [phone] PCP - General Internal Medicine 07/28/25
--- OUTSIDE RECORDS SUMMARY | 2025-07-30 16:09 | XMS_ITS | Encounter Summary ---
Author Organization [employer] Address [address] [facility] [address] 7t [place] [address] Care Team Providers Care Senior Project Leader/Team Lead Name Role Phone Pj Crenshaw MD Primary Care Prov ider Encounter Details Date Type Department Care Team ([facility] st Contact Info) Description 12/16/2023 Orders Only [facility] CHC MED & PEDS [address] [place], [place] [phone] ProviderKarly MD Social History Tobacco Use Types [...] * Surgical Pathology (09/18/2023 9:49 AM EST) [facility] Provider MD LAB PATHOLOGY ORDERABLES Final Result * Cytology, Conventional Pap Smear, 1 Slide (07/20/2023 9:54 AM EST) [facility] Provider MD LAB CYTOLOGY ORDERABLES F inal Result documented in this encounter Visit Diagnoses Not on filedocumented in this encounter Additional Health Concerns Assessment Noted Time PHQ-9 Depression Total Score: 2 11/20/19 23 8:47 AM EDT documented as of this encounter Care Teams Senior Project Leader/Team Lead Relationship Specialty Start Date End Date Pj Crenshaw MD [address] [place] [address] PCP - General Internal Medicine 01/15/20 documented as of this encounter
--- OUTSIDE RECORDS SUMMARY | 2025-07-30 16:09 | XMS_ITS | Encounter Summary ---
Author Organization [employer] Address 75 [facility] 7t [place] [address] Care Team Providers Care Grid Operator Name Role Phone Pj Crenshaw MD Primary Care Prov ider Encounter Details Date Type Department Care Team ([facility] Contact Info) Description 05/31/2024 Telephone [facility] CHC MED & PEDS 505 [place], [place] [phone] Pj Crenshaw MD 505 [place] [address] Social History Tobacco Use Types Packs/Day Years [...] documented as of this encounter Care Teams Grid Operator Relationship Specialty Start Date End Date Pj Crenshaw MD [address] [place] [address] PCP - General Internal Medicine 01/15/20 documented as of this encounter
--- OUTSIDE RECORDS SUMMARY | 2025-07-30 16:09 | XMS_ITS | Encounter Summary ---
Author Organization [employer] Address [address] [address] Care Team Providers Care Quality Assurance Analyst Name Role Phone Pj Crenshaw MD Primary Care Prov ider Reason for Visit * Reason Onset Date Comments Med Refill 04/20/2025 Encounter Details Date Type Department Care Team ([facility] Contact Info) Description 04/20/2025 Telephone [facility] MED & PEDS 505 [place] [address] Pj Crenshaw MD 505 [place] [address] Med Refill Social History Tobacco Use Types [...] [id number] [place], [place] - [address] [place] [address] [address] [facility] [address] documented in this encounter Plan of Treatment Not on file documented as of this encounter Visit Diagnoses Not on filedocumented in this encounter Additional Health Concerns Assessment Noted Time PHQ-9 Depression Total Score: 13 025 10:14 AM EST documented as of this encounter Care Teams Quality Assurance Analyst Relationship Specialty Start Date End Date Pj Crenshaw MD [address] [place] [address] PCP - General Internal Medicine 01/15/20 documented as of this encounter
== END 2025-07-30 16:00 | disposition home or self-care (01) ==
LOC: HO.MRI 15:59
PROVIDERS: PCP Urology
DX: S46.002A Unspecified injury of muscle(s) and tendon(s) of the rotator cuff of left shoulder, initial encounter (principal)
CPT/HCPCS: 73221

== ENCOUNTER → 2025-07-30 16:07 | Outpatient (BNV) | payer MEDICAID, SELFPAY | PROVIDERS: PCP Urology; Visit Provider Radiology Diagnostic Ultrasound | DX: M75.112 Incomplete rotator cuff tear or rupture of left shoulder, not specified as traumatic (principal); M75.32 Calcific tendinitis of left shoulder; M19.012 Primary osteoarthritis, left shoulder | CPT/HCPCS: 73221 ==

== ENCOUNTER 2025-08-09 10:47 | Outpatient (AMB) | payer MEDICAID, SELFPAY ==
--- NOTE | 2025-08-09 10:50 | MHC.OFFVIS ---
Intake Visit Reasons: 2m Allergies ciprofloxacin (From Cipro) Allergy (Mild, Unverified 08/09/25 10:55) RASH peanut (PEANUT) Allergy (Unknown, Unverified 08/09/25 10:55) ANAPHYLAXIS pollen Allergy (Unknown, Uncoded 08/09/25 10:55) unknown reaction from unknown medicati Allergy (Unknown, Uncoded 08/09/25 10:55) unknown unknown antibiotic Allergy (Unknown, Uncoded 08/09/25 10:55) itching, rash Medication List - Last Reconciled 08/09/25 by Patt Llanos, MARILEE albuterol sulfate 90 mcg/actuation 90 mcg inhalation QID aripiprazole 2 mg PO DAILY atorvastatin 10 mg PO BEDTIME cetirizine 10 mg PO QAM chlorthalidone 25 mg PO DAILY diclofenac sodium 75 mg PO BID duloxetine 30 mg PO BID gabapentin 300 mg PO TID hydroxyzine HCl 25 mg PO TID levothyroxine 137 mcg PO DAILY linaclotide (Linzess) 145 mcg PO DAILY lorazepam (Ativan) 2 mg PO BID PRN lorazepam 0.5 mg PO BID PRN montelukast (Singulair) 10 mg PO DAILY oxybutynin chloride 5 mg PO DAILY oxybutynin chloride ER (Ditropan XL) 5 mg PO DAILY pantoprazole 40 mg PO DAILY tirzepatide (weight loss) (Zepbound) 5 mg subcut QWEEK verapamil 40 mg PO BID 30 days zolpidem 10 mg PO BEDTIME HPI Comments Details: 55-year-old woman with history of childhood trauma, fibromyalgia type of pain syndrome, migraine headaches, and more recent concern of forgetfulness, although it is unclear when memory issues first started. (She reports difficulty remembering appointments, having trouble processing information and feeling slow, and relaying on GPS when driving). She has education up to 8th grade. 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 She was working with therapist and psychiatrist. She was doing okay. She was hesitant to start verapamil at first and waited about 3 weeks before starting medication. She was taking medication now, and headaches were a bit better. Headaches were still happening almost daily, but not as severe and was able to function. She was getting bad headache about 1x/week with photophobia, sonophobia, and nausea. She had significant anxiety, and was working with therapist and psychiatrist. Sleep was better some nights than others, using CPAP. [facility] Medical History (Updated 06/06/25 @ 13:51 by Patt Llanos BIOMATHEMATICIAN) Asthma Acid reflux Odynophagia Arthritis Chronic sinusitis Asthma Migraine headache Panic attacks Anxiety Depression Surgical History History of bilateral tubal ligation H/O abdominoplasty History of knee surgery History of carpal tunnel release History of varicose vein ligation Social History (Updated 03/28/25 @ 13:24 by Geovanna Javed COUNT INCLUDES [facility]) Household Members: Children Alcohol intake: never Patient Tobacco Use Status: Never used Tobacco Current occupational status: unemployed and disabled Current occupation: left handed Sexual orientation: Straight/Heterosexual Gender identity: Female Review of Systems Const Denies chills, Denies daytime sleepiness, Denies difficulty sleeping, Denies fatigue, Denies fever(s), Denies frequent falls, Reports headache(s), Denies increased appetite, Denies poor appetite, Denies snoring, Denies weakness, Denies weight gain and Denies weight loss Eyes Denies loss of vision ENT Denies vertigo, Denies dizziness and Reports headache(s) Card Denies chest pain at rest, Denies chest pain with activity, Denies syncope, Denies leg edema and Denies palpitations Resp Denies snoring GI Denies constipation, Denies heartburn, Denies diarrhea and Denies nausea Denies urinary frequency, Denies urinary incontinence and Denies urinary urgency Musc Denies abnormal gait, Denies numbness and Denies tingling Skin/Breast Denies dry skin and Denies rash Neuro Denies abnormal gait, Denies vertigo, Denies dizziness, Denies syncope, Denies frequent falls, Reports headache(s), Denies lack of coordination, Denies loss of vision, Reports memory loss, Denies numbness, Denies restless legs, Denies seizure-like activity, Denies tingling, Denies paresthesias, Denies tremor(s) and Denies weakness Psych Reports anxiety, Reports depression, Denies auditory hallucinations, Reports memory loss, Denies visual hallucinations and Denies suicidal ideation Endo Denies fatigue and Denies palpitations Physical Exam Const Other: General Appearance:? normal, in no acute distress. Skin:? no rashes, no significant birthmarks. Heart:? S1, S2 normal, no murmurs. Lungs:? clear anteriorly and posteriorly. Extremities:? no edema. Psych:? alert, oriented, cognitive function intact, cooperative with exam. Neuro Other: Mental Status:?Alert and awake with normal sp speech, fluency, affect although tearful and withdrawn at times. Cranial Nerves:?Pupils are equal, round and reactive to light. External occular muscles are intact. Visual kasper are full. Face is symmetrical. Facial sensations are normal. Tongue is midline. Palate elevates symmetrically. Shoulder shrugging is normal. Hearing to bedside conversation is normal. Sensory Exam:?....? Coordination:?No ataxia,?no titubation.? Gait Exam: Within normal limits. Extrapyramidal System:?No tremor, rigidity with normal facial expressions.? Pronator Drift:?Not present.? Involuntary Movements:?No tremors seen.? Speech:?Normal.? Results Reviewed Results Reviewed: Laboratory Tests 06/13/25 13:40 ESR 28 H C-Reactive Protein 0.51 H Labs 05/2025: ESR 32, CRP 1.88, TSH 0.27 CT head 05/27/2025: No acute intracranial findings. EEG 05/25/2025: Limited EEG because of constant motion but no obvious epileptic tendency MRI brain WO at [place] in May 2024: Mild MVD Assessment & Plan Assessment & Plan (1) Chronic migraine w/o aura w/o status migrainosus, not intractable: Code(s): G43.709 - Chronic migraine without aura, not intractable, without status migrainosus Category: Medical Plan: Labs reviewed. Increase verapamil 120mg ER 1 capsule daily. Follow up in 2 months or sooner as needed. (2) Fibromyalgia: Code(s): M79.7 - Fibromyalgia Category: Medical (3) Cerebral microvascular disease: Code(s): I67.89 - Other cerebrovascular disease Category: Medical (4) MCI (mild cognitive impairment): Code(s): G31.84 - Mild cognitive impairment of uncertain or unknown etiology Category: Medical Plan: Continue working with therapist and psychiatrist. Plan Meds tried for migraine: Botox, topiramate, duloxetine, gabapentin beta blockers contraindicated due to asthma Medications: New verapamil ER 120 mg PO DAILY 30 tabs 2RF 30 days Discontinued verapamil Discontinued Reason: Doctor's Order 40 mg PO BID 30 days 60 tabs 1RF Coding Level of Care Code Est Pt Level 4 (78735) Diagnoses Chronic migraine w/o aura w/o status migrainosus, not intractable G43.709 Fibromyalgia M79.7 Cerebral microvascular disease I67.89 MCI (mild cognitive impairment) G31.84
--- OUTSIDE RECORDS SUMMARY | 2025-08-09 10:50 | XMS_ITS | Encounter Summary ---
Author Organization [employer] Address [address] [place] [address] [place] [address] Care Team Providers Care Paving Plant Operator Name Role Phone Pj Crenshaw MD Primary Care Prov ider Encounter Details Date Type Department Care Team ([facility] st Contact Info) Description 05/18/2023 Telephone [facility] CHC MED & PEDS 505 [place], [place] [phone] Pj Crenshaw MD 505 [place] [address] Social History Tobacco Use Types Packs/Day Years [...] documented as of this encounter Care Teams Paving Plant Operator Relationship Specialty Start Date End Date Pj Crenshaw MD [address] [place] [address] PCP - General Internal Medicine 01/15/20 documented as of this encounter
--- OUTSIDE RECORDS SUMMARY | 2025-08-09 10:50 | XMS_ITS | Encounter Summary ---
Author Organization [employer] Address [address] [place] [address] Care Team Providers Care House Fellow Name Role Phone Pj Crensahw MD Primary Care Prov ider Reason for Visit * Reason Comments Med Refill Encounter Details Date Type Department Care Team (Late st Contact Info) Description 02/26/2023 Refill [facility] MEDICINE 230 [place], [place] [phone] Pj Crenshaw MD 505 [place] [address] Gastroesophageal reflux disease without esophagitis Social History [...] documented as of this encounter Care Teams House Fellow Relationship Specialty Start Date End Date Pj Crenshaw MD 505 [place] [address] PCP - General Internal Medicine 01/15/20 documented as of this encounter
--- OUTSIDE RECORDS SUMMARY | 2025-08-09 10:50 | XMS_ITS | Encounter Summary ---
Author Organization [employer] Address [address] [place] [address] Care Team Providers Care Librarian Specialist Name Role Phone Pj Crenshaw MD Primary Care Prov ider Reason for Visit * Reason Comments Med Refill Encounter Details Date Type Department Care Team ([facility] st Contact Info) Description 11/04/2022 Refill [facility] CHC MED & PEDS 505 [place] [address] Pj Crenshaw MD 505 [place] [address] Gastroesophageal reflux disease without esophagitis Social History [...] reflux documented in this encounter Care Teams Librarian Specialist Relationship Specialty Start Date End Date Pj Crenshaw MD 505 [place] [address] PCP - General Internal Medicine 01/15/20 documented as of this encounter
--- OUTSIDE RECORDS SUMMARY | 2025-08-09 10:50 | XMS_ITS | Encounter Summary ---
Author Organization [employer] Address 75 [facility] 7 [place] [address] Care Team Providers Care Drop Hammer Operator Helper Name Role Phone Pj Crenshaw MD Primary Care Prov ider Encounter Details Date Type Department Care Team ([facility] st Contact Info) Description 08/26/2023 Orders Only [facility] CHC MED & PEDS 505 [place], [place] [phone] Pj Crenshaw MD 505 [place] [address] Acquired hypothyroidism Social History Tobacco Use Types [...] documented as of this encounter Care Teams Drop Hammer Operator Helper Relationship Specialty Start Date End Date Pj Crenshaw MD [address] [place] [address] PCP - General Internal Medicine 01/15/20 documented as of this encounter
--- OUTSIDE RECORDS SUMMARY | 2025-08-09 10:50 | XMS_ITS | Encounter Summary ---
Author Organization [employer] Address 75 [facility] 7 [place] [address] Care Team Providers Care General Ledger Accountant Name Role Phone Pj Crenshaw MD Primary Care Prov ider Encounter Details Date Type Department Care Team ([facility] st Contact Info) Description 10/23/2023 Orders Only [facility] CHC MED & PEDS 505 [place], [place] [phone] Pj Crenshaw MD 505 [place] [address] Acquired hypothyroidism Social History Tobacco Use Types [...] documented as of this encounter Care Teams General Ledger Accountant Relationship Specialty Start Date End Date Pj Crenshaw MD [address] [place] [address] PCP - General Internal Medicine 01/15/20 documented as of this encounter
--- OUTSIDE RECORDS SUMMARY | 2025-08-09 10:50 | XMS_ITS | Encounter Summary ---
Author Organization [employer] Address [address] [place] [address] Care Team Providers Care Refinery Operator Alkylation Name Role Phone Pj Crenshaw MD Primary Care Prov ider Reason for Visit * Reason Comments Med Refill Encounter Details Date Type Department Care Team ([facility] Contact Info) Description 09/15/2024 Refill C CHC MED & PEDS 505 [place], [place] [phone] Pj Crenshaw MD 505 [place] [address] Social History Tobacco Use Types Packs/Day Years [...] documented as of this encounter Care Teams Refinery Operator Alkylation Relationship Specialty Start Date End Date Pj Crenshaw MD 505 [place] [address] PCP - General Internal Medicine 01/15/20 documented as of this encounter
--- OUTSIDE RECORDS SUMMARY | 2025-08-09 10:50 | XMS_ITS | Encounter Summary ---
Author Organization [employer] Address 75 [facility] 7t [place] [address] Care Team Providers Care Business Segment Manager Name Role Phone Pj Crenshaw MD Primary Care Prov ider Encounter Details Date Type Department Care Team ([facility] st Contact Info) Description 10/13/2023 Telephone [facility] MEDICINE 230 [place] [address] Pj Crenshaw MD 505 [place] [address] Social History Tobacco Use Types Packs/Day Years [...] documented as of this encounter Care Teams Business Segment Manager Relationship Specialty Start Date End Date Pj Crenshaw MD 505 [place] [address] PCP - General Internal Medicine 01/15/20 documented as of this encounter
--- OUTSIDE RECORDS SUMMARY | 2025-08-09 10:50 | XMS_ITS | Encounter Summary ---
Author Organization [employer] Address 75 [facility] 7 [place] [address] Care Team Providers Care Courtroom Deputy Or Calendar Clerk Name Role Phone Pj Crenshaw MD Primary Care Prov ider Encounter Details Date Type Department Care Team ([facility] st Contact Info) Description 08/12/2022 Telephone [facility] CHC MED & PEDS 505 [place], [place] [phone] Pj Crenshaw MD 505 [place] [address] Social History Tobacco Use Types Packs/Day Years [...] on filedocumented in this encounter Care Teams Courtroom Deputy Or Calendar Clerk Relationship Specialty Start Date End Date Pj Crenshaw MD 505 [place] [address] PCP - General Internal Medicine 01/15/20 documented as of this encounter
--- OUTSIDE RECORDS SUMMARY | 2025-08-09 10:51 | XMS_ITS | Encounter Summary ---
Author Organization [employer] Address [address] [facility] [address] [place] [address] Care Team Providers Care Director Of Consumer Marketing Name Role Phone Pj Crenshaw MD Primary Care Prov ider Encounter Details Date Type Department Care Team ([facility] st Contact Info) Description 05/09/2024 Orders Only [facility] CH[facility] MED & PEDS [address] [place], [place] [phone] ProviderKarly MD Social History Tobacco Use Types [...] AM EDT Narrative 06/13/2024 5:26 PM EDT [facility] [address] [place] [address] Mammography Report Signed with Ministerio Patient: Haley Valdovinos MR#: [id number] : 1970 Acct:[id number] Age/Sex: 54 / F ADM Date: 05/31/24 Loc: HO.MAMMJay Attending Dr: Pj Peguero MD Ordering Physician: Pj Crenshaw MD Results: 0Incomplete: Needs Additional Imaging Evaluation Date of Service: 05/31/24 Follow Up: Additional Imagi ng Procedure(s): MM tomosynthesis screening BI Accession Number(s): [id number] cc: Pj Crenshaw MD ADDENDUM ADDENDUM #1 [...] OV> 06/13/24 1722 DD/ 99 TD/TT: 05/31/241113 Professional Driver: Procedure Note Donotuseinterpreter, Image - 06/17/2024 [facility] [address] [place], [place] [address] Mammography Report Signed with Addenda Patient: Haley Valdovinos JMR#: [id number] : 1970Acct:[id number] Age/Sex: 54 / FADM Date: 05/31/24 Loc: HOMERVIN Attending Dr: Pj Peguero MD Ordering Physician: Pj Crenshaw MD Results: 0Incomplete: Needs Additional Imaging Evaluation Date of Service: 05/31/24Follow Up: Additional Imagi ng Procedure(s): MM tomosynthesis screening BI Accession Number(s): [id number] cc: Pj Crenshaw MD ADDENDUM ADDENDUM #1 [...] 06/13/24 1722 DD/ 1100 TD/TT: 05/31/24 1114 Professional Driver: Pj Peguero MD IMG BI PROCEDURES Edited [...] of this encounter Care Teams Director Of Consumer Marketing Relationship Specialty Start Date End Date Pj Crenshaw MD [address] [place] [id number] PCP - General Internal Medicine 01/15/20 documented as of this encounter
--- OUTSIDE RECORDS SUMMARY | 2025-08-09 10:51 | XMS_ITS | Encounter Summary ---
Author Organization [employer] Address [address] [address] Care Team Providers Care Supervisor Abattoir Name Role Phone Pj Crenshaw MD Primary Care Prov ider Reason for Visit * Reason Onset Date Comments Med Refill 04/20/2025 Encounter Details Date Type Department Care Team ([facility] Contact Info) Description 04/20/2025 Telephone [facility] MED & PEDS [address] [place] [address] Pj Crenshaw MD [address] [place] [address] Med Refill Social History Tobacco Use Types [...] MG EC tablet To be sent to: [id number] [place], [place] - [address] [place] [address] AT [address] OF [facility] [address] documented in this encounter Plan of Treatment Not on file documented as of this encounter Visit Diagnoses Not on filedocumented in this encounter Additional Health Concerns Assessment Noted Time PHQ-9 Depression Total Score: 13 025 10:14 AM EST documented as of this encounter Care Teams Supervisor Abattoir Relationship Specialty Start Date End Date Pj Crenshaw MD [address] [place] [address] PCP - General Internal Medicine 01/15/20 documented as of this encounter
--- OUTSIDE RECORDS SUMMARY | 2025-08-09 10:51 | XMS_ITS | Encounter Summary ---
Author Organization [employer] Address [address] [facility] [address] [place] [address] Care Team Providers Care Account Engineer Name Role Phone Pj Crenshaw MD Primary Care Prov ider Encounter Details Date Type Department Care Team ([facility] Contact Info) Description 05/31/2024 Telephone [facility] CHC MED & PEDS [address] [place], [place] [phone] Pj Crenshaw MD [address] [place] [address] Social History Tobacco Use Types Packs/Day Years [...] documented as of this encounter Care Teams Account Engineer Relationship Specialty Start Date End Date Pj Crenshaw MD [address] [place] [id number] PCP - General Internal Medicine 01/15/20 documented as of this encounter
--- OUTSIDE RECORDS SUMMARY | 2025-08-09 10:51 | XMS_ITS | Encounter Summary ---
Author Organization [employer] Address [address] [facility] [address] [place] [address] Care Team Providers Care Arbor Press Operator Name Role Phone Pj Crenshaw MD Primary Care Prov ider Encounter Details Date Type Department Care Team ([facility] st Contact Info) Description 07/07/2022 Orders Only [facility] CHC MED & PEDS [address] [place], [place] [phone] Farheen Luciano, RN [address] [place] [address] Social History Tobacco Use Types Packs/Day Years [...] on filedocumented in this encounter Care Teams Arbor Press Operator Relationship Specialty Start Date End Date Pj Crenshaw MD [address] [place] [address] PCP - General Internal Medicine 01/15/20 documented as of this encounter
--- OUTSIDE RECORDS SUMMARY | 2025-08-09 10:51 | XMS_ITS | Encounter Summary ---
Author Organization [employer] Address [address] [place] [address] Care Team Providers Care Assistant Store Manager Operations Name Role Phone Pj Crenshaw MD Primary Care Prov ider Reason for Visit * Reason Onset Date Comments Med Refill 08/12/2022 Encounter Details Date Type Department Care Team ([facility] Contact Info) Description 08/12/2022 Telephone [facility] CHC MED & PEDS [address] [place], [place] [phone] Pj Crenshaw MD [address] [place] [address] Med Refill Social History Tobacco Use Types [...] Docusate Sodium 100 mg Please send to [address] documented in this encounter Plan of Treatment Not on file documented as of this encounter Visit Diagnoses Not on filedocumented in this encounter Care Teams Assistant Store Manager Operations Relationship Specialty Start Date End Date Pj Crenshaw MD [address] [place] [id number] PCP - General Internal Medicine 01/15/20 documented as of this encounter
--- OUTSIDE RECORDS SUMMARY | 2025-08-09 10:51 | XMS_ITS | Encounter Summary ---
Author Organization [employer] Address [address] [place] [address] Care Team Providers Care Letter Stamping Machine Operator Name Role Phone Pj Crenshaw MD Primary Care Prov ider Reason for Visit * Reason Onset Date Comments Referral 08/12/2022 Appointment Request 08/12/2022 Encounter Details Date Type Department Care Team ([facility] Contact Info) Description 08/12/2022 Telephone [facility] CHC MED & PEDS [address] [place] [address] Pj Crenshaw MD [address] [place] [address] Referral; Appointment Request Social History Tobacco Use [...] reflux documented in this encounter Care Teams Letter Stamping Machine Operator Relationship Specialty Start Date End Date Pj Crenshaw MD [address] [place] [phone] PCP - General Internal Medicine 01/15/20 documented as of this encounter
--- OUTSIDE RECORDS SUMMARY | 2025-08-09 10:51 | XMS_ITS | Clinical Summary ---
Author Organization [facility] Address [address] [place] [address] Phone Care Team Providers Care Power System Engineer Name Role Phone Pj Crenshaw Primary Care [...] PM EST Office Visit [facility] [place] [address] [phone] Damaso Perez, DPM [address] [phone] Health Maintenance Due Date Last Done Comments [...] topic Insurance MEDICAID - [place] Care Teams Power System Engineer Relationship Specialty Start Date End Date Pj Crenshaw NPHelen: [id number] [address] [place] [phone] PCP - General Internal Medicine 07/28/25
--- OUTSIDE RECORDS SUMMARY | 2025-08-09 10:51 | XMS_ITS | Encounter Summary ---
Author Organization [employer] Address [address] [facility] [address] [place] [address] Care Team Providers Care Real Estate Professor Name Role Phone Pj Crenshaw MD Primary Care Prov ider Encounter Details Date Type Department Care Team ([facility] st Contact Info) Description 12/16/2023 Orders Only [facility] CHC MED & PEDS [address] [place], [place] [phone] ProviderKarly MD Social History Tobacco Use Types [...] * Surgical Pathology (09/18/2023 9:49 AM EST) [facility] Provider MD LAB PATHOLOGY ORDERABLES Final Result * Cytology, Conventional Pap Smear, 1 Slide (07/20/2023 9:54 AM EST) [facility] Provider MD LAB CYTOLOGY ORDERABLES F inal Result documented in this encounter Visit Diagnoses Not on filedocumented in this encounter Additional Health Concerns Assessment Noted Time PHQ-9 Depression Total Score: 2 11/20/19 23 8:47 AM EDT documented as of this encounter Care Teams Real Estate Professor Relationship Specialty Start Date End Date Pj Crenshaw MD [address] [place] [address] PCP - General Internal Medicine 01/15/20 documented as of this encounter
--- OUTSIDE RECORDS SUMMARY | 2025-08-09 10:51 | XMS_ITS | Clinical Summary ---
Author Organization [employer] Address [address] [place] [address] 7 [place] [address] Care Team Providers Care Sales Representative Printing Supplies Name Role Phone Pj Crenshaw MD Primary Care Prov ider Allergies Active Allergy Reactions Criticality Noted Date Comments Apple Juice 08/13/2022 Chocolate Hazelnut Flavoring Agent (Non-Screening) 08/13/2022 Clarithromycin 02/22/2014 Breckinridge Flavoring Agent (Non-Screening) 08/13/2022 Pear 08/13/2022 Pistachio [...] place referral for reevaluation, previously seen at [place] Impaired glucose tolerance 03/03/2023 Severe obesity (CMS/HCC) [...] Patient used to be followed by a refinery operator gas plant, will place referal Varicose veins of lower [...] colon 06/11/2022 07/27/2025 Benzodiazepine dependence, c ontinuous ([facility]) 11/24/2017 07/27/2025 Encounters Date Type Department Care Team Description 08/03/2025 Telephone [facility] & PEDS [address] [place] [address] Pj Crenshaw MD Prior Authorization 07/27/2025 10:30 AM EST Telemedicine [facility] MED & PEDS [address] [place] [address] Pj Crenshaw MD Pressure sensation in both ears (Primary Dx); Left foot pain; Acquired hypothyroidism 07/27/2025 Travel 07/26/2025 Refill [facility] MED & PEDS [address] [place] [address] Pj Crenshaw MD 07/26/2025 Telephone [facility] MED & PEDS [address] [place] [address] Pj Crenshaw MD chart prep 07/16/2025 Refill [facility] MED & PEDS [address] [place] [address] Kadie Ferrell MD Gastroesophageal reflux disease without esophagitis 06/22/2025 Refill [facility] MED [facility] PEDS [address] [place] [address] Pj Crenshaw MD Anaphylaxis, sequela 05/27/2025 Orders Only [facility] External Provider, [facility] 05/16/2025 Refill [facility] MED & PEDS [address] [place] [address] Pj Crenshaw MD 05/15/2025 10:00 AM EDT Telemedicine [facility] MED & PEDS [address] [place] [address] Pj Crenshaw MD Chronic constipation (Primary Dx); Severe obesity (BMI 35.0-39.9) with comorbidity (CMS/HCC) 05/15/2025 Travel from Last 3 Months Immunizations Immunization [...] years 1-dose series) 2022 COVID-19 Vaccine ( season) 2025 12/17/2021, 12/17/2021, [...] AM EDT Narrative 06/09/2025 8:59 AM EDT [facility] [address] [place] [address] Mammography Report Signed with Addenda Patient: Haley Valdovinos MR#: [id number] : 1970 Acct:[id number] Age/Sex: 55 / F ADM Date: 06/06/25 Loc: [facility] Attending Dr: Pj Peguero MD Ordering Physician: Pj Crenshaw MD Res ults: 1Negative Date of Service: 06/06/25 Follow Up: 1 Year From Orig inal Mammogram Procedure(s): MM tomosynthesis screening BI Accession Number(s): [id number] cc: Pj Crenshaw MD Reason For Exam: [...] 06/19/25 1448 Addendum Cosigned By: DD/ TD/TT: 10/ EXAMINATION: MM SCREENING DIGITAL BREAST TOMOSYNTHESIS, BILATERAL [...] DO Signed By: <Electronically signed by Lara Denins DO in OV> 06/09/25 0856 DD/ 1100 TD/TT: 06/06/25 1120 Merchandise Clerk: Procedure Note Donotuseinterpreter, Image - 06/19/2025 [facility] [address] [place] [address] Mammography Report Signed with Addenda Patient: Haley Valdovinos JMR#: [id number] : 1970Acct:[id number] Age/Sex: 55 / FADM Date: 06/06/25 Loc: HO.MAMMO Attending Dr: Pj Peguero MD Ordering Physician: Pj Crenshaw ults: 1Negative Date of Service: 06/06/25Follow Up: 1 Year From Orig inal Mammogram Procedure(s): MM tomosynthesis screening BI Accession Number(s): [id number] cc: Pj Crenshaw MD Reason For Exam: [...] 06/09/25 0856 DD/ 99 TD/TT: 06/06/25 112 Merchandise Clerk: Pj Peguero MD IMG BI PROCEDURES Edited Result - Final * CT Head w/o Contrast (05/31/2025 2:30 PM EDT) Anatomical Region Laterality Modality Head, Neck Computed Tomogra phy 05/31/2025 2:30 PM EDT Narrative 05/31/2025 2:31 PM EDT [address] [address] [address] Scan Report Signed Patient: Haley Valdovinos MR#: [id number] : 1970 Acct:[id number] Age/Sex: 55 / F ADM Date: 05/27/25 Loc: HO.CT Attending Dr: Patt Llanos CNP Ordering Physician: Patt Llanos CNP Date of Service: 05/27/25 Procedure(s): CT head/brain wo IV con Accession Number(s): [id number] cc: Pj Crenshaw MD; Patt Llanos CNP Report Number: [id number]: Total DLP = 790.00 mGy-cm Reason for [...] 05/31/25 1431 DD/ 1430 TD/TT: 05/31/25 1430 Merchandise Clerk: Procedure Note Donotuseinterpreter, Image - 05/31/[address] [address] [address] Scan Report Signed Patient: Haley Valdovinos JMR#: [id number] : 1970Acct:[id number] Age/Sex: 55 / FADM Date: 05/27/25 Loc: HO.CT Attending Dr: Patt Llanos CNP Ordering Physician: Patt Llanos CNP Date of Service: 05/27/25 Procedure(s): CT head/brain wo IV con Accession Number(s): [id number] cc: Pj Crenshaw MD; RomiPatt [employer] Report Number: [id number]: Total DLP = 790.00 mGy-cm Reason for [...] 05/31/25 1431 DD/ 1430 TD/TT: 05/31/25 1430 Merchandise Clerk: [facility] External Provider IMG CT PROCEDURES Final Result * Vitamin B12 (Cobalamin) and Folate Panel, Serum (05/25/2025 11:17 AM EDT) Vitamin B12 397 200 - 900 pg/mL [facility] Comment:NORMAL 200-900 PG/M L INDETERMINATE 160-199 PG/ML DEFICIENT < 160 PG/ML [...] ORDERAB LES Final Result Performing Organization Address City/[facility]/ZIP Co de Phone Number [facility] [address] [place] [phone] * (ABNORMAL) TSH with Reflex to Free T4 (05/25/2025 11:17 AM EDT) [facility] TSH reflex Free T4 0.27(L) 0.32 - 4.0 uIU/mL [facility] 05/25/2025 11:1 7 AM EDT 05/25/2025 11:17 AM EDT Generic External Data Provider LAB BLOOD ORDERAB LES Final Result Performing Organization Address [facility] Co de Phone Number [facility] [address] [place] [phone] * CBC auto differential (05/25/2025 11:17 AM EDT) [facility] White Blood Count 6.4 4.8 - [...] ORDERAB LES Final Result [facility] [address] [place] [address] [phone] * (ABNORMAL) Sed Rate by Modified [...] ORDERAB LES Final Result Performing Organization Address [facility] Co de Phone Number [facility] [address] [place] [phone] * (ABNORMAL) C-reactive Protein (05/25/2025 11:17 AM EDT) C Reactive Protein 1.88(H) < or = 0.50 mg/dL [facility] 05/25/2025 11:1 7 AM EDT 05/25/2025 11:17 AM EDT Generic External Data Provider LAB BLOOD ORDERAB LES Final Result Performing Organization Address [facility] Co de Phone Number [facility] [address] [place] [phone] * T4, Free (05/25/2025 11:17 AM EDT) Free T4 (Free Thyroxine) 1.56 0.71 - 1.85 ng/dL [facility] 05/25/2025 11:1 7 AM EDT 05/25/2025 11:17 AM EDT Generic External Data Provider LAB BLOOD ORDERAB LES Final Result Performing Organization Address [facility] Co de Phone Number [facility] [address] [place] [phone] * Hemoglobin A1c (05/25/2025 11:17 AM EDT) Hemoglobin A1c 5.0 <6.0 % [facility] Comment:Hemoglobin A1C Refer ence Range [...] asaverage glucose, using the formula of the A8O-HyhsaaiUuxcsya Glucose study (ADAG), Diabetes Care, Vol.31,#8,Mar. 2007 Blood Venous blood specimen / Unknown 05/25/2025 11:17 AM EDT 05/25/2025 11:17 AM EDT Pj Peguero MD LAB BLOOD ORDERABL ES Final Result Performing Organization Address [facility] Co de Phone Number [facility] [address] [place] [phone] * (ABNORMAL) Lipid Panel, Standard (05/25/2025 11:17 AM EDT) Triglycerides 68 <150 mg/dL [facility] Comment:Desirable Triglyceri de: less than [...] 190 mg/dL HDL Cholesterol 43 >40 mg/dL [facility] Comment:Desirable HDL: great er than 40 mg/dL Note: This HDL assay may give artificially low results in patients with liver disease. Blood Venous blood specimen / Unknown 05/25/2025 11:17 AM EDT 05/25/2025 11:17 AM EDT Pj Peguero MD LAB BLOOD ORDERABL ES Final Result Performing Organization Address City/[facility] Co de Phone Number [facility] [address] [place] [phone] * (ABNORMAL) Comprehensive Metabolic Panel (05/25/2025 [...] Kidney Disea se: Estimated GFR < 60 mL/min/1.84x5Xyklcf Kidney Disease: Estimated GFR < 15 mL/min/1.73m2 [...] ES Final Result [facility] [address] [place] [phone] * Pap Smear (07/20/2023 12:00 AM EST) Swab Historical Provider LAB CYTOLOGY ORDERABLES F inal Result Performing Organization Address City/[facility]/ZIP Co de Phone Number [facility] [address] [place] [address] * Hepatitis C Antibody with Reflex to HCV, RNA, Quantitative, Real-Time PCR (12/08/2022 9:49 AM EDT) Hepatitis C Antibody NON-REACT BRANDON NON-REACT BRANDON [facility] [place] [facility] Index 0.13 <1.00 [facility] [place] [facility] Comment: HCV antibody was non-reactive. There is no laboratory evidence of HCV infection. In most cases, no further action is required. However, if recent HCV exposure is suspected, a test for HCV RNA (test code 62570) is suggested. For additional information please refer to http://education.FX Aligned/faq/STG52r1 (This link is being provided for informational/ educational purposes only.) Blood Venous blood specimen / Unknown 12/08/2022 9:49 AM EDT 12/08/2022 9:50 AM EDT Narrative [facility] - 12/09/2022 7:27 AM EDT FASTING:YES FASTING: YES Pj Peguero MD LAB BLOOD ORDERABL ES Final Result Performing Organization Address City/[facility] Co de Phone Number [facility] [address], [place] [address] [facility] [place] [facility] [address] [place] [phone] * Hm Colonoscopy (06/10/2022) Colonoscopy Normal Normal Narrative Taylor Barbosa - 06/10/2022 Colonoscopy order added Historical Provider HEALTH MAINTENANCE Final Result * HPV mRNA E6/E7 (04/23/2021 9:09 AM EDT) HPV nRNA E6/E7 Not Detected Not Detected [facility] Comment: Methodology: Bail Bond Agent-Mediated Amplification This assay detects E6/E7 viral messenger RNA (mRNA) from 14 high-risk HPV types (16,18,31,33,35,39,45,51,52,56,58,59,66,68). The analytical performance characteristics of this assay have been determined by [facility]. The modifications have not been cleared or approved by the FDA. This assay has been validated pursuant to the CLIA regulations and is used for clinical purposes. For additional information, please refer to http://education.FX Aligned/faq/ECO754q0 (This link if provided for information/ educational purposes only.) 04/23/2021 9:09 AM EDT [facility] LAB BLOOD ORDERABLES Winter benavides Result Performing Organization Address [facility] Number [facility] Anywhere [address] * HIV AB/AG (10/12/2019 10:06 AM EST) [facility] HIV AG/AB NONREACTIVE NR FOUNDATI ON [...] of detection of this assay. The [employer] HIV Ag/Ab Combo assay result and supplemental assay results should be interpreted in conjunction with the patient's clinical presentation, history and other laboratory results. If the results are inconsistent with clinical evidence, additional testing is suggested to confirm the result. 10/12/2019 10:0 6 AM EST Historical Provider MD HISTORICAL/NON ORDERABLE LABS Final Result Performing Organization Address [facility] Phone Number [facility] Anywhere [address] from Last 3 Months or Most Recently Relevant to Health Maintenance Insurance [facility] C3 Advance Directives Documents on File Type Date Recorded Patient [place] [employer] Expl anation Advance Directives and Livin g Will 11/18/2024 4:14 PM HCP Care Teams Sales Representative Printing Supplies Relationship Specialty Start Date End Date Pj Crenshaw MD [address] [place] [phone] PCP - General Internal Medicine 01/15/20
--- OUTSIDE RECORDS SUMMARY | 2025-08-09 10:51 | XMS_ITS | Encounter Summary ---
Author Organization [employer] Address [address] [address] Care Team Providers Care Regional Program Manager Name Role Phone Pj Crenshaw MD Primary Care Prov ider Reason for Visit * Reason Onset Date Comments Appointment Request 04/14/2024 Encounter Details Date Type Department Care Team ([facility] st Contact Info) Description 04/14/2024 Telephone [facility] [address] [place] [address] Pj Crenshaw MD [address] [place] [address] Appointment Request Social History Tobacco Use Types [...] documented as of this encounter Care Teams Regional Program Manager Relationship Specialty Start Date End Date Pj Crenshaw MD [address] [place] [phone] PCP - General Internal Medicine 01/15/20 documented as of this encounter
--- OUTSIDE RECORDS SUMMARY | 2025-08-09 10:51 | XMS_ITS | Encounter Summary ---
Author Organization [employer] Address [address] [place] [address] Care Team Providers Care Care Navigator Name Role Phone Pj Crenshaw MD Primary Care Prov ider Reason for Visit * Reason Onset Date Comments Nurse Triage 12/21/2024 Encounter Details Date Type Department Care Team ([facility] st Contact Info) Description 12/21/2024 Telephone [facility] [address] [place] [address] Pj Crenshaw MD [address] [place] [address] Nurse Triage Social History Tobacco Use Types [...] received. Unable to leave message to call [facility]. * Telephone Encounter - Eva Felton - 12/21/2024 10:22 AM EDT Symptom: Urine Symptoms (Frequent urination) Outcome: Schedule a same-day appointment or talk to a nurse or provider today Reason: Caller denied all higher acuity questions The caller accepted this outcome. [phone] documented in this encounter Plan of Treatment Not on file documented as of this encounter Visit Diagnoses Not on filedocumented in this encounter Additional Health Concerns Assessment Noted Time PHQ-9 Depression Total Score: 13 025 10:14 AM EST documented as of this encounter Care Teams Care Navigator Relationship Specialty Start Date End Date Pj Crenshaw MD [address] [place] [address] PCP - General Internal Medicine 01/15/20 documented as of this encounter
--- OUTSIDE RECORDS SUMMARY | 2025-08-09 10:51 | XMS_ITS | Encounter Summary ---
Author Organization [employer] Address [address] [place] [phone] Care Team Providers Care Double Cutter Name Role Phone Pj Crenshaw MD Primary Care Prov ider Reason for Visit * Reason Onset Date Comments triage 08/12/2022 Encounter Details Date Type Department Care Team ([facility] st Contact Info) Description 08/12/2022 Telephone [facility] MED & PEDS [address] [place], [place] [phone] Pj Crenshaw MD [address] [place] [address] triage Social History Tobacco Use Types Packs/Day [...] on filedocumented in this encounter Care Teams Double Cutter Relationship Specialty Start Date End Date Pj Crenshaw MD [address] [place] [phone] PCP - General Internal Medicine 01/15/20 documented as of this encounter
== END 2025-08-09 11:11 | disposition home or self-care (01) ==
LOC: HO.HSM 10:47
PROVIDERS: PCP Internal Medicine; Visit Provider Registered Nurse
DX: G43.709 Chronic migraine without aura, not intractable, without status migrainosus (principal); M79.7 Fibromyalgia; I67.89 Other cerebrovascular disease; G31.84 Mild cognitive impairment of uncertain or unknown etiology
CPT/HCPCS: 99214

== ENCOUNTER → 2025-08-09 10:47 | Outpatient (BNVA) | payer MEDICAID, SELFPAY | PROVIDERS: PCP Internal Medicine; Visit Provider Registered Nurse | DX: G43.709 Chronic migraine without aura, not intractable, without status migrainosus (principal); M79.7 Fibromyalgia; J45.909 Unspecified asthma, uncomplicated; I67.89 Other cerebrovascular disease; Z79.899 Other long term (current) drug therapy | CPT/HCPCS: 99212 ==